=== PATIENT | male | born 1950 | race African-American/Black ===

== ENCOUNTER 2018-01-29 20:55 | Inpatient (IN) | payer OTHER, BC ==
--- OUTSIDE RECORDS SUMMARY | 2018-01-29 20:57 | XMS REPORT | Clinical Summary ---
:1950 Author Organization [facility] Address [address] [place] [address] Care Team Providers Name Role Phone Asked, No Pcp Primary Care Provider Unavailable Allergies No Known Allergies Current Medications Prescription Sig. Disp. Refills Start Date End Date Status cinacalcet Take 60 mg by Active (SENSIPAR) 60 MG mouth every tablet morning. metoprolol Take 50 mg by Active tartrate mouth 2 (two) (LOPRESSOR) 50 mg times a day. tablet sevelamer Take 1,600 mg Active (RENVELA) 800 mg by mouth 3 tablet (three) times a day with meals. isosorbide Take 60 mg by Active mononitrate mouth every (IMDUR) 60 MG 24 morning. hr tablet apixaban (ELIQUIS) Take 1 tablet 60 tablet 0 01/16/2017 02/15/2017 2.5 mg tablet (2.5 mg total) by mouth 2 (two) times a day for 30 days. traMADol (ULTRAM) Take 1 tablet 30 tablet 0 01/16/2017 02/15/2017 50 mg tablet (50 mg total) by mouth every 8 (eight) hours as needed for moderate pain or severe pain for up to 30 days. darbepoetin Inject 0.5 mL 2 mL 0 01/16/2017 01/29/2017 Discontinued ochoa-polysorbate (100 mcg total) (ARANESP) 100 under the skin mcg/0.5 mL once a week at syringeIndications 4pm for 30 days : ESRD on Dialysis Indications: ESRD on Dialysis. HYDROcodone-acetam Take 0.5 01/16/2017 02/15/2017 inophen (NORCO) tablets by 10-325 mg per mouth every 8 tablet (eight) hours as needed for moderate pain or severe pain for up to 30 days. Max Daily Amount: 1.5 tablets atorvastatin Take 1 tablet 30 tablet 0 01/16/2017 02/15/2017 (LIPITOR) 40 MG (40 mg total) tablet by mouth nightly for 30 days. aspirin 81 mg Chew 1 tablet 30 tablet 0 01/17/2017 02/16/2017 chewable tablet (81 mg total) daily for 30 days. epoetin ochoa Inject 10,000 01/31/2017 Discontinued (EPOGEN) 10,000 Units under the unit/mL injection skin 3 (three) times a week. Receives 3 times a week on , , Sat at dialysis colchicine 0.6 mg Take 0.5 30 tablet 5 02/01/2017 03/03/2017 tablet tablets (0.3 mg total) by mouth 2 (two) times a day for 30 days. famotidine Take 1 tablet 30 tablet 1 02/01/2017 03/03/2017 (PEPCID) 40 MG (40 mg total) tablet by mouth daily for 30 days. TAKE WHEN TAKING IBUPROFEN ibuprofen Take 1 tablet 30 tablet 1 02/01/2017 03/03/2017 (ADVIL,MOTRIN) 800 (800 mg total) MG tablet by mouth every 12 (twelve) hours as needed for mild pain or moderate pain for up to 30 days. 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 DVT (deep venous thrombosis) 01/26/2017 ESRD (end stage renal disease) 01/26/2017 Systolic congestive heart failure 01/26/2017 Anasarca 01/26/2017 Supratherapeutic INR 01/10/2017 Encounters Date Type Specialty Care Team Description 01/31/2017 Anesthesia Event Ophthalmology Fanta Vanegas MD 01/31/2017 Procedure Pass Ophthalmology 01/31/2017 Surgery Ophthalmology Luiza Greene MD LEFT UPPER EXTREMITY FISTULOGRAM, CENTRAL VENOGRAM, ANGIOPLASTY 01/30/2017 Procedure Pass Procedural Cardiology 01/29/2017 Procedure Pass Ophthalmology 01/28/2017 Procedure Pass Ophthalmology 01/26/2017 - Hospital Encounter General Internal [facility], ESRD (end stage 02/01/2017 Medicine renal disease) (Primary Dx) after 01/28/2017 Social History Tobacco Use Types Packs/Day Years Used Date Former Smoker Alcohol Use Drinks/Week oz/Week Comments No Sex Assigned at Date Recorded Not on file Last Filed Vital Signs Vital Sign Reading Time Taken Blood Pressure 130/69 02/01/2017 12:15 PM CDT Pulse 73 02/01/2017 12:15 PM CDT Temperature 36.4 C (97.6 F) 02/01/2017 12:15 PM CDT Respiratory Rate 19 02/01/2017 12:15 PM CDT Oxygen Saturation 97% 02/01/2017 12:15 PM CDT Inhaled Oxygen Concentration - - Weight 115 kg (253 lb) 02/01/2017 6:50 AM CDT Height 190.5 cm (6' 3") 01/31/2017 12:29 PM CDT Body Mass Index 31.62 02/01/2017 6:50 AM CDT Plan of Treatment Health Maintenance Due Date Last Done Comments COLON CANCER SCREENING 1998 SHINGRIX VACCINE (#1) 1998 ZOSTER VACCINE 2008 PNEUMOCOCCAL POLYSACCHARIDE VACCINE AGE 65 AND OVER 2013 PNEUMOCOCCAL-13 2013 INFLUENZA VACCINE 03/26/2018 Implants Implanted Type Area Marketing Financial Analyst Device Expiration Model / Identifier Date Serial / Lot Catheter Angio Molder Machine Tender Ii 5fr 65cm Selc Braidd Torque [place] - [id number] Surgical N/A: N/A BSC PERIPHERAL [id number] / Implanted: 01/31/2017 (Quantity not on file) Implants; INTERVENTION / Expanders; VASCULAR REAGAN Extenders; Surgical Wires Abdominal Mesh Procedures Procedure Name Priority Date/Time Associated Diagnosis Comments LEFT UPPER EXTREMITY 01/31/2017 11:30 AM Dialysis complication, FISTULOGRAM, CENTRAL CDT initial encounter VENOGRAM, ANGIOPLASTY Case Notes REQ TO FOLLOW DR SANTOS Special Needs REQ TO FOLLOW DR SANTOS HEMODIALYSIS Routine 01/30/2017 9:22 PM CDT HEMODIALYSIS Routine 01/29/2017 9:43 AM CDT HEMODIALYSIS Routine 01/29/2017 12:05 AM CDT after 01/28/2017 Results XR Chest 2 Vw (01/31/2017 5:56 PM) Specimen [facility] [address] [place] [address] Narrative XR CHEST 2 VW CLINICAL INDICATION:pre op COMPARISON:01/29/2017. IMPRESSION: The heart is enlarged and stable with changes poststernotomy. Pulmonary vascularity is normal. There is no effusion or pneumothorax. Bones appear intact. There is no active disease or interval change. Thank you for allowing us to participate in the care of your patient. [facility]-[id number] Procedure Note Interface, Radiology Results Incoming - 01/31/2017 6:01 PM CDT XR CHEST 2 VW CLINICAL INDICATION: pre op COMPARISON: 01/29/2017. IMPRESSION: The heart is enlarged and stable with changes poststernotomy. Pulmonary vascularity is normal. There is no effusion or pneumothorax. Bones appear intact. There is no active disease or interval change. Thank you for allowing us to participate in the care of your patient. [facility]-[id number] [place] > I Hour (01/31/2017 2:35 PM) Specimen Performing Laboratory [address] [address] Narrative Examination: [place] 1 HOUR Clinical history: Atherosclerosis Comparison: None Impression: Fluoroscopic guidance was provided. A radiologist was not present. Images were not acquired for formal radiologist interpretation. Fluoroscopy time: 98 seconds. 21.5 MG Y. [facility]-[id number] Procedure Note Interface, Radiology Results Incoming - 01/31/2017 5:30 PM CDT Examination: OR [place] 1 HOUR Clinical history: Atherosclerosis Comparison: None Impression: Fluoroscopic guidance was provided. A radiologist was not present. Images were not acquired for formal radiologist interpretation. Fluoroscopy time: 98 seconds. 21.5 MG Y. [facility]-[id number] POC glucose (01/31/2017 12:37 PM)Only the most recent of6 resultswithin the time period is included. Component Value Ref Range POC glucose 94 65 - 99 mg/dL Comment: [facility] Notified RN Meter ID: [id number] Instructor Robotics: Dee Long Specimen Performing Laboratory [facility] DEPARTMENT OF PATHOLOGY AND GENOMIC MEDICINE [address] [place] [phone] Estimated GFR (01/31/2017 11:00 AM)Only the most recent of5 resultswithin the time period is included. Component Value Ref Range GFR Non Af Amer 19 (A) mL/min/1.73 m2 GFR Af Amer 23 (A) mL/min/1.73 m2 Comment: Chronic kidney disease: <60 mL/min/1.73m2 Kidney failure: <15 mL/min/1.73m2 The estimated GFR is calculated from the IDMS-traceable Modification of Diet in Renal Disease Equation. The accuracy of the calculation is poor when the creatinine is normal. Calculated values >90 mL/min/1.73m2 are not reported. This equation has not been validated in children (<18 years), women, the elderly (>70 years), or ethnic groups other than Caucasians and Americans. Specimen Performing Laboratory Plasma specimen [facility] DEPARTMENT OF PATHOLOGY AND GENOMIC MEDICINE [address] [place] [address] Basic metabolic panel (01/31/2017 11:00 AM)Only the most recent of2 resultswithin the time period is included. Component Value Ref Range Sodium 138 135 - 148 mEq/L Potassium 3.3 (L) 3.5 - 5.0 mEq/L Chloride 93 (L) 98 - 112 mEq/L CO2 29 24 - 31 mEq/L Anion gap 16 (H) 7 - 15 mEq/L Comment: Starting from November , anion gap calculation no longer incorporates potassium. Please note the change. BUN 15 8 - 23 mg/dL Creatinine 3.3 (H) 0.7 - 1.2 mg/dL Glucose 94 65 - 99 mg/dL Calcium 8.2 (L) 8.8 - 10.2 mg/dL Specimen Performing Laboratory Plasma specimen [facility] DEPARTMENT OF PATHOLOGY AND GENOMIC MEDICINE [address] [place] [phone] ECG Pre/Post Op (01/31/2017 7:09 AM) Component Value Ref Range Ventricular rate 86 Atrial rate 86 CO interval 164 QRSD interval 110 QT interval 392 QTC interval 469 P axis 1 58 QRS axis 1 17 T wave axis 139 EKG impression Sinus rhythm with frequent premature ventricular complexes- Possible Left atrial enlargement-ST & T wave abnormality, consider anterolateral ischemia-Prolonged QT-Abnormal ECG-In automated comparison with ECG of 29-JAN-2017 05:06,-premature ventricular complexes are now present- Specimen Performing Laboratory [facility] MUSE [address] [place] [address] Manual differential (01/31/2017 6:22 AM)Only the most recent of2 resultswithin the time period is included. Component Value Ref Range Manual differential PERFORMED Neutrophils 75.0 (H) 39.0 - 69.0 % Lymphocytes 19.0 (L) 25.0 - 45.0 % Monocytes 6.0 0.0 - 10.0 % Eosinophils 0.0 0.0 - 5.0 % Basophils 0.0 0.0 - 1.0 % Metamyelocytes 0 % Promyelocytes 0 % Platelet slide review Louie adequate Anisocytosis Moderate Polychromasia Moderate Ovalocytes Moderate Rouleaux Slight Specimen Performing Laboratory [facility] DEPARTMENT OF PATHOLOGY AND GENOMIC MEDICINE [address] [place] [address] Partial thromboplastin time, activated (01/31/2017 6:22 AM)Only the most recent of2 resultswithin the time period is included. Component Value Ref Range PTT 37.0 (H) 23.0 - 36.0 sec Comment: PTT therapeutic range for unfractionated heparin is 61.0-112.0 seconds which corresponds to Anti-Xa 0.3-0.7 U/ml. Specimen Performing Laboratory Blood [facility] DEPARTMENT OF PATHOLOGY AND [facility] MEDICINE [address] [place] [address] Prothrombin time with INR (01/31/2017 6:22 AM)Only the most recent of3 resultswithin the time period is included. Component Value Ref Range Prothrombin time 18.7 (H) 12.0 - 15.0 sec INR 1.6 Comment: The International Normalized Ratio (INR) is a therapeutic monitoring tool for patients who are stable on oral anticoagulant therapy. An INR of 2.0-3.0 is suggested for deep vein thrombosis/pulmonary embolism. Specimen Performing Laboratory Blood [facility] DEPARTMENT OF PATHOLOGY AND [facility] MEDICINE [address] [place] [phone] CBC with platelet and differential (01/31/2017 6:22 AM)Only the most recent of3 resultswithin the time period is included. Component Value Ref Range WBC 9.70 4.50 - 11.00 k/uL RBC 2.58 (L) 4.40 - 6.00 m/uL HGB 7.6 (L) 14.0 - 18.0 g/dL HCT 25.2 (L) 41.0 - 51.0 % MCV 97.7 82.0 - 100.0 fL MCH 29.5 27.0 - 34.0 pg MCHC 30.2 (L) 31.0 - 37.0 g/dL RDW - SD 72.7 (H) 37.0 - 55.0 fL MPV 9.0 8.8 - 13.2 fL Platelet count 182 150 - 400 k/uL Nucleated RBC 0.00 /100 WBC Neutrophils 75.0 (H) 39.0 - 69.0 % Lymphocytes 19.0 (L) 25.0 - 45.0 % Monocytes 6.0 0.0 - 10.0 % Eosinophils 0.0 0.0 - 5.0 % Basophils 0.0 0.0 - 1.0 % Specimen Performing Laboratory Blood [facility] DEPARTMENT OF PATHOLOGY AND GENOMIC MEDICINE [address] [place] [address] Hemoglobin A1c (01/31/2017 6:22 AM) Component Value Ref Range Hemoglobin A1C 5.0 4.0 - 5.6 % Comment: HbA1c cutoffs for diagnosing diabetes: 4.0% - 5.6%=normal 5.7% - 6.4%=increased risk for diabetes (prediabetes) >=6.5%=diabetes Goals for glycemic control (ADA 2016) < 7.0%Target for non adults with diabetes. More or less stringent targets may be appropriate for individual patients. <7.5% Target for Children and adolescents with type 1 diabetes. Specimen Performing Laboratory Blood [facility] OF PATHOLOGY AND [facility] [address] [place] [address] Comprehensive metabolic panel (01/31/2017 6:22 AM)Only the most recent of3 resultswithin the time period is included. Component Value Ref Range Sodium 132 (L) 135 - 148 mEq/L Potassium 4.8 3.5 - 5.0 mEq/L Chloride 90 (L) 98 - 112 mEq/L CO2 24 24 - 31 mEq/L Anion gap 18 (H) 7 - 15 mEq/L Comment: Starting from November , anion gap calculation no longer incorporates potassium. Please note the change. BUN 40 (H) 8 - 23 mg/dL Creatinine 7.7 (H) 0.7 - 1.2 mg/dL Glucose 99 65 - 99 mg/dL Calcium 7.8 (L) 8.8 - 10.2 mg/dL Protein 7.3 6.3 - 8.3 g/dL Comment: [place] 4.6-7.0 g/dL 1 week 4.4-7.6 g/dL 7 months-1year5.1-7.3 g/dL 1-2 years5.6-7.5 g/dL >3 years6.0-8.0 g/dL 18-150 6.3-8.3 g/dL Albumin 1.8 (L) 3.5 - 5.0 g/dL A/G ratio 0.3 (L) 0.7 - 3.8 Alkaline phosphatase 134 (H) 40 - 129 U/L AST 9 (L) 10 - 50 U/L ALT 6 5 - 50 U/L Total bilirubin 0.4 0.0 - 1.2 mg/dL Specimen Performing Laboratory Plasma specimen [facility] DEPARTMENT OF PATHOLOGY AND GENOMIC MEDICINE [address] [place] [address] CBC hemogram (01/30/2017 2:44 AM) Component Value Ref Range WBC 9.75 4.50 - 11.00 k/uL RBC 2.43 (L) 4.40 - 6.00 m/uL HGB 7.3 (L) 14.0 - 18.0 g/dL HCT 23.9 (L) 41.0 - 51.0 % MCV 98.4 82.0 - 100.0 fL MCH 30.0 27.0 - 34.0 pg MCHC 30.5 (L) 31.0 - 37.0 g/dL RDW - SD 75.2 (H) 37.0 - 55.0 fL MPV 9.5 8.8 - 13.2 fL Platelet count 180 150 - 400 k/uL Nucleated RBC 0.00 /100 WBC Specimen Performing Laboratory Blood [facility] DEPARTMENT OF PATHOLOGY AND GENOMIC MEDICINE [address] [place] [phone] XR Chest 1 Vw Portable (01/29/2017 7:07 PM) Specimen Performing Laboratory [facility] [address] [place] [address] Narrative EXAMINATION:XR CHEST 1 VW PORTABLE CLINICAL HISTORY:Pre-Op COMPARISON:January 11, 2017 IMPRESSION: 1.There has been a sternotomy. Heart size is at the upper limits normal. 2.No infiltrates or effusions are seen. [facility]-[id number] Procedure Note Interface, Radiology Results Incoming - 01/29/2017 7:24 PM CDT EXAMINATION: XR CHEST 1 VW PORTABLE CLINICAL HISTORY: Pre-Op COMPARISON: January 11, 2017 IMPRESSION: 1. There has been a sternotomy. Heart size is at the upper limits normal. 2. No infiltrates or effusions are seen. [facility]-[id number] ECG 12 lead (01/29/2017 5:06 AM) Component Value Ref Range Ventricular rate 74 Atrial rate 74 CO interval 162 QRSD interval 114 QT interval 414 QTC interval 459 P axis 1 65 QRS axis 1 2 T wave axis 149 EKG impression Normal sinus rhythm-ST & T wave abnormality, consider anterolateral ischemia-Abnormal ECG-In automated comparison with ECG of 2016 08:38,-premature ventricular complexes are no longer present-premature atrial complexes are no longer present- : 43 PM Specimen Performing Laboratory [facility] [address] [place] [address] Phosphorus level (01/29/2017 3:50 AM)Only the most recent of2 resultswithin the time period is included. Component Value Ref Range Phosphorus 4.7 (H) 2.4 - 4.5 mg/dL Specimen Performing Laboratory Plasma specimen [facility] DEPARTMENT OF PATHOLOGY AND GENOMIC MEDICINE [address] [place] [address]67 Magnesium level (01/29/2017 3:50 AM)Only the most recent of2 resultswithin the time period is included. Component Value Ref Range Magnesium 1.8 1.6 - 2.4 mg/dL Specimen Performing Laboratory Plasma specimen [facility] DEPARTMENT OF PATHOLOGY AND GENOMIC MEDICINE [address] [place] [address] Smear review (01/29/2017 3:15 AM) Component Value Ref Range Platelet slide review Louie adequate Anisocytosis Moderate Polychromasia Moderate Spherocytes Occasional Ovalocytes Moderate Specimen Performing Laboratory [facility] DEPARTMENT OF PATHOLOGY AND GENOMIC MEDICINE [address] [place] [address] after 01/28/2017 Insurance Payer Benefit Plan / Group Subscriber ID Type Phone Address MEDICARE MEDICARE PART A AND B xxxxxxxxxx Medicare [place], [place] BCBS BCBS CHOICE PPO/F[employer]ERAL EMPL PPO xxxxxxxxxxxx PPO Home: [facility] [employer] [facility] [id number] [id number]
[2018-01-29] MEDS ORDERED: MORPHINE 4 MG/ML SYR ONE (22:05)
[2018-01-29] MEDS ORDERED: ONDANSETRON 4 MG/2 ML VIAL ONE (22:06)
[2018-01-29 22:07] LABS: Absolute Lymphocytes (CBC) 0.9 K/uL (0.7-4.9); Absolute Monocytes 0.4 K/uL (0.1-1.3); Absolute Neutrophil 2.2 K/uL (1.8-8.0); Basophils % 0.6 % (0-1.3); Eosinophils % 0.9 % (0-4.4); Hematocrit 25.9 % (39.6-49.0); Lymphocytes % 26.1 % (15.3-44.8); MCH 28.7 pg (27.0-35.0); MCV 89.4 fL (80-100); MPV 7.4 fL (7.6-11.3); Monocytes % 11.6 % (3.3-12.3); RBC Red Blood Cell Count 2.89 M/uL (4.33-5.43)
[2018-01-29] MEDS ORDERED: APIXABAN 2.5 MG TABLET ONE (22:10)
[2018-01-29 22:24] LABS: Albumin 2.9 g/dL (3.2-5.5); Bilirubin Direct 0.1 mg/dL (0-0.2); Bilirubin Total 0.5 mg/dL (0.3-1.2); Magnesium 1.7 mg/dL (1.8-2.5); Protein, Total 9.1 g/dL (6.0-8.3)
[2018-01-29 22:26] LABS: CKMB Creatine Kinase MB 1.6 ng/ml (0.3-4.0)
[2018-01-29 22:39] LABS: Protime INR 1.2
--- NOTE | 2018-01-29 23:47 | EDPHYS ---
Physician Documentation [facility] Name: Nain Cartagena Jr Age: 67 yrs Sex: Male : 1950 Arrival Date: 01/29/2018 Time: 20:56 Bed 8 Private MD: ED Physician Yvan Prescott HPI: 01/29 21:58 This 67 yrs old Black Male presents to ER via EMS with complaints of Chest Pressure, sarika Shortness Of Breath. 21:58 The patient or guardian reports chest pain that is located primarily in the substernal sarika area. Onset: 2 day(s) ago. The pain does not radiate. Associated signs and symptoms: The patient has no apparent associated signs or symptoms. The chest pain is described as a heaviness, causing indigestion. Modifying factors: The symptoms are alleviated by nothing. the symptoms are aggravated by activity. Severity of pain: At its worst the pain was mild in the emergency department the pain has resolved. The patient has experienced similar episodes in the past. Historical: - Allergies: 21:03 No Known Allergies; tl2 - Home Meds: 21:03 acetaminophen-codeine 300-30 mg Oral tab [Active]; Alinia 500 mg Oral tab 1 tab twice a tl2 day [Active]; Allopurinol 50 mg Oral 1 tab once daily [Active]; aspirin 81 mg Oral chew 1 tab once daily [Active]; atorvastatin 40 mg Oral tab 1 tab once daily [Active]; colchicine 0.6 mg Oral cap 1 cap 2 times per day [Active]; Eliquis 2.5 mg Oral tab 1 tab 2 times per day [Active]; hydrocodone-acetaminophen 10-325 mg Oral tab TID [Active]; Klonopin 0.5 mg Oral tab 1 tab 2 times per day [Active]; metoprolol tartrate 25 mg Oral tab 1 tab twice a day [Active]; pantoprazole 40 mg Oral TbEC 1 tab once daily [Active]; Renvela 800 mg Oral tab 1 tab 3 times per day [Active]; sertraline 50 mg Oral tab once daily [Active]; tramadol 50 mg Oral tab 1 tab twice a day for Pain [Active]; - PMHx: 21:03 CHF; DIALYSIS Saturday, and saturdays; ESRD; Hypertension; Diabetes - NIDDM; tl2 - Immunization history:: Adult Immunizations up to date. - Social history:: Smoking status: Patient/guardian denies using tobacco. - Ebola Screening: : No symptoms or risks identified at this time. - Family history:: not pertinent. ROS: 21:58 Constitutional: Negative for fever, chills, and weight loss, Eyes: Negative for injury, sarika pain, redness, and discharge, ENT: Negative for injury, pain, and discharge, Neck: Negative for injury, pain, and swelling, Respiratory: Negative for shortness of breath, cough, wheezing, and pleuritic chest pain, Abdomen/GI: Negative for abdominal pain, nausea, vomiting, diarrhea, and constipation, Back: Negative for injury and pain, : Negative for injury, bleeding, discharge, and swelling, MS/Extremity: Negative for injury and deformity, Skin: Negative for injury, rash, and discoloration, Neuro: Negative for headache, weakness, numbness, tingling, and seizure, Psych: Negative for depression, anxiety, suicide ideation, homicidal ideation, and hallucinations, Allergy/Immunology: Negative for hives, rash, and allergies, Endocrine: Negative for neck swelling, polydipsia, polyuria, polyphagia, and marked weight changes, Hematologic/Lymphatic: Negative for swollen nodes, abnormal bleeding, and unusual bruising. 21:58 Cardiovascular: Positive for chest pain, of the chest. Exam: 21:58 Constitutional: This is a well developed, well nourished patient who is awake, alert, sarika and in no acute distress. Head/Face: Normocephalic, atraumatic. Eyes: Pupils equal round and reactive to light, extra-ocular motions intact. Lids and lashes normal. Conjunctiva and sclera are non-icteric and not injected. Cornea within normal limits. Periorbital areas with no swelling, redness, or edema. ENT: Nares patent. No nasal discharge, no septal abnormalities noted. Tympanic membranes are normal and external auditory canals are clear. Oropharynx with no redness, swelling, or masses, exudates, or evidence of obstruction, uvula midline. Mucous membranes moist. Neck: Trachea midline, no thyromegaly or masses palpated, and no cervical lymphadenopathy. Supple, full range of motion without nuchal rigidity, or vertebral point tenderness. No Meningismus. Chest/axilla: Normal chest wall appearance and motion. Nontender with no deformity. No lesions are appreciated. Cardiovascular: Regular rate and rhythm with a normal S1 and S2. No gallops, murmurs, or rubs. Normal PMI, no JVD. No pulse deficits. Respiratory: Lungs have equal breath sounds bilaterally, clear to auscultation and percussion. No rales, rhonchi or wheezes noted. No increased work of breathing, no retractions or nasal flaring. Abdomen/GI: Soft, non-tender, with normal bowel sounds. No distension or tympany. No guarding or rebound. No evidence of tenderness throughout. Back: No spinal tenderness. No costovertebral tenderness. Full range of motion. Male : Normal genitalia with no discharge or lesions. Skin: Warm, dry with normal turgor. Normal color with no rashes, no lesions, and no evidence of cellulitis. Neuro: Awake and alert, GCS 15, oriented to person, place, time, and situation. Cranial nerves II-XII grossly intact. Motor strength 5/5 in all extremities. Sensory grossly intact. Cerebellar exam normal. Normal gait. Psych: Awake, alert, with orientation to person, place and time. Behavior, mood, and affect are within normal limits. 21:58 Musculoskeletal/extremity: ROM: full active range of motion, full passive range of motion, Circulation is intact in all extremities. Sensation intact. Compartment Syndrome exam of affected extremity: is normal. DVT Exam: no pain, no tenderness, negative Homans' sign noted on exam, no appreciated bluish discoloration, no erythema, no increased warmth, swelling. Vital Signs: 21:03 BP 146 / 77; Pulse 110; Resp 22; Temp 97.9(O); Pulse Ox 100% on R/A; Weight 113.4 kg; tl2 Height 5 ft. 10 in. (177.80 cm); Pain 6/10; 22:32 BP 126 / 78; Pulse 103; Resp 8; Pulse Ox 100% ; rv 23:18 BP 130 / 77; Pulse 102; Resp 17; Pulse Ox 100% on R/A; tl2 23:27 BP 130 / 77; Pulse 101; Resp 8; Pulse Ox 100% on R/A; rv 07 00:35 BP 103 / 56; Pulse 91; Resp 19; Pulse Ox 100% on R/A; tl2 01/29 21:03 Body Mass Index 35.87 (113.40 kg, 177.80 cm) tl2 MDM: 01/29 21:32 Patient medically screened. [facility] 22:01 Data reviewed: vital signs, nurses notes, lab test result(s), EKG, radiologic studies, sarika plain films. 01/29 21:45 Order name: Basic Metabolic Panel; Complete Time: 23:34 tl2 01/29 21:45 Order name: BNP; Complete Time: 23:34 2 01/29 21:45 Order name: CBC with Diff; Complete Time: 23:34 tl2 01/29 21:45 Order name: Ckmb; Complete Time: 23:34 tl2 01/29 21:45 Order name: CPK; Complete Time: 23:34 2 01/29 21:45 Order name: LFT's; Complete Time: 23:34 2 01/29 21:45 Order name: Magnesium; Complete Time: 23:34 2 01/29 21:45 Order name: PT-INR; Complete Time: 23:34 2 01/29 21:45 Order name: Ptt, Activated; Complete Time: 23:34 2 01/29 21:45 Order name: Troponin (emerg Dept Use Only); Complete Time: 23:34 2 01/29 21:45 Order name: XRAY Chest (1 view) [place] 01/29 23:38 Order name: Type And Screen [facility] 01/29 23:53 Order name: Echo with Doppler [facility] 01/30 00:52 Order name: Lipid Profile [facility] 01/29 21:45 Order name: EKG; Complete Time: 21:45 2 01/29 21:45 Order name: Cardiac monitoring; Complete Time: 21:46 2 01/29 21:45 Order name: EKG - Nurse/Tech; Complete Time: 21:46 2 01/29 23:38 Order name: EKG; Complete Time: 23:38 [facility] 01/29 23:53 Order name: CONS Physician Consult [facility] 01/29 23:53 Order name: CONS Physician Consult [facility] 01/29 21:45 Order name: IV Saline Lock; Complete Time: 21:46 2 01/29 21:45 Order name: Labs collected and sent; Complete Time: 21:46 2 01/29 21:45 Order name: O2 Per Protocol; Complete Time: 21:46 2 01/29 21:45 Order name: O2 Sat Monitoring; Complete Time: 21:46 tl2 01/29 23:38 Order name: EKG - Nurse/Tech; Complete Time: 00:33 sarika Administered Medications: 22:20 Not Given (Physician Discretion): Eliquis 2.5 mg PO once rv 22:20 Drug: morphine 2 mg Route: IVP; Site: right antecubital; rv 01/30 00:49 Follow up: Response: No adverse reaction; Pain is decreased rv 01/29 22:20 Drug: Zofran 4 mg Route: IVP; Site: right antecubital; rv 01/30 01:03 Follow up: Response: No adverse reaction tl2 00:04 Drug: Magnesium Sulfate 1 grams Route: IVPB; Infused Over: 1 hrs; Site: right forearm; tl2 01:03 Follow up: IV Status: Infusion continued upon admission tl2 00:05 Drug: Heparin ([place] Drip) 12 units/kg/hr - (HEParin 05966 units, D5W 500 ml) tl2 {Co-Signature: bp (Ken Ewing RN).} Route: IV; Rate: calculated rate; Site: right forearm; 00:48 Follow up: IV Status: Infusion continued upon admission rv 00:05 Drug: Lopressor (metoprolol TARTRATE) 50 mg Route: PO; tl2 00:47 Follow up: Response: No adverse reaction rv 00:05 Drug: Lopressor 2.5 mg Route: IVP; Site: right forearm; tl2 00:46 Follow up: Response: No adverse reaction; heart rate normalized rv 00:07 Drug: Heparin ([place]-Bolus No thrombolytic) - HEParin 60 units/kg {Co-Signature: bp (Ken Ewing RN).} Route: IVP; Site: right forearm; 00:48 Follow up: Response: No adverse reaction rv 00:49 Follow up: Response: No adverse reaction rv 00:15 Drug: ProTONIX 40 mg Route: IVP; Site: right forearm; tl2 00:49 Follow up: Response: No adverse reaction rv Point of Care Testing: Blood Glucose: 01/29 21:03 Blood Glucose: 179 mg/dL; tl2 Ranges: Critical Glucose Levels:Adult <50 mg/dl or >400 mg/dl <40 mg/dl or >180 mg/dl Disposition: 01/29/18 23:46 Hospitalization ordered by Siobhan Martinez for Inpatient Admission. Preliminary diagnosis are Other chest pain, End stage renal disease, Anemia, unspecified, Unspecified combined systolic (congestive) and diastolic (congestive) heart failure, Type 2 diabetes mellitus, Weakness, Hypomagnesemia, Non-ST elevation (NSTEMI) myocardial infarction, Essential (primary) hypertension. - Bed requested for Telemetry/MedSurg (Inpatient). - Status is Inpatient Admission. bp - Condition is Stable. - Problem is new. - Symptoms have improved. UTI on Admission? No Signatures: Dispatcher [employer] EDMS Dayanara Galvan RN RN mw Anderson, Corey, MD MD cha Knox, Taylor, RN RN tl2 Ken Ewing RN RN bp Brien Jean-Baptiste RN RN rv Ken Ewing RN bp Corrections: (The following items were deleted from the chart) 23:47 23:46 Hospitalization Ordered by Siobhan Martinez MD for Inpatient Admission. Preliminary sarika diagnosis is Other chest pain; End stage renal disease; Anemia, unspecified; Unspecified combined systolic (congestive) and diastolic (congestive) heart failure; Type 2 diabetes mellitus; Weakness; Hypomagnesemia. Bed requested for Telemetry/MedSurg (Inpatient). Status is Inpatient Admission. Condition is Stable. Problem is new. Symptoms have improved. UTI on Admission? No. sarika 23:47 23:47 01/29/2018 23:46 Hospitalization Ordered by Siobhan Martinez MD for Inpatient sarika Admission. Preliminary diagnosis is Other chest pain; End stage renal disease; Anemia, unspecified; Unspecified combined systolic (congestive) and diastolic (congestive) heart failure; Type 2 diabetes mellitus; Weakness; Hypomagnesemia; Non-ST elevation (NSTEMI) myocardial infarction. Bed requested for Telemetry/MedSurg (Inpatient). Status is Inpatient Admission. Condition is Stable. Problem is new. Symptoms have improved. UTI on Admission? No. sarika 23:50 23:47 01/29/2018 23:46 Hospitalization Ordered by Siobhan Martinez MD for Inpatient mw Admission. Preliminary diagnosis is Other chest pain; End stage renal disease; Anemia, unspecified; Unspecified combined systolic (congestive) and diastolic (congestive) heart failure; Type 2 diabetes mellitus; Weakness; Hypomagnesemia; Non-ST elevation (NSTEMI) myocardial infarction; Essential (primary) hypertension. Bed requested for Telemetry/MedSurg (Inpatient). Status is Inpatient Admission. Condition is Stable. Problem is new. Symptoms have improved. UTI on Admission? No. sarika 23:58 23:50 01/29/2018 23:46 Hospitalization Ordered by Siobhan Martinez MD for Inpatient mw Admission. Preliminary diagnosis is Other chest pain; End stage renal disease; Anemia, unspecified; Unspecified combined systolic (congestive) and diastolic (congestive) heart failure; Type 2 diabetes mellitus; Weakness; Hypomagnesemia; Non-ST elevation (NSTEMI) myocardial infarction; Essential (primary) hypertension. Bed requested for Telemetry/MedSurg (Inpatient). Status is Inpatient Admission. Condition is Stable. Problem is new. Symptoms have improved. UTI on Admission? No. mw 01/30 01:10 01/29 23:58 01/29/2018 23:46 Hospitalization Ordered by Siobhan Martinez MD for Inpatient bp Admission. Preliminary diagnosis is Other chest pain; End stage renal disease; Anemia, unspecified; Unspecified combined systolic (congestive) and diastolic (congestive) heart failure; Type 2 diabetes mellitus; Weakness; Hypomagnesemia; Non-ST elevation (NSTEMI) myocardial infarction; Essential (primary) hypertension. Bed requested for Telemetry/MedSurg (Inpatient). Status is Inpatient Admission. Condition is Stable. Problem is new. Symptoms have improved. UTI on Admission? No. mw
--- NOTE | 2018-01-29 23:47 | ER ---
Nurse's Notes [facility] Name: Nain Cartagena Jr Age: 67 yrs Sex: Male : 1950 Arrival Date: 01/29/2018 Time: 20:56 Bed 8 Private MD: Diagnosis: Other chest pain;End stage renal disease;Anemia, unspecified;Unspecified combined systolic (congestive) and diastolic (congestive) heart failure;Type 2 diabetes mellitus;Weakness;Hypomagnesemia;Non-ST elevation (NSTEMI) myocardial infarction;Essential (primary) hypertension Presentation: 01/29 20:56 Presenting complaint: EMS states: Pt c/o chest pressure and shortness of breath tl2 suddenly approx 30 mins ago. Pt took 324 aspirin at home. Pt AOx4. Transition of care: patient was not received from another setting of care. Onset of symptoms was January 29, 2018 at 20:20. Risk Assessment: Do you want to hurt yourself or someone else? Patient reports no desire to harm self or others. Initial Sepsis Screen: Does the patient meet any 2 criteria? No. Patient's initial sepsis screen is negative. Does the patient have a suspected source of infection? No. Patient's initial sepsis screen is negative. Care prior to arrival: Medication(s) given: ASA, 81 mg, x 4. 20:56 Method Of Arrival: EMS: [facility] tl2 20:56 Acuity: RADHA 3 tl2 Triage Assessment: 21:03 General: Appears in no apparent distress. uncomfortable, Behavior is calm, cooperative, tl2 appropriate for age. Pain: Complains of pain in chest Pain does not radiate. Quality of pain is described as pressure. Neuro: Level of Consciousness is awake, alert, obeys commands, Oriented to person, place, time, situation. Cardiovascular: Rhythm is sinus tachycardia. Respiratory: Airway is patent Respiratory effort is even, unlabored, Respiratory pattern is regular, symmetrical. Historical: - Allergies: 21:03 No Known Allergies; tl2 - Home Meds: 21:03 acetaminophen-codeine 300-30 mg Oral tab [Active]; Alinia 500 mg Oral tab 1 tab twice a tl2 day [Active]; Allopurinol 50 mg Oral 1 tab once daily [Active]; aspirin 81 mg Oral chew 1 tab once daily [Active]; atorvastatin 40 mg Oral tab 1 tab once daily [Active]; colchicine 0.6 mg Oral cap 1 cap 2 times per day [Active]; Eliquis 2.5 mg Oral tab 1 tab 2 times per day [Active]; hydrocodone-acetaminophen 10-325 mg Oral tab TID [Active]; Klonopin 0.5 mg Oral tab 1 tab 2 times per day [Active]; metoprolol tartrate 25 mg Oral tab 1 tab twice a day [Active]; pantoprazole 40 mg Oral TbEC 1 tab once daily [Active]; Renvela 800 mg Oral tab 1 tab 3 times per day [Active]; sertraline 50 mg Oral tab once daily [Active]; tramadol 50 mg Oral tab 1 tab twice a day for Pain [Active]; - PMHx: 21:03 CHF; DIALYSIS Saturday, and saturdays; ESRD; Hypertension; Diabetes - NIDDM; tl2 - Immunization history:: Adult Immunizations up to date. - Social history:: Smoking status: Patient/guardian denies using tobacco. - Ebola Screening: : No symptoms or risks identified at this time. - Family history:: not pertinent. Screenin:05 Abuse screen: Denies threats or abuse. Nutritional screening: No deficits noted. tl2 Tuberculosis screening: No symptoms or risk factors identified. Fall Risk None identified. Assessment: 22:34 Pain: Pain began 2 hours ago. rv 22:35 Also complains of shortness of breath. General: Appears in no apparent distress. rv comfortable, Behavior is calm, cooperative, appropriate for age. Neuro: Level of Consciousness is awake, alert, obeys commands, Oriented to person, place, time, situation. Cardiovascular: Capillary refill < 3 seconds. Respiratory: Airway is patent. GI: No signs and/or symptoms were reported involving the gastrointestinal system. : No signs and/or symptoms were reported regarding the genitourinary system. EENT: No signs and/or symptoms were reported regarding the EENT system. Derm: Skin is intact. 23:18 Reassessment: Patient appears in no apparent distress at this time. Patient and/or tl2 family updated on plan of care and expected duration. Pain level reassessed. Patient is alert, oriented x 3, equal unlabored respirations, skin warm/dry/pink. 23:27 Reassessment: Chad (son) [phone]------ [place] [phone]. tl2 23:28 Reassessment: Encouraged pt to give urine sample. Pt states that he does not make urine tl2 anymore. 01/30 00:16 Reassessment: patient started on heparin drip. patient is asleep, comfortable and vital tl2 signs are stable. Vital Signs: 01/29 21:03 BP 146 / 77; Pulse 110; Resp 22; Temp 97.9(O); Pulse Ox 100% on R/A; Weight 113.4 kg; tl2 Height 5 ft. 10 in. (177.80 cm); Pain 6/10; 22:32 BP 126 / 78; Pulse 103; Resp 8; Pulse Ox 100% ; rv 23:18 BP 130 / 77; Pulse 102; Resp 17; Pulse Ox 100% on R/A; tl2 23:27 BP 130 / 77; Pulse 101; Resp 8; Pulse Ox 100% on R/A; rv 01/30 00:35 BP 103 / 56; Pulse 91; Resp 19; Pulse Ox 100% on R/A; tl2 01/29 21:03 Body Mass Index 35.87 (113.40 kg, 177.80 cm) tl2 ED Course: 01/29 20:56 Patient arrived in ED. tl2 20:56 Ken Ewing, RN is Primary Nurse. bp 20:58 Triage completed. tl2 21:03 Arm band placed on right wrist. tl2 21:03 Maintain EMS IV. Dressing intact. Good blood return noted. Site clean \T\ dry. Gauge \T\ tl 2 site: 20 g R wrist. Patient maintains SpO2 saturation greater than 95% on room air. 21:31 Yvan Prescott MD is Attending Physician. sarika 21:48 Patient has correct armband on for positive identification. Bed in low position. Call tl2 light in reach. Side rails up X2. pvc monitor on. Pulse ox on. NIBP on. 22:08 X-ray completed. Portable x-ray completed in exam room. Patient tolerated procedure kc2 well. 22:09 XRAY Chest (1 view) In Process Unspecified. EDMS 23:43 Siobhan Martinez MD is Hospitalizing Provider. sarika 01/30 00:44 No provider procedures requiring assistance completed. Patient admitted, IV remains in tl2 place. Administered Medications: 01/29 22:20 Not Given (Physician Discretion): Eliquis 2.5 mg PO once rv 22:20 Drug: morphine 2 mg Route: IVP; Site: right antecubital; rv 01/30 00:49 Follow up: Response: No adverse reaction; Pain is decreased rv 01/29 22:20 Drug: Zofran 4 mg Route: IVP; Site: right antecubital; rv 06 01:03 Follow up: Response: No adverse reaction tl2 00:04 Drug: Magnesium Sulfate 1 grams Route: IVPB; Infused Over: 1 hrs; Site: right forearm; tl2 01:03 Follow up: IV Status: Infusion continued upon admission tl2 00:05 Drug: Heparin ([place] Drip) 12 units/kg/hr - (HEParin 71533 units, D5W 500 ml) tl2 {Co-Signature: bp (Ken Ewing RN).} Route: IV; Rate: calculated rate; Site: right forearm; 00:48 Follow up: IV Status: Infusion continued upon admission rv 00:05 Drug: Lopressor (metoprolol TARTRATE) 50 mg Route: PO; tl2 00:47 Follow up: Response: No adverse reaction rv 00:05 Drug: Lopressor 2.5 mg Route: IVP; Site: right forearm; tl2 00:46 Follow up: Response: No adverse reaction; heart rate normalized rv 00:07 Drug: Heparin ([place]-Bolus No thrombolytic) - HEParin 60 units/kg {Co-Signature: bp (Ken Ewing RN).} Route: IVP; Site: right forearm; 00:48 Follow up: Response: No adverse reaction rv 00:49 Follow up: Response: No adverse reaction rv 00:15 Drug: ProTONIX 40 mg Route: IVP; Site: right forearm; tl2 00:49 Follow up: Response: No adverse reaction rv Point of Care Testing: Blood Glucose: 01/29 21:03 Blood Glucose: 179 mg/dL; tl2 Ranges: Outcome: 23:46 Decision to Hospitalize by Provider. [facility] 01/30 00:45 Admitted to Tele accompanied by tech, via stretcher, room 410, with chart. rv 00:45 Condition: stable rv 00:45 Instructed on the need for admit. 01:10 Patient left the ED. bp Signatures: Dispatcher [employer] Yvan June MD MD cha Carr, Kelsie kc2 Kathy Bang RN RN tl2 Ken Ewing RN RN bp Brien Jean-Baptiste RN RN rv Ken Ewing RN bp
[2018-01-29] MEDS ORDERED: HEPARIN 5000 UNIT/ML 1 ML VIAL ONE (23:51)
[2018-01-29] MEDS ORDERED: MAGNESIUM SULFATE 1 gm IVPB 1 GM/100 ML BAG IV ONE (23:51)
[2018-01-29] MEDS ORDERED: HEPARIN/D5W 25,000 UNIT/500 ML BAG IV ONE (23:51)
[2018-01-29] MEDS ORDERED: METOPROLOL TAR 50 MG TAB ONE (23:51)
[2018-01-29] MEDS ORDERED: METOPROLOL TARTRATE 5 MG/5 ML INJ IV ONE (23:51)
[2018-01-30] MEDS ORDERED: PANTOPRAZOLE 40 MG INJ ONE (00:12)
[2018-01-30] MEDS ORDERED: ACETAMINOPHEN 500 MG TAB PO PRN (00:23)
[2018-01-30] MEDS ORDERED: MORPHINE 4 MG/ML SYR IV PRN (00:23)
[2018-01-30] MEDS ORDERED: ALPRAZOLAM 0.25 MG TABLET PO PRN (00:23)
[2018-01-30] MEDS ORDERED: Morphine 2 MG/2 ML SYR IV PRN (07:25)
--- NOTE | 2018-01-30 08:12 | P.HP ---
Certification for Inpatient Patient admitted to: Inpatient With expected LOS: >2 Midnights Patient will require the following post-hospital care: None Practitioner: I am a practitioner with admitting privileges, knowledge of patient current condition, hospital course, and medical plan of care. Services: Services provided to patient in accordance with Admission requirements found in Title 42 Section 412.3 of the Code of Federal Regulations Patient History Date of Service: 01/30/18 History of Present Illness: Patient is a 67-year-old gentleman came to the hospital with chest discomfort and shortness of breath. Patient states his pain was mainly in the sternal region and it was going on for the last couple days. He was interacting with his nephew or grandson in the room playing around. He stated that he started feeling the chest discomfort. He had also been eating shortly before that and states that it felt somewhat like indigestion. Patient has had a history of coronary artery disease and has had a 2 vessel coronary artery bypass grafting. Patient was brought into the hospital for further evaluation. Patient states he still having some chest pain in the sternal region. It is reproducible. Patient has no epigastric tenderness. Patient will be brought into the hospital for further evaluation. Allergies No Known Allergies Allergy (Verified 01/30/18 01:55) - Past Medical/Surgical History Has patient received pneumonia vaccine in the past: Yes Diabetic: Yes -: ESRD on Saturday, , and Saturday -: Cardiomyopathy -: HTN -: cyst to bilateral arms -: carpal tunnel bilateral hands -: atrial fibrillation and atrial flutter -: Small-bowel obstruction/abdominal surgery -: Pulmonary embolism -: DVT with bilateral upper and lower extremity DVTs -: Myocardial infarction -: coronary disease status post CABG -: dementia -: Dialysis access catheter placement -: carpal tunnel surgery bilat hands -: CABG -: IVC filter - Family History Sister Medical History: Cancer Notes: leukemia Father Medical History: Heart disease Mother Medical History: Other (see notes) Notes: Dementia Brother Medical History: Cancer - Social History Smoking Status: Unknown if ever smoked Alcohol use: No CD- Drugs: No Caffeine use: Yes Place of Residence: Home Review of Systems 10-point ROS is otherwise unremarkable Physical Examination - Vital Signs Temperature: 97 F Blood Pressure: 121/59 Pulse: 84 Respirations: 15 Pulse Ox (%): 97 - Physical Exam General: Alert, In no apparent distress, Oriented x3 HEENT: Atraumatic, PERRLA, Mucous membr. moist/pink, EOMI, Sclerae nonicteric Neck: Supple, 2+ carotid pulse no bruit, No LAD, Without JVD or thyroid abnormality Respiratory: Clear to auscultation bilaterally, Normal air movement Cardiovascular: Regular rate/rhythm, Normal S1 S2, Systolic murmur Gastrointestinal: Normal bowel sounds, Soft and benign, Non-distended, No tenderness Musculoskeletal: No clubbing, No swelling, No tenderness Integumentary: No rashes Neurological: Normal gait, Normal speech, Normal strength at 5/5 x4 extr, Normal tone, Sensation intact, Cranial nerves 3-12 intact, Normal affect Lymphatics: No axilla or inguinal lymphadenopathy - Studies Laboratory Data (last 24 hrs) 01/29/18 21:50: PT 14.2 H, INR 1.20, APTT 33.7 01/29/18 21:50: WBC 3.6 L, Hgb 8.3 L, Hct 25.9 L, Plt Count 145 L 01/29/18 21:50: B-Natriuretic Peptide 1392 H 01/29/18 21:50: Sodium 128 L, Potassium 5.0, BUN 52 H, Creatinine 6.28 H*, Glucose 124 H, Magnesium 1.7 L, Total Bilirubin 0.5, AST 20, ALT 15, Alkaline Phosphatase 158 H Assessment & Plan - Problems (Diagnosis) (1) Non-ST elevation (NSTEMI) myocardial infarction Current Visit: Yes Status: Acute (2) Chest pain, rule out acute myocardial infarction Onset Date: 07/29/17 Current Visit: No Status: Acute (3) Dementia Onset Date: 10/23/17 Current Visit: No Status: Acute Qualifiers: Dementia type: Alzheimer's disease (4) S/P IVC filter Current Visit: No Status: Acute (5) Severe protein-calorie malnutrition Current Visit: No Status: Acute (6) Atrial fibrillation Onset Date: 07/29/17 Current Visit: No Status: Chronic Qualifiers: (7) ESRD on hemodialysis Onset Date: 03/21/17 Current Visit: No Status: Chronic (8) History of DVT of lower extremity Current Visit: No Status: Chronic (9) History of pulmonary embolism Current Visit: No Status: Chronic (10) Hypertension Onset Date: 06/25/17 Current Visit: No Status: Chronic Qualifiers: Hypertension type: essential hypertension (11) Obesity (BMI 30.0-34.9) Onset Date: 10/23/17 Current Visit: No Status: Chronic (12) ESRD (end stage renal disease) Current Visit: Yes Status: Acute - Plan Plan: 1. Serial troponins and EKG 2. Cardiology consultation 3. Echocardiogram and stress test if cardiology is agreeable 4. Anti-platelet therapy, beta-cori, statin, and O2 as needed 5. IV morphine for pain 6. Monitor electrolytes closely 7. Hemodialysis per Nephrology 8. GI and DVT prophylaxis - Advance Directives Does patient have a Living Will: No Does patient have a Durable POA for Healthcare: Yes - Code Status/Comfort Care Code Status Assessed: Yes Code Status: Full Code Critical Care: No Time Spent Managing PTS Care (In Minutes): 50
--- NOTE | 2018-01-30 08:28 | RAD REPORT ---
EXAM DESCRIPTION: RAD - Chest Single View - 01/29/2018 10:15 pm CLINICAL HISTORY: Shortness of breath, chest pain and pressure COMPARISON: October 2017 TECHNIQUE: AP portable chest image was obtained 2213 hours . FINDINGS: No focal mass or consolidation seen. Interstitial markings are prominent and there is some mild patchy alveolar opacification present. Mild cardiomegaly is present. Vasculature is prominent. Sternotomy wires are in place. Trachea remains midline. No pneumothorax or large pleural effusion. No gross bony abnormality seen. No acute aortic findings suspected. IMPRESSION: Mild CHF/volume overload pattern similar to the October study.
[2018-01-30] MEDS: METOPROLOL TAR 50 MG TAB PO SCH ×2 (08:50→20:53)
[2018-01-30 08:59] LABS: Absolute Lymphocytes (CBC) 0.8 K/uL (0.7-4.9); Absolute Monocytes 0.5 K/uL (0.1-1.3); Absolute Neutrophil 2.4 K/uL (1.8-8.0); Basophils % 0.7 % (0-1.3); Eosinophils % 0.3 % (0-4.4); Hematocrit 26.4 % (39.6-49.0); Lymphocytes % 22.4 % (15.3-44.8); MCH 29.1 pg (27.0-35.0); MCV 89.7 fL (80-100); MPV 7.8 fL (7.6-11.3); Monocytes % 12.8 % (3.3-12.3); RBC Red Blood Cell Count 2.94 M/uL (4.33-5.43)
[2018-01-30 09:38] LABS: Urine White Blood Cell Casts OK
[2018-01-30 09:39] LABS: Anisocytosis 1+; Blood Morphology Comment NOTED (NOT SEEN); Platelet Estimate ADEQ; Poikilocytosis 1+
[2018-01-30] MEDS: ASPIRIN EC 81 MG TAB PO SCH (10:23)
[2018-01-30] MEDS: HEPARIN 5000 UNIT/ML 1 ML VIAL SQ SCH ×2 (10:24→20:55)
--- NOTE | 2018-01-30 11:14 | P.DS ---
Admission Date: 01/29/18 Discharge Date: 01/30/18 Disposition: ROUTINE DISCHARGE Discharge Condition: GOOD Brief History of Present Illness: By Dr Martinez Patient is a 67-year-old gentleman came to the hospital with chest discomfort and shortness of breath. Patient states his pain was mainly in the sternal region and it was going on for the last couple days. He was interacting with his nephew or grandson in the room playing around. He stated that he started feeling the chest discomfort. He had also been eating shortly before that and states that it felt somewhat like indigestion. Patient has had a history of coronary artery disease and has had a 2 vessel coronary artery bypass grafting. Patient was brought into the hospital for further evaluation. Patient states he still having some chest pain in the sternal region. It is reproducible. Patient has no epigastric tenderness. Patient will be brought into the hospital for further evaluation. Hospital Course: Mr Cartagena was admitted to the hospital due to chest pain, atypical in nature, trop I were elevated in context of ESRD on HD. EKG shows nonspecific intraventricular block. The patient has resolved his chest pain, and he remained hemodyncamically stable during his stay in the hospital. The case was discussed with Dr Tabares, who feels comfortable discharging the patient home. Mr Mcgregor will be released after complete his HD session today. Will resume his home medication without modification. Vital Signs/Physical Exam: Temp Pulse Resp BP Pulse Ox 97.5 F 65 18 70/40 L 93 01/30/18 10:30 01/30/18 10:30 01/30/18 10:30 01/30/18 10:30 01/30/18 10:30 General: Alert, In no apparent distress HEENT: Atraumatic, PERRLA, EOMI Neck: Supple, JVD not distended Respiratory: Clear to auscultation bilaterally, Normal air movement Cardiovascular: Normal S1 S2, No gallops Gastrointestinal: Normal bowel sounds, No tenderness Musculoskeletal: No tenderness Integumentary: No rashes Neurological: Normal speech, Normal tone, Normal affect Lymphatics: No axilla or inguinal lymphadenopathy Laboratory Data at Discharge: WBC 3.7 K/uL (4.3-10.9) L 01/30/18 08:39 Hgb 8.6 g/dL (13.6-17.9) L 01/30/18 08:39 Hct 26.4 % (39.6-49.0) L 01/30/18 08:39 Plt Count 125 K/uL (152-406) L 01/30/18 08:39 PT 14.2 SECONDS (9.5-12.5) H 01/29/18 21:50 INR 1.20 01/29/18 21:50 APTT 33.7 SECONDS (24.3-36.9) 01/29/18 21:50 Sodium 128 mEq/L (135-145) L 01/29/18 21:50 Potassium 5.0 mEq/L (3.6-5.0) 01/29/18 21:50 BUN 52 mg/dL (6-20) H 01/29/18 21:50 Creatinine 6.28 mg/dL (0.61-1.24) H* 01/29/18 21:50 Glucose 124 mg/dL (65-120) H 01/29/18 21:50 Magnesium 1.7 mg/dL (1.8-2.5) L 01/29/18 21:50 Total Bilirubin 0.5 mg/dL (0.3-1.2) 01/29/18 21:50 AST 20 IU/L (10-42) 01/29/18 21:50 ALT 15 IU/L (10-60) 01/29/18 21:50 Alkaline Phosphatase 158 IU/L (42-121) H 01/29/18 21:50 Troponin I 0.58 ng/mL (<0.03) H* 01/30/18 05:33 B-Natriuretic Peptide 1392 pg/ml (<=100) H 01/29/18 21:50 Triglycerides 43 mg/dL (35-160) 01/30/18 00:23 Cholesterol 60 mg/dL (<200) 01/30/18 00:23 HDL Cholesterol 40 mg/dL (27-67) 01/30/18 00:23 Cholesterol/HDL Ratio 1.50 01/30/18 00:23 Home Medications: Aspirin [Aspirin EC 81 MG] 81 mg PO DAILY 01/30/18 Atorvastatin Calcium [Lipitor] 40 mg PO BEDTIME 01/30/18 Hydrocodone 10/APAP 325 [[place] 10/325*] 1 tab PO Q6H PRN 01/30/18 Metoprolol Tartrate [Lopressor*] 12.5 mg PO DAILY 01/30/18 Pantoprazole [Protonix Tab*] 40 mg PO DAILY 01/30/18 Sertraline [Zoloft*] 50 mg PO DAILY 01/30/18 Tramadol HCl [Ultram] 50 mg PO TID PRN 01/30/18 clonazePAM [Clonazepam] 0.5 mg PO DAILY 01/30/18 Diet: AHA Activity: Ad lola Time spent managing pt's care (in minutes): 40
--- NOTE | 2018-01-30 11:27 | ECHO ---
HEIGHT: 6 ft 3 in WEIGHT: 239 lb 0 oz DATE OF STUDY: 01/30/[address]: Yvan Prescott MD 2-DIMENSIONAL: YES M.MODE: YES DOPPLER: YES COLOR FLOW: YES TDS: PORTABLE: DEFINITY: BUBBLE STUDY: DIAGNOSIS: CHEST PAIN CARDIAC HISTORY: CATHERIZATION: YES SURGERY: YES PROSTHETIC VALVE: NO PACEMAKER: NO MEASUREMENTS (cm) DIASTOLIC (NORMALS) SYSTOLIC (NORMALS) IVSd 1.1 (0.6-1.2) LA Diam 3.6 (1.9-4.0) LVEF 55% LVIDd 5.3 (3.5-5.7) LVIDs 3.8 (2.0-3.5) %FS 28% LVPWd 1.1 (0.6-1.2) Ao Diam 2.9 (2.0-3.7) 2 DIMENSIONAL ASSESSMENT: RIGHT ATRIUM: NORMAL LEFT ATRIUM: NORMAL RIGHT VENTRICLE: NORMAL LEFT VENTRICLE: NORMAL TRICUSPID VALVE: NORMAL MITRAL VALVE: MITRAL ANNULAR CALCIFICATION PULMONIC VALVE: NORMAL AORTIC VALVE: SCLEROSIS PERICARDIAL EFFUSION: NONE AORTIC ROOT: NORMAL LEFT VENTRICULAR WALL MOTION: NORMAL DOPPLER/COLOR FLOW: SEVEN PULMONARY HYPERTENTION. RIGHT VENTRICULAR SYSTOLIC PRESSURE 60 mmHg. COMMENTS: SEVEN PULMONARY HYPERTENTION. RIGHT VENTRICULAR SYSTOLIC PRESSURE 60 mmHg. NORMAL LEFT VENTRICULAR SIZE AND FUNCTION. MITRAL ANNULAR CALCIFICATON. AORTIC SCLEROSIS. TECHNOLOGIST: CORY ELDER
[2018-01-30] MEDS: NA CHLORIDE 0.9% 250 ML IV PRN ×2 (12:19→13:57)
[2018-01-30] MEDS ORDERED: MIDODRINE HCL 5 MG TABLET PO SCH (12:30)
[2018-01-30] MEDS ORDERED: MIDODRINE HCL 5 MG TABLET PO PRN (14:29)
[2018-01-30 20:19] VITALS: O2SAT 98
[2018-01-30] MEDS ORDERED: EPOETIN ALFA 10,000 UNIT/ML SQ SCH (23:45)
[2018-01-31] MEDS ORDERED: EPOETIN ALFA 10,000 UNIT/ML VIAL ONE (00:06)
--- NOTE | 2018-01-31 03:20 | CON ---
Date of Consultation: 01/30/2018 Chief Complaint: End-stage renal disease on dialysis. History Of Present Illness: The patient presented to the hospital because of chest pain, chest pressure, congestion, shortness of breath. He has history of end-stage renal disease, has been dialyzed 3 times per week. The patient was evaluated for acute coronary syndrome and troponin level was slightly elevated. The patient was seen by supportive employment case manager. The patient has significant comorbidities, has history of coronary artery disease, two-vessel coronary artery bypass grafting was done previously. The patient has severe pulmonary hypertension, intradialytic hypotension. Chest x-ray show vascular congestion and interstitial pulmonary edema. Today, patient developed hypotension and systolic blood pressure was in the 80s. The patient was started on midodrine for blood pressure support and to prevent intradialytic hypotension and dialysis was ordered for metabolic clearance and to control volemia. The patient was found to have a borderline hyperkalemia. Potassium level was 5.0 and sodium level was 128. The patient was found to have hypomagnesemia. Magnesium was 1.7. Hyponatremia was due to fluid overload and causing dilutional hyponatremia. There was no significant metabolic acidosis and blood glucose was 124. BNP was elevated up to 1392, which was corresponding to exacerbation of chronic congestive heart failure. Review of Systems: Constitutional: The patient is not a good historian. He denies fever, chills. Eyes: Denies vision changes. Ears, Nose, Mouth, and Throat: Denies sore throat, earache. Respiratory: Has dyspnea with mild activity. The patient is bed bound. Denies hemoptysis. Cardiovascular: Had chest pain on arrival to the hospital and was medicated for chest pain and chest pain resolved. GI: Denies nausea, vomiting. : Denies dysuria, hematuria. Musculoskeletal: Has history of arthritis. Denies muscle aches. Denies skin rashes. All other systems reviewed and all are negative. Past Medical History: Multiple medical problems, end-stage renal disease, on dialysis. Anemia, CKD, history of GI bleeding, renal osteodystrophy, hypertension, history of intradialytic hypotension, coronary artery disease, hyperlipidemia, myocardial infarction, bilateral upper and lower extremity DVT, dementia, inferior vena cava filter, carpal tunnel syndrome and surgery, bilateral hand cyst, bilateral arm cardiomyopathy, end-stage renal disease on dialysis on Saturday, , Saturday. Family History: Sister had leukemia. Father, heart disease. Mother, dementia. Brother, cancer. Social History: Denies tobacco, alcohol use, or drugs. Physical Examination: General: The patient is awake, alert, lethargic. Eyes: Anicteric sclerae. EOMI. Ears, Nose, Mouth, and Throat: Oral mucosal moist. No pallor. Neck: Supple. No JVD. No bruits. Lungs: Few crackles at bases. No wheezing. No rhonchi. Heart: S1, S2. Systolic murmur 2/6 lower. Abdomen: Obese, nontender, no rebound, no guarding. Extremities: No clubbing, no cellulitis. There is some swelling in both ankle. Neurologic: Normal speech. Cranial nerves intact. No tremor. Psychiatric: Lethargic, follows commands. Normal affect. Laboratory Data: WBC 3.6, hemoglobin 9.3, hematocrit 25.9, platelet count 145. BNP 1392. Sodium 128, potassium 5.0, BUN 52, creatinine 6.28, glucose 124, magnesium 1.7, total bilirubin 0.5, AST 20, ALT 15, AP 158. Troponin is 0.58. Impression And Plan: 1. End-stage renal disease. The patient will have urgent dialysis to obtain metabolic clearance to prevent hyperkalemia and to provide management for hyponatremia. The patient has dilutional hyponatremia. Continue p.o. fluid restriction, low-sodium diet. The patient has fluid overload and he will need to continue low-sodium diet. 2. Ultrafiltration will be done and electrolytes with dialysis will be adjusted for correction of hyponatremia and to control potassium level. 3. There is no evidence of significant metabolic acidosis. Monitor electrolytes. 4. Hypotension. The patient was medicated with midodrine to prevent intradialytic hypotension. 5. Chest pain, elevated troponin. The patient has significant comorbidities with coronary artery disease. Cardiology workup is pending. 6. In view of hypotension. Blood culture and urine culture will be obtained to rule out bacteremia and urinary tract infection. 7. Severe pulmonary hypertension per Cardiology and Primary team. 8. Anemia and chronic kidney disease. Continue AZUCENA. 9. Renal osteodystrophy. Continue renal diet and binders. EB/MODL Voice ID: [id number] Report ID: [id number] LUIS
[2018-01-31 06:18] VITALS: BMI 28.8
--- NOTE | 2018-01-31 07:24 | EKG ---
Test Date: 2018-01-29 Test Time: 23:38:51 Edger Machine Operator: MEASUREMENT RESULTS: Intervals: Rate: 101 WA: 178 QRSD: 146 QT: 394 QTc: 510 [place]: P: 80 WA: 178 QRS: 45 T: 90 INTERPRETIVE STATEMENTS: Sinus tachycardia Nonspecific intraventricular block Abnormal ECG Compared to ECG 01/29/2018 21:06:19 Fusion complex(es) no longer present Ventricular premature complex(es) no longer present Myocardial infarct finding no longer present Electronically Signed On 01-31-18 07:20:09 CDT by Roberto Tabares
--- NOTE | 2018-01-31 07:25 | EKG ---
Test Date: 2018-01-29 Test Time: 21:06:19 Cleaning And Maintenance Worker: ISAURA MEASUREMENT RESULTS: Intervals: Rate: 113 MD: 130 QRSD: 144 QT: 362 QTc: 496 Circle: P: 44 MD: 130 QRS: 46 T: 102 INTERPRETIVE STATEMENTS: Sinus tachycardia with premature ventricular complexes or fusion complexes Possible Left atrial enlargement Nonspecific intraventricular block Cannot rule out Anterior infarct, age undetermined Abnormal ECG Compared to ECG 11/19/2017 17:49:54 Fusion complex(es) now present Myocardial infarct finding now present Left bundle-branch block no longer present Electronically Signed On 01-31-18 07:20:16 CDT by Roberto Tabares
[2018-01-31] MEDS: METOPROLOL TAR 50 MG TAB PO SCH (08:46)
[2018-01-31] MEDS: ASPIRIN EC 81 MG TAB PO SCH (08:46)
[2018-01-31] MEDS: HEPARIN 5000 UNIT/ML 1 ML VIAL SQ SCH (08:46)
[2018-01-31 09:39] LABS: Potassium 5.2 mEq/L (3.6-5.0)
[2018-01-31 11:56] VITALS: BP 123/67; TEMP 97.3
[2018-01-31] MEDS ORDERED: NA CHLORIDE 0.9% 1,000 ML ONE (16:20)
--- NOTE | 2018-01-31 16:54 | P.DS ---
Admission Date: 01/29/18 Discharge Date: 01/31/18 Disposition: ROUTINE DISCHARGE Discharge Condition: GOOD - Problems (1) Chest pain Onset Date: 11/20/17 Status: Acute Qualifiers: Chest pain type: precordial pain Qualified Code(s): R07.2 - Precordial pain (2) Chest pain, atypical Onset Date: 01/30/18 Status: Acute (3) S/P IVC filter Status: Acute (4) Atrial fibrillation Onset Date: 07/29/17 Status: Chronic Qualifiers: (5) ESRD on hemodialysis Onset Date: 03/21/17 Status: Chronic Brief History of Present Illness: Patient is a 67-year-old gentleman came to the hospital with chest discomfort and shortness of breath. Patient states his pain was mainly in the sternal region and it was going on for the last couple days. He was interacting with his nephew or grandson in the room playing around. He stated that he started feeling the chest discomfort. He had also been eating shortly before that and states that it felt somewhat like indigestion. Patient has had a history of coronary artery disease and has had a 2 vessel coronary artery bypass grafting. Patient was brought into the hospital for further evaluation. Patient states he still having some chest pain in the sternal region. It is reproducible. Patient has no epigastric tenderness. Patient will be brought into the hospital for further evaluation. Hospital Course: Mr Cartagena was admitted to the hospitalist service due to chest pain, atypical in nature, trop I were elevated in context of ESRD on HD. EKG shows nonspecific intraventricular block. The patient has resolved his chest pain, and he remained hemodyncamically stable during his stay in the hospital. The case was discussed with Dr Tabares, who feels comfortable discharging the patient home. Mr Mcgregor is discharged in stable condition after HD session. Will resume his home medication without modification. Vital Signs/Physical Exam: Temp Pulse Resp BP Pulse Ox 97.3 F 83 18 123/67 98 01/31/18 11:55 01/31/18 11:55 01/31/18 11:55 01/31/18 11:55 01/31/18 11:55 General: Alert, In no apparent distress HEENT: Atraumatic, PERRLA, EOMI Neck: Supple, JVD not distended Respiratory: Clear to auscultation bilaterally, Normal air movement Cardiovascular: Regular rate/rhythm, Normal S1 S2 Gastrointestinal: Normal bowel sounds, No tenderness Musculoskeletal: No tenderness Integumentary: No rashes Neurological: Normal speech, Normal tone, Normal affect Lymphatics: No axilla or inguinal lymphadenopathy Laboratory Data at Discharge: WBC 3.7 K/uL (4.3-10.9) L 01/30/18 08:39 Hgb 8.6 g/dL (13.6-17.9) L 01/30/18 08:39 Hct 26.4 % (39.6-49.0) L 01/30/18 08:39 Plt Count 125 K/uL (152-406) L 01/30/18 08:39 PT 14.2 SECONDS (9.5-12.5) H 01/29/18 21:50 INR 1.20 01/29/18 21:50 APTT 33.7 SECONDS (24.3-36.9) 01/29/18 21:50 Sodium 128 mEq/L (135-145) L 01/31/18 08:44 Potassium 5.2 mEq/L (3.6-5.0) H 01/31/18 08:44 BUN 50 mg/dL (6-20) H 01/31/18 08:44 Creatinine 6.20 mg/dL (0.61-1.24) H* 01/31/18 08:44 Glucose 77 mg/dL (65-120) 01/31/18 08:44 Magnesium 1.7 mg/dL (1.8-2.5) L 01/29/18 21:50 Total Bilirubin 0.5 mg/dL (0.3-1.2) 01/29/18 21:50 AST 20 IU/L (10-42) 01/29/18 21:50 ALT 15 IU/L (10-60) 01/29/18 21:50 Alkaline Phosphatase 158 IU/L (42-121) H 01/29/18 21:50 Troponin I 1.88 ng/mL (<0.03) H* D 01/30/18 10:54 B-Natriuretic Peptide 1392 pg/ml (<=100) H 01/29/18 21:50 Triglycerides 43 mg/dL (35-160) 01/30/18 00:23 Cholesterol 60 mg/dL (<200) 01/30/18 00:23 HDL Cholesterol 40 mg/dL (27-67) 01/30/18 00:23 Cholesterol/HDL Ratio 1.50 01/30/18 00:23 Home Medications: Aspirin [Aspirin EC 81 MG] 81 mg PO DAILY 01/30/18 Atorvastatin Calcium [Lipitor] 40 mg PO BEDTIME 01/30/18 Hydrocodone 10/APAP 325 [[place] 10/325*] 1 tab PO Q6H PRN 01/30/18 Pantoprazole [Protonix Tab*] 40 mg PO DAILY 01/30/18 Sertraline [Zoloft*] 50 mg PO DAILY 01/30/18 Tramadol HCl [Ultram] 50 mg PO TID PRN 01/30/18 clonazePAM [Clonazepam] 0.5 mg PO DAILY 01/30/18 ALPRAZolam [Xanax*] 0.25 mg PO TID PRN tab 01/31/18 Metoprolol Tartrate [Lopressor*] 50 mg PO BID #60 tab 01/31/18 Midodrine HCl [Proamatine*] 5 mg PO EVERY HD #14 tab 01/31/18 New Medications: Metoprolol Tartrate [Lopressor*] 50 mg PO BID #60 tab Midodrine HCl [Proamatine*] 5 mg PO EVERY HD #14 tab Diet: AHA Activity: Ad lola Followup: Quinn Faustin PAC [ALLIED HEALTH PROFESSIONAL] - 1 Week (call the office to make an appointment in 1 week. ) Time spent managing pt's care (in minutes): 15
--- NOTE | 2018-02-01 02:36 | CON ---
Date of Consultation: 01/30/2018 Reason For Consultation: Chest pain. History Of Present Illness: Mr. Cartagena is a 67-year-old male with history of end-stage renal disease , on hemodialysis. He has a history of atrial fibrillation, hypertension, diabetes, dyslipidemia, go ut, gastroesophageal reflux disease, chronic diastolic congestive heart failure, coronary artery dise ase status post CABG. He came in with atypical chest pain and shortness of breath. His chest pain w as mostly in the midepigastric region with some nausea, but no diaphoresis, PND, orthopnea, pedal danny ma, palpitation, or syncope. Allergies: NONE. Review of Systems: Negative. Social History: Negative. Family History: Noncontributory. Medications: Lipitor, Eliquis, metoprolol, Protonix, and allopurinol. Physical Examination: General: He was pain free when I saw him, no acute distress. Vital Signs: Stable. Afebrile. Sinus rhythm with occasional PVCs. HEENT: Negative. Neck: Supple without any bruit, lymphadenopathy, JVD, or thyromegaly. Chest: Clear to auscultation and percussion. Cardiac: Revealed regular rhythm and rate with an S4 gallops but no murmurs or rubs. Abdomen: Benign. Extremities: Reveal no clubbing, cyanosis, or edema. Diagnostic Data: His creatinine was 6.68, hemoglobin 8.3, sodium of 128, troponin 0.58, BNP was 1392 . Impression And Plan: 1.Atypical chest pain, most likely gastroesophageal reflux disease by history. 2.Elevated troponin and BNP are clinically not significant with hemodialysis patient. An echocardio gram is pending to rule out new wall motion abnormalities. We should probably consider an outpatient Lexiscan on the long run, but he is a patient of Dr. Green and I will have him followup with him. 3.End-stage renal disease, on hemodialysis. 4.Hypertension well controlled. 5.Diabetes. 6.Dyslipidemia. 7.Gout. 8.Chronic atrial fibrillation, on Eliquis. 9.Gastroesophageal reflux disease. 10.Chronic diastolic congestive heart failure that is stable. 11.History of coronary artery disease, status post CABG, that is stable. Personally, I would dialyz e him and see what the echo shows, and if that does not show any new wall motion abnormalities, I wou ld feel comfortable with him going home and following him with Dr. Green in the near future. SELVIN/TRIEC Voice ID: [id number] Report ID: [id number]
[2018-02-02 19:53] LABS: HBsAG Nonreactive (Nonreactive)
== END 2018-01-31 14:19 | disposition home or self-care (01) | DRG 313 ==
LOC: ER 20:55 → OBSVTOIN 23:48 → ERHOLD 23:48 → INTOOBSV 23:48 → 4TH 01-30 00:38 → INTOOBSV 01-31 07:56 → OBSVTOIN 01-31 07:56
PROVIDERS: ADMIT Hospitalist; ATTEND Hospitalist
PROC: 5A1D70Z Performance of Urinary Filtration, Intermittent, Less than 6 Hours Per Day (ICD-10-PCS; principal; 2018-01-30)
DX: R07.89 Other chest pain (principal); N18.6 End stage renal disease; I13.2 Hypertensive heart and chronic kidney disease with heart failure and with stage 5 chronic kidney disease, or end stage renal disease; I50.32 Chronic diastolic (congestive) heart failure; I48.2 Chronic atrial fibrillation; I95.9 Hypotension, unspecified; I27.20 Pulmonary hypertension, unspecified; N25.0 Renal osteodystrophy; D63.1 Anemia in chronic kidney disease; I25.10 Atherosclerotic heart disease of native coronary artery without angina pectoris; Z95.1 Presence of aortocoronary bypass graft; Z86.711 Personal history of pulmonary embolism; E66.9 Obesity, unspecified; Z68.28 Body mass index [BMI] 28.0-28.9, adult
CPT/HCPCS: 36415; 71045; 80048; 80061; 80076; 82550; 82553; 82962; 83735; 83880; 84484; 85025; 85610; 85730; 86704; 86706; 86803; 86850; 86900; 86901; 87040; 87340; 93005; 93306; 99285; C9113; G0257; G0378; J0885; J1644; J2405; J3475; J7030; Q4081

== ENCOUNTER 2018-02-07 10:33 | Inpatient (IN) | payer OTHER, BC ==
--- OUTSIDE RECORDS SUMMARY | 2018-02-07 10:35 | XMS REPORT | Clinical Summary ---
:1950 Author Organization [facility] Address [address] [place] [address] Care Team Providers Name Role Phone Asked, No Pcp Primary Care Provider Unavailable Allergies No Known Allergies Current Medications Prescription Sig. Disp. Refills Start Date End Date Status cinacalcet Take 60 mg by Active (SENSIPAR) 60 MG mouth every tablet morning. metoprolol tartrate Take 50 mg by Active (LOPRESSOR) 50 mg mouth 2 (two) tablet times a day. sevelamer (RENVELA) Take 1,600 mg by Active 800 mg tablet mouth 3 (three) times a day with meals. isosorbide Take 60 mg by Active mononitrate (IMDUR) mouth every 60 MG 24 hr tablet morning. apixaban (ELIQUIS) Take 1 tablet 60 tablet 0 01/16/2017 02/15/2017 2.5 mg tablet (2.5 mg total) by mouth 2 (two) times a day for 30 days. traMADol (ULTRAM) 50 Take 1 tablet (50 30 tablet 0 01/16/2017 02/15/2017 mg tablet mg total) by mouth every 8 (eight) hours as needed for moderate pain or severe pain for up to 30 days. HYDROcodone-acetamin Take 0.5 tablets 01/16/2017 02/15/2017 ophen (NORCO) 10-325 by mouth every 8 mg per tablet (eight) hours as needed for moderate pain or severe pain for up to 30 days. Max Daily Amount: 1.5 tablets atorvastatin Take 1 tablet (40 30 tablet 0 01/16/2017 02/15/2017 (LIPITOR) 40 MG mg total) by tablet mouth nightly for 30 days. aspirin 81 mg Chew 1 tablet (81 30 tablet 0 01/17/2017 02/16/2017 chewable tablet mg total) daily for 30 days. colchicine 0.6 mg Take 0.5 tablets 30 tablet 5 02/01/2017 03/03/2017 tablet (0.3 mg total) by mouth 2 (two) times a day for 30 days. famotidine (PEPCID) Take 1 tablet (40 30 tablet 1 02/01/2017 03/03/2017 40 MG tablet mg total) by mouth daily for 30 days. TAKE WHEN TAKING IBUPROFEN ibuprofen Take 1 tablet 30 tablet 1 02/01/2017 03/03/2017 (ADVIL,MOTRIN) 800 (800 mg total) by MG tablet mouth every 12 (twelve) hours as needed for mild pain or moderate pain for up to 30 days. 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 DVT (deep venous thrombosis) 01/26/2017 ESRD (end stage renal disease) 01/26/2017 Systolic congestive heart failure 01/26/2017 Anasarca 01/26/2017 Supratherapeutic INR 01/10/2017 Social History Tobacco Use Types Packs/Day Years Used Date Former Smoker Alcohol Use Drinks/Week oz/Week Comments No Sex Assigned at Date Recorded Not on file Last Filed Vital Signs Not on file Plan of Treatment Health Maintenance Due Date Last Done Comments COLON CANCER SCREENING 1998 SHINGRIX VACCINE (#1) 1998 ZOSTER VACCINE 2008 PNEUMOCOCCAL POLYSACCHARIDE VACCINE AGE 65 AND OVER 2013 PNEUMOCOCCAL-13 2013 INFLUENZA VACCINE 03/26/2018 Implants Implanted Type Area Program Director Air Talent Device Expiration Model / Identifier Date Serial / Lot Catheter Angio Clinical Manager Ii 5fr 65cm Sel Braidd Torque Dumas - [id number] Surgical N/A: N/A BS PERIPHERAL [id number] / Implanted: 01/31/2017 (Quantity not on file) Implants; INTERVENTION / Expanders; VASCULAR REAGAN Extenders; Surgical Wires Abdominal Mesh Results Not on fileafter 02/06/2017 Insurance Payer Benefit Plan / Group Subscriber ID Type Phone Address MEDICARE MEDICARE PART A AND B xxxxxxxxxx Medicare [place], [place] BCBS BCBS CHOICE PPO/FEDERAL EMPL PPO xxxxxxxxxxxx PPO [id number] [id number] [place] [address]
[2018-02-07] MEDS ORDERED: NA CHLORIDE 0.9% 500 ML ONE (10:58)
[2018-02-07] MEDS ORDERED: CEFTRIAXONE/SWI 1gm 1 GM/10 ML SYR ONE (11:00)
--- NOTE | 2018-02-07 11:19 | RAD REPORT ---
EXAM DESCRIPTION: RAD - Chest Single View - 02/07/2018 11:00 am CLINICAL HISTORY: Shortness of breath COMPARISON: 01/29/2018 FINDINGS: Portable technique limits examination quality. The lungs are grossly clear. The heart is moderately enlarged. No displaced fractures.Sternotomy wire s seen. IMPRESSION: No acute intrathoracic process suspected.
--- NOTE | 2018-02-07 11:30 | RAD REPORT ---
EXAM DESCRIPTION: CT - Head Brain Wo Cont - 02/07/2018 11:18 am CLINICAL HISTORY: Altered consciousness. COMPARISON: 10/22/2017, 06/24/2017 TECHNIQUE: All CT scans are performed using dose optimization technique as appropriate and may inclu de automated exposure control or mA/KV adjustment according to patient size. FINDINGS: No intracranial hemorrhage, hydrocephalus or extra-axial fluid collection.Moderate brain a trophy is noted.No areas of brain edema or evidence of midline shift. Left vertebral artery is athero sclerotic. Fluid is present in the right mastoid air cell. The paranasal sinuses and mastoids are otherwise manuel r. The calvarium is intact. IMPRESSION: No acute intracranial abnormality. Right mastoid fluid.
[2018-02-07 11:33] LABS: Protime INR 1.23
[2018-02-07 11:38] LABS: Absolute Lymphocytes (CBC) 0.8 K/uL (0.7-4.9); Absolute Monocytes 0.6 K/uL (0.1-1.3); Absolute Neutrophil 2.1 K/uL (1.8-8.0); Basophils % 0.4 % (0-1.3); Eosinophils % 0.2 % (0-4.4); Hematocrit 21.2 % (39.6-49.0); Lymphocytes % 23.7 % (15.3-44.8); MCH 29.5 pg (27.0-35.0); MCV 88.4 fL (80-100); MPV 8.2 fL (7.6-11.3)
[2018-02-07] MEDS ORDERED: DOPAMINE/D5W 400 MG/250 ML BAG IV ONE (11:52)
--- NOTE | 2018-02-07 12:17 | ER ---
Nurse's Notes [facility] Name: Nain Cartagena Jr Age: 67 yrs Sex: Male : 1950 Arrival Date: 02/07/2018 Time: 10:35 Bed 3 Private MD: Diagnosis: Hypotension, AMS, Anemia Presentation: 02/07 10:31 Presenting complaint: EMS states: HH nurse did a visit and stated pt was altered and sv "coming in and out of consciousness." Spouse said it started last night. EMS arrival BP 90/60 and 70/40 HR 40-80. 86% RA, pt placed on 100% NRB. Pt A\\T\\O x2 per EMS. HD normally T/Th/Sat but pt was to get an extra day today to get fluid removed. Transition of care: patient was not received from another setting of care. Onset of symptoms was February 06, 2018. 10:31 Method Of Arrival: EMS: [facility] sv 10:31 Acuity: RADHA 2 sv 10:32 Risk Assessment: Do you want to hurt yourself or someone else? Patient reports no sv desire to harm self or others. Initial Sepsis Screen: Does the patient meet any 2 criteria? Systolic BP < 90 mmHg. Altered Mental Status. Yes Does the patient have a suspected source of infection? No. Patient's initial sepsis screen is negative. Care prior to arrival: None. Triage Assessment: 10:31 General: Appears in no apparent distress. Behavior is calm, cooperative, appropriate sv for age. Pain: Denies pain. EENT: No signs and/or symptoms were reported regarding the EENT system. Neuro: Level of Consciousness is alert, obeys commands, lethargic, Oriented to person, place, time, situation, Moves all extremities. Full function Speech is normal. Cardiovascular: Heart tones S1 S2 present Patient's skin is warm and dry. Respiratory: Respiratory effort is even, unlabored, Respiratory pattern is regular, symmetrical. Derm: Skin is normal. Musculoskeletal: Range of motion: intact in all extremities, Swelling present in right leg and left leg. 19:39 General: Appears. sg Historical: - Allergies: 10:42 No Known Allergies; sv - Home Meds: 10:54 hydrocodone-acetaminophen 10-325 mg Oral tab TID [Active]; atorvastatin 40 mg Oral tab sv 1 tab once daily [Active]; sertraline 50 mg Oral tab once daily [Active]; metoprolol tartrate 12.5 mg Oral tab 1 tab 2 times per day [Active]; colchicine 0.6 mg Oral cap 1 cap 2 times per day [Active]; Allopurinol 50 mg Oral 1 tab once daily [Active]; Miralax 17 gram Oral pwpk 1 packet once daily [Active]; pantoprazole 40 mg Oral TbEC 1 tab once daily [Active]; tramadol 50 mg Oral tab 1 tab twice a day for Pain [Active]; clonazepam 0.5 mg Oral tab 1 tab 2 times per day [Active]; 11:05 aspirin 81 mg Oral chew 1 tab once daily [Active]; Alinia 500 mg Oral tab 1 tab twice a sv day [Active]; - PMHx: 10:42 CHF; Diabetes - NIDDM; DIALYSIS Saturday, and saturdays; ESRD; Hypertension; sv DVT; GERD; Gout; Polymyalgia rheumatica; Ganglion, shoulder; Edema Lower leg; Atrial Fib; - Immunization history:: Adult Immunizations up to date. - Social history:: Smoking status: Patient/guardian denies using tobacco. - Ebola Screening: : No symptoms or risks identified at this time. Screenin:05 Abuse screen: Denies threats or abuse. Denies injuries from another. Nutritional sv screening: No deficits noted. Tuberculosis screening: No symptoms or risk factors identified. Fall Risk Fall in past 12 months (25 points). No secondary diagnosis (0 pts). IV access (20 points). Ambulatory Aid- None/Bed Rest/Nurse Assist (0 pts). Gait- Normal/Bed Rest/Wheelchair (0 pts) Mental Status- Oriented to own ability (0 pts). Total [place] Fall Scale indicates High Risk Score (45 or more points). Fall prevention measures have been instituted. Side Rails Up X 2 Placed Close to Nursing Station Frequent Obs/Assessments Occuring Family Present and informed to notify staff if the need to leave the bedside As available patient and family educated on Fall Prevention Program and Strategies. Assessment: 10:45 Reassessment: See triage assessment. Spouse stated at home pt was not answering sv questions appropriately and saying things out of character. 12:00 Reassessment: Patient appears in no apparent distress at this time. No changes from sv previously documented assessment. Patient and/or family updated on plan of care and expected duration. Pain level reassessed. Patient is alert, oriented x 3, equal unlabored respirations, skin warm/dry/pink. 13:03 Reassessment: Patient appears in no apparent distress at this time. No changes from sv previously documented assessment. Patient and/or family updated on plan of care and expected duration. Pain level reassessed. Patient is alert, oriented x 3, equal unlabored respirations, skin warm/dry/pink. 14:00 Reassessment: Patient appears in no apparent distress at this time. No changes from sv previously documented assessment. Patient and/or family updated on plan of care and expected duration. Pain level reassessed. Patient is alert, oriented x 3, equal unlabored respirations, skin warm/dry/pink. Vital Signs: 10:31 BP 86 / 54; Pulse 80; Resp 16; Temp 97.0; Pulse Ox 100% on Non-rebreather mask; sv 11:00 BP 88 / 40; Pulse 70; Resp 16; Pulse Ox 100% on 2 lpm NC; sv 11:30 BP 82 / 52; Pulse 69; Resp 15; Pulse Ox 97% on 2 lpm NC; sv 12:00 BP 75 / 38; Pulse 66; Resp 18; Pulse Ox 100% on 2 lpm NC; sv 12:52 BP 122 / 56; Pulse 76; Resp 18; Pulse Ox 100% on 2 lpm NC; sv 13:30 BP 109 / 59; Pulse 75; Resp 13; Pulse Ox 100% on 2 lpm NC; sv 14:00 BP 98 / 52; Pulse 74; Resp 18; Pulse Ox 100% on 2 lpm NC; sv 14:30 BP 99 / 56; Pulse 74; Resp 17; Pulse Ox 100% on 2 lpm NC; sv 15:00 BP 92 / 56; Pulse 75; Resp 18 S; Temp 97.0; Pulse Ox 100% on 2 lpm NC; Pain 0/10; sg ED Course: 10:35 Patient arrived in ED. sv 10:35 Ann Wong RN is Primary Nurse. sv 10:39 Triage completed. sv 10:40 Marquise Clement MD is Attending Physician. kdr 10:43 Arm band placed on right wrist. sv 10:45 monitoring manager on. Pulse ox on. NIBP on. Door closed. Warm blanket given. Head of bed sv elevated. 10:45 Initial lab(s) drawn, by me, sent to lab. Inserted saline lock: 18 gauge in right sg wrist, using aseptic technique. Blood collected. 10:48 ED physician to see patient. sv 10:58 X-ray completed. Portable x-ray completed in exam room. Patient tolerated procedure ml well. 11:00 XRAY Chest (1 view) In Process Unspecified. EDMS 11:[address] jj2 11:01 EKG done, by front end technician. reviewed by Marquise Clement MD. at1 11:[address] via stretcher. sv 11:06 Patient has correct armband on for positive identification. Placed in gown. Bed in low sv position. Call light in reach. Side rails up X2. Adult w/ patient. 11:[address] via stretcher. sw 11:17 CT completed. Patient tolerated procedure well. Patient moved back from CT. sw 11:18 CT Head Brain wo Cont In Process Unspecified. EDMS 12:15 Samantha Moyer MD is Hospitalizing Provider. kdr 13:03 Assisted provider with central line placement. Set up central line tray. Triple lumen sv line placed in right femoral. Line placed by Rian FAJARDO Placement verified by blood return, Dressed with Tegaderm, Blood was collected. Patient tolerated well. Before procedure, did Practitioner(s) obtain informed consent? No. Patient \\T\\ family education about procedure, CLABSI prevention and S/S of infection? Yes. Time-out/Briefing performed prior to start of procedure? Yes. Was handwashing/sanitizing done immediately prior to procedure? Yes. Was patient positioned to in a way to prevent air embolism? Yes. Was procedure site sterilized? Yes, with chlorhexidine. Was the site allowed to dry? Yes. Was local anesthetic and/or sedation utilized? Yes. During the procedure, did the Practitioner(s) maintain a sterile field? Yes. Were unused ports clamped during insertion? Yes. Was a 2nd qualified MD obtained after 3 unsuccessful insertion attempts? Yes. Was blood aspirated from each lumen? Yes. After the procedure, did the Practitioner(s) clean the site and apply a sterile dressing? Yes. 13:04 One-on-one care X 45 minutes. sv 15:08 Patient admitted, IV remains in place. intact, No redness/swelling at site. sg Administered Medications: 11:00 Drug: NS 0.9% 500 ml Route: IV; Rate: bolus; Site: right forearm; sv 11:30 Follow up: Response: No adverse reaction; IV Status: Completed infusion; IV Intake: sv 500ml 11:00 Drug: Rocephin 1 grams Route: IV; Rate: calculated rate; Site: right forearm; sv 11:05 Follow up: Response: No adverse reaction; IV Status: Completed infusion; IV Intake: 10mlsv 11:09 CANCELLED (Duplicate Order): Rocephin - (cefTRIAXone) 1 grams IVPB once over 30 mins; sv (mix in 50 mL NS) Intake: 11:05 IV: 10ml; Total: 10ml. sv 11:30 IV: 500ml; Total: 510ml. sv Outcome: 12:16 Decision to Hospitalize by Provider. kdr 15:08 Admitted to Tele accompanied by tech, family with patient, via stretcher, room 401, sg with chart, Report called to BREANNE Poon 15:08 Condition: stable 15:08 Instructed on the need for admit, medication usage, safety practices, Demonstrated understanding of instructions, follow-up care. 15:29 Patient left the ED. sg Signatures: Dispatcher [employer] Ann Narvaez RN RN sv Gay, Steven, RN RN sg Rittger, Kevin, MD MD kdr Jaramillo, Kathi Neville Amanda, engine room operator EKG Tat1 Antonia Triana Corrections: (The following items were deleted from the chart) 10:51 10:45 Inserted saline lock: 18 gauge in right antecubital area, using aseptic sg technique. Blood collected. 13:05 13:04 One-on-one care X 30 minutes sv sv
--- NOTE | 2018-02-07 12:17 | EDPHYS ---
Physician Documentation [facility] Name: Nain Cartagena Jr Age: 67 yrs Sex: Male : 1950 Arrival Date: 02/07/2018 Time: 10:35 Bed 3 Private MD: ED Physician Marquise Clement HPI: 02/07 11:00 This 67 yrs old Black Male presents to ER via EMS with complaints of Altered Mental kdr Status. 11:00 The patient presents with agitation, confusion. Onset: The symptoms/episode kdr began/occurred this morning. Possible causes: unknown. Associated signs and symptoms: The patient has no apparent associated signs or symptoms. Current symptoms: In the emergency department the patient's symptoms are unchanged from the initial presentation. Patient's baseline: Neuro: alert and fully oriented, Motor: Ambulation: walks with assist only, Speech: slow. It is unknown whether or not the patient has had similar symptoms in the past. The patient has not recently seen a physician. Historical: - Allergies: 10:42 No Known Allergies; sv - Home Meds: 10:54 hydrocodone-acetaminophen 10-325 mg Oral tab TID [Active]; atorvastatin 40 mg Oral tab sv 1 tab once daily [Active]; sertraline 50 mg Oral tab once daily [Active]; metoprolol tartrate 12.5 mg Oral tab 1 tab 2 times per day [Active]; colchicine 0.6 mg Oral cap 1 cap 2 times per day [Active]; Allopurinol 50 mg Oral 1 tab once daily [Active]; Miralax 17 gram Oral pwpk 1 packet once daily [Active]; pantoprazole 40 mg Oral TbEC 1 tab once daily [Active]; tramadol 50 mg Oral tab 1 tab twice a day for Pain [Active]; clonazepam 0.5 mg Oral tab 1 tab 2 times per day [Active]; 11:05 aspirin 81 mg Oral chew 1 tab once daily [Active]; Alinia 500 mg Oral tab 1 tab twice a sv day [Active]; - PMHx: 10:42 CHF; Diabetes - NIDDM; DIALYSIS Saturday, and saturdays; ESRD; Hypertension; sv DVT; GERD; Gout; Polymyalgia rheumatica; Ganglion, shoulder; Edema Lower leg; Atrial Fib; - Immunization history:: Adult Immunizations up to date. - Social history:: Smoking status: Patient/guardian denies using tobacco. - Ebola Screening: : No symptoms or risks identified at this time. ROS: 11:00 Eyes: Negative for injury, pain, redness, and discharge, Neck: Negative for injury, kdr pain, and swelling, Cardiovascular: Negative for chest pain, palpitations, and edema, Respiratory: Negative for shortness of breath, cough, wheezing, and pleuritic chest pain, Abdomen/GI: Negative for abdominal pain, nausea, vomiting, diarrhea, and constipation, Back: Negative for injury and pain, : Negative for injury, bleeding, discharge, and swelling, MS/Extremity: Negative for injury and deformity, Skin: Negative for injury, rash, and discoloration, Psych: Negative for depression, anxiety, suicide ideation, homicidal ideation, and hallucinations, Allergy/Immunology: Negative for hives, rash, and allergies, Endocrine: Negative for neck swelling, polydipsia, polyuria, polyphagia, and marked weight changes, Hematologic/Lymphatic: Negative for swollen nodes, abnormal bleeding, and unusual bruising. 11:00 Neuro: Positive for altered mental status, speech changes, weakness. Exam: 11:00 Constitutional: This is a well developed, well nourished patient who is awake, alert, kdr and in no acute distress. Head/Face: Normocephalic, atraumatic. Eyes: Pupils equal round and reactive to light, extra-ocular motions intact. Lids and lashes normal. Conjunctiva and sclera are non-icteric and not injected. Cornea within normal limits. Periorbital areas with no swelling, redness, or edema. Neck: Trachea midline, no thyromegaly or masses palpated, and no cervical lymphadenopathy. Supple, full range of motion without nuchal rigidity, or vertebral point tenderness. No Meningismus. Chest/axilla: Normal chest wall appearance and motion. Nontender with no deformity. No lesions are appreciated. Cardiovascular: Regular rate and rhythm with a normal S1 and S2. No gallops, murmurs, or rubs. Normal PMI, no JVD. No pulse deficits. Respiratory: Lungs have equal breath sounds bilaterally, clear to auscultation and percussion. No rales, rhonchi or wheezes noted. No increased work of breathing, no retractions or nasal flaring. Abdomen/GI: Soft, non-tender, with normal bowel sounds. No distension or tympany. No guarding or rebound. No evidence of tenderness throughout. Back: No spinal tenderness. No costovertebral tenderness. Full range of motion. Skin: Warm, dry with normal turgor. Normal color with no rashes, no lesions, and no evidence of cellulitis. MS/ Extremity: Pulses equal, no cyanosis. Neurovascular intact. Full, normal range of motion. Psych: Awake, alert, with orientation to person, place and time. Behavior, mood, and affect are within normal limits. 11:00 Neuro: Orientation: to person, place, Mentation: lucid, able to follow commands, slow to respond, confused, Cerebellar function: Motor: moves all fours, Sensation: is normal, no obvious gross deficits, Gait: not tested. Vital Signs: 10:31 BP 86 / 54; Pulse 80; Resp 16; Temp 97.0; Pulse Ox 100% on Non-rebreather mask; sv 11:00 BP 88 / 40; Pulse 70; Resp 16; Pulse Ox 100% on 2 lpm NC; sv 11:30 BP 82 / 52; Pulse 69; Resp 15; Pulse Ox 97% on 2 lpm NC; sv 12:00 BP 75 / 38; Pulse 66; Resp 18; Pulse Ox 100% on 2 lpm NC; sv 12:52 BP 122 / 56; Pulse 76; Resp 18; Pulse Ox 100% on 2 lpm NC; sv 13:30 BP 109 / 59; Pulse 75; Resp 13; Pulse Ox 100% on 2 lpm NC; sv 14:00 BP 98 / 52; Pulse 74; Resp 18; Pulse Ox 100% on 2 lpm NC; sv 14:30 BP 99 / 56; Pulse 74; Resp 17; Pulse Ox 100% on 2 lpm NC; sv 15:00 BP 92 / 56; Pulse 75; Resp 18 S; Temp 97.0; Pulse Ox 100% on 2 lpm NC; Pain 0/10; sg Procedures: 13:00 Central Line: the site was prepped with Betadine, in sterile fashion, a triple lumen m catheter was inserted, in the right femoral vein, in 2 attempts. placement was verified, by blood return, the site was dressed with Tegaderm, the patient tolerated the procedure, well. MDM: 12:16 Patient medically screened. kdr 12:28 Data reviewed: vital signs, nurses notes, lab test result(s), radiologic studies. kdr Counseling: I had a detailed discussion with the patient and/or guardian regarding: the historical points, exam findings, and any diagnostic results supporting the discharge/admit diagnosis, lab results, radiology results, the need for further work-up and treatment in the hospital. 02/07 10:42 Order name: Basic Metabolic Panel kdr 02/07 10:42 Order name: BNP; Complete Time: 12:13 kdr 02/07 10:42 Order name: CBC with Diff kdr 02/07 10:42 Order name: LFT's kdr 02/07 10:42 Order name: Magnesium kdr 02/07 10:42 Order name: PT-INR; Complete Time: 12:13 kdr 02/07 10:42 Order name: Ptt, Activated; Complete Time: 12:13 kdr 02/07 10:42 Order name: Troponin (emerg Dept Use Only) kdr 02/07 10:42 Order name: XRAY Chest (1 view); Complete Time: 12:13 kdr 02/07 10:54 Order name: Procalcitonin kdr 02/07 10:54 Order name: Lactate; Complete Time: 12:13 kdr 02/07 10:56 Order name: Blood Culture Adult (2) kdr 02/07 10:56 Order name: Urine Culture kdr 02/07 11:54 Order name: CBC Smear Scan EDCT 02/07 10:42 Order name: EKG; Complete Time: 10:42 kdr 02/07 10:42 Order name: Cardiac monitoring; Complete Time: 10:50 kdr 02/07 10:42 Order name: EKG - Nurse/Tech; Complete Time: 10:55 kdr 02/07 10:42 Order name: IV Saline Lock; Complete Time: 10:50 kdr 02/07 10:42 Order name: Labs collected and sent; Complete Time: 10:50 kdr 02/07 10:42 Order name: O2 Per Protocol; Complete Time: 10:50 kdr 02/07 10:42 Order name: O2 Sat Monitoring; Complete Time: 10:50 kdr 02/07 10:55 Order name: CT Head Brain wo Cont; Complete Time: 12:13 kdr 02/07 11:34 Order name: Labs - recollect needed bd 02/07 12:01 Order name: Labs - recollect needed; Complete Time: 15:06 bd Administered Medications: 11:00 Drug: NS 0.9% 500 ml Route: IV; Rate: bolus; Site: right forearm; sv 11:30 Follow up: Response: No adverse reaction; IV Status: Completed infusion; IV Intake: sv 500ml 11:00 Drug: Rocephin 1 grams Route: IV; Rate: calculated rate; Site: right forearm; sv 11:05 Follow up: Response: No adverse reaction; IV Status: Completed infusion; IV Intake: 10mlsv 11:09 CANCELLED (Duplicate Order): Rocephin - (cefTRIAXone) 1 grams IVPB once over 30 mins; sv (mix in 50 mL NS) Disposition: 12:28 Critical Care:. kdr Disposition: 02/07/18 12:16 Hospitalization ordered by Samantha Moyer for Inpatient Admission. Preliminary diagnosis is Hypotension, AMS, Anemia. - Bed requested for Telemetry/MedSurg (Inpatient). - Status is Inpatient Admission. sg - Condition is Serious. - Problem is new. - Symptoms are unchanged. UTI on Admission? No Critical care time excluding procedures: 12:28 Critical care time: Bedside Care: 20 minutes, Consultation: 10 minutes, Family kdr Intervention: 10 minutes. Total time: 40 minutes Addendum: 02/15/2018 07:32 Co-signature as Attending Physician, Marquise Clement MD I agree with the assessment and k dr plan of care. Signatures: Dispatcher [employer] EDMS Sunitha Pacheco Stephanie, RN RN sv Gay, Steven, RN RN sg Rittger, Kevin, MD MD [facility] Rian Calderon PA PA [facility] Corrections: (The following items were deleted from the chart) 02/07 11:09 10:55 Rocephin - (cefTRIAXone) 1 grams IVPB once over 30 mins; (mix in 50 mL NS) sv ordered. kdr 14:47 12:16 Hospitalization Ordered by Samantha Moyer MD for Inpatient Admission. Preliminary bd diagnosis is Hypotension, AMS, Anemia. Bed requested for Intensive Care Unit. Status is Inpatient Admission. Condition is Serious. Problem is new. Symptoms are unchanged. UTI on Admission? No. kdr 15:29 14:47 02/07/2018 12:16 Hospitalization Ordered by Samantha Moyer MD for Inpatient sg Admission. Preliminary diagnosis is Hypotension, AMS, Anemia. Bed requested for Telemetry/MedSurg (Inpatient). Status is Inpatient Admission. Condition is Serious. Problem is new. Symptoms are unchanged. UTI on Admission? No. bd
[2018-02-07 13:27] LABS: Anisocytosis 1+; Blood Morphology Comment NOTED (NOT SEEN); Platelet Estimate ADEQ; Urine White Blood Cell Casts OK
[2018-02-07 13:28] LABS: Rouleau NOTED
[2018-02-07 13:29] LABS: Potassium 4.3 mEq/L (3.6-5.0)
[2018-02-07 13:35] LABS: Albumin 2.7 g/dL (3.2-5.5); Bilirubin Direct 0.1 mg/dL (0-0.2); Bilirubin Total 0.3 mg/dL (0.3-1.2); Magnesium 1.9 mg/dL (1.8-2.5); Protein, Total 8.7 g/dL (6.0-8.3)
[2018-02-07] MEDS: MIDODRINE HCL 5 MG TABLET PO SCH ×2 (14:00→21:09)
--- NOTE | 2018-02-07 14:06 | EKG ---
Test Date: 2018-02-07 Test Time: 10:55:29 Financial Planning Assistant: WAYNE MEASUREMENT RESULTS: Intervals: Rate: 72 WV: 176 QRSD: 132 QT: 466 QTc: 510 Carman: P: 62 WV: 176 QRS: -23 T: 141 INTERPRETIVE STATEMENTS: Sinus rhythm with frequent premature ventricular complexes Nonspecific intraventricular block T wave abnormality, consider lateral ischemia Abnormal ECG Compared to ECG 01/29/2018 23:38:51 Ventricular premature complex(es) now present T-wave abnormality now present Possible ischemia now present Sinus tachycardia no longer present Electronically Signed On 02-07-18 14:05:54 CDT by Isai Martinez
[2018-02-07 15:32] VITALS: O2SAT 100
[2018-02-07 16:17] VITALS: BMI 28.7
[2018-02-07] MEDS ORDERED: ONDANSETRON 4 MG/2 ML VIAL IV PRN (16:18)
[2018-02-07] MEDS ORDERED: ACETAMINOPHEN 500 MG TAB PO PRN (16:18)
[2018-02-07] MEDS ORDERED: HYDROCODONE/APAP 10/325 TAB PO PRN (16:33)
--- NOTE | 2018-02-07 17:51 | P.HP ---
Certification for Inpatient Patient admitted to: Inpatient With expected LOS: >2 Midnights Patient will require the following post-hospital care: None Practitioner: I am a practitioner with admitting privileges, knowledge of patient current condition, hospital course, and medical plan of care. Services: Services provided to patient in accordance with Admission requirements found in Title 42 Section 412.3 of the Code of Federal Regulations Patient History Date of Service: 02/07/18 Reason for admission: AMS History of Present Illness: 67-year-old male with significant past medical history of end stage renal disease, hypertension, history of DVTs and PEs, dementia, who presented to the ED via ambulance for altered mental status. Most of the history was collected by the ED physician and the family member at bedside as patient at baseline is demented and was experiencing acute worsening of his symptoms. Patient family stated the patient had acute worsening of his mentation and thus they decided to bring him to the ER. Patient was recently seen by a door core assembler at the hemodialysis center yesterday and was told that he needs to get an extra session for dialysis today at for 4PM due to shortness of breath that he was experiencing. Patient was just seen recently here in the hospital for dyspnea and shortness of breath and was at that time found to also have hypotension along with anemia. Patient at that time was started on midodrine for hypotension and was going to be seen by nephrology for her anemia and chronic kidney disease. Patient currently does complain of having some dyspnea however no other complaints to offer. When I saw the patient and the ER patient was back to the baseline and the acute worsening of the altered mental status had resolved. Allergies No Known Allergies Allergy (Verified 01/30/18 01:55) Home Medications: Atorvastatin Calcium [Lipitor] 40 mg PO BEDTIME 01/30/18 Hydrocodone 10/APAP 325 [[place] 10/325*] 1 tab PO TID PRN 01/30/18 Pantoprazole [Protonix Tab*] 40 mg PO DAILY 01/30/18 Sertraline [Zoloft*] 50 mg PO DAILY 01/30/18 clonazePAM [Clonazepam] 1 mg PO BID 01/30/18 Midodrine HCl [Proamatine*] 5 mg PO EVERY HD #14 tab 01/31/18 Aspirin [Adult Aspirin] 81 mg PO DAILY 02/07/18 Diclofenac Sodium [Voltaren] 100 gm TP BID 02/07/18 Metoprolol Tartrate [Lopressor] 12.5 mg PO DAILY 02/07/18 - Past Medical/Surgical History Has patient received pneumonia vaccine in the past: Yes Diabetic: Yes -: ESRD on Saturday, , and Saturday -: Cardiomyopathy -: HTN -: cyst to bilateral arms -: carpal tunnel bilateral hands -: atrial fibrillation and atrial flutter -: Small-bowel obstruction/abdominal surgery -: Pulmonary embolism -: DVT with bilateral upper and lower extremity DVTs -: Myocardial infarction -: coronary disease status post CABG -: dementia -: Dialysis access catheter placement -: carpal tunnel surgery bilat hands -: CABG -: IVC filter - Family History Sister -: Cancer Notes: leukemia Father -: Heart disease Mother -: Other (see notes) Notes: Dementia Brother -: Cancer - Social History Smoking Status: Former smoker Alcohol use: No CD- Drugs: No Caffeine use: No Place of Residence: Home Review of Systems General: As per HPI Physical Examination - Vital Signs Temperature: 96.8 F Blood Pressure: 116/55 Pulse: 68 Respirations: 14 Pulse Ox (%): 100 - Physical Exam General: Alert, In no apparent distress, Oriented x2 HEENT: Atraumatic Neck: Supple Respiratory: Normal air movement, Crackles/rales, Rhonchi/gurgles Cardiovascular: Regular rate/rhythm, Normal S1 S2 Gastrointestinal: Normal bowel sounds, No tenderness Musculoskeletal: No tenderness Integumentary: No rashes Neurological: Normal strength at 5/5 x4 extr, Normal tone Lymphatics: No axilla or inguinal lymphadenopathy - Studies Laboratory Data (last 24 hrs) 02/07/18 10:50: PT 14.5 H, INR 1.23, APTT 23.4 L 02/07/18 10:50: WBC 3.6 L, Hgb 7.1 L*, Hct 21.2 L D, Plt Count 152 D 02/07/18 10:50: B-Natriuretic Peptide 2066 H Assessment and Plan - Problems (Diagnosis) (1) Altered mental status Current Visit: Yes Status: Acute Plan: AMS with underlying Dementia. Acute worsening due to anemia vs Dyspnea due to Volume overload. -Now At baseline. -Continue to observe Qualifiers: Altered mental status type: unspecified Qualified Code(s): R41.82 - Altered mental status, unspecified (2) Anemia Onset Date: 03/21/17 Current Visit: No Status: Acute Plan: Chronic anemia with acute worsening. -hgb 7.1. Will Repeat in AM -If < 7 tranfuse with Dialysis Qualifiers: Anemia type: due to chronic kidney disease Chronic kidney disease stage: on chronic dialysis Qualified Code(s): N18.6 - End stage renal disease; D63.1 - Anemia in chronic kidney disease; Z99.2 - Dependence on renal dialysis (3) ESRD (end stage renal disease) Onset Date: 01/30/18 Current Visit: No Status: Chronic Plan: ESRD with hypotension and Volume overload -BNP elevated -On HD. Pt to get extra HD today -Nephrology consulted. (4) Dementia Onset Date: 10/23/17 Current Visit: No Status: Chronic Qualifiers: Dementia type: unspecified type Dementia behavioral disturbance: without behavioral disturbance Qualified Code(s): F03.90 - Unspecified dementia without behavioral disturbance (5) S/P IVC filter Current Visit: No Status: Chronic Plan: On Chronic anticoagulation. -Will Hold in lieu of anemia (6) Atrial fibrillation Onset Date: 07/29/17 Current Visit: No Status: Chronic Plan: On metoprolol. Will restart. Hold Anticoagulation due to Anemia Qualifiers: Atrial fibrillation type: chronic Qualified Code(s): I48.2 - Chronic atrial fibrillation (7) Congestive heart failure Current Visit: No Status: Chronic Plan: Restart Home medication and HD Qualifiers: Heart failure type: combined systolic and diastolic Heart failure chronicity: chronic Qualified Code(s): I50.42 - Chronic combined systolic ( congestive) and diastolic (congestive) heart failure (8) History of DVT of lower extremity Current Visit: No Status: Chronic Plan: On Chronic anticoagulation. -Will Hold in Lieu of anemia (9) History of pulmonary embolism Current Visit: No Status: Chronic Plan: On Chronic anticoagulation. -Will Hold in Lieu to Anemia (10) Hypertension Onset Date: 06/25/17 Current Visit: No Status: Chronic Plan: Will restart home medication Qualifiers: Hypertension type: essential hypertension Qualified Code(s): I10 - Essential (primary) hypertension - Advance Directives Does patient have a Living Will: Yes Does patient have a Durable POA for Healthcare: Yes
[2018-02-07] MEDS ORDERED: ATORVASTATIN 40 MG TAB PO SCH (21:00)
[2018-02-08 06:26] LABS: Absolute Lymphocytes (CBC) 0.8 K/uL (0.7-4.9); Absolute Monocytes 0.4 K/uL (0.1-1.3); Absolute Neutrophil 1.7 K/uL (1.8-8.0); Basophils % 0.4 % (0-1.3); Eosinophils % 0.5 % (0-4.4); Hematocrit 22.2 % (39.6-49.0); Lymphocytes % 27.3 % (15.3-44.8); MCH 29.6 pg (27.0-35.0); MCV 88.7 fL (80-100); MPV 7.8 fL (7.6-11.3); Monocytes % 13.8 % (3.3-12.3)
[2018-02-08 07:13] LABS: Albumin 2.4 g/dL (3.2-5.5); Bilirubin Total 0.5 mg/dL (0.3-1.2); Potassium 4.7 mEq/L (3.6-5.0)
[2018-02-08] MEDS ORDERED: PANTOPRAZOLE 40MG TABLET PO SCH (07:30)
[2018-02-08] MEDS: MIDODRINE HCL 5 MG TABLET PO SCH ×2 (08:16→14:50)
[2018-02-08] MEDS ORDERED: METOPROLOL TAR 25 MG TAB PO SCH (09:00)
[2018-02-08] MEDS ORDERED: ASPIRIN EC 81 MG TAB PO SCH (09:00)
[2018-02-08] MEDS ORDERED: SERTRALINE HCL 50 MG TAB PO SCH (09:00)
[2018-02-08] MEDS ORDERED: EPOETIN ALFA 10,000 UNIT/ML VIAL SQ SCH (09:30)
--- NOTE | 2018-02-08 13:33 | P.SSS ---
Patient History Date of Service: 02/08/18 Reason for admission: AMS History of Present Illness: 67-year-old male with significant past medical history of end stage renal disease, hypertension, history of DVTs and PEs, dementia, who presented to the ED via ambulance for altered mental status. Most of the history was collected by the ED physician and the family member at bedside as patient at baseline is demented and was experiencing acute worsening of his symptoms. Patient family stated the patient had acute worsening of his mentation and thus they decided to bring him to the ER. Patient was recently seen by a airplane inspector at the hemodialysis center yesterday and was told that he needs to get an extra session for dialysis today at for 4PM due to shortness of breath that he was experiencing. Patient was just seen recently here in the hospital for dyspnea and shortness of breath and was at that time found to also have hypotension along with anemia. Patient at that time was started on midodrine for hypotension and was going to be seen by nephrology for her anemia and chronic kidney disease. Patient currently does complain of having some dyspnea however no other complaints to offer. When I saw the patient and the ER patient was back to the baseline and the acute worsening of the altered mental status had resolved. Allergies No Known Allergies Allergy (Verified 01/30/18 01:55) Home Medications: Atorvastatin Calcium [Lipitor] 40 mg PO BEDTIME 01/30/18 Hydrocodone 10/APAP 325 [[place] 10/325*] 1 tab PO TID PRN 01/30/18 Pantoprazole [Protonix Tab*] 40 mg PO DAILY 01/30/18 Sertraline [Zoloft*] 50 mg PO DAILY 01/30/18 clonazePAM [Clonazepam] 1 mg PO BID 01/30/18 Aspirin [Adult Aspirin] 81 mg PO DAILY 02/07/18 Diclofenac Sodium [Voltaren] 100 gm TP BID 02/07/18 Metoprolol Tartrate [Lopressor*] 12.5 mg PO DAILY 02/07/18 Midodrine HCl [Proamatine*] 5 mg PO TID #90 tab 02/08/18 - Past Medical/Surgical History Has patient received pneumonia vaccine in the past: Yes Diabetic: Yes -: ESRD on Saturday, , and Saturday -: Cardiomyopathy -: HTN -: cyst to bilateral arms -: carpal tunnel bilateral hands -: atrial fibrillation and atrial flutter -: Small-bowel obstruction/abdominal surgery -: Pulmonary embolism -: DVT with bilateral upper and lower extremity DVTs -: Myocardial infarction -: coronary disease status post CABG -: dementia -: Dialysis access catheter placement -: carpal tunnel surgery bilat hands -: CABG -: IVC filter - Family History Sister -: Cancer Notes: leukemia Father -: Heart disease Mother -: Other (see notes) Notes: Dementia Brother -: Cancer - Social History Smoking Status: Former smoker Alcohol use: No CD- Drugs: No Caffeine use: No Place of Residence: Home Review of Systems General: As per HPI Physical Examination - Vital Signs Temperature: 97.5 F Blood Pressure: 85/51 Pulse: 67 Respirations: 16 Pulse Ox (%): 96 - Physical Exam General: Alert, In no apparent distress HEENT: Atraumatic, PERRLA, Mucous membr. moist/pink, EOMI, Sclerae nonicteric Neck: Supple, 2+ carotid pulse no bruit, No LAD, Without JVD or thyroid abnormality Respiratory: Clear to auscultation bilaterally, Normal air movement Cardiovascular: Regular rate/rhythm, Normal S1 S2 Gastrointestinal: Normal bowel sounds, No tenderness Musculoskeletal: No tenderness Integumentary: No rashes Neurological: Normal gait, Normal speech, Normal strength at 5/5 x4 extr, Normal tone, Normal affect Lymphatics: No axilla or inguinal lymphadenopathy - Diagnosis (Problem(s)) (1) Altered mental status Current Visit: Yes Status: Acute Plan: AMS with underlying Dementia. Acute worsening due to anemia vs Dyspnea due to Volume overload. -Now At baseline. -DC home today after Dialysis Qualifiers: Altered mental status type: unspecified Qualified Code(s): R41.82 - Altered mental status, unspecified (2) Anemia Onset Date: 03/21/17 Current Visit: No Status: Acute Plan: Chronic anemia from KD. -hgb 7.4. No Need for transfusion -Restart Anticoagulation as well Qualifiers: Anemia type: due to chronic kidney disease Chronic kidney disease stage: on chronic dialysis Qualified Code(s): N18.6 - End stage renal disease; D63.1 - Anemia in chronic kidney disease; Z99.2 - Dependence on renal dialysis (3) ESRD (end stage renal disease) Onset Date: 01/30/18 Current Visit: No Status: Chronic Plan: ESRD with hypotension and Volume overload -Nephrology consulted. reccs apprecaited -HD today -Midodrine 5mg TID -DC home after dialysis (4) Dementia Onset Date: 10/23/17 Current Visit: No Status: Chronic Qualifiers: Dementia type: unspecified type Dementia behavioral disturbance: without behavioral disturbance Qualified Code(s): F03.90 - Unspecified dementia without behavioral disturbance (5) S/P IVC filter Current Visit: No Status: Chronic (6) Atrial fibrillation Onset Date: 07/29/17 Current Visit: No Status: Chronic Qualifiers: Atrial fibrillation type: chronic Qualified Code(s): I48.2 - Chronic atrial fibrillation (7) Congestive heart failure Current Visit: No Status: Chronic Qualifiers: Heart failure type: combined systolic and diastolic Heart failure chronicity: chronic Qualified Code(s): I50.42 - Chronic combined systolic ( congestive) and diastolic (congestive) heart failure (8) History of DVT of lower extremity Current Visit: No Status: Chronic (9) History of pulmonary embolism Current Visit: No Status: Chronic (10) Hypertension Onset Date: 06/25/17 Current Visit: No Status: Chronic Plan: Hypotensive during Hospitalization. Started on Midodrin 5mg TID now Qualifiers: Hypertension type: essential hypertension Qualified Code(s): I10 - Essential (primary) hypertension - Disposition Disposition: ROUTINE DISCHARGE Condition: GOOD Patient Discharge Instructions: Please f/u with nephrology in 1 to 2 week post discharge. New medication. midodrine 5mg TID for BP Diet: Regular Activity: Ad lola
[2018-02-08 16:15] VITALS: BP 106/61; TEMP 98
--- NOTE | 2018-02-08 23:22 | CON ---
Date of Consultation: 02/08/2018 Chief Complaint: End-stage renal disease, on dialysis. History Of Present Illness: The patient is undergoing treatment with dialysis 3 times per week. The patient has multiple medical problems including history of intradialytic hypotension, anemia in CKD, history of DVT, pulmonary hypertension, history of PE, and dementia. The patient was brought to emergency room by ambulance for altered mental status. He was found to have borderline hypotension and midodrine was resumed 3 times per day. Review of Systems: Constitutional: The patient cannot provide review of systems, although he denies fever or chills. Eyes: Denies vision changes. Ears, Nose, Mouth, and Throat: Denies sore throat or earaches. Respiratory: Denies PND or orthopnea. He is mostly bed-bound. GI: Denies nausea or vomiting. : Denies dysuria or hematuria. Musculoskeletal: Denies muscle aches or joint swelling. All other systems reviewed and all are negative Past Medical History: Obesity, pulmonary hypertension, dementia, DVT, PE, hypertension, intradialytic hypotension, anemia in CKD, renal osteodystrophy, coronary artery disease, cardiomyopathy, carpal tunnel syndrome, CABG, inferior vena cava filter. Social History: Denies tobacco, alcohol, or illicit drugs. Family History: Sister has leukemia. Father with heart disease. Mother with dementia, bladder cancer. Physical Examination: General: Not in acute distress. Eyes: Anicteric sclerae. EOMI. EARS, Nose, Mouth and Throat: Oral mucosa moist. No pallor. Neck: Supple. No JVD. No bruits. Lungs: Few crackles at bases. Heart: S1, S2. No pericardial friction rub. Abdomen: Soft, obese, nontender. No rebound. No guarding. No flank tenderness. Extremities: Some edema present in both legs. Neurological: Moving extremities. Cranial nerves intact. Psychiatric: Alert and oriented x3. Normal affect. Vital Signs: Blood pressure 116/56, heart rate 68, temperature 96.8, respiratory rate 14, SpO2 100%. Laboratory Data: Blood work; WBC is 3.6, hemoglobin 7.1, hematocrit 21.2, platelet count 152,000. BNP 2067. PT 14.5, INR 1.23, PTT 23.4. Impression And Plan: 1. End-stage renal disease, on dialysis. Dialysis is scheduled today with ultrafiltration. Continue current dialysis treatment with ultrafiltration. Monitor blood pressure closely to prevent intradialytic hypotension. Continue midodrine for blood pressure support. 2. Anemia, chronic. Continue AZUCENA. The patient does not have any evidence of bleeding. 3. Hypotension, improved with midodrine. The patient has multiple medical problems including cardiomyopathy. Cardiac workup was ordered by primary team to rule out acute coronary syndrome. 4. Syncope, etiology likely due to hypotension. Midodrine was started. Monitor for any evidence of infection. NATHAN/TRICE Voice ID: [id number] Report ID: [id number] MTDD
[2018-02-11 19:57] LABS: HBsAG Nonreactive (Nonreactive)
== END 2018-02-08 14:59 | disposition home or self-care (01) | DRG 314 ==
LOC: ER 10:33 → ERHOLD 12:18 → 4TH 15:17
PROVIDERS: ADMIT Family Medicine; ATTEND Family Medicine
PROC: 06HM33Z Insertion of Infusion Device into Right Femoral Vein, Percutaneous Approach (ICD-10-PCS; 2018-02-07)
PROC: 5A1D70Z Performance of Urinary Filtration, Intermittent, Less than 6 Hours Per Day (ICD-10-PCS; principal; 2018-02-08)
DX: I95.9 Hypotension, unspecified (principal); N18.6 End stage renal disease; I13.2 Hypertensive heart and chronic kidney disease with heart failure and with stage 5 chronic kidney disease, or end stage renal disease; I50.42 Chronic combined systolic (congestive) and diastolic (congestive) heart failure; D63.1 Anemia in chronic kidney disease; I27.20 Pulmonary hypertension, unspecified; F03.90 Unspecified dementia, unspecified severity, without behavioral disturbance, psychotic disturbance, mood disturbance, and anxiety; N25.0 Renal osteodystrophy; I25.10 Atherosclerotic heart disease of native coronary artery without angina pectoris; E66.9 Obesity, unspecified; R41.82 Altered mental status, unspecified; I48.2 Chronic atrial fibrillation; Z86.718 Personal history of other venous thrombosis and embolism; Z86.711 Personal history of pulmonary embolism; Z95.1 Presence of aortocoronary bypass graft; Z99.2 Dependence on renal dialysis; Z79.82 Long term (current) use of aspirin; Z87.891 Personal history of nicotine dependence; Z95.828 Presence of other vascular implants and grafts
CPT/HCPCS: 36415; 70450; 71045; 80048; 80053; 80076; 82962; 83605; 83735; 83880; 84145; 84484; 85025; 85610; 85730; 86704; 86706; 86803; 87040; 87340; 90935; 93005; 96374; 99285; J0696; J1265; Q4081

== ENCOUNTER 2018-02-22 15:25 | Observation (INO) | payer OTHER, BC ==
--- OUTSIDE RECORDS SUMMARY | 2018-02-22 15:27 | XMS REPORT | Clinical Summary ---
:1950 Author Organization [facility] Address [address] [place] [address] Care Team Providers Name Role Phone Asked, [...] every 60 MG 24 hr tablet morning. colchicine 0.6 mg Take 0.5 tablets 30 [...] INFLUENZA VACCINE 03/26/2018 Implants Implanted Type Area Customs Manager Device Expiration Model / Identifier Date Serial / Lot Catheter Angio Personal Loan Specialist Ii 5fr 65cm Selc Braidd Torque Norris - [id number] Surgical N/A: N/A BSC PERIPHERAL [id number] / Implanted: 01/31/2017 (Quantity not on file) Implants; INTERVENTION / Expanders; VASCULAR REAGAN Extenders; Surgical Wires Abdominal Mesh Results Not on fileafter 02/21/2017 Insurance Payer Benefit Plan / Group Subscriber ID Type Phone Address MEDICARE MEDICARE PART A AND B xxxxxxxxxx Medicare [place], [place] BCBS BCBS CHOICE PPO/FEDERAL EMPL PPO xxxxxxxxxxxx PPO [phone] [place] [id number]
[2018-02-22 16:15] LABS: Absolute Monocytes 0.5 K/uL (0.1-1.3); Absolute Neutrophil 2.7 K/uL (1.8-8.0); Basophils % 0.4 % (0-1.3); Eosinophils % 0.6 % (0-4.4); Hematocrit 26.8 % (39.6-49.0); Lymphocytes % 22.9 % (15.3-44.8); MCH 28.2 pg (27.0-35.0); MCV 91.1 fL (80-100); MPV 7.9 fL (7.6-11.3); Monocytes % 12.2 % (3.3-12.3); RBC Red Blood Cell Count 2.95 M/uL (4.33-5.43)
[2018-02-22 16:23] LABS: Albumin 2.5 g/dL (3.4-5.0); Bilirubin Direct 0.2 mg/dL (0-0.2); Bilirubin Total 0.5 mg/dL (0.2-1.0); Potassium 3.3 mmol/L (3.5-5.1); Protein, Total 9.6 g/dL (6.4-8.2)
--- NOTE | 2018-02-22 16:32 | RAD REPORT ---
EXAM DESCRIPTION: CT - Head Brain Wo Cont - 02/22/2018 3:58 pm CLINICAL HISTORY: Weakness, dizziness, altered mental status, dialysis patient COMPARISON: CT head February 07 and October 22 TECHNIQUE: Axial 5 mm thick images of the head were obtained without IV contrast. All CT scans are performed using dose optimization technique as appropriate and may include automated exposure control or mA/KV adjustment according to patient size. FINDINGS: No intracranial hemorrhage, mass, edema or shift of mid-line structures. No acute cortical based infarction. No cortical edema or sulcal effacement. Small old infarction at the left frontal p arietal junction. Patient has underlying atrophy and chronic ischemic change. Arterial and physiologi c calcifications are present. There are numerous calcifications in the scalp soft tissues. No abnorma l extra-axial fluid collections. Ventricles are in proportion to volume loss. No globe or orbital con tent abnormality. Partially imaged paranasal sinuses and the left side mastoid air cells are clear. Chronic opacification of the right mastoid air cells noted. There is also partial opacification of th e middle here and generalized thinning of the bone around the temporomandibular joint and external au ditory canal. No acute bony findings. IMPRESSION: Atrophy, chronic ischemic change and old infarction changes as detailed. Findings are st able from short interval February 07 study. No acute intracranial finding. Chronic mastoid and middle ear changes on the right dating to at least September 2017.
--- NOTE | 2018-02-22 16:37 | RAD REPORT ---
EXAM DESCRIPTION: RAD - Chest Single View - 02/22/2018 4:04 pm CLINICAL HISTORY: Dialysis patient, weakness, shortness of breath COMPARISON: February 07 TECHNIQUE: AP portable chest image was obtained 1553 hours . FINDINGS: No focal consolidation. Interstitial markings are mildly prominent, similar to prior imagi ng. Cardiomegaly is present but improved. Vascular engorgement is similar to prior imaging. No measur able pleural effusion and no pneumothorax. No gross bony abnormality seen. No acute aortic findings s uspected. IMPRESSION: Heart, vasculature and lung markings are all prominent but not substantially different f rom prior imaging. Patient's baseline pattern can mask early stages of interstitial edema or infiltrate.
[2018-02-22 16:49] LABS: Anisocytosis 2+; Blood Morphology Comment NOTED (NOT SEEN); Platelet Estimate ADEQ; Rouleau SLIGHT; Urine White Blood Cell Casts OK
--- NOTE | 2018-02-22 16:53 | ER ---
Nurse's Notes [facility] Name: Nain Cartagena Jr Age: 67 yrs Sex: Male : 1950 Arrival Date: 02/22/2018 Time: 15:27 Bed 8 Private MD: Diagnosis: Altered mental status, unspecified;Weakness;End stage renal disease Presentation: 02/22 15:25 Presenting complaint: EMS states: generalized weakness after dialysis today. Pt sv completed dialysis today and had 1.446 liters today. Transition of care: Dialysis center. Onset of symptoms was February 22, 2018. Risk Assessment: Do you want to hurt yourself or someone else? Patient reports no desire to harm self or others. Note Spouse states that she's noticed that pt has been altered the past couple of days, weaker than normal. Care prior to arrival: None. 15:25 Method Of Arrival: EMS: [facility] sv 15:25 Acuity: RADHA 3 sv 18:24 Initial Sepsis Screen: Does the patient meet any 2 criteria? No. Patient's initial sv sepsis screen is negative. Does the patient have a suspected source of infection? No. Patient's initial sepsis screen is negative. Triage Assessment: 15:30 General: Appears in no apparent distress. uncomfortable, Behavior is calm, cooperative, sv appropriate for age. Pain: Denies pain. EENT: No signs and/or symptoms were reported regarding the EENT system. Neuro: Level of Consciousness is awake, alert, obeys commands, Oriented to person, place, time, situation, Speech is normal. Cardiovascular: Patient's skin is warm and dry. Pulses are palpable in right radial artery and left radial artery Rhythm is sinus rhythm with unifocal PVCs. Cardiovascular: Dialysis shunt: in the left arm, with palpable thrill, with auscultated bruit, with no erythema. Respiratory: Respiratory effort is even, unlabored, Respiratory pattern is regular, symmetrical. Derm: Skin is normal. Musculoskeletal: Range of motion: intact in all extremities. Historical: - Allergies: 15:44 No Known Allergies; sv - Home Meds: 15:44 acetaminophen-codeine 300-30 mg Oral tab [Active]; Alinia 500 mg Oral tab 1 tab twice a sv day [Active]; Allopurinol 50 mg Oral 1 tab once daily [Active]; aspirin 81 mg Oral chew 1 tab once daily [Active]; atorvastatin 40 mg Oral tab 1 tab once daily [Active]; clonazepam 0.5 mg Oral tab 1 tab 2 times per day [Active]; colchicine 0.6 mg Oral cap 1 cap 2 times per day [Active]; hydrocodone-acetaminophen 10-325 mg Oral tab TID [Active]; Klonopin 0.5 mg Oral tab 1 tab 2 times per day [Active]; metoprolol tartrate 12.5 mg Oral tab 1 tab 2 times per day [Active]; Miralax 17 gram Oral pwpk 1 packet once daily [Active]; pantoprazole 40 mg Oral TbEC 1 tab once daily [Active]; Renvela 800 mg Oral tab 1 tab 3 times per day [Active]; sertraline 50 mg Oral tab once daily [Active]; tramadol 50 mg Oral tab 1 tab twice a day for Pain [Active]; - PMHx: 15:44 Atrial Fib; CHF; Diabetes - NIDDM; DIALYSIS Saturday, and saturdays; DVT; Edema sv Lower leg; ESRD; Ganglion, shoulder; GERD; Gout; Hypertension; polymyalgia rheumatica; - Immunization history:: Adult Immunizations up to date. - Social history:: Smoking status: Patient/guardian denies using tobacco. - Family history:: not pertinent. - Ebola Screening: : No symptoms or risks identified at this time. - Hospitalizations: : No recent hospitalization is reported. Screenin:45 Abuse screen: Denies threats or abuse. Denies injuries from another. Nutritional sv screening: No deficits noted. Tuberculosis screening: No symptoms or risk factors identified. Fall Risk None identified. Assessment: 16:20 Reassessment: Patient appears in no apparent distress at this time. No changes from sv previously documented assessment. Patient and/or family updated on plan of care and expected duration. Pain level reassessed. Patient is alert, oriented x 3, equal unlabored respirations, skin warm/dry/pink. 18:23 Reassessment: Patient appears in no apparent distress at this time. No changes from sv previously documented assessment. Patient and/or family updated on plan of care and expected duration. Pain level reassessed. Patient is alert, oriented x 3, equal unlabored respirations, skin warm/dry/pink. 19:21 General: Appears in no apparent distress. Behavior is calm, cooperative. Pain: Denies lp1 pain. Neuro: Level of Consciousness is awake, alert, obeys commands, Oriented to person, place. Cardiovascular: Patient's skin is warm and dry. Respiratory: Respiratory effort is even, unlabored. GI: No signs and/or symptoms were reported involving the gastrointestinal system. : No signs and/or symptoms were reported regarding the genitourinary system. EENT: No signs and/or symptoms were reported regarding the EENT system. Derm: Skin is intact, Skin is dry, Skin is normal, Skin temperature is warm. Musculoskeletal: Circulation, motion, and sensation intact. 20:30 Reassessment: Patient appears in no apparent distress at this time. Patient and/or lp1 family updated on plan of care and expected duration. Pain level reassessed. Patient resting, eyes closed, respirations unlabored;. Vital Signs: 15:30 BP 112 / 83; Pulse 93; Resp 13; Temp 98.6; Pulse Ox 100% ; Pain 0/10; sv 16:30 BP 113 / 55; Pulse 89; Resp 21; Pulse Ox 100% on R/A; dh3 17:02 BP 107 / 38; Pulse 84; Resp 12; Pulse Ox 99% ; sv 18:02 BP 107 / 94; Pulse 87; Resp 16; Pulse Ox 100% on R/A; dh3 18:39 BP 96 / 48; Pulse 84; Resp 15; Pulse Ox 96% ; sv 19:22 BP 96 / 56; Pulse 83; Resp 17; Temp 98.5(O); Pulse Ox 100% on R/A; lp1 19:54 BP 108 / 66; Pulse 87; Resp 18; Pulse Ox 98% on R/A; lp1 20:50 BP 91 / 55; Pulse 83; Resp 15; Pulse Ox 97% on R/A; lp1 ED Course: 15:27 Patient arrived in ED. ss 15:29 Yasir Moran MD is Attending Physician. rn 15:36 Ann Wong RN is Primary Nurse. sv 15:40 Triage completed. sv 15:41 Arm band placed on right wrist. sv 15:45 Patient has correct armband on for positive identification. Placed in gown. Bed in low sv position. Call light in reach. Side rails up X2. Adult w/ patient. monitor worker on. Pulse ox on. NIBP on. Door closed. Warm blanket given. Head of bed elevated. 15:53 Initial lab(s) drawn, by me, sent to lab. Inserted saline lock: 20 gauge in right dh3 forearm, using aseptic technique. Blood collected. 15:53 First set of blood cultures drawn by me. 3 15:57 CT completed. Patient moved to CT via stretcher. Patient moved to radiology. cw1 15:58 XRAY Chest (1 view) In Process Unspecified. EDMS 15:59 CT Head Brain wo Cont In Process Unspecified. EDMS 16:28 Second set of blood cultures drawn by me, by venipuncture 23G to right hand. dh3 16:52 Mike Castellanos DO is Hospitalizing Provider. rn 19:18 Report given to Fernanda RAYMUNDO. 19:20 Primary Nurse role handed off by Ann Wong RN 19:21 No provider procedures requiring assistance completed. Patient admitted, IV remains in lp1 place. 19:52 Fernanda Graham RN is Primary Nurse. lp1 19:54 Notified the admitting physician of a critical lab result(s), trop 3.34. fc Administered Medications: No medications were administered Point of Care Testing: Blood Glucose: 21:15 Blood Glucose: 113 mg/dL; lp1 Ranges: Outcome: 16:52 Decision to Hospitalize by Provider. rn 19:21 Condition: stable lp1 19:21 Instructed on the need for admit. 20:58 Admitted to Med/surg via stretcher, room 214, with chart, Report called to BREANNE Win lp1 21:18 Patient left the ED. lp1 Signatures: Dispatcher [employer] [facility] Ann Wong RN RN sv Chretien, Felicia, RN RN Yasir Moran MD MD rn Smirch, Shelby, RN RN ss Woodley, Crystal [facility] Fernanda Graham RN RN [facility] Linnea Chinchilla [facility] Corrections: (The following items were deleted from the chart) 18:25 18:24 Initial Sepsis Screen: Does the patient meet any 2 criteria? RR > 20 per min. Yes sv Does the patient have a suspected source of infection? No. Patient's initial sepsis screen is negative. sv
--- NOTE | 2018-02-22 16:53 | EDPHYS ---
Physician Documentation [facility] Name: Nain Cartagena Jr Age: 67 yrs Sex: Male : 1950 Arrival Date: 02/22/2018 Time: 15:27 Bed 8 Private MD: ED Physician Yasir Moran HPI: 02/22 16:18 This 67 yrs old Black Male presents to ER via EMS with complaints of General Weakness, rn Altered Mental Status. 16:18 The patient presents with confusion, decreased responsiveness, disorientation. Onset: rn The symptoms/episode began/occurred yesterday. Possible causes: unknown. Associated signs and symptoms: Pertinent positives: confusion, lightheadedness, weakness. Current symptoms: In the emergency department the patient's symptoms have improved. The patient has experienced similar episodes in the past. Family member reports generalized weakness, confusion, and not acting right since yesterday, no fever, had dialysis today, sent here from dialysis for weakness. No head trauma. . Historical: - Allergies: 15:44 No Known Allergies; sv - Home Meds: 15:44 acetaminophen-codeine 300-30 mg Oral tab [Active]; Alinia 500 mg Oral tab 1 tab twice a sv day [Active]; Allopurinol 50 mg Oral 1 tab once daily [Active]; aspirin 81 mg Oral chew 1 tab once daily [Active]; atorvastatin 40 mg Oral tab 1 tab once daily [Active]; clonazepam 0.5 mg Oral tab 1 tab 2 times per day [Active]; colchicine 0.6 mg Oral cap 1 cap 2 times per day [Active]; hydrocodone-acetaminophen 10-325 mg Oral tab TID [Active]; Klonopin 0.5 mg Oral tab 1 tab 2 times per day [Active]; metoprolol tartrate 12.5 mg Oral tab 1 tab 2 times per day [Active]; Miralax 17 gram Oral pwpk 1 packet once daily [Active]; pantoprazole 40 mg Oral TbEC 1 tab once daily [Active]; Renvela 800 mg Oral tab 1 tab 3 times per day [Active]; sertraline 50 mg Oral tab once daily [Active]; tramadol 50 mg Oral tab 1 tab twice a day for Pain [Active]; - PMHx: 15:44 Atrial Fib; CHF; Diabetes - NIDDM; DIALYSIS Saturday, and saturdays; DVT; Edema sv Lower leg; ESRD; Ganglion, shoulder; GERD; Gout; Hypertension; polymyalgia rheumatica; - Immunization history:: Adult Immunizations up to date. - Social history:: Smoking status: Patient/guardian denies using tobacco. - Family history:: not pertinent. - Ebola Screening: : No symptoms or risks identified at this time. - Hospitalizations: : No recent hospitalization is reported. ROS: 16:18 Constitutional: Negative for fever, chills, and weight loss, Eyes: Negative for injury, rn pain, redness, and discharge, Neck: Negative for injury, pain, and swelling, Cardiovascular: Negative for chest pain, palpitations, and edema, Respiratory: Negative for shortness of breath, cough, wheezing, and pleuritic chest pain, Abdomen/GI: Negative for abdominal pain, nausea, vomiting, diarrhea, and constipation, Back: Negative for injury and pain, MS/Extremity: Negative for injury and deformity, Skin: Negative for injury, rash, and discoloration, Neuro: Negative for headache, numbness, tingling, and seizure. Exam: 16:18 Constitutional: This is a well developed, well nourished patient who is awake, alert, rn and in no acute distress. Head/Face: Normocephalic, atraumatic. Eyes: Pupils equal round and reactive to light, extra-ocular motions intact. Lids and lashes normal. Conjunctiva and sclera are non-icteric and not injected. Cornea within normal limits. Periorbital areas with no swelling, redness, or edema. Neck: Trachea midline, no thyromegaly or masses palpated, and no cervical lymphadenopathy. Supple, full range of motion without nuchal rigidity, or vertebral point tenderness. No Meningismus. Cardiovascular: Regular rate and rhythm with a normal S1 and S2. No gallops, murmurs, or rubs. Normal PMI, no JVD. No pulse deficits. Respiratory: Lungs have equal breath sounds bilaterally, clear to auscultation and percussion. No rales, rhonchi or wheezes noted. No increased work of breathing, no retractions or nasal flaring. Abdomen/GI: Soft, non-tender, with normal bowel sounds. No distension or tympany. No guarding or rebound. No evidence of tenderness throughout. MS/ Extremity: Pulses equal, no cyanosis. Neurovascular intact. Full, normal range of motion. Equal circumference. Neuro: Awake and alert, GCS 15, oriented to person, place, time, and situation. Cranial nerves II-XII grossly intact. Motor strength 4/5 in all extremities. Sensory grossly intact. Cerebellar exam normal Vital Signs: 15:30 BP 112 / 83; Pulse 93; Resp 13; Temp 98.6; Pulse Ox 100% ; Pain 0/10; sv 16:30 BP 113 / 55; Pulse 89; Resp 21; Pulse Ox 100% on R/A; dh3 17:02 BP 107 / 38; Pulse 84; Resp 12; Pulse Ox 99% ; sv 18:02 BP 107 / 94; Pulse 87; Resp 16; Pulse Ox 100% on R/A; dh3 18:39 BP 96 / 48; Pulse 84; Resp 15; Pulse Ox 96% ; sv 19:22 BP 96 / 56; Pulse 83; Resp 17; Temp 98.5(O); Pulse Ox 100% on R/A; lp1 19:54 BP 108 / 66; Pulse 87; Resp 18; Pulse Ox 98% on R/A; lp1 20:50 BP 91 / 55; Pulse 83; Resp 15; Pulse Ox 97% on R/A; lp1 MDM: 15:29 Patient medically screened. rn 16:50 Differential Diagnosis: electrolyte abnormality, hypoglycemia, intracranial bleed, rn pneumonia, sepsis, volume depletion. Differential Diagnosis: CVA. Data reviewed: vital signs, nurses notes. Data reviewed: lab test result(s), EKG, radiologic studies, CT scan, plain films. Counseling: I had a detailed discussion with the patient and/or guardian regarding: the historical points, exam findings, and any diagnostic results supporting the discharge/admit diagnosis, lab results, radiology results, the need for further work-up and treatment in the hospital. Response to treatment: the patient's symptoms have mildly improved after treatment, and as a result, I will admit patient. Admission orders: after a detailed discussion of the patient's condition and case, the admit orders are written by me. 02/22 15:43 Order name: CBC with Diff; Complete Time: 16:55 rn 02/22 15:43 Order name: Basic Metabolic Panel; Complete Time: 16:42 rn 02/22 15:43 Order name: Procalcitonin; Complete Time: 16:42 rn 02/22 15:43 Order name: Blood Culture Adult (2) rn 02/22 15:43 Order name: Hepatic Function; Complete Time: 16:42 rn 02/22 15:43 Order name: Lipase; Complete Time: 16:42 rn 02/22 15:43 Order name: IV Start; Complete Time: 16:01 rn 02/22 15:43 Order name: XRAY Chest (1 view); Complete Time: 16:42 rn 02/22 15:43 Order name: CT Head Brain wo Cont; Complete Time: 16:42 rn 02/22 16:49 Order name: CBC Smear Scan; Complete Time: 16:55 EDMS 02/22 19:36 Order name: Creatine Phosphokinase EDNC 02/22 19:36 Order name: CKMB Creatine Kinase MB EDNC 02/22 19:52 Order name: Troponin I EDNC 02/22 20:11 Order name: EKG; Complete Time: 20:11 lp1 02/22 15:43 Order name: Labs collected and sent; Complete Time: 16:01 rn 02/22 20:11 Order name: EKG - Nurse/Tech; Complete Time: 20:11 lp1 Administered Medications: No medications were administered Point of Care Testing: Blood Glucose: 21:15 Blood Glucose: 113 mg/dL; lp1 Ranges: Critical Glucose Levels:Adult <50 mg/dl or >400 mg/dl <40 mg/dl or >180 mg/dl Disposition: 02/22/18 16:52 Hospitalization ordered by Mike Castellanos for Observation. Preliminary diagnosis are Altered mental status, unspecified, Weakness, End stage renal disease. - Bed requested for Telemetry/MedSurg (observation). - Status is Observation. lp1 - Condition is Stable. - Problem is new. - Symptoms have improved. UTI on Admission? No Signatures: Dispatcher [employer] [facility] Ann Wong RN RN Yasir Moran MD MD rn Pena, Laura, RN RN lp1 Norma Browne RN RN df Corrections: (The following items were deleted from the chart) 18:34 16:52 Hospitalization Ordered by Mike Castellanos DO for Observation. Preliminary df diagnosis is Altered mental status, unspecified; Weakness; End stage renal disease. Bed requested for Telemetry/MedSurg (observation). Status is Observation. Condition is Stable. Problem is new. Symptoms have improved. UTI on Admission? No. rn 21:18 18:34 02/22/2018 16:52 Hospitalization Ordered by Mike Castellanos DO for Observation. lp1 Preliminary diagnosis is Altered mental status, unspecified; Weakness; End stage renal disease. Bed requested for Telemetry/MedSurg (observation). Status is Observation. Condition is Stable. Problem is new. Symptoms have improved. UTI on Admission? No. df
[2018-02-22] MEDS ORDERED: HYDROCODONE/APAP 5/325 MG TAB PO PRN (17:19)
[2018-02-22] MEDS ORDERED: ACETAMINOPHEN 500 MG TAB PO PRN (17:19)
[2018-02-22] MEDS ORDERED: clonazePAM 0.5 MG TAB PO PRN (17:19)
[2018-02-22] MEDS ORDERED: ONDANSETRON 4 MG/2 ML VIAL IV PRN (17:19)
--- NOTE | 2018-02-22 17:37 | P.HP ---
Certification for Inpatient Patient admitted to: Observation With expected LOS: <2 Midnights Patient will require the following post-hospital care: None Practitioner: I am a practitioner with admitting privileges, knowledge of patient current condition, hospital course, and medical plan of care. Services: Services provided to patient in accordance with Admission requirements found in Title 42 Section 412.3 of the Code of Federal Regulations Patient History Date of Service: 02/22/18 Primary Care Provider: Dr. Donald; Nephrology-Dr. Joseph; Cardiology-Dr. Green Reason for admission: AMS History of Present Illness: 67 yo AAM presented to the ER after he was sent to ER from dialysis after he has some confusion. reports that the last 2 days he has noted some confusion. This morning prior going to dialysis reported that he was having some confusion. He was also fatigued. Home health has reported that his BP is fluctuation and is low at times. Over the last couple of weeks, Midodrine was added. Cardiology did finish a Holter monitor on Saturday. He is to go back on Saturday to review the Holter monitor results. No fever, chills, nausea or vomiting. His was sick with cough. He does not urinate. In the ER he was stable. BP would fluctuate in the ER. Lab showed a normal [facility]. Procalcitonin was 1.18. On 02/07 his Procalcitonin was 1.57. He was recently discharged for similar issues. That is when he was started on Midodrine. CT head shows no acute CVA. Previous CVA noted. CXR showed pneumonia. In the ER, he had no problems. He was back to his normal baseline. No complaints was noted. Allergies No Known Allergies Allergy (Verified 01/30/18 01:55) Home medications list reviewed: Yes Home Medications: Atorvastatin Calcium [Lipitor] 40 mg PO BEDTIME 01/30/18 Hydrocodone 10/APAP 325 [Tracy 10/325*] 1 tab PO TID PRN 01/30/18 Pantoprazole [Protonix Tab*] 40 mg PO DAILY 01/30/18 Sertraline [Zoloft*] 50 mg PO DAILY 01/30/18 clonazePAM [Clonazepam] 1 mg PO BID 01/30/18 Aspirin [Adult Aspirin] 81 mg PO DAILY 02/07/18 Diclofenac Sodium [Voltaren] 100 gm TP BID 02/07/18 Metoprolol Tartrate [Lopressor*] 12.5 mg PO DAILY 02/07/18 Midodrine HCl [Proamatine*] 5 mg PO TID #90 tab 02/08/18 - Past Medical/Surgical History Diabetic: Yes -: ESRD on Saturday, , and Saturday -: Cardiomyopathy -: HTN -: Cyst to bilateral arms -: Carpal Tunnel -: Atrial fibrillation/atrial flutter/No anticoagulation due to GI bleed risk -: Small-bowel obstruction/abdominal surgery -: Hx Pulmonary embolism, now with IVC filter -: DVT with bilateral upper and lower extremity DVTs -: CAD, CABG -: Dementia with previous CVA -: Hypotension on Midodrine. -: Dialysis access catheter placement -: carpal tunnel surgery bilat hands -: CABG -: IVC filter Psychosocial/ Personal History: He is . - Family History Sister -: Cancer Notes: leukemia Father -: Heart disease Mother -: Other (see notes) Notes: Dementia Brother -: Cancer - Social History Smoking Status: Never smoker Alcohol use: No CD- Drugs: No Caffeine use: No Place of Residence: Home Review of Systems General: Weakness, Malaise, As per HPI Eyes: Unremarkable ENT: Unremarkable Respiratory: Unremarkable Cardiovascular: Light Headedness, As per HPI Gastrointestinal: Unremarkable Genitourinary: Unremarkable Musculoskeletal: Unremarkable Neurological: Weakness, As per HPI Lymphatics: Unremarkable Physical Examination - Physical Exam General: Alert, In no apparent distress, Cooperative, Demented HEENT: Atraumatic, Mucous membr. moist/pink Neck: Supple, No Thyromegaly Respiratory: Clear to auscultation bilaterally, Normal air movement Cardiovascular: Irregular heart rate/rhythm (atrial fib) Gastrointestinal: Normal bowel sounds, Soft and benign, Non-distended, No tenderness, No masses, No rebound, No guarding Musculoskeletal: No erythema, No tenderness, No warmth Integumentary: No erythema, No warmth, No cyanosis, Tenderness/swelling (non pitting edema to the lower ext) Neurological: Normal speech, Normal strength at 5/5 x4 extr, Normal tone, Normal affect, Dementia - Studies Laboratory Data (last 24 hrs) 02/22/18 15:53: Sodium 134 L, Potassium 3.3 L, BUN 21 H, Creatinine 2.80 H, Glucose 101, Total Bilirubin 0.5, AST 25, ALT 18, Alkaline Phosphatase 167 H, Lipase 47 L 02/22/18 15:53: WBC 4.2 L, Hgb 8.3 L, Hct 26.8 L, Plt Count 166 Assessment and Plan - Problems (Diagnosis) (1) Hypotension Current Visit: Yes Status: Acute Plan: Will continue with Midodrine. Not sure if his fluctuating BP is causing some AMS. He has Dementia with history of CVA. Will have Nephrology and Cardiology evaluate. Patient had recent Holter monitor last week with his Hosting Engineer. He is to follow up with Cardiology on Saturday. Will assess for infectious process. Qualifiers: Hypotension type: unspecified hypotension type Qualified Code(s): I95.9 - Hypotension, unspecified (2) Depression Current Visit: Yes Status: Chronic Plan: Continue with medication Qualifiers: Depression Type: unspecified Qualified Code(s): F32.9 - Major depressive disorder, single episode, unspecified (3) Altered mental status Current Visit: No Status: Acute Plan: Etiology unknown. Likely from fluctuating BP. Currently on Metoprolol 12.5 daily for rate control for A. Fib but also on Midodrine due to Hypotension. Will discuss with Nephrology and Cardiology. Doubt infectious cause. Better Procalcitonin from recent visit. WBC is normal. Will check Blood culture. Will also get Influenza and Strept. Patient had recent Holter monitor. To see Cardiology as outpatient on Saturday. Qualifiers: Altered mental status type: unspecified Qualified Code(s): R41.82 - Altered mental status, unspecified (4) Anemia Onset Date: 03/21/17 Current Visit: No Status: Chronic Plan: Will monitor. Qualifiers: Anemia type: due to chronic kidney disease Chronic kidney disease stage: on chronic dialysis Qualified Code(s): N18.6 - End stage renal disease; D63.1 - Anemia in chronic kidney disease; Z99.2 - Dependence on renal dialysis (5) Atrial fibrillation Onset Date: 07/29/17 Current Visit: No Status: Chronic Plan: On Metoprolol for rate control. Not on chronic anticoagulation due to risk of bleeding. IVC filter in place. Qualifiers: Atrial fibrillation type: chronic Qualified Code(s): I48.2 - Chronic atrial fibrillation (6) Congestive heart failure Current Visit: No Status: Chronic Plan: Stable. CXR stable. Qualifiers: Heart failure type: combined systolic and diastolic Heart failure chronicity: chronic Qualified Code(s): I50.42 - Chronic combined systolic ( congestive) and diastolic (congestive) heart failure (7) Dementia Onset Date: 10/23/17 Current Visit: No Status: Chronic Plan: With history of CVA. Stable. Qualifiers: Dementia type: unspecified type Dementia behavioral disturbance: without behavioral disturbance Qualified Code(s): F03.90 - Unspecified dementia without behavioral disturbance (8) ESRD (end stage renal disease) Onset Date: 01/30/18 Current Visit: No Status: Chronic Plan: Continue with dialysis. Got dialysis today. Nephrology consulted. (9) History of DVT of lower extremity Current Visit: No Status: Chronic Plan: Has IVF filter in place (10) History of pulmonary embolism Current Visit: No Status: Chronic Plan: Has IVC filter in place (11) Hypertension Onset Date: 06/25/17 Current Visit: No Status: Chronic Plan: On Metoprolol. Will need to monitor closely. Also take Midodrine for Hypotension. Qualifiers: Hypertension type: essential hypertension Qualified Code(s): I10 - Essential (primary) hypertension (12) Hyperlipidemia Current Visit: Yes Status: Chronic Plan: Continue with medication Qualifiers: Hyperlipidemia type: unspecified Qualified Code(s): E78.5 - Hyperlipidemia , unspecified (13) History of CVA (cerebrovascular accident) Current Visit: Yes Status: Chronic Plan: CT shows no acute stroke. Chronic ischemic changes with old CVA findings noted and unchanged from prior CT head. Discharge Plan: Home Plan to discharge in: 48 Hours - Advance Directives Does patient have a Living Will: Yes Does patient have a Durable POA for Healthcare: Yes - Code Status/Comfort Care Code Status Assessed: Yes (Full code) Time Spent Managing Pts Care (In Minutes): 55
[2018-02-22] MEDS: MIDODRINE HCL 5 MG TABLET PO SCH (21:00)
[2018-02-22] MEDS: ATORVASTATIN 40 MG TAB PO SCH (22:23)
[2018-02-22] MEDS ORDERED: POTASSIUM 25 MEQ EFFERV TAB PO ONE (23:30)
[2018-02-22] MEDS ORDERED: POTASSIUM 25 MEQ EFFERV TAB PO SCH (23:30)
[2018-02-23 02:21] LABS: CKMB Creatine Kinase MB < 1.0 ng/mL (0.3-3.6); Creatine Phosphokinase 126 U/L (39-308)
[2018-02-23 05:34] LABS: Absolute Lymphocytes (CBC) 0.8 K/uL (0.7-4.9); Absolute Monocytes 0.6 K/uL (0.1-1.3); Absolute Neutrophil 2.6 K/uL (1.8-8.0); Basophils % 0.5 % (0-1.3); Eosinophils % 0.6 % (0-4.4); Hematocrit 22.7 % (39.6-49.0); Lymphocytes % 20.7 % (15.3-44.8); MCH 28.8 pg (27.0-35.0); MCV 91.1 fL (80-100); MPV 7.9 fL (7.6-11.3); Monocytes % 14.2 % (3.3-12.3)
[2018-02-23 05:58] LABS: Magnesium 2.1 mg/dL (1.8-2.4); Potassium 3.5 mmol/L (3.5-5.1); Thyroid Stimulating Hormone 1.53 uIU/mL (0.36-3.74)
--- NOTE | 2018-02-23 06:21 | EKG ---
Test Date: 2018-02-22 Test Time: 20:05:23 [employer] Driver: CRISELDA MEASUREMENT RESULTS: Intervals: Rate: 81 NE: 182 QRSD: 142 QT: 444 QTc: 515 [place]: P: 65 NE: 182 QRS: -35 T: 138 INTERPRETIVE STATEMENTS: Sinus rhythm with frequent premature ventricular complexes Possible Left atrial enlargement Left axis deviation Intraventricular conduction delay Non specific ST and T abnormality Abnormal ECG Compared to ECG 02/07/2018 10:55:29 no significant change from previous ECG Electronically Signed On 02-23-18 06:20:38 CDT by Isai Martinez
[2018-02-23] MEDS: METOPROLOL TAR 25 MG TAB PO SCH (06:26)
[2018-02-23] MEDS ORDERED: PANTOPRAZOLE 40MG TABLET PO SCH (06:30)
[2018-02-23 07:00] LABS: CKMB Creatine Kinase MB 1.1 ng/mL (0.3-3.6)
[2018-02-23 08:30] LABS: Hematocrit 22.7 % (39.6-49.0)
[2018-02-23] MEDS: MIDODRINE HCL 5 MG TABLET PO SCH ×3 (08:59→20:49)
[2018-02-23] MEDS: SERTRALINE HCL 50 MG TAB PO SCH (09:00)
[2018-02-23] MEDS ORDERED: PNEUMOCOCCAL VACCINE 0.5 ML IMVAC ONE (09:00)
[2018-02-23] MEDS: ENOXAPARIN 30 MG/0.3 ML SQ SCH (09:00)
[2018-02-23] MEDS: ASPIRIN EC 81 MG TAB PO SCH (09:00)
--- NOTE | 2018-02-23 12:01 | RAD REPORT ---
EXAM DESCRIPTION: RAD - Chest Pa And Lat (2 Views) - 02/23/2018 7:44 am CLINICAL HISTORY: Follow up SOB, CHF Chest pain. COMPARISON: Chest Single View dated 02/22/2018; Chest Single View dated 02/07/2018; Chest Single View dated 01/29/2018; Chest Single View dated 11/19/2017 FINDINGS: The lungs are clear. The heart is upper limit normal in size with sternotomy wires present . No displaced fractures. IMPRESSION: Stable chest since comparative imaging.
[2018-02-23] MEDS ORDERED: SODIUM CHLORIDE 0.9% 10ML INJ IV PRN (12:08)
--- NOTE | 2018-02-23 12:13 | P.PN ---
Subjective Date of Service: 02/23/18 Primary Care Provider: Dr. Donald; Nephrology-Dr. Joseph; Cardiology-Dr. Green Chief Complaint: AMS Subjective: Doing well (Patient reports doing well. No complaints noted. Patient with dementia. Patient appears to be at his baseline level.) Physical Examination - Vital Signs Temperature: 97.6 F Blood Pressure: 82/46 Pulse: 68 Respirations: 18 Pulse Ox (%): 98 - Physical Exam General: Alert, In no apparent distress, Cooperative, Demented HEENT: Atraumatic Neck: Supple Respiratory: Clear to auscultation bilaterally, Normal air movement Cardiovascular: Irregular heart rate/rhythm Gastrointestinal: Normal bowel sounds, Soft and benign, Non-distended, No tenderness, No masses, No rebound, No guarding Musculoskeletal: No erythema, No tenderness, No warmth Integumentary: No tenderness/swelling, No erythema, No warmth, No cyanosis Neurological: Normal speech, Normal strength at 5/5 x4 extr, Normal tone, Dementia - Studies Laboratory Data (last 24 hrs) 02/22/18 15:53: Sodium 134 L, Potassium 3.3 L, BUN 21 H, Creatinine 2.80 H, Glucose 101, Total Bilirubin 0.5, AST 25, ALT 18, Alkaline Phosphatase 167 H, Lipase 47 L 02/22/18 15:53: WBC 4.2 L, Hgb 8.3 L, Hct 26.8 L, Plt Count 166 Microbiology Data (last 24 hrs): 02/22/18 16:28 Blood - Blood Anaerobic Blood Culture - Final Medications List Reviewed: Yes Assessment & Plan - Problems (Diagnosis) (1) Hypotension Current Visit: Yes Status: Acute Plan: Will continue with Midodrine. Blood pressure is still fluctuating. Altered mental status has resolved. Patient at baseline. Patient with history of dementia, history CVA, CAD, end-stage renal disease. Spoke with Cardiology. No cardiac intervention needed at this time. Patient anemic. Patient will likely need transfusion. Will discuss with nephrology. Patient is had workup in the past for a GI. Will need to monitor hemoglobin. I will turn the service over to Dr. Moyer tomorrow. I will go over the plan of care with her. Qualifiers: Hypotension type: unspecified hypotension type Qualified Code(s): I95.9 - Hypotension, unspecified (2) Depression Current Visit: Yes Status: Chronic Plan: Continue with medication Qualifiers: Depression Type: unspecified Qualified Code(s): F32.9 - Major depressive disorder, single episode, unspecified (3) Altered mental status Current Visit: No Status: Acute Plan: Etiology unknown. Likely from fluctuating BP and anemia. Will continue with metoprolol for rate control and midodrine for hypotension. Patient will need transfusion. Will discuss with nephrology. Patient is had workup in the past for GI. Cardiology recommends no intervention at this time. Qualifiers: Altered mental status type: unspecified Qualified Code(s): R41.82 - Altered mental status, unspecified (4) Anemia Onset Date: 03/21/17 Current Visit: No Status: Chronic Plan: Anemia noted. Patient will need transfusion. Will discuss with nephrology to see if this can be done with dialysis. Will continue with Protonix. Qualifiers: Anemia type: due to chronic kidney disease Chronic kidney disease stage: on chronic dialysis Qualified Code(s): N18.6 - End stage renal disease; D63.1 - Anemia in chronic kidney disease; Z99.2 - Dependence on renal dialysis (5) Atrial fibrillation Onset Date: 07/29/17 Current Visit: No Status: Chronic Plan: On Metoprolol for rate control. Not on chronic anticoagulation due to risk of bleeding. IVC filter in place. Qualifiers: Atrial fibrillation type: chronic Qualified Code(s): I48.2 - Chronic atrial fibrillation (6) Congestive heart failure Current Visit: No Status: Chronic Plan: Stable. CXR stable. Qualifiers: Heart failure type: combined systolic and diastolic Heart failure chronicity: chronic Qualified Code(s): I50.42 - Chronic combined systolic ( congestive) and diastolic (congestive) heart failure (7) Dementia Onset Date: 10/23/17 Current Visit: No Status: Chronic Plan: With history of CVA. Stable. Qualifiers: Dementia type: unspecified type Dementia behavioral disturbance: without behavioral disturbance Qualified Code(s): F03.90 - Unspecified dementia without behavioral disturbance (8) ESRD (end stage renal disease) Onset Date: 01/30/18 Current Visit: No Status: Chronic Plan: Continue with dialysis. Patient received dialysis yesterday. Will discuss with nephrology. (9) History of DVT of lower extremity Current Visit: No Status: Chronic Plan: Has IVF filter in place (10) History of pulmonary embolism Current Visit: No Status: Chronic Plan: Has IVC filter in place (11) Hypertension Onset Date: 06/25/17 Current Visit: No Status: Chronic Plan: On Metoprolol. Will need to monitor closely. Continue as above. Qualifiers: Hypertension type: essential hypertension Qualified Code(s): I10 - Essential (primary) hypertension (12) Hyperlipidemia Current Visit: Yes Status: Chronic Plan: Continue with medication Qualifiers: Hyperlipidemia type: unspecified Qualified Code(s): E78.5 - Hyperlipidemia , unspecified (13) History of CVA (cerebrovascular accident) Current Visit: Yes Status: Chronic Plan: CT shows no acute stroke. Chronic ischemic changes with old CVA findings noted and unchanged from prior CT head. Discharge Plan: Home Plan to discharge in: 48 Hours - Code Status/Comfort Care Code Status Assessed: Yes (Patient full code.) Time Spent Managing Pts Care (In Minutes): 55
--- NOTE | 2018-02-23 14:56 | CON ---
A 67-year-old man. Chief Complaint: Altered mental status. History Of Present Illness: Apparently, the patient lives in a group home, dialysis patient, lot o f chronic severe debilities. Mr. Cartagena was able to give a very limited history. He tended to be so mnolent. When he awoke, he was alert enough to say he knew he was in the hospital. He did not seem to know exactly where he was or the date. He was sent to the hospital by group home staff because of a change. We do not really have much in discussion of what he is like. Apparently, he had dialys is on the day of his transfer to the emergency room. He was transferred right from the Dialysis Clin ic. He appeared to be weaker and more lethargic, more confused. The patient has longstanding end-st age renal disease, gout, hypertension, dyslipidemia. He has profound anemia and his blood count is g oing lower. He takes acetaminophen with codeine, Alinia, allopurinol, aspirin, Lipitor, clonazepam, colchicine, Klonopin, metoprolol, MiraLAX, Protonix, Renvela, sertraline, tramadol. He has a history of atrial fibrillation, but he appears to be in sinus rhythm all along. I see that he is not on an anticoagulant, no doubt it is from his bleeding. He has had a lot of procedures trying to treat GI b leeding and his hemoglobin is just in the low 7s this hospital admission. Impression: Mr. Cartagena seems to be quite ill. I am not sure if there is any cardiac issue here sangita g on. His troponins are up but they are increased exactly the same over a 24 hour period. There is not a rise and fall. He had an echocardiogram about 25 days ago. We will repeat an echocardiogram t omorrow. I do not see if there is any different. He has severe pulmonary hypertension, which can de finitely result in elevated troponins. Mr. Cartagena is definitely not a candidate for having a cardiac cath or stent. He would be completely unable to tolerate the blood thinners to invo lve his coronary intervention. ROSAMARIA/MODL Voice ID: [id number] Report ID: [id number]
[2018-02-23] MEDS: PANTOPRAZOLE 40 MG INJ IVP SCH (15:34)
[2018-02-23] MEDS ORDERED: NA CHLORIDE 0.9% 50 ML ONE (16:59)
[2018-02-23] MEDS: FUROSEMIDE 20 MG/ 2ML VIAL IV PRN (20:49)
[2018-02-23] MEDS: ATORVASTATIN 40 MG TAB PO SCH (20:49)
[2018-02-23] MEDS ORDERED: NA CHLORIDE 0.9% 250 ML ONE (22:55)
--- NOTE | 2018-02-23 23:25 | CON ---
Date of Consultation: 02/23/2018 Chief Complaint: End-stage renal disease, on dialysis. History Of Present Illness: The patient has multiple medical problems including history of chronic hypotension, severe pulmonary hypertension, coronary artery disease. The patient was brought to the hospital after dialysis because of severe weakness, fatigue and lethargy. Blood pressure systolic remained in 80s and dialysis was finished with minimal ultrafiltration , and the patient was brought to the hospital for evaluation of severe hypotension and fatigue. The patient was found to have anemia, hemoglobin level was 8.3. Today, hemoglobin level dropped to 7.2. The patient is to have 2 units of packed red blood cells transfusion. White count remains within normal ranges and was 4200. The patient remains very lethargic. He answered questions and followed some commands, but he is bed bound and he is very weak. Denies nausea or vomiting. The patient has chronic severe debility. The patient was previously evaluated by roughener. He previously followed with his roughener in [place], Dr. Green. The patient was found to have elevated troponin and cardiac workup is pending. Review of Systems: Constitutional: Denies fever, chills. Eyes: Denies vision changes. Ears, Nose, Mouth, and Throat: Denies sore throat, earache. Respiratory: Denies PND or orthopnea. Cardiovascular: Has severe weakness. Denies palpitation, syncope. GI: Denies nausea or vomiting. : Denies dysuria or hematuria. Musculoskeletal: Is complaining of generalized weakness and denies bleeding or oozing. All other systems reviewed and all are negative. Past Medical History: Hypercholesterolemia, anemia and CKD, osteoarthritis, cardiomyopathy, hypertensive heart disease and kidney disease, chronic hypotension, intradialytic hypotension, cyst to bilateral arms, carpal tunnel syndrome, atrial fibrillation and flutter, small bowel obstruction, history of pulmonary emboli, coronary artery disease, CABG, dementia, hypotension on midodrine and IVC filter. Family History: Sister has leukemia. Father had hypertensive heart disease and hypertension. Mother, dementia. Brother, cancer. Physical Examination: General: The patient is not in acute distress Eyes: Anicteric sclerae. EOMI. Ears, Nose, Mouth and Throat: Oral mucosa moist. No pallor. Neck: Supple. No JVD. No bruits. Lungs: Few crackles at bases. No wheezing Heart: Irregularly irregular. No pericardial friction rub. Abdomen: Obese, soft, nontender. No rebound. No guarding. Extremities: Slight edema present. No clubbing. No cyanosis. Neurological: Moving extremities. Cranial nerves intact. Psychiatric: The patient is lethargic. Follows commands. Oriented x2. Laboratory Data: Sodium 154, potassium 3.3, BUN 21, creatinine 2.8, glucose 101 , total bilirubin 0.5. AP 167, lipase 47, AST 25, ALT 18. WBC 4.2, hemoglobin 8.3, hematocrit 26.8, platelet count is 166,000. Impression And Plan: 1. Hypotension, moderately severe. Continue midodrine. The patient has intradialytic hypotension. Plan is to assess for evidence of bacteremia and the patient is undergoing workup for elevated troponin, likely he has acute myocardial infarction. The patient has pulmonary hypertension and the chronic leg edema. Continue low-sodium diet and p.o. fluid restriction. 2. Altered mental status, metabolic toxic encephalopathy. The patient received dialysis yesterday. Recommend to check thyroid status and cortisol level to rule out adrenal insufficiency and hypothyroidism. 3. Anemia, acute on chronic. The patient will receive blood transfusion. Workup is pending to rule out GI bleeding. Continue AZUCENA for anemia due to chronic kidney disease. Atrial fibrillation, on metoprolol, rate control. 4. Congestive heart failure, systolic, diastolic dysfunction. Continue low- sodium diet. At this point, the patient will continue beta-cori, but if systolic blood pressure is below 100, the patient cannot take beta-cori due to hypotension. 5. End-stage renal disease. The patient is hesitant to have any dialysis done today. Plan is to provide packed red blood cells transfusion for severe anemia and the patient may require dialysis tomorrow for volume control. Monitor daily weight and make further recommendation according to renal panel. NATHAN/MODL Voice ID: [id number] Report ID: [id number] LUIS
[2018-02-24 00:51] VITALS: BMI 28.5
[2018-02-24] MEDS: FUROSEMIDE 20 MG/ 2ML VIAL IV PRN (02:17)
[2018-02-24 03:40] LABS: Absolute Monocytes 0.5 K/uL (0.1-1.3); Absolute Neutrophil 2.6 K/uL (1.8-8.0); Basophils % 0.8 % (0-1.3); Eosinophils % 0.5 % (0-4.4); Hematocrit 27.3 % (39.6-49.0); Lymphocytes % 23.2 % (15.3-44.8); MCV 89.8 fL (80-100); MPV 7.9 fL (7.6-11.3); Monocytes % 11.6 % (3.3-12.3); RBC Red Blood Cell Count 3.04 M/uL (4.33-5.43)
[2018-02-24 04:38] LABS: Magnesium 1.9 mg/dL (1.8-2.4); Potassium 3.9 mmol/L (3.5-5.1)
[2018-02-24] MEDS: METOPROLOL TAR 25 MG TAB PO SCH (05:24)
[2018-02-24] MEDS: ENOXAPARIN 30 MG/0.3 ML SQ SCH (10:30)
[2018-02-24] MEDS: PANTOPRAZOLE 40 MG INJ IVP SCH (10:30)
[2018-02-24] MEDS: ASPIRIN EC 81 MG TAB PO SCH (10:30)
[2018-02-24] MEDS: MIDODRINE HCL 5 MG TABLET PO SCH ×3 (10:30→21:33)
[2018-02-24] MEDS: SERTRALINE HCL 50 MG TAB PO SCH (10:30)
--- NOTE | 2018-02-24 11:41 | ECHO ---
HEIGHT: 6 ft 3 in WEIGHT: 228 lb 5 oz DATE OF STUDY: 02/24/[address]: Isai Martinez MD 2-DIMENSIONAL: YES M.MODE: YES DOPPLER: YES COLOR FLOW: YES TDS: PORTABLE: DEFINITY: BUBBLE STUDY: DIAGNOSIS: ABNORMAL TROPONIN CARDIAC HISTORY: CATHERIZATION: YES SURGERY: YES PROSTHETIC VALVE: NO PACEMAKER: NO MEASUREMENTS (cm) DIASTOLIC (NORMALS) SYSTOLIC (NORMALS) IVSd 1.2 (0.6-1.2) LA Diam 4.6 (1.9-4.0) LVEF 71% LVIDd 5.2 (3.5-5.7) LVIDs 3.1 (2.0-3.5) %FS 41% LVPWd 1.2 (0.6-1.2) Ao Diam 2.9 (2.0-3.7) 2 DIMENSIONAL ASSESSMENT: RIGHT ATRIUM: NORMAL LEFT ATRIUM: DILATED RIGHT VENTRICLE: NORMAL LEFT VENTRICLE: LEFT VENTRICULAR HYPERTROPHY TRICUSPID VALVE: NORMAL MITRAL VALVE: MITRAL ANNULAR CALCIFICATION PULMONIC VALVE: NORMAL AORTIC VALVE: MILD SCLEROSIS PERICARDIAL EFFUSION: VERY SMALL POSTERIOR EFFUSION AORTIC ROOT: NORMAL LEFT VENTRICULAR WALL MOTION: NORMAL DOPPLER/COLOR FLOW: MILD TRICUSPID REGURGITATION. MODERATE PULMONARY HYPERTENSION. ESTIMATED RIGHT VENTRICULAR SYSTOLIC PRESSURE 50 mmHg. COMMENTS: NORMAL LEFT VENTRICULAR EJECTION FRACTION. DILATED LEFT AND RIGHT ATRIUM. LEFT VENTRICULAR HYPERTROPHY. MITRAL ANNULAR CALCFICATION. MILD AORTIC SCLEROSIS WITH NO AORTIC STENOSIS OR AORTIC REGURGITATION. MILD TRICUSPID REGURGITATION. MODERATE PULMONARY HYPERTENSION. TECHNOLOGIST: CORY ELDER
[2018-02-24] MEDS ORDERED: MIDODRINE HCL 5 MG TABLET PO ONE (13:00)
--- NOTE | 2018-02-24 16:52 | P.SSS ---
Patient History Date of Service: 02/24/18 Primary Care Provider: Dr. Donald; Nephrology-Dr. Joseph; Cardiology-Dr. Green Reason for admission: AMS History of Present Illness: 67 yo AAM presented to the ER after he was sent to ER from dialysis after he has some confusion. reports that the last 2 days he has noted some confusion. This morning prior going to dialysis reported that he was having some confusion. He was also fatigued. Home health has reported that his BP is fluctuation and is low at times. Over the last couple of weeks, Midodrine was added. Cardiology did finish a Holter monitor on Saturday. He is to go back on Saturday to review the Holter monitor results. No fever, chills, nausea or vomiting. His was sick with cough. He does not urinate. In the ER he was stable. BP would fluctuate in the ER. Lab showed a normal [facility]. Procalcitonin was 1.18. On 02/07 his Procalcitonin was 1.57. He was recently discharged for similar issues. That is when he was started on Midodrine. CT head shows no acute CVA. Previous CVA noted. CXR showed pneumonia. In the ER, he had no problems. He was back to his normal baseline. No complaints was noted. Allergies No Known Allergies Allergy (Verified 01/30/18 01:55) Home Medications: RX: Atorvastatin Calcium [Lipitor] 40 mg PO BEDTIME 01/30/18 RX: Hydrocodone 10/APAP 325 [Datil 10/325*] 1 tab PO TID PRN 01/30/18 RX: Pantoprazole [Protonix Tab*] 40 mg PO DAILY 01/30/18 RX: Sertraline [Zoloft*] 50 mg PO DAILY 01/30/18 RX: clonazePAM [Clonazepam] 1 mg PO BID 01/30/18 RX: Aspirin [Adult Aspirin] 81 mg PO DAILY 02/07/18 RX: Metoprolol Tartrate [Lopressor*] 12.5 mg PO DAILY 02/07/18 RX: Midodrine HCl [Proamatine*] 5 mg PO TID #90 tab 02/08/18 RX: Polyethylene Glycol 3350 [Miralax] 17 gm PO DAILY PRN 02/23/18 RX: Tramadol HCl [Ultram] 50 mg PO TID PRN 02/23/18 - Past Medical/Surgical History Has patient received pneumonia vaccine in the past: No Diabetic: No -: ESRD on Saturday, , and Saturday -: Cardiomyopathy -: HTN -: Cyst to bilateral arms -: Carpal Tunnel -: Atrial fibrillation/atrial flutter/No anticoagulation due to GI bleed risk -: Small-bowel obstruction/abdominal surgery -: Hx Pulmonary embolism, now with IVC filter -: DVT with bilateral upper and lower extremity DVTs -: CAD, CABG, Heart attack x2 -: Dementia -: Hypotension on Midodrine. -: Dialysis access catheter placement -: carpal tunnel surgery bilat hands -: CABG -: IVC filter Psychosocial/ Personal History: He is . - Family History Sister -: Cancer Notes: leukemia Father -: Heart disease Mother -: Other (see notes) Notes: Dementia Brother -: Cancer - Social History Smoking Status: Former smoker Alcohol use: No CD- Drugs: No Caffeine use: Yes Place of Residence: Home Review of Systems General: As per HPI Physical Examination - Vital Signs Temperature: 96.3 F Blood Pressure: 108/59 Pulse: 44 Respirations: 12 Pulse Ox (%): 100 - Physical Exam General: Alert, In no apparent distress, Oriented x2 HEENT: Atraumatic, PERRLA, Mucous membr. moist/pink, EOMI, Sclerae nonicteric Neck: Supple, 2+ carotid pulse no bruit, No LAD, Without JVD or thyroid abnormality Respiratory: Clear to auscultation bilaterally, Normal air movement Cardiovascular: Regular rate/rhythm, Normal S1 S2 Gastrointestinal: Normal bowel sounds, No tenderness Musculoskeletal: No tenderness Integumentary: No rashes Neurological: Normal gait, Normal speech, Normal strength at 5/5 x4 extr, Normal tone, Normal affect Lymphatics: No axilla or inguinal lymphadenopathy - Studies Microbiology Data (last 24 hrs): 02/22/18 16:28 Blood - Blood Anaerobic Blood Culture - Final - Diagnosis (Problem(s)) (1) Hypotension Current Visit: Yes Status: Acute Qualifiers: Hypotension type: unspecified hypotension type Qualified Code(s): I95.9 - Hypotension, unspecified (2) Dementia Onset Date: 10/23/17 Current Visit: No Status: Chronic Qualifiers: Dementia type: unspecified type Dementia behavioral disturbance: without behavioral disturbance Qualified Code(s): F03.90 - Unspecified dementia without behavioral disturbance (3) Depression Current Visit: Yes Status: Chronic Qualifiers: Depression Type: unspecified Qualified Code(s): F32.9 - Major depressive disorder, single episode, unspecified (4) History of CVA (cerebrovascular accident) Current Visit: Yes Status: Chronic (5) Hyperlipidemia Current Visit: Yes Status: Chronic Qualifiers: Hyperlipidemia type: unspecified Qualified Code(s): E78.5 - Hyperlipidemia , unspecified (6) Atrial fibrillation Onset Date: 07/29/17 Current Visit: No Status: Chronic Qualifiers: Atrial fibrillation type: chronic Qualified Code(s): I48.2 - Chronic atrial fibrillation (7) Congestive heart failure Current Visit: No Status: Chronic Qualifiers: Heart failure type: combined systolic and diastolic Heart failure chronicity: chronic Qualified Code(s): I50.42 - Chronic combined systolic ( congestive) and diastolic (congestive) heart failure (8) ESRD on hemodialysis Onset Date: 03/21/17 Current Visit: No Status: Chronic Treatment Summary: During the hospital stay patient remained stable Patient was admitted to the hospital initially for hypotension and altered mental status. Patient's altered mental status and hypotension resolved after patient was seen here in the ER. Patient does have a history of chronic dementia however during dialysis patient does become a little bit altered and had hypotension. Cardiology and nephrology were consulted here in the hospital with Edwigeorin t.i.d. during dialysis. Patient had extensive workup done here for altered mental status and was all negative for any acute abnormality. Patient probably has hypotension due to dialysis chronically and there is no further interventions that are needed at this time. Patient also had an echocardiogram done here in the hospital which was within normal limits. Patient was then discharged home after getting dialysis here in the hospital. Patient was asked to follow up with cardiology and nephrology. Patient dialysis settings will be adjusted by Nephrology when patient is discharged here from hospital. - Disposition Disposition: ROUTINE DISCHARGE Condition: GOOD Patient Discharge Instructions: Please f.u with PCP in 1 to 2 weeks post discharge. Please f.u with Nephrology in 1 to 2 days post discharge. You are to continue taking all medicaiton as prescribed. You were admitted to the hospital for AMS and Hypotension. AMS is chronic with Dementia and Hypotension is secondary to Chronic Kidney disease and thus will continue on taking Midodrine and have your dialysis adjusted by the nephrology. Diet: Regular Activity: Ad lola
[2018-02-24] MEDS: ATORVASTATIN 40 MG TAB PO SCH (21:33)
[2018-02-24 23:18] VITALS: BP 124/63; TEMP 97.7
[2018-02-24 23:47] VITALS: O2SAT 96
--- NOTE | 2018-02-25 02:28 | PN ---
Date of Progress Note: 02/24/2018 Chief Complaint: End-stage renal disease, on dialysis. History Of Present Illness: The patient presented to the hospital because of severe weakness, hypotension. The patient was found to have severe anemia and received 2 units of packed red blood cells transfusion. Dialysis today was done to obtain metabolic clearance and provide ultrafiltration. The patient received midodrine for blood pressure support. The patient is more alert today. Review of Systems: Denies complaints. Denies PND, orthopnea. Physical Examination: LUNGS: Few crackles at bases. HEART: S1, S2. ABDOMEN: Soft, benign. EXTREMITIES: Edema present in both ankles. Laboratory Data: Hemoglobin 8.8, WBC 4.1, platelet count is 158,000. Chemistries showed sodium 132, potassium 3.9, chloride 94, CO2 26, BUN 47, creatinine 5.60, calcium 9.8, troponin is 2.96. Impression And Plan: 1. End-stage renal disease. The patient received dialysis today with ultrafiltration. Hyponatremia secondary to volume overload causing dilutional hyponatremia. Continue p.o. fluid restriction and low-sodium diet. 2. Elevated troponin. The patient has multiple medical problems including history of pulmonary hypertension and cardiomyopathy, coronary artery disease. The patient will have cardiac workup. Cardiology recommendation appreciated. 3. Intradialytic hypotension. Continue midodrine for blood pressure support. Advance ultrafiltration with dialysis to treat fluid overload. 4. Anemia, acute on chronic. The patient received blood transfusion. Continue AZUCENA for anemia due to chronic kidney disease. I spent total 36 min including 26 min to coordinate care plan. NATHAN/TRICE Voice ID: [id number] Report ID: [id number] LUIS
[2018-02-25] MEDS ORDERED: PANTOPRAZOLE 40MG TABLET PO SCH (09:00)
[2018-02-27 21:14] LABS: HBsAG Nonreactive (Nonreactive)
[2018-02-28 18:40] LABS: Hepatitis C Virus RNA (PCR)log 3.96 log IU/mL
== END 2018-02-24 22:18 | disposition home or self-care (01) ==
LOC: ER 15:25 → ERHOLD 16:53 → 2ND 19:42
PROVIDERS: ADMIT Family Medicine; ATTEND Family Medicine
PROC: 30233N1 Transfusion of Nonautologous Red Blood Cells into Peripheral Vein, Percutaneous Approach (ICD-10-PCS; principal; 2018-02-23)
PROC: 5A1D70Z Performance of Urinary Filtration, Intermittent, Less than 6 Hours Per Day (ICD-10-PCS; 2018-02-24)
DX: I95.9 Hypotension, unspecified (principal); I13.2 Hypertensive heart and chronic kidney disease with heart failure and with stage 5 chronic kidney disease, or end stage renal disease; N18.6 End stage renal disease; I50.42 Chronic combined systolic (congestive) and diastolic (congestive) heart failure; I48.2 Chronic atrial fibrillation; F03.90 Unspecified dementia, unspecified severity, without behavioral disturbance, psychotic disturbance, mood disturbance, and anxiety; Z86.73 Personal history of transient ischemic attack (TIA), and cerebral infarction without residual deficits; Z86.718 Personal history of other venous thrombosis and embolism; Z86.711 Personal history of pulmonary embolism; E78.5 Hyperlipidemia, unspecified; I25.10 Atherosclerotic heart disease of native coronary artery without angina pectoris; Z95.1 Presence of aortocoronary bypass graft; F32.9 Major depressive disorder, single episode, unspecified; D63.1 Anemia in chronic kidney disease; E87.1 Hypo-osmolality and hyponatremia
CPT/HCPCS: 36415 ×2; 36430; 70450; 71045; 71046; 80048 ×3; 80076; 82550 ×3; 82553 ×3; 82962; 83690; 83735 ×2; 84145; 84439; 84443; 84484 ×3; 85014; 85018; 85025 ×3; 86704; 86706; 86803; 86850; 86900; 86901; 87040 ×2; 87070; 87081; 87340; 87522; 87804 ×2; 90935; 93005; 93306; 99285; C9113 ×2; J1650 ×2; J1940 ×2; P9016 ×2

== ENCOUNTER 2018-04-14 14:42 | Emergency (ER) | payer OTHER, BC ==
--- OUTSIDE RECORDS SUMMARY | 2018-04-14 14:44 | XMS REPORT | Clinical Summary ---
:1950 Author Organization [facility] Address [address] [place] [address] Care Team Providers Name Role Phone Asked, No Pcp Primary Care Provider Unavailable Allergies No Known Allergies Current Medications Prescription Sig. Disp. Refills Start Date End Date Status cinacalcet (SENSIPAR) 60 Take 60 mg by Active MG tablet mouth every morning. metoprolol tartrate Take 50 mg by Active (LOPRESSOR) 50 mg tablet mouth 2 (two) times a day. sevelamer (RENVELA) 800 mg Take 1,600 mg by Active tablet mouth 3 (three) times a day with meals. isosorbide mononitrate Take 60 mg by Active (IMDUR) 60 MG 24 hr tablet mouth every morning. Active Problems Problem Noted Date Right axillary [...] INFLUENZA VACCINE 03/26/2018 Implants Implanted Type Area Mixing Pan Tender Device Expiration Model / Identifier Date Serial / Lot Catheter Angio Clinical Laboratory Technician Ii 5fr 65cm Selc Braidd Torque Say - [id number] Surgical N/A: N/A BSC PERIPHERAL [id number] / Implanted: 01/31/2017 (Quantity not on file) Implants; INTERVENTION / Expanders; VASCULAR REAGAN Extenders; Surgical Wires Abdominal Mesh Results Not on fileafter 04/13/2017 Insurance Payer Benefit Plan / Group Subscriber ID Type Phone Address MEDICARE MEDICARE PART A AND B xxxxxxxxxx Medicare [place], [place] BCBS BCBS CHOICE PPO/FEDERAL EMPL PPO xxxxxxxxxxxx PPO [phone] [place] [phone]
--- OUTSIDE RECORDS SUMMARY | 2018-04-14 14:45 | XMS REPORT | Continuity of Care Document ---
:1950 Author Organization Interface Problems Problem Status Onset Classification Date Comments Source Date Reported GI BLEED, ANEMIA, Active 04/22/20 END STAGE RENAL 17 [facility] [place] DIALYSIS Active 04/22/20 [facility] 17 [facility] [place] Stented coronary Resolved 03/26/20 Problem 04/27/2017 artery 17 [facility] [place] Afib Resolved Problem 04/27/2017 [facility] [place] Anemia Resolved Problem 04/27/2017 [facility] [place] CHF (<span Resolved Problem 04/27/2017 ID="[id number]">C [facility] onfirmed</span>) [place] ESRD on Active Problem 04/27/2017 hemodialysis [facility] [place] DM (<span Resolved Problem 04/27/2017 ID="[id number]">C [facility] onfirmed</span>) [place] Diverticulosis Resolved Problem 04/27/2017 [facility] [place] Hyperlipidemia Active Problem 04/27/2017 [facility] [place] High blood pressure Active Problem 04/27/2017 [facility] [place] GASTROINTESTINAL Active MH HEMORRHAGE, [facility] UNSPECIFIED [place] ANEMIA, UNSPECIFIED Active [facility] [place] END STAGE RENAL Active [facility] DISEASE [facility] [place] Medications Medication Details Route Status Patient Ordering Order Source Instructions Provider Date pantoprazole 40 mg, 1 tab, No Longer MH Route: PO, Active 017 [facility] Drug form: [place] ECTAB, Daily, Dosing Weight 118.182, kg, Start date: 04/26/17 9:00:00 CDT, Duration: 30 day, Stop date: 05/25/17 9:00:00 CDTNotes: Tablet should not be chewed or crushed. (Same as: Protonix) Sertraline 50 mg, 1 tab, No Longer MH Route: PO, Active 017 [facility]: [place] TAB, Daily, Dosing Weight 118.182, kg, Start date: 04/25/17 9:00:00 CDT, Duration: 30 day, Stop date: 05/24/17 9:00:00 CDTNotes: (Same as: Zoloft) Aspirin 81 mg, 1 tab, No Longer Route: PO, Active 017 [facility] form: [place] ECTAB, Daily, Dosing Weight 118.182, kg, Start date: 04/25/17 9:00:00 CDT, Duration: 30 day, Stop date: 05/24/17 9:00:00 CDTNotes: Do not crush or chew. (Same As: Ecotrin) atorvastatin 40 mg, 1 tab, Inactive Route: PO, 017 [facility] form: [place] TAB, Bedtime, Dosing Weight 118.182, kg, Start date: 04/24/17 21:00:00 CDT, Duration: 30 day, Stop date: 05/23/17 21:00:00 CDTNotes: (Same as: Lipitor) Eliquis 2.5 mg, 1 tab, Inactive MH Route: PO, 017 [facility] Drug form: [place] TAB, BID, Dosing Weight 118.182, kg, Start date: 04/24/17 17:00:00 CDT, Duration: 30 day, Stop date: 05/24/17 9:00:00 CDTNotes: Same as: Eliquis Renvela 1,600 mg, 2 Inactive MH tab, Route: 017 [facility] PO, Drug form: [place] TAB, TID-Meals, Dosing Weight 118.182, kg, Start date: 04/24/17 12:00:00 CDT, Duration: 30 day, Stop date: 05/24/17 8:00:00 CDTNotes: Same as: Renvela Tramadol 50 mg, 1 tab, Inactive Route: PO, 017 [facility] Drug form: [place] TAB, Q12H, Dosing Weight 118.182, kg, PRN Pain Score 6-10, Start date: 04/24/17 9:27:00 CDT, Duration: 30 day, Stop date: 05/24/17 9:26:00 CDTNotes: Not to exceed 400mg/day. (Same As: Ultram) Protonix 40 mg, 1 tab, Inactive MH Route: PO, 017 [facility] Drug form: [place] ECTAB, Before Dinner, Dosing Weight 118.182, kg, Start date: 04/23/17 16:30:00 CDT, Duration: 30 day, Stop date: 05/22/17 16:30:00 CDTNotes: Tablet should not be chewed or crushed. (Same as: Protonix) Lovenox 30 mg, Route: Inactive SUB-Q, Drug 017 [facility] form: INJ, [place] [id number], Dosing Weight 118.182, kg, Start date: 04/23/17 10:00:00 CDT, Duration: 30 day, Stop date: 05/22/17 10:00:00 CDT albumin human 12.5 gm, 50 No Longer MH 25% intravenous mL, Route: Active 017 [facility] solution IVPB, Drug [place] form: INJ, PRN, Dosing Weight 118.182, kg, PRN Dialysis, Start date: 04/23/17 9:56:00 CDT, Duration: 30 day, Stop date: 05/23/17 9:55:00 CDT, (Give up to two doses prn each dialysis)Notes : LOT#: Mfg: WASTE: F/P - Red; E -Red (Same as: Albuminar) "blood product derivative" Sodium Chloride 500 mL, 500 No Longer 0.9% (Bolus) IV ml/hr, Infuse Active 017 [facility] Over: 1 hr, [place] Route: IV, 500, Drug form: INJ, PRN, Dosing Weight 118.182 kg, Start date: 04/23/17 9:56:00 CDT, Duration: 1 doses or times, Stop date: 04/25/17 0:00:00 CDT, PRN Dialysis sodium chloride 2,000 mL, 500 No Longer MH 0.9% (Priming ml/hr, Infuse Active 017 [facility] and Over: 4 hr, [place] Maintenance) Route: IV, 2,000, Drug form: INJ, PRN, Dosing Weight 118.182 kg, Start date: 04/23/17 9:56:00 CDT, Duration: 24 hr, Stop date: 04/24/17 9:55:00 CDT, For Use by Dialysis nurse ONLY, PRN Dialysis Acetaminophen 1 tab, PO, No Longer MH 325 MG / TID, PRN Pain Active 017 [facility] Hydrocodone Score 4-6, [address] [facility] Bitartrate 10 Refill(s) MG Oral Tablet metoprolol 25 mg, PO, Active tartrate BID, 0 017 [facility] Refill(s) [place] Sertraline 50 mg, PO, No Longer Daily, 0 Active 017 [facility] Refill(s) [facility] atorvastatin 40 40 mg=1 tab, Active mg oral tablet PO, Bedtime, # 017 [facility] 30 tab, [address] [facility] Refill(s) Tramadol 50 mg, PO, Active TID, PRN Pain, 017 [facility] # 20 tab, [address] [facility] Refill(s) pantoprazole 40 40 mg=1 tab, Active mg oral enteric PO, Daily, 30 017 [facility] coated tablet minutes before [facility] breakfast, # 30 tab, 0 Refill(s) sevelamer 1,600 mg=2 Active carbonate 800 tab, PO, 017 [facility] MG Oral Tablet TID-Meals, # [place] [Renvela] 180 tab, 0 Refill(s) Colchicine 0.6 0.3 mg=0.5 Active MG Oral Tablet tab, PO, BID, 017 [facility] [Colcrys] 0 Refill(s) [facility] Aspirin 81 mg, PO, Active Daily, 0 017 [facility] Refill(s) [facility] Aspirin 325 MG 1 tab, PO, No Longer / Codeine Q4H, PRN for Active 017 [facility] Phosphate 60 MG pain, [address] [facility] Oral Tablet Refill(s) Clonazepam 0.5 mg, PO, No Longer BID, PRN Active 017 [facility] Anxiety, [address] [facility] Refill(s) apixaban 2.5 MG 2.5 mg=1 tab, Active Oral Tablet PO, BID, 0 017 [facility] [Eliquis] Refill(s) [facility] Docusate 100 mg, 1 cap, No Longer Route: PO, Active 017 [facility] Drug form: [facility] CAP, BID, Dosing Weight 118.182, kg, PRN Constipation, Start date: 04/23/17 9:24:00 CDT, Duration: 30 day, Stop date: 05/23/17 9:23:00 CDTNotes: (Same as: Colace) (Do Not Crush) Morphine 2 mg, 1 mL, No Longer Route: IVP, Active 017 [facility] form: [place] INJ, Q4H, Dosing Weight 118.182, kg, PRN Pain Score 7-10, Start date: 04/23/17 9:24:00 CDT, Duration: 30 day, Stop date: 05/23/17 9:23:00 CDTNotes: (Same as:MORPhine Sulfate) Ondansetron 4 mg, 2 mL, No Longer Route: IVP, Active 017 [facility] form: [place] INJ, Q6H, Dosing Weight 118.182, kg, PRN Nausea & Vomiting, Start date: 04/23/17 9:24:00 CDT, Duration: 30 day, Stop date: 05/23/17 9:23:00 CDTNotes: (Same as: Magaly) MEDICATION WASTE Product Size: 4 mg Product Wasted: ___ mg Acetaminophen 2 tab, Route: No Longer 325 MG / PO, Drug Form: Active 017 [facility] Hydrocodone TAB, Dosing [place] Bitartrate 5 MG Weight Oral Tablet 118.182, kg, Q4H, PRN Pain Score 7-10, Start date: 04/23/17 9:24:00 CDT, Duration: 30 day, Stop date: 05/23/17 9:23:00 CDTNotes: (Same as: [place] 325/5) Do not exceed 4gm/day of acetaminophen. Acetaminophen 650 mg, 2 tab, No Longer Route: PO, Active 017 [facility] form: [place] TAB, Q4H, Dosing Weight 118.182, kg, PRN Pain 1-3/Temp > 100.4 F, Start date: 04/23/17 9:24:00 CDT, Duration: 30 day, Stop date: 05/23/17 9:23:00 CDTNotes: Do not exceed 4 gm/day. (Same as: Tylenol) Docusate 100 mg, 1 cap, No Longer Route: PO, Active 017 [facility] Drug form: [place] CAP, BID, Dosing Weight 118.182, kg, Start date: 04/23/17 9:00:00 CDT, Duration: 30 day, Stop date: 05/22/17 17:00:00 CDTNotes: (Same as: Colace) (Do Not Crush) Ondansetron 4 mg, 2 mL, Inactive Route: IVP, 017 [facility] Drug form: [place] INJ, Q6H, Dosing Weight 118.182, kg, PRN Nausea & Vomiting, Start date: 04/23/17 6:05:00 CDT, Duration: 30 day, Stop date: 05/23/17 6:04:00 CDTNotes: (Same as: Zofran) MEDICATION WASTE Product Size: 4 mg Product Wasted: ___ mg Morphine 2 mg, 1 mL, Inactive Route: IVP, 017 [facility] Drug form: [place] INJ, ONCE, Dosing Weight 118.182, kg, Priority: STAT, Start date: 04/23/17 4:41:00 CDT, Stop date: 04/23/17 4:41:00 CDTNotes: (Same as:MORPhine Sulfate) Protonix 80 mg, Route: Inactive IVP, Drug 017 [facility] form: INJ, [place] ONCE, Dosing Weight 118.182, kg, Priority: STAT, Start date: 04/23/17 4:39:00 CDT, Stop date: 04/23/17 4:39:00 CDTNotes: For IV push reconstitute with 10 ml 0.9% sodium chloride and push over 2 minutes. (Same as: Protonix) pantoprazole 80 100 mL, Rate: No Longer mg + sodium 10 ml/hr, Active 017 [facility] chloride 0.9% Infuse over: [place] 100 mL INJ (for 10 hr, Route: IV set) 100 mL IVPB, Dosing Weight 118.182 kg, Total Volume: 100, Infuse at 8 mg / hr for 72 hours for GI bleeding, Start date: 04/23/17 4:38:00 CDT, Duration: 72 hr, Stop date: 04/26/17 4:37:00 CDTNotes: do not load in pyxis Allergies, Adverse Reactions, Alerts Substance Category Reaction Severity Reaction Status Date Comments Source type Reported NKDA Assertion Drug Active allergy [facility] Immunizations Immunization Date Given Site Status Last Updated Comments Source Results Order Name Results Value Reference Date Interpretation Comments Source Range CHEM PANEL Magnesium 2.4 mg/dL 1.8 - 2.4 04/24 [facility] CHEM PANEL eGFR 7 04/24 Result Comment: The eGFR is calculated using the CKD-EPI formula. In most young, healthy individuals the eGFR will be >90 mL/ min/1.73m2. The eGFR declines with age. An eGFR of 60-89 may be normal in MH mL/min/1.73 /2016 some populations, particularly the elderly, for whom the CKD-EPI formula has not been extensively validated. Use of the eGFR is not recommended in the following populations: Greater [address] Individuals with unstable creatinine concentrations, including patients and those with serious co-morbid conditions. Patients with extremes in muscle mass or diet. The data above are obtained from the National Kidney Disease Education Program (NKDEP) which additionally recommends that when the eGFR is used in patients with extremes of body mass index for purposes of drug dosing, the eGFR should be multiplied by the estimated BMI. CHEM PANEL Calcium Lvl 9.4 mg/dL 8.5 - 10.5 04/24 [facility] CHEM PANEL CO2 25 meq/L 24 - 32 04/24 [facility] CHEM PANEL Chloride Lvl 98 meq/L 95 - 109 04/24 [facility] CHEM PANEL BUN 34 mg/dL 7 - 22 04/24 [facility] CHEM PANEL Glucose Lvl 98 mg/dL 70 - 99 04/24 [facility] CHEM PANEL Potassium 4.2 meq/L 3.5 - 5.1 04/24 [facility] CHEM PANEL Sodium Lvl 136 meq/L 135 - 145 04/24 [facility] CHEM PANEL Creatinine 7.60 mg/dL 0.50 - 04/24 MH Lvl 1.40 [facility] CHEM PANEL AGAP 17.2 meq/L 10.0 - 04/24 MH 20.0 [facility] HEMATOLOGY Monocytes 12.3 % 2.0 - 12.0 04/24 [facility] HEMATOLOGY Eosinophils 1.1 % 0.0 - 4.0 04/24 [facility] HEMATOLOGY Eosinophils 0.1 K/CMM 0.0 - 0.5 04/24 MH # /2016 [facility] HEMATOLOGY Lymphocytes 1.2 K/CMM 1.0 - 5.5 04/24 MH # /2016 [facility] HEMATOLOGY Monocytes # 0.6 K/CMM 0.0 - 0.8 04/24 /2016 [facility] HEMATOLOGY Segs-Bands # 3.2 K/CMM 1.5 - 8.1 04/24 /2016 [facility] HEMATOLOGY Segs 62.5 % 45.0 - 04/24 MH 75.0 /2016 [facility] HEMATOLOGY Lymphocytes 23.3 % 20.0 - 04/24 MH 40.0 /2016 [facility] HEMATOLOGY Basophils 0.8 % 0.0 - 1.0 04/24 /2016 [facility] HEMATOLOGY MPV 8.1 fL 7.4 - 10.4 04/24 [facility] HEMATOLOGY Platelet 229 K/CMM 133 - 450 04/24 /2016 [facility] HEMATOLOGY Hct 22.7 % 42.0 - 04/24 54.0 /2016 [facility] HEMATOLOGY Hgb 7.6 g/dL 14.0 - 04/24 18.0 /2016 [facility] HEMATOLOGY MCHC 33.3 g/dL 32.0 - 04/24 36.0 /2016 [facility] HEMATOLOGY RDW 19.4 % 11.5 - 04/24 14.5 /2016 [facility] HEMATOLOGY MCH 30.8 pg 27.0 - 04/24 31.0 /2016 [facility] HEMATOLOGY MCV 92.4 fL 80.0 - 04/24 94.0 /2016 [facility] HEMATOLOGY WBC 5.1 K/CMM 3.7 - 10.4 04/24 /2016 [facility] HEMATOLOGY RBC 2.45 M/CMM 4.70 - 04/24 6.10 /2016 [facility] IMMUNOLOGY Hep Bs Ag Negative Negative 04/24 [facility] *NA* [facility] (04/23/17 7:30 PM) IMMUNOLOGY Hep Bs Ag Negative Negative 04/24 [facility] *NA* [facility] (04/23/17 7:30 PM) BLOOD BANK RBC product Product available 2 04/23 Result Comment: 2016 12:24 [id number] RESULTS /2017 Notified [facility] @ 1224 [facility] (04/23/17 12:07 PM) [facility] BLOOD BANK Antibody Negative 1 04/23 Result Comment: 04/23/2017 06:59 [id number] RESULTS Scrn /2016 "Significant Findings of Pos Antibody Screen__ called to Davy Bustos RN__ at _04/23/2017 06:58_ by _GG_. Read Back OK" Asked for collection of 2 [place] and 2 Red top tubes for Antibody workup. [facility] (04/23/17 5:57 AM) [facility] BLOOD BANK ABO/Rh A POS 04/23 RESULTS /2016 [facility] HEMATOLOGY PTT 58.7 s 22.9 - 04/23 MH 35.8 /2016 [facility] HEMATOLOGY INR 1.64 0.85 - 04/23 MH 1.17 /2016 [facility] HEMATOLOGY PT 19.7 s 12.0 - 04/23 MH 14.7 /2016 [facility] CARDIAC CK MB 1.7 ng/mL 0.5 - 3.6 04/23 ENZYMES /2016 [facility] CARDIAC Troponin-I 0.20 ng/mL 0.00 - 04/23 ENZYMES 0.40 /2016 [facility] CARDIAC Total CK 108 unit/L 12 - 191 04/23 ENZYMES [facility] CARDIAC CK MB Index 1.6 0.0 - 2.5 04/23 ENZYMES /2016 [facility] CHEM PANEL Alk Phos 120 unit/L 39 - 136 04/23 [facility] CHEM PANEL Bili Total 0.3 mg/dL 0.2 - 1.3 04/23 [facility] CHEM PANEL A/G Ratio 0.3 0.7 - 1.6 04/23 [facility] CHEM PANEL AST 19 unit/L 0 - 37 04/23 [facility] CHEM PANEL Globulin 7.4 g/dL 2.7 - 4.2 04/23 [facility] CHEM PANEL ALT 6 unit/L 0 - 65 04/23 [facility] CHEM PANEL eGFR 5 04/23 Result Comment: The eGFR is calculated using the CKD-EPI formula. In most young, healthy individuals the eGFR will be >90 mL/ min/1.73m2. The eGFR declines with age. An eGFR of 60-89 may be normal in mL/min/1.73 /2016 some populations, particularly the elderly, for whom the CKD-EPI formula has not been extensively validated. Use of the eGFR is not recommended in the following populations: Greater [address] Individuals with unstable creatinine concentrations, including patients and those with serious co-morbid conditions. Patients with extremes in muscle mass or diet. The data above are obtained from the National Kidney Disease Education Program (NKDEP) which additionally recommends that when the eGFR is used in patients with extremes of body mass index for purposes of drug dosing, the eGFR should be multiplied by the estimated BMI. CHEM PANEL Creatinine 8.97 mg/dL 0.50 - 04/23 Lvl 1.40 /2016 [facility] CHEM PANEL Potassium 5.1 meq/L 3.5 - 5.1 04/23 Lvl /2016 [facility] CHEM PANEL CO2 25 meq/L 24 - 32 04/23 [facility] CHEM PANEL Sodium Lvl 132 meq/L 135 - 145 04/23 [facility] CHEM PANEL Chloride Lvl 97 meq/L 95 - 109 04/23 [facility] CHEM PANEL Glucose Lvl 102 mg/dL 70 - 99 04/23 [facility] CHEM PANEL BUN 41 mg/dL 7 - 22 04/23 [facility] CHEM PANEL Calcium Lvl 10.1 mg/dL 8.5 - 10.5 04/23 [facility] CHEM PANEL Albumin Lvl 1.9 g/dL 3.5 - 5.0 04/23 [facility] CHEM PANEL Total 9.3 g/dL 6.4 - 8.4 04/23 [facility] CHEM PANEL AGAP 15.1 meq/L 10.0 - 04/23 20.0 [facility] CHEM PANEL B/C Ratio 5 6 - 25 04/23 [facility] HEMATOLOGY Platelet 275 K/CMM 133 - 450 04/23 [facility] HEMATOLOGY MPV 7.6 fL 7.4 - 10.4 04/23 [facility] HEMATOLOGY Hgb 7.1 g/dL 14.0 - 04/23 18.0 [facility] HEMATOLOGY Hct 21.3 % 42.0 - 04/23 54.0 /2016 [facility] HEMATOLOGY MCHC 32.9 g/dL 32.0 - 04/23 36.0 [facility] HEMATOLOGY RBC 2.24 M/CMM 4.70 - 04/23 MH 6.10 [facility] HEMATOLOGY MCH 31.2 pg 27.0 - 04/23 MH 31.0 /2016 [facility] HEMATOLOGY MCV 95.1 fL 80.0 - 04/23 94.0 /2016 [facility] HEMATOLOGY RDW 20.4 % 11.5 - 04/23 MH 14.5 /[address] [facility] HEMATOLOGY WBC 5.5 K/CMM 3.7 - 10.4 04/23 /[address] [facility] HEMATOLOGY Segs 64.0 % 45.0 - 04/23 MH 75.0 /[address] [facility] HEMATOLOGY Lymphocytes 24.1 % 20.0 - 04/23 MH 40.0 /2016 [facility] HEMATOLOGY Monocytes 10.3 % 2.0 - 12.0 04/23 [facility] HEMATOLOGY Eosinophils 1.0 % 0.0 - 4.0 04/23 [facility] HEMATOLOGY Segs-Bands # 3.5 K/CMM 1.5 - 8.1 04/23 [facility] HEMATOLOGY Basophils 0.6 % 0.0 - 1.0 04/23 [facility] HEMATOLOGY Monocytes # 0.6 K/CMM 0.0 - 0.8 04/23 [facility] HEMATOLOGY Lymphocytes 1.3 K/CMM 1.0 - 5.5 04/23 MH # /2016 [facility] HEMATOLOGY Eosinophils 0.1 K/CMM 0.0 - 0.5 04/23 MH # /2016 [facility] Chest 1view Chest 1view Chest, single view dated 04/23/2017. 04/23 - DX DX - [facility] HISTORY: Chest pain. Read by: Chapin Luna MD Dictated Date/time: 04/23/17 06:02 Electronically Signed by: Chapin Luna MD 04/23/17 06:04 FINAL REPORT No prior studies are available comparison. The patient is status post median sternotomy. The heart is enlarged. Atherosclerotic calcification is identified in the aorta. Atelectasis is suspected in the retrocardiac left lung base. The lungs othe rwise appear clear. No acute pleural space abnormalities are detected. IMPRESSION: 1. Cardiomegaly without radiographic evidence of acute congestive heart failure. SL: 131 Vital Signs Vital Sign Value Date Comments Source Systolic (mm Hg) 109 04/24/2017 [facility] Diastolic (mm Hg) 58 04/24/2017 [facility] Temperature Oral (F) 98.2 F 04/24/2017 [facility] Respitory Rate 20 04/24/2017 [facility] Heart Rate 87 04/24/2017 [facility] Systolic (mm Hg) 91 04/24/2017 [facility] [place] Diastolic (mm Hg) 56 04/24/2017 [facility] [place] Respitory Rate 18 04/24/2017 [facility] [place] Heart Rate 87 04/24/2017 [facility] [place] Temperature Oral (F) 98.2 F 04/24/2017 [facility] [place] Systolic (mm Hg) 109 04/24/2017 [facility] [place] Diastolic (mm Hg) 55 04/24/2017 [facility] [place] Respitory Rate 20 04/24/2017 [facility] [place] Heart Rate 84 04/24/2017 [facility] [place] Temperature Oral (F) 98.3 F 04/24/2017 [facility] [place] Weight 118.182 04/23/2017 [facility] [place] Height 190.5 cm 04/23/2017 [facility] [place] Weight 118.182 04/23/[address] [facility] BMI Calculated 32.57 04/23/[address] [facility] Encounters Location Location Encounter Encounter Reason Attending ADM DC Status Source Details Type Number For Provider Date Date Visit [facility] [id number] Cherise 04/23 04/24 Sánchez Amato [facility] [place] [facility] Procedures Procedure Code Date Perfomer Comments Source Stent placement [id number] 03/26/[address] [facility] Abdomen endoscopy [id number] [facility] AV - Creation of [id number] [facility] arteriovenous fistula [place] CABG x 4 - Coronary [id number] [facility] artery bypass grafts [place] x 4 Catheterization of [id number] [facility] inferior vena cava [place] Colonoscopy [id number] [facility]
[2018-04-14] MEDS ORDERED: HYDROCODONE/APAP 10/325 TAB ONE (15:30)
--- NOTE | 2018-04-14 15:49 | RAD REPORT ---
EXAM DESCRIPTION: RAD - Ankle Right 3 View - 04/14/2018 3:42 pm CLINICAL HISTORY: PAIN COMPARISON: No comparisons FINDINGS: Heavy vascular calcifications seen. Bony remodeling involving the ankle joint is probably related to previous trauma. Mild tibiotalar atherosclerosis is seen. Large plantar calcaneal spurs pr esent. Mild soft tissue swelling is seen about the ankle.
--- NOTE | 2018-04-14 15:56 | RAD REPORT ---
EXAM DESCRIPTION: VAS - Extremity Venous Uni Ltd - 04/14/2018 3:50 pm CLINICAL HISTORY: PAIN Leg swelling and edema. COMPARISON: Extrem Venous W Compress Nba dated 03/22/2017Extrem Venous W Compress Nba dated 03/22/2017 FINDINGS: Right lower extremity venous system was interrogated with Doppler technique. Normal flow, compressibility and augmentation was noted. There is no DVT present. IMPRESSION: No evidence of right lower extremity deep venous thrombosis.
--- NOTE | 2018-04-14 16:01 | EDPHYS ---
Physician Documentation [facility] Name: Nain Cartagena Jr Age: 67 yrs Sex: Male : 1950 Arrival Date: 04/14/2018 Time: 14:51 Bed 14 Private MD: ED Physician Yvan Prescott HPI: 04/14 15:19 This 67 yrs old Black Male presents to ER via EMS with complaints of Right Ankle Pain. pm1 15:19 The patient presents with pain. The complaints affect the right ankle. Context: The pm1 problem was sustained at home, resulted from an unknown cause, the patient is able to ambulate, Problem is a result from a previous injury: Yes. Broken ankle many years ago with college football. Onset: The symptoms/episode began/occurred today. Modifying factors: The symptoms are alleviated by rest. the symptoms are aggravated by movement, weight bearing. Associated signs and symptoms: Pertinent positives: swelling, Pertinent negatives calf tenderness, fever, numbness, tingling. Treatment prior to arrival includes: prescription medications, hydrocodone. Severity of symptoms: in the emergency department the symptoms have improved. The patient has not experienced similar symptoms in the past. The patient has been recently seen by a physician: [employer] Carey Snowden earlier today, with different complaint(s), the patient was seen for first visit and evaluation for anemia related to ERSD, lab tests were performed. Patient was walking to his house after evaluation by hematology this AM and started experiencing right ankle pain. Patient does not recall any recent trauma. Patient with right ankle fracture playing football in college. Patient with history of DVT and would like it ruled out. No chest pain or shortness of breath present. Historical: - Allergies: 14:59 No Known Allergies; cc3 - Home Meds: 15:30 atorvastatin 40 mg oral tab 1 tab once daily [Active]; hydrocodone-acetaminophen 10-325 cc3 mg Oral tab 1 tab prn [Active]; tramadol 50 mg Oral tab 1 tab twice a day for Pain, as needed [Active]; clonazepam 1 mg Oral tab 1 tab once a day [Active]; amiodarone 200 mg Oral tab 1 tab once daily [Active]; pantoprazole 40 mg oral TbEC 1 tab once daily [Active]; metoprolol tartrate 12.5 mg Oral tab 1 tab 2 times per day [Active]; sertraline 50 mg Oral tab once daily [Active]; midodrine 5 mg oral tab 1 tabs 3 times per day [Active]; Santyl 250 unit/gram Topical oint once daily [Active]; Esteban Aspirin oral 81 mg tab oral once daily [Active]; lactulose 10 gram/15 mL (15 mL) Oral soln 15 mL 2 times per day [Active]; Melatonin 12 mg Oral at bedtime [Active]; Benadryl 25 mg oral cap as needed [Active]; - PMHx: 14:59 Atrial Fib; CHF; Diabetes - NIDDM; DIALYSIS Saturday, and saturdays; DVT; Edema cc3 Lower leg; ESRD; Ganglion, shoulder; GERD; Gout; Hypertension; polymyalgia rheumatica; - Immunization history:: Adult Immunizations up to date as per the patient's . - Social history:: Smoking status: Patient/guardian denies using tobacco, the patient reports quitting approximately 20 years ago. - Ebola Screening: : Patient denies travel to an Ebola-affected area in the 21 days before illness onset No symptoms or risks identified at this time. ROS: 15:19 Constitutional: Negative for fever, chills, and weight loss, Eyes: Negative for injury, pm1 pain, redness, and discharge, ENT: Negative for injury, pain, and discharge, Neck: Negative for injury, pain, and swelling, Cardiovascular: Negative for chest pain, palpitations, and edema, Respiratory: Negative for shortness of breath, cough, wheezing, and pleuritic chest pain, Abdomen/GI: Negative for abdominal pain, nausea, vomiting, diarrhea, and constipation, Back: Negative for injury and pain, : Negative for injury, bleeding, discharge, and swelling. 15:19 Skin: Negative for injury, rash, and discoloration, Neuro: Negative for headache, weakness, numbness, tingling, and seizure. 15:19 MS/extremity: Positive for pain, of the right ankle. Exam: 15:19 Constitutional: This is a well developed, well nourished patient who is awake, alert, pm1 and in no acute distress. Head/Face: Normocephalic, atraumatic. Neck: Trachea midline, no thyromegaly or masses palpated, and no cervical lymphadenopathy. Supple, full range of motion without nuchal rigidity, or vertebral point tenderness. No Meningismus. Chest/axilla: Normal chest wall appearance and motion. Nontender with no deformity. No lesions are appreciated. Cardiovascular: Regular rate and rhythm with a normal S1 and S2. No gallops, murmurs, or rubs. Normal PMI, no JVD. No pulse deficits. Respiratory: Lungs have equal breath sounds bilaterally, clear to auscultation and percussion. No rales, rhonchi or wheezes noted. No increased work of breathing, no retractions or nasal flaring. Abdomen/GI: Soft, non-tender, with normal bowel sounds. No distension or tympany. No guarding or rebound. No evidence of tenderness throughout. Back: No spinal tenderness. No costovertebral tenderness. Full range of motion. Skin: Warm, dry with normal turgor. Normal color with no rashes, no lesions, and no evidence of cellulitis. 15:19 Musculoskeletal/extremity: Extremities: grossly normal except: noted in the right ankle: swelling, tenderness, There is no evidence of decreased ROM, deformity, Circulation is intact in all extremities. Sensation intact. 15:19 Neuro: Orientation: is normal, Motor: moves all fours. Vital Signs: 14:59 BP 124 / 65; Pulse 101; Resp 17; Temp 97.8(O); Pulse Ox 100% on R/A; Pain 8/10; cc3 16:00 BP 135 / 67; Pulse 66; Resp 15; Pulse Ox 100% on R/A; hb MDM: 15:06 Patient medically screened. pm1 16:00 Data reviewed: vital signs. Data interpreted: Pulse oximetry: on room air is 100 %. pm1 Interpretation: normal. Counseling: I had a detailed discussion with the patient and/or guardian regarding: the historical points, exam findings, and any diagnostic results supporting the discharge/admit diagnosis, radiology results, the need for outpatient follow up, to return to the emergency department if symptoms worsen or persist or if there are any questions or concerns that arise at home. 04/14 15:19 Order name: Ankle Right 3 View XRAY; Complete Time: 15:51 pm1 04/14 15:19 Order name: Extremity Venous Uni Ltd US; Complete Time: 15:58 pm1 04/14 16:11 Order name: Sacha wrap-joint; Complete Time: 16:45 pm1 Administered Medications: 15:29 Drug: [place] 10 mg-325 mg 1 tabs Route: PO; cc3 16:00 Follow up: Response: No adverse reaction; Pain is decreased cc3 Disposition: 04/15 06:28 Co-signature as Attending Physician, Yvan Prescott MD I agree with the assessment and [facility] plan of care. Disposition: 04/14/18 16:00 Discharged to Home. Impression: Pain in right ankle and joints of right foot. - Condition is Stable. - Discharge Instructions: Ankle Pain. - Medication Reconciliation Form, Thank You Letter, Prescription Opioid Use form. - Follow up: Emergency Department; When: As needed; Reason: Worsening of condition. Follow up: Private Physician; When: 2 - 3 days; Reason: Recheck today's complaints, Continuance of care, Re-evaluation by your physician. - Problem is new. - Symptoms have improved. Signatures: Dispatcher [employer] EDOH Yvan Prescott MD MD cha Marinas, Patrick, REAL ESTATE SALES ASSOCIATE REAL ESTATE SALES ASSOCIATE pm1 Estee Bullock, RN RN Caren Israel cc3 Corrections: (The following items were deleted from the chart) 04/14 15:32 14:59 Social history: Smoking status: Patient/guardian denies using tobacco, cc3 cc3 16:29 16:00 04/14/2018 16:00 Discharged to Home. Impression: Pain in right ankle and joints hb of right foot. Condition is Stable. Forms are Medication Reconciliation Form, Thank You Letter, Antibiotic Education, Prescription Opioid Use. Follow up: Emergency Department; When: As needed; Reason: Worsening of condition. Follow up: Private Physician; When: 2 - 3 days; Reason: Recheck today's complaints, Continuance of care, Re-evaluation by your physician. Problem is new. Symptoms have improved. pm1
--- NOTE | 2018-04-14 16:01 | ER ---
Nurse's Notes [facility] Name: Nain Cartagena Jr Age: 67 yrs Sex: Male : 1950 Arrival Date: 04/14/2018 Time: 14:51 Bed 14 Private MD: Diagnosis: Pain in right ankle and joints of right foot Presentation: 04/14 14:52 Presenting complaint: EMS states: right lower leg pain. Transition of care: patient was cc3 not received from another setting of care. Onset of symptoms was April 14, 2018. Risk Assessment: Do you want to hurt yourself or someone else? Patient reports no desire to harm self or others. Initial Sepsis Screen: Does the patient meet any 2 criteria? HR > 90 bpm. No. Patient's initial sepsis screen is negative. Does the patient have a suspected source of infection? No. Patient's initial sepsis screen is negative. Care prior to arrival: None. 14:52 Method Of Arrival: EMS: [facility] cc3 14:52 Acuity: RADHA 3 cc3 Triage Assessment: 14:59 General: Appears uncomfortable, Behavior is calm, cooperative. Pain: Complains of pain cc3 in right lower leg Pain currently is 8 out of 10 on a pain scale. Quality of pain is described as aching. EENT: No signs and/or symptoms were reported regarding the EENT system. Neuro: Level of Consciousness is awake, alert, obeys commands, Oriented to person, place, time, situation, Appropriate for age. Cardiovascular: Denies chest pain, Capillary refill < 3 seconds Patient's skin is warm and dry. Respiratory: Airway is patent Respiratory effort is even, unlabored, Respiratory pattern is regular, symmetrical. GI: Abdomen is flat, round. : Parent/caregiver report the patient having not passing urine since 6 months as patient is known ESRD on hemodialysis with left arm access. Derm: old wound on the anterior left lower leg. Musculoskeletal: Reports pain in right lower leg. Historical: - Allergies: 14:59 No Known Allergies; cc3 - Home Meds: 15:30 atorvastatin 40 mg oral tab 1 tab once daily [Active]; hydrocodone-acetaminophen 10-325 cc3 mg Oral tab 1 tab prn [Active]; tramadol 50 mg Oral tab 1 tab twice a day for Pain, as needed [Active]; clonazepam 1 mg Oral tab 1 tab once a day [Active]; amiodarone 200 mg Oral tab 1 tab once daily [Active]; pantoprazole 40 mg oral TbEC 1 tab once daily [Active]; metoprolol tartrate 12.5 mg Oral tab 1 tab 2 times per day [Active]; sertraline 50 mg Oral tab once daily [Active]; midodrine 5 mg oral tab 1 tabs 3 times per day [Active]; Santyl 250 unit/gram Topical oint once daily [Active]; Esteban Aspirin oral 81 mg tab oral once daily [Active]; lactulose 10 gram/15 mL (15 mL) Oral soln 15 mL 2 times per day [Active]; Melatonin 12 mg Oral at bedtime [Active]; Benadryl 25 mg oral cap as needed [Active]; - PMHx: 14:59 Atrial Fib; CHF; Diabetes - NIDDM; DIALYSIS Saturday, and saturdays; DVT; Edema cc3 Lower leg; ESRD; Ganglion, shoulder; GERD; Gout; Hypertension; polymyalgia rheumatica; - Immunization history:: Adult Immunizations up to date as per the patient's . - Social history:: Smoking status: Patient/guardian denies using tobacco, the patient reports quitting approximately 20 years ago. - Ebola Screening: : Patient denies travel to an Ebola-affected area in the 21 days before illness onset No symptoms or risks identified at this time. Screenin:33 Abuse screen: Denies threats or abuse. Denies injuries from another. Nutritional cc3 screening: No deficits noted. Tuberculosis screening: No symptoms or risk factors identified. Fall Risk Ambulatory Aid- Crutches/Cane/Walker (15 pts). Mental Status- Oriented to own ability (0 pts). Total [place] Fall Scale indicates No Risk (0-24 pts). Assessment: 15:10 General: Appears uncomfortable, Behavior is calm, cooperative, appropriate for age. cc3 Pain: Complains of pain in right lower leg Pain currently is 8 out of 10 on a pain scale. Neuro: Level of Consciousness is awake, alert, obeys commands, Oriented to person, place, time, situation, Appropriate for age. Cardiovascular: Denies chest pain. Respiratory: Airway is patent Respiratory effort is even, unlabored, Respiratory pattern is regular, symmetrical. GI: Abdomen is flat, round. : No signs and/or symptoms were reported regarding the genitourinary system. EENT: No signs and/or symptoms were reported regarding the EENT system. Derm: No signs and/or symptoms reported regarding the dermatologic system. Musculoskeletal: Reports pain in right lower leg. 16:00 Reassessment: Patient appears in no apparent distress at this time. Patient and/or hb family updated on plan of care and expected duration. Pain level reassessed. Patient is alert, oriented x 3, equal unlabored respirations, skin warm/dry/pink. Vital Signs: 14:59 BP 124 / 65; Pulse 101; Resp 17; Temp 97.8(O); Pulse Ox 100% on R/A; Pain 8/10; cc3 16:00 BP 135 / 67; Pulse 66; Resp 15; Pulse Ox 100% on R/A; hb ED Course: 14:51 Patient arrived in ED. sg 14:55 Triage completed. cc3 14:59 Arm band placed on left wrist. cc3 14:59 Placed in gown. Bed in low position. Call light in reach. Side rails up X2. Adult w/ cc3 patient. 15:05 Marquis Oneil NP is PHCP. pm1 15:05 Yvan Prescott MD is Attending Physician. pm1 15:28 Extremity Venous Uni Ltd US In Process Unspecified. EDMS 15:42 X-ray completed. Portable x-ray completed in exam room. Patient tolerated procedure ml well. 15:43 Ankle Right 3 View XRAY In Process Unspecified. EDMS 15:46 Estee Bullock RN is Primary Nurse. hb 16:28 No provider procedures requiring assistance completed. Patient did not have IV access hb during this emergency room visit. Administered Medications: 15:29 Drug: [place] 10 mg-325 mg 1 tabs Route: PO; cc3 16:00 Follow up: Response: No adverse reaction; Pain is decreased cc3 Outcome: 16:00 Discharge ordered by . pm1 16:28 Discharged to home via wheelchair, with family. hb 16:28 Condition: stable 16:28 Discharge instructions given to patient, Instructed on discharge instructions, follow up and referral plans. Demonstrated understanding of instructions, follow-up care. 16:29 Patient left the ED. hb Signatures: Dispatcher [employer] EDMS Alexis Francois RN RN sg Lopez, Melissa ml Marinas, Patrick, NP SURVEYOR HELPER pm1 Estee Bullock, RN RN Caren Israel cc3 Corrections: (The following items were deleted from the chart) 15:32 14:59 Social history: Smoking status: Patient/guardian denies using tobacco, cc3 cc3 16:11 14:59 : No signs and/or symptoms were reported regarding the genitourinary system. cc3cc3 16:11 14:59 Derm: No signs and/or symptoms reported regarding the dermatologic system. cc3 cc3
[2018-04-14 16:33] VITALS: TEMP 97.8; O2SAT 100
[2018-04-14 16:34] VITALS: BP 135/67
== END 2018-04-14 16:29 | disposition home or self-care (01) ==
LOC: ER 14:42
DX: M25.571 Pain in right ankle and joints of right foot (principal); E11.22 Type 2 diabetes mellitus with diabetic chronic kidney disease; I12.0 Hypertensive chronic kidney disease with stage 5 chronic kidney disease or end stage renal disease; N18.6 End stage renal disease; I48.91 Unspecified atrial fibrillation; I50.9 Heart failure, unspecified; Z99.2 Dependence on renal dialysis; Z86.718 Personal history of other venous thrombosis and embolism
CPT/HCPCS: 80053; 82248; 82607; 82668; 82728; 82746; 82784; 83010; 83540; 83615; 84165; 84466; 85044; 86334; 86704; 86706; 86803; 86880; 87340; 87389; 93971; 99283

== ENCOUNTER 2018-04-19 10:13 | Inpatient (IN) | payer OTHER, BC ==
--- OUTSIDE RECORDS SUMMARY | 2018-04-19 10:14 | XMS REPORT | Clinical Summary ---
:1950 Author Organization [facility] Address [address] [place] [address] Care Team Providers Name Role Phone Asked, [...] INFLUENZA VACCINE 03/26/2018 Implants Implanted Type Area Longitudinal Float Operator Device Expiration Model / Identifier Date Serial / Lot Catheter Angio Bituminous Distributor Operator Ii 5fr 65cm Selc Braidd Torque Say - [id number] Surgical N/A: N/A BSC PERIPHERAL [id number] / Implanted: 01/31/2017 (Quantity not on file) Implants; INTERVENTION / Expanders; VASCULAR REAGAN Extenders; Surgical Wires Abdominal Mesh Results Not on fileafter 04/18/2017 Insurance Payer Benefit Plan / Group Subscriber ID Type Phone Address MEDICARE MEDICARE PART A AND B xxxxxxxxxx Medicare [place], [place] BCBS BCBS CHOICE PPO/FEDERAL EMPL PPO xxxxxxxxxxxx PPO [phone] [place] [id number]
--- OUTSIDE RECORDS SUMMARY | 2018-04-19 10:15 | XMS REPORT | Continuity of Care Document ---
[...] [facility] [place] CHF (<span Resolved Problem 04/27/2017 ID="[id number]">C Greater onfirmed</span>) [place] ESRD on Active Problem 04/27/2017 hemodialysis [facility] [place] DM (<span Resolved Problem 04/27/2017 ID="[id number]">C Greater onfirmed</span>) [place] Diverticulosis Resolved Problem 04/27/2017 [...] SUB-Q, Drug 017 [facility] form: INJ, [place] [id number], Dosing Weight 118.182, kg, Start date: 04/23/17 [...] Active 017 [facility] Hydrocodone Score 4-6, 0 [facility] Bitartrate 10 Refill(s) MG Oral Tablet metoprolol 25 mg, PO, Active tartrate BID, 0 017 [facility] Refill(s) [place] Sertraline 50 mg, PO, No Longer Daily, 0 Active 017 [facility] Refill(s) [facility] atorvastatin 40 40 mg=1 tab, Active mg oral tablet PO, Bedtime, # 017 [facility] 30 tab, 0 [facility] Refill(s) Tramadol 50 mg, PO, Active TID, PRN Pain, 017 [facility] # 20 tab, 0 [facility] Refill(s) pantoprazole 40 40 mg=1 tab, Active mg oral enteric PO, Daily, 30 017 [facility] coated tablet minutes before [facility] breakfast, # 30 tab, 0 Refill(s) sevelamer 1,600 mg=2 Active carbonate 800 tab, PO, 017 [facility] MG Oral Tablet TID-Meals, # [place] [Renvela] 180 tab, 0 Refill(s) Colchicine 0.6 0.3 mg=0.5 Active MG Oral Tablet tab, PO, BID, 017 [facility] [Colcrys] 0 Refill(s) [facility] Aspirin 81 mg, PO, Active Daily, 0 017 [facility] Refill(s) [facility] Aspirin 325 MG 1 tab, PO, No Longer / Codeine Q4H, PRN for Active 017 [facility] Phosphate 60 MG pain, 0 [facility] Oral Tablet Refill(s) Clonazepam 0.5 mg, PO, No Longer BID, PRN Active 017 [facility] Anxiety, 0 [facility] Refill(s) apixaban 2.5 MG 2.5 mg=1 tab, Active Oral Tablet PO, BID, 0 017 [facility] [Eliquis] Refill(s) [facility] Docusate 100 mg, 1 cap, No Longer Route: PO, Active 017 [facility] Drug form: [facility] CAP, BID, Dosing Weight 118.182, kg, PRN [...] Stop date: 05/23/17 9:23:00 CDTNotes: (Same as: English 325/5) Do not exceed 4gm/day of acetaminophen. [...] type Reported NKDA Assertion Drug Active allergy [facility] Immunizations Immunization Date Given Site Status Last Updated Comments Source Results Order Name Results Value Reference Date Interpretation Comments Source Range CHEM PANEL Magnesium 2.4 mg/dL 1.8 - 2.4 04/24 [facility] CHEM PANEL eGFR 7 04/24 Result Comment: [...] not recommended in the following populations: [facility] [address] Individuals with unstable creatinine concentrations, including [...] Lvl 9.4 mg/dL 8.5 - 10.5 04/24 [facility] CHEM PANEL CO2 25 meq/L 24 - 32 04/24 [facility] CHEM PANEL Chloride Lvl 98 meq/L 95 - 109 04/24 [facility] CHEM PANEL BUN 34 mg/dL 7 - 22 04/24 [facility] CHEM PANEL Glucose Lvl 98 mg/dL 70 - 99 04/24 [facility] CHEM PANEL Potassium 4.2 meq/L 3.5 - 5.1 04/24 [facility] CHEM PANEL Sodium Lvl 136 meq/L 135 - 145 04/24 [facility] CHEM PANEL Creatinine 7.60 mg/dL 0.50 - 04/24 MH Lvl 1.40 [facility] CHEM PANEL AGAP 17.2 meq/L 10.0 - 04/24 MH 20.0 [facility] HEMATOLOGY Monocytes 12.3 % 2.0 - 12.0 04/24 [facility] HEMATOLOGY Eosinophils 1.1 % 0.0 - 4.0 04/24 [facility] HEMATOLOGY Eosinophils 0.1 K/CMM 0.0 - 0.5 04/24 MH # /2016 [facility] HEMATOLOGY Lymphocytes 1.2 K/CMM 1.0 - 5.5 04/24 MH # /2016 [facility] HEMATOLOGY Monocytes # 0.6 K/CMM 0.0 - 0.8 04/24 /2016 [facility] HEMATOLOGY Segs-Bands # 3.2 K/CMM 1.5 - 8.1 04/24 /2016 [facility] HEMATOLOGY Segs 62.5 % 45.0 - 04/24 MH 75.0 /2016 [facility] HEMATOLOGY Lymphocytes 23.3 % 20.0 - 04/24 MH 40.0 /2016 [facility] HEMATOLOGY Basophils 0.8 % 0.0 - 1.0 04/24 /2016 [facility] HEMATOLOGY MPV 8.1 fL 7.4 - 10.4 04/24 [facility] HEMATOLOGY Platelet 229 K/CMM 133 - 450 04/24 /2016 [facility] HEMATOLOGY Hct 22.7 % 42.0 - 04/24 54.0 /2016 [facility] HEMATOLOGY Hgb 7.6 g/dL 14.0 - 04/24 18.0 /2016 [facility] HEMATOLOGY MCHC 33.3 g/dL 32.0 - 04/24 36.0 /2016 [facility] HEMATOLOGY RDW 19.4 % 11.5 - 04/24 14.5 /2016 [facility] HEMATOLOGY MCH 30.8 pg 27.0 - 04/24 31.0 /2016 [facility] HEMATOLOGY MCV 92.4 fL 80.0 - 04/24 94.0 /2016 [facility] HEMATOLOGY WBC 5.1 K/CMM 3.7 - 10.4 04/24 /2016 [facility] HEMATOLOGY RBC 2.45 M/CMM 4.70 - 04/24 6.10 /2016 [facility] IMMUNOLOGY Hep Bs Ag Negative Negative 04/24 [facility] *NA* [facility] (04/23/17 7:30 PM) IMMUNOLOGY Hep Bs Ag Negative Negative 04/24 [facility] *NA* [facility] (04/23/17 7:30 PM) BLOOD BANK RBC product Product available 2 04/23 Result Comment: 2016 12:24 [id number] RESULTS /2017 Notified [employer] @ 1224 [facility] (04/23/17 12:07 PM) [facility] BLOOD BANK Antibody Negative 1 04/23 Result Comment: 04/23/2017 06:59 [id number] RESULTS Scrn /2016 "Significant Findings of Pos Antibody Screen__ called to Davy Bustos RN__ at _04/23/2017 06:58_ by _GG_. Read Back OK" Asked for collection of 2 [place] and 2 Red top tubes for Antibody workup. [facility] (04/23/17 5:57 AM) [facility] BLOOD BANK ABO/Rh A POS 04/23 RESULTS /2016 [facility] HEMATOLOGY PTT 58.7 s 22.9 - 04/23 MH 35.8 /2016 [facility] HEMATOLOGY INR 1.64 0.85 - 04/23 MH 1.17 /2016 [facility] HEMATOLOGY PT 19.7 s 12.0 - 04/23 MH 14.7 /2016 [facility] CARDIAC CK MB 1.7 ng/mL 0.5 - 3.6 04/23 ENZYMES /2016 [facility] CARDIAC Troponin-I 0.20 ng/mL 0.00 - 04/23 ENZYMES 0.40 /2016 [facility] CARDIAC Total CK 108 unit/L 12 - 191 04/23 ENZYMES [facility] CARDIAC CK MB Index 1.6 0.0 - 2.5 04/23 ENZYMES /2016 [facility] CHEM PANEL Alk Phos 120 unit/L 39 - 136 04/23 [facility] CHEM PANEL Bili Total 0.3 mg/dL 0.2 - 1.3 04/23 [facility] CHEM PANEL A/G Ratio 0.3 0.7 - 1.6 04/23 [facility] CHEM PANEL AST 19 unit/L 0 - 37 04/23 [facility] CHEM PANEL Globulin 7.4 g/dL 2.7 - 4.2 04/23 [facility] CHEM PANEL ALT 6 unit/L 0 - 65 04/23 [facility] CHEM PANEL eGFR 5 04/23 Result Comment: [...] not recommended in the following populations: [facility] [address] Individuals with unstable creatinine concentrations, including [...] mg/dL 0.50 - 04/23 Lvl 1.40 /2016 [facility] CHEM PANEL Potassium 5.1 meq/L 3.5 - 5.1 04/23 Lvl /2016 [facility] CHEM PANEL CO2 25 meq/L 24 - 32 04/23 [facility] CHEM PANEL Sodium Lvl 132 meq/L 135 - 145 04/23 [facility] CHEM PANEL Chloride Lvl 97 meq/L 95 - 109 04/23 [facility] CHEM PANEL Glucose Lvl 102 mg/dL 70 - 99 04/23 [facility] CHEM PANEL BUN 41 mg/dL 7 - 22 04/23 [facility] CHEM PANEL Calcium Lvl 10.1 mg/dL 8.5 - 10.5 04/23 [facility] CHEM PANEL Albumin Lvl 1.9 g/dL 3.5 - 5.0 04/23 [facility] CHEM PANEL Total 9.3 g/dL 6.4 - 8.4 04/23 [facility] CHEM PANEL AGAP 15.1 meq/L 10.0 - 04/23 20.0 [facility] CHEM PANEL B/C Ratio 5 6 - 25 04/23 [facility] HEMATOLOGY Platelet 275 K/CMM 133 - 450 04/23 [facility] HEMATOLOGY MPV 7.6 fL 7.4 - 10.4 04/23 [facility] HEMATOLOGY Hgb 7.1 g/dL 14.0 - 04/23 18.0 [facility] HEMATOLOGY Hct 21.3 % 42.0 - 04/23 54.0 /2016 [facility] HEMATOLOGY MCHC 32.9 g/dL 32.0 - 04/23 36.0 [facility] HEMATOLOGY RBC 2.24 M/CMM 4.70 - 04/23 MH 6.10 [facility] HEMATOLOGY MCH 31.2 pg 27.0 - 04/23 MH 31.0 /2016 [facility] HEMATOLOGY MCV 95.1 fL 80.0 - 04/23 94.0 /2016 [facility] HEMATOLOGY RDW 20.4 % 11.5 - 04/23 MH 14.5 /2017 [facility] HEMATOLOGY WBC 5.5 K/CMM 3.7 - 10.4 04/23 /2016 [facility] HEMATOLOGY Segs 64.0 % 45.0 - 04/23 MH 75.0 /2016 [facility] HEMATOLOGY Lymphocytes 24.1 % 20.0 - 04/23 MH 40.0 /2016 [facility] HEMATOLOGY Monocytes 10.3 % 2.0 - 12.0 04/23 [facility] HEMATOLOGY Eosinophils 1.0 % 0.0 - 4.0 04/23 [facility] HEMATOLOGY Segs-Bands # 3.5 K/CMM 1.5 - 8.1 04/23 [facility] HEMATOLOGY Basophils 0.6 % 0.0 - 1.0 04/23 [facility] HEMATOLOGY Monocytes # 0.6 K/CMM 0.0 - 0.8 04/23 [facility] HEMATOLOGY Lymphocytes 1.3 K/CMM 1.0 - 5.5 04/23 MH # /2016 [facility] HEMATOLOGY Eosinophils 0.1 K/CMM 0.0 - 0.5 04/23 MH # /2016 [facility] Chest 1view Chest 1view Chest, single view dated 04/23/2017. 04/23 - DX DX - [facility] HISTORY: Chest pain. Read by: Chapin Luna [...] Comments Source Systolic (mm Hg) 109 04/24/2017 [facility] Diastolic (mm Hg) 58 04/24/2017 [facility] Temperature Oral (F) 98.2 F 04/24/2017 [facility] Respitory Rate 20 04/24/2017 [facility] Heart Rate 87 04/24/2017 [facility] Systolic (mm Hg) 91 04/24/2017 [facility] [...] 04/23/2017 [facility] [place] Weight 118.182 04/23/2017 [facility] BMI Calculated 32.57 04/23/2017 [facility] Encounters Location Location Encounter Encounter Reason Attending ADM DC Status Source Details Type Number For Provider Date Date Visit [facility] [id number] Cherise 04/23 04/24 S[facility] [facility] [place] [facility] Procedures Procedure Code Date Perfomer Comments Source Stent placement [id number] 03/26/2017 [facility] Abdomen endoscopy [id number] [facility] AV - Creation of [id number] [place] arteriovenous fistula [place] CABG x 4 - Coronary [id number] [facility] artery bypass grafts [place] x 4 Catheterization of [id number] [facility] inferior vena cava [place] Colonoscopy [id number] [facility]
[2018-04-19 10:54] LABS: Absolute Lymphocytes (CBC) 0.9 K/uL (0.7-4.9); Absolute Monocytes 0.5 K/uL (0.1-1.3); Absolute Neutrophil 4.7 K/uL (1.8-8.0); Basophils % 0.4 % (0-1.3); Eosinophils % 0.2 % (0-4.4); Hematocrit 21.1 % (39.6-49.0); Lymphocytes % 14.3 % (15.3-44.8); MCH 30.1 pg (27.0-35.0); MCV 89.5 fL (80-100); MPV 7.6 fL (7.6-11.3); Monocytes % 7.8 % (3.3-12.3); RBC Red Blood Cell Count 2.36 M/uL (4.33-5.43)
[2018-04-19 11:00] LABS: Protime INR 1.28
--- NOTE | 2018-04-19 11:25 | RAD REPORT ---
EXAM DESCRIPTION: USEPARAMJIT VENOUS UNI LTD04/19/2018 11:03 am CLINICAL HISTORY: Right leg pain and swelling. COMPARISON: April 14, 2018 FINDINGS: Right common femoral, superficial femoral,and right posterior tibial veins are compressibl e and demonstrate augmentation. Doppler demonstrates good flow. Echogenic material has developed within the right popliteal vein. The vein is partially compressible IMPRESSION: Acute thrombus within the right popliteal vein The exam was discussed with Marquis in the Emergency Room at 11:18 a.m. April 19, 2018
[2018-04-19 11:37] LABS: Albumin 2.2 g/dL (3.4-5.0); Bilirubin Direct 0.5 mg/dL (0-0.2); Bilirubin Total 0.7 mg/dL (0.2-1.0); Protein, Total 9.7 g/dL (6.4-8.2)
[2018-04-19 11:41] LABS: Potassium 5.6 mmol/L (3.5-5.1)
[2018-04-19 11:43] LABS: Anisocytosis 3+; Blood Morphology Comment NOTED (NOT SEEN); Platelet Estimate ADEQ; Urine White Blood Cell Casts OK
--- NOTE | 2018-04-19 11:48 | RAD REPORT ---
EXAM DESCRIPTION: Ayla Single View04/19/2018 11:06 am CLINICAL HISTORY: Chest pain COMPARISON: February 2018 FINDINGS: The lungs appear clear of acute infiltrate. The heart is moderately enlarged. Postsurgical changes involve the chest. IMPRESSION: No acute abnormalities displayed
--- NOTE | 2018-04-19 11:52 | RAD REPORT ---
EXAM DESCRIPTION: CT - Head Brain Wo Cont - 04/19/2018 11:13 am CLINICAL HISTORY: Alteration of awareness/confusion COMPARISON: January 2018 TECHNIQUE: Computed axial tomography of the head was obtained. IV contrast was not requested. All CT scans are performed using dose optimization technique as appropriate and may include automated exposure control or mA/KV adjustment according to patient size. FINDINGS: An intracranial bleed is not seen . The ventricles are normal in caliber. No extra-axial fluid collection is noted. Low-density area measuring several centimeters within the l eft cerebral hemisphere is unchanged compatible with an old infarct. It contains small amount of dyst rophic calcification. Chronic opacification of the right mastoid is seen IMPRESSION: No acute intracranial abnormality is seen. If patient's symptoms persist MRI of the bra in would be recommended.
--- NOTE | 2018-04-19 13:41 | RAD REPORT ---
EXAM DESCRIPTION: US - Hemodialysis Graft - 04/19/2018 1:25 pm CLINICAL HISTORY: Left arm swelling COMPARISON: None FINDINGS: The AV graft within the left arm appears patent. Cephalic vein and brachial artery appear patent. A high-grade stenosis is not visualized. Near the midportion of the graft is a 1.5 centimeter isoechoic structure which does not contain blood flow. It may represent a pseudoaneurysm. 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
[2018-04-19] MEDS ORDERED: VANCOMYCIN/NS 1 gm 1 GM/250 ML BAG IVPB ONE (13:45)
--- NOTE | 2018-04-19 13:48 | ER ---
Nurse's Notes [facility] Name: Nain Cartagena Jr Age: 67 yrs Sex: Male : 1950 Arrival Date: 04/19/2018 Time: 10:14 Bed 4 Private MD: Diagnosis: Hypo-osmolality and hyponatremia;Anemia, unspecified;End stage renal disease;Acute embolism and thrombosis of unspecified deep veins of right lower extremity Presentation: 04/19 10:14 Presenting complaint: Patient states: generalized weakness, lethargy and increased R ss leg swelling x 1 week. Pt last had dialysis Saturday, and missed 's session as well as today. PT was also seen last week in ER to r/o DVT to R leg, and was sent home. EMS reports leg is more swollen and painful today. Onset of symptoms is unknown. Risk Assessment: Do you want to hurt yourself or someone else? Patient reports no desire to harm self or others. Initial Sepsis Screen:. Care prior to arrival: IV initiated. 20 GA, in the right wrist, Glucose check: 140. 10:14 Method Of Arrival: EMS: [facility] ss 10:14 Acuity: RADHA 3 ss 10:18 Transition of care: patient was not received from another setting of care. Initial ph Sepsis Screen: Does the patient meet any 2 criteria? No. Patient's initial sepsis screen is negative. Does the patient have a suspected source of infection? No. Patient's initial sepsis screen is negative. 11:30 Acuity: RADHA 2 ph Triage Assessment: 10:24 General: Appears in no apparent distress. uncomfortable, well groomed, Behavior is ph cooperative, drowsy, quiet. Pain: Complains of pain in right leg. Neuro: Level of Consciousness is awake, obeys commands, confused, Oriented to person. Cardiovascular: Denies chest pain, Capillary refill < 3 seconds in bilateral fingers Patient's skin is warm and dry. Edema is 2+ to right midcalf, right ankle and right foot Dialysis shunt: in the left bicep, with palpable thrill, with auscultated bruit. Respiratory: Airway is patent Respiratory effort is even, unlabored, Respiratory pattern is regular, symmetrical. GI: Abdomen is round non-distended, Bowel sounds present X 4 quads. Patient currently denies abdominal pain, nausea. Derm: Skin is healthy with good turgor, Skin is pink, warm \\T\\ dry. Musculoskeletal: Circulation, motion, and sensation intact. Historical: - Allergies: 10:23 No Known Allergies; ph - Home Meds: 10:23 acetaminophen-codeine 300-30 mg Oral tab [Active]; Alinia 500 mg Oral tab 1 tab twice a ph day [Active]; Allopurinol 50 mg Oral 1 tab once daily [Active]; amiodarone 200 mg Oral tab 1 tab once daily [Active]; aspirin 81 mg Oral chew 1 tab once daily [Active]; atorvastatin 40 mg Oral tab 1 tab once daily [Active]; Esteban Aspirin 81 mg tab Oral once daily [Active]; Benadryl 25 mg Oral cap as needed [Active]; clonazepam 0.5 mg Oral tab 1 tab 2 times per day [Active]; clonazepam 1 mg Oral tab 1 tab once a day [Active]; colchicine 0.6 mg Oral cap 1 cap 2 times per day [Active]; Eliquis 2.5 mg Oral tab 1 tab 2 times per day [Active]; hydrocodone-acetaminophen 10-325 mg Oral tab 1 tab PRN [Active]; Klonopin 0.5 mg Oral tab 1 tab 2 times per day [Active]; lactulose 10 gram/15 mL (15 mL) Oral soln 15 mL 2 times per day [Active]; Melatonin 12 mg Oral at bedtime [Active]; metoprolol tartrate 12.5 mg Oral tab 1 tab 2 times per day [Active]; midodrine 5 mg Oral tab 1 tabs 3 times per day [Active]; Miralax 17 gram Oral pwpk 1 packet once daily [Active]; pantoprazole 40 mg Oral TbEC 1 tab once daily [Active]; pantoprazole 40 mg Oral TbEC 1 tab once daily [Active]; Renvela 800 mg Oral tab 1 tab 3 times per day [Active]; Santyl 250 unit/gram Topical oint once daily [Active]; sertraline 50 mg Oral tab once daily [Active]; tramadol 50 mg Oral tab 1 tab twice a day for Pain, as needed [Active]; - PMHx: 10:23 Atrial Fib; CHF; Diabetes - NIDDM; DIALYSIS Saturday, and saturdays; DVT; Edema ph Lower leg; ESRD; Ganglion, shoulder; GERD; Hypertension; polymyalgia rheumatica; Gout; - Social history:: Smoking status: Patient/guardian denies using tobacco. - Ebola Screening: : No symptoms or risks identified at this time. Screenin:18 Abuse screen: Denies threats or abuse. Denies injuries from another. Nutritional ph screening: No deficits noted. Tuberculosis screening: No symptoms or risk factors identified. Fall Risk No fall in past 12 months (0 pts). Secondary diagnosis (15 points) dementia, IV access (20 points). Ambulatory Aid- None/Bed Rest/Nurse Assist (0 pts). Gait- Weak (10 pts.). Mental Status- Overestimates/Forgets Limitations (15 pts.). Total [place] Fall Scale indicates High Risk Score (45 or more points). Fall prevention measures have been instituted. Side Rails Up X 2 Placed Close to Nursing Station Frequent Obs/Assessments Occuring As available patient and family educated on Fall Prevention Program and Strategies. Assessment: 10:27 General: SEE TRIAGE ASSESSMENT. ph 11:21 Reassessment: critical trop 6.74, Dr. Koenig, TANA Cho, and LYDIA RN notified. hb 11:27 Reassessment: Patient appears in no apparent distress at this time. Patient and/or ph family updated on plan of care and expected duration. Pain level reassessed. Pt awake but remains drowsy, oriented to person only at this time, respirations even and unlabored, awaiting lab and radiology results. 11:42 Reassessment: Critical Creatinine 11.1, CPK 1294, K 5.6. QUETA Cho and LYDIA RN notified. hb 12:30 Reassessment: Patient appears in no apparent distress at this time. No changes from previously documented assessment. Patient and/or family updated on plan of care and expected duration. Pain level reassessed. Pt awake but drowsy, Dr Castellanos at bedside to speak w/ and pt. 13:48 Reassessment: Patient appears in no apparent distress at this time. Patient and/or ph family updated on plan of care and expected duration. Pain level reassessed. Unable to obtain straight cath urine, states, " He doesn't make much urine, he only goes every couple of days. 16:00 Reassessment: Patient appears in no apparent distress at this time. Patient and/or ph family updated on plan of care and expected duration. Pain level reassessed. Report called to BREANNE Ramos in ICU, preparing pt to move to ICU. Vital Signs: 10:17 BP 99 / 48; Pulse 60; Resp 14; Temp 97.4(TE); Pulse Ox 97% on R/A; Weight 106.59 kg; ph 10:50 BP 94 / 45; Pulse 57; Resp 16; Pulse Ox 98% on R/A; ph 11:28 BP 100 / 49; Pulse 59; Resp 14; Pulse Ox 100% on R/A; ph 12:31 BP 97 / 52; Pulse 61; Resp 18; Pulse Ox 97% on R/A; ph 13:49 BP 96 / 45; Pulse 65; Resp 18; Pulse Ox 98% on R/A; ph 14:45 BP 97 / 40; Pulse 62; Resp 18; Pulse Ox 97% on R/A; ph 15:45 BP 97 / 42; Pulse 63; Resp 16; Temp 97.2; Pulse Ox 97% on R/A; ph ED Course: 10:14 Patient arrived in ED. ss 10:14 Arm band placed on right wrist. ss 10:16 Triage completed. ss 10:16 Zaina Wilson, BREANNE is Primary Nurse. ph 10:17 Marquis Oneil, ELECTROENCEPHALOGRAPH TECHNICIAN is PHCP. pm1 10:17 Darren Adan MD is Attending Physician. pm1 10:19 Patient has correct armband on for positive identification. Bed in low position. Call ph light in reach. Side rails up X2. media monitor on. Pulse ox on. NIBP on. Warm blanket given. 10:45 Patient taken to ultrasound. via stretcher. aa4 10:48 Maintain EMS IV. Dressing intact. Good blood return noted. Site clean \\T\\ dry. Gauge \\T\\ ph site: 20 R wrist. 11:02 Ultrasound completed. Patient tolerated well. Patient moved to radiology via stretcher. aa4 11:03 Extremity Venous Uni Ltd US In Process Unspecified. EDMS 11:04 Chest Single View XRAY In Process Unspecified. EDMS 11:12 CT completed. Patient tolerated procedure well. Patient moved back from CT. bq 11:13 CT Head Brain wo Cont In Process Unspecified. EDMS 13:22 Ultrasound completed. Patient tolerated well. aa4 13:23 Hemodialysis Graft In Process Unspecified. EDMS 13:46 Mike Castellanos DO is Hospitalizing Provider. pm1 15:25 Accessed peripheral vein via ultrasound, utilizing dynamic ultrasound technique using la1 18G Sureflo IV catheter per hospital protocol. Clean \\T\\ dry. Good blood return. Flushes easily. RAC. 16:27 No provider procedures requiring assistance completed. Patient admitted, IV remains in ph place. Administered Medications: 14:15 Drug: vancoMYCIN 1 grams Route: IVPB; Infused Over: 2 hrs; Site: right wrist; ph 16:29 Follow up: Response: No adverse reaction; IV Status: Infusion continued upon admission ph Outcome: 13:48 Decision to Hospitalize by Provider. pm1 16:28 Admitted to ICU accompanied by nurse, accompanied by tech, via stretcher, room 6, on ph monitor, with chart, Report called to BREANNE Ramos 16:28 Condition: stable 16:28 Instructed on the need for admit. 16:31 Patient left the ED. ph Signatures: Dispatcher [employer] EDMS Fatmata Escamilla Amanda aa4 Parul Lion RN RN Tino Howard RN RN la1 Zaina Wilson RN RN Marquis Oneil, QUETA ELECTROENCEPHALOGRAPH TECHNICIAN pm1 Estee Bullock, BREANNE RN Corrections: (The following items were deleted from the chart) 14:34 13:46 vancoMYCIN 1 grams IVPB in right wrist over 2 hrs ph ph
--- NOTE | 2018-04-19 13:48 | EDPHYS ---
Physician Documentation [facility] Name: Nain Cartagena Jr Age: 67 yrs Sex: Male : 1950 Arrival Date: 04/19/2018 Time: 10:14 Bed 4 Private MD: ED Physician Darren Adan HPI: 04/19 11:30 This 67 yrs old Black Male presents to ER via EMS with complaints of Right Leg Swelling.pm1 11:30 The patient presents with pain, swelling, tenderness. The complaints affect the right pm1 lower leg and right foot. Context: The problem was sustained at home, resulted from an unknown cause, the patient is not able to bear weight, Problem is a result from a previous injury: Yes. 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 Onset: The symptoms/episode began/occurred 5 day(s) ago. Modifying factors: The symptoms are alleviated by nothing. the symptoms are aggravated by nothing. Associated signs and symptoms: Pertinent positives: calf tenderness, Pertinent negatives numbness, vomiting. Treatment prior to arrival includes: petra wrap. Severity of symptoms: in the emergency department the symptoms are actually worse. The patient has experienced similar episodes in the past, history of DVT to each extremity in the past. The patient has not recently seen a physician, the patient's primary care provider is Dr. Donald. Patient with decreased mental status and complaints of generalized weakness. Patient missed dialysis no and today. Patient history mostly obtained from EMS. Historical: - Allergies: 10:23 No Known Allergies; ph - Home Meds: 10:23 acetaminophen-codeine 300-30 mg Oral tab [Active]; Alinia 500 mg Oral tab 1 tab twice a ph day [Active]; Allopurinol 50 mg Oral 1 tab once daily [Active]; amiodarone 200 mg Oral tab 1 tab once daily [Active]; aspirin 81 mg Oral chew 1 tab once daily [Active]; atorvastatin 40 mg Oral tab 1 tab once daily [Active]; Esteban Aspirin 81 mg tab Oral once daily [Active]; Benadryl 25 mg Oral cap as needed [Active]; clonazepam 0.5 mg Oral tab 1 tab 2 times per day [Active]; clonazepam 1 mg Oral tab 1 tab once a day [Active]; colchicine 0.6 mg Oral cap 1 cap 2 times per day [Active]; Eliquis 2.5 mg Oral tab 1 tab 2 times per day [Active]; hydrocodone-acetaminophen 10-325 mg Oral tab 1 tab PRN [Active]; Klonopin 0.5 mg Oral tab 1 tab 2 times per day [Active]; lactulose 10 gram/15 mL (15 mL) Oral soln 15 mL 2 times per day [Active]; Melatonin 12 mg Oral at bedtime [Active]; metoprolol tartrate 12.5 mg Oral tab 1 tab 2 times per day [Active]; midodrine 5 mg Oral tab 1 tabs 3 times per day [Active]; Miralax 17 gram Oral pwpk 1 packet once daily [Active]; pantoprazole 40 mg Oral TbEC 1 tab once daily [Active]; pantoprazole 40 mg Oral TbEC 1 tab once daily [Active]; Renvela 800 mg Oral tab 1 tab 3 times per day [Active]; Santyl 250 unit/gram Topical oint once daily [Active]; sertraline 50 mg Oral tab once daily [Active]; tramadol 50 mg Oral tab 1 tab twice a day for Pain, as needed [Active]; - PMHx: 10:23 Atrial Fib; CHF; Diabetes - NIDDM; DIALYSIS Saturday, and saturdays; DVT; Edema ph Lower leg; ESRD; Ganglion, shoulder; GERD; Hypertension; polymyalgia rheumatica; Gout; - Social history:: Smoking status: Patient/guardian denies using tobacco. - Ebola Screening: : No symptoms or risks identified at this time. ROS: 11:30 Constitutional: Negative for fever, chills, and weight loss, Eyes: Negative for injury, pm1 pain, redness, and discharge, ENT: Negative for injury, pain, and discharge, Neck: Negative for injury, pain, and swelling, Cardiovascular: Negative for chest pain, palpitations, and edema, Respiratory: Negative for shortness of breath, cough, wheezing, and pleuritic chest pain, Abdomen/GI: Negative for abdominal pain, nausea, vomiting, diarrhea, and constipation, Back: Negative for injury and pain. 11:30 Skin: Negative for injury, rash, and discoloration. 11:30 MS/extremity: Positive for pain, swelling, tenderness, of the right foot, right lower leg. 11:30 Neuro: Positive for Generalized weakness, Negative for dizziness, headache, numbness, syncope, tingling. Exam: 11:30 Constitutional: This is a well developed, well nourished patient who is awake, alert, pm1 and in no acute distress. Head/Face: Normocephalic, atraumatic. Eyes: Pupils equal round and reactive to light, extra-ocular motions intact. Lids and lashes normal. Conjunctiva and sclera are non-icteric and not injected. Cornea within normal limits. Periorbital areas with no swelling, redness, or edema. ENT: Nares patent. No nasal discharge, no septal abnormalities noted. Tympanic membranes are normal and external auditory canals are clear. Oropharynx with no redness, swelling, or masses, exudates, or evidence of obstruction, uvula midline. Mucous membranes moist. Neck: Trachea midline, no thyromegaly or masses palpated, and no cervical lymphadenopathy. Supple, full range of motion without nuchal rigidity, or vertebral point tenderness. No Meningismus. Chest/axilla: Normal chest wall appearance and motion. Nontender with no deformity. No lesions are appreciated. Cardiovascular: Regular rate and rhythm with a normal S1 and S2. No gallops, murmurs, or rubs. No pulse deficits. Respiratory: Lungs have equal breath sounds bilaterally, clear to auscultation and percussion. No rales, rhonchi or wheezes noted. No increased work of breathing, no retractions or nasal flaring. Abdomen/GI: Soft, non-tender, with normal bowel sounds. No distension or tympany. No guarding or rebound. No evidence of tenderness throughout. Back: No spinal tenderness. No costovertebral tenderness. Full range of motion. 11:30 Musculoskeletal/extremity: DVT Exam: pain, of the right leg, tenderness, of the right leg, of the right calf, erythema, that is mild, of the right leg, increased warmth. 11:30 Skin: Appearance: normal except for affected area, swelling, noted on the right lower leg and dorsum of right foot. 11:30 Neuro: Orientation: to person, place, situation, Mentation: responsive to voice Slow to response, Motor: moves all fours, Sensation: is normal, no obvious gross deficits. Vital Signs: 10:17 BP 99 / 48; Pulse 60; Resp 14; Temp 97.4(TE); Pulse Ox 97% on R/A; Weight 106.59 kg; ph 10:50 BP 94 / 45; Pulse 57; Resp 16; Pulse Ox 98% on R/A; ph 11:28 BP 100 / 49; Pulse 59; Resp 14; Pulse Ox 100% on R/A; ph 12:31 BP 97 / 52; Pulse 61; Resp 18; Pulse Ox 97% on R/A; ph 13:49 BP 96 / 45; Pulse 65; Resp 18; Pulse Ox 98% on R/A; ph 14:45 BP 97 / 40; Pulse 62; Resp 18; Pulse Ox 97% on R/A; ph 15:45 BP 97 / 42; Pulse 63; Resp 16; Temp 97.2; Pulse Ox 97% on R/A; ph MDM: 10:18 Patient medically screened. pm1 11:22 Physician consultation: Sky Yono MD was contacted at 11:22, regarding US result. pm1 Patient with negative U/S 5 days ago. Initial impression by U/S tech was chronic thrombus in the right popliteal, however it was not present 5 days ago and appearance is indeterminate. since not present previously will call it positive for acute DVT. 12:00 Counseling: I had a detailed discussion with the patient and/or guardian regarding: the pm1 historical points, exam findings, and any diagnostic results supporting the discharge/admit diagnosis, lab results, radiology results, the need for further work-up and treatment in the hospital. 13:45 Data reviewed: vital signs. Data interpreted: Pulse oximetry: on room air is 97 %. pm1 Interpretation: normal. 04/19 10:30 Order name: Amylase, Serum; Complete Time: 11:46 pm04/19 10:30 Order name: Basic Metabolic Panel; Complete Time: 11:46 pm04/19 10:30 Order name: Blood Culture Adult (2) pm1 04/19 10:30 Order name: C-Reactive Protein; Complete Time: 11:46 pm04/19 10:30 Order name: CBC with Diff; Complete Time: 12:02 pm04/19 10:30 Order name: Ckmb; Complete Time: 11:46 pm04/19 10:30 Order name: CPK; Complete Time: 11:46 pm04/19 10:30 Order name: Lactate; Complete Time: 11:38 pm04/19 10:30 Order name: LFT's; Complete Time: 11:46 pm04/19 10:30 Order name: Lipase; Complete Time: 11:46 pm04/19 10:30 Order name: Procalcitonin; Complete Time: 11:38 pm04/19 10:30 Order name: Protime (+inr); Complete Time: 11:38 pm04/19 10:30 Order name: Ptt, Activated; Complete Time: 11:38 pm04/19 10:30 Order name: Sed Rate; Complete Time: 12:02 pm04/19 10:30 Order name: Troponin (emerg Dept Use Only); Complete Time: 11:38 pm04/19 10:30 Order name: Chest Single View XRAY; Complete Time: 11:51 pm04/19 10:30 Order name: Accucheck; Complete Time: 11:27 pm04/19 10:30 Order name: Cardiac monitoring; Complete Time: 10:47 pm04/19 10:30 Order name: EKG - Nurse/Tech; Complete Time: 11:27 pm04/19 10:30 Order name: IV Saline Lock - Large Bore; Complete Time: 10:47 pm04/19 10:30 Order name: CT Head Brain wo Cont; Complete Time: 12:02 pm04/19 10:30 Order name: Urine Microscopic Only 04/19 10:30 Order name: Extremity Venous Uni Ltd US; Complete Time: 11:38 pm04/19 10:30 Order name: Urine Culture 04/19 11:11 Order name: CBC Smear Scan; Complete Time: 12:02 EDDE 04/19 12:33 Order name: Hemodialysis Graft; Complete Time: 13:42 EDDE 04/19 10:30 Order name: Labs collected and sent; Complete Time: 10:47 pm04/19 10:30 Order name: O2 Per Protocol; Complete Time: 10:47 pm04/19 10:30 Order name: O2 Sat Monitoring; Complete Time: 10:47 pm1 Administered Medications: 14:15 Drug: vancoMYCIN 1 grams Route: IVPB; Infused Over: 2 hrs; Site: right wrist; ph 16:29 Follow up: Response: No adverse reaction; IV Status: Infusion continued upon admission ph Disposition: 04/19/18 13:48 Hospitalization ordered by Mike Castellanos for Inpatient Admission. Preliminary diagnosis are Acute embolism and thrombosis of unspecified deep veins of right lower extremity, Hypo-osmolality and hyponatremia, Anemia, unspecified, End stage renal disease. - Bed requested for Intensive Care Unit. - Status is Inpatient Admission. ph - Condition is Stable. - Problem is new. - Symptoms have improved. UTI on Admission? No Addendum: 04/21/2018 11:17 Co-signature as Attending Physician, Darren Adan MD I agree with the assessment and w a plan of care. Signatures: Dispatcher [employer] EDDE Parul Lion RN RN Zaina Wilson RN RN ph Marquis Oneil, GROUP ROOMS COORDINATOR GROUP ROOMS COORDINATOR pm1 Darren Adan MD MD wa Botello, Elizabeth eb Corrections: (The following items were deleted from the chart) 04/19 11:04 10:31 Tib Fib Right+RAD.RAD.BRZ ordered. [facility] EDDE 11:04 10:31 Foot Right 3 View+RAD.RAD.BRZ ordered. [facility] EDDE 11:39 11:22 Physician consultation: Sky Yoon MD was contacted at 11:22, regarding US pm1 result. Patient with negative U/S 5 days ago. Initial impression by U/S tech was chronic thrombus in the left popliteal, however it was not present 5 days ago and appearance is indeterminate. since not present previously will call it positive for acute DVT, pm1 12:33 12:25 Extrmty Nonvasular Limited+US.RAD.BRZ ordered. [facility] EDDE 14:46 13:48 Hospitalization Ordered by Mike Castellanos DO for Inpatient Admission. Preliminary eb diagnosis is Acute embolism and thrombosis of unspecified deep veins of right lower extremityHypo-osmolality and hyponatremia; Anemia, unspecified; End stage renal disease. Bed requested for Telemetry/MedSurg (Inpatient). Status is Inpatient Admission. Condition is Stable. Problem is new. Symptoms have improved. UTI on Admission? No. pm1 16:31 14:46 04/19/2018 13:48 Hospitalization Ordered by Mike Castellanos DO for Inpatient ph Admission. Preliminary diagnosis is Acute embolism and thrombosis of unspecified deep veins of right lower extremityHypo-osmolality and hyponatremia; Anemia, unspecified; End stage renal disease. Bed requested for Intensive Care Unit. Status is Inpatient Admission. Condition is Stable. Problem is new. Symptoms have improved. UTI on Admission? No. eb
[2018-04-19] MEDS ORDERED: ACETAMINOPHEN 500 MG TAB PO PRN (13:56)
[2018-04-19] MEDS ORDERED: SODIUM CHLORIDE 0.9% 10ML INJ IV PRN (13:56)
[2018-04-19] MEDS ORDERED: ONDANSETRON 4 MG/2 ML VIAL IV PRN (13:56)
--- NOTE | 2018-04-19 14:16 | P.HP ---
Certification for Inpatient Patient admitted to: Inpatient With expected LOS: >2 Midnights Patient will require the following post-hospital care: Other Practitioner: I am a practitioner with admitting privileges, knowledge of patient current condition, hospital course, and medical plan of care. Services: Services provided to patient in accordance with Admission requirements found in Title 42 Section 412.3 of the Code of Federal Regulations Patient History Date of Service: 04/19/18 Primary Care Provider: Dr. Donald; Nephrology-Dr. Joseph; Cardiology-Dr. Green; [facility]-Dr. Nava Reason for admission: Altered mental status, right lower extremity pain History of Present Illness: 67-year-old male presented to the ER with multiple complaints including altered mental status and right lower extremity pain. Most of the information came from the who is present at bedside. The reports that earlier this week the patient had been seen in the emergency room for right lower extremity pain. Venous Doppler at that time showed no DVT. The patient was sent home. The patient had gone to dialysis on . 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 The patient was sent tube vascular on Saturday in [place] to repair. Today he had increasing pain to the right lower extremity. Erythema and warmth was noted. Patient was also confused. He was not at his baseline level. Patient denied any significant shortness of breath, chest pain. He did report some fatigue. brought him to the emergency room for evaluation. Patient has complicated history of end-stage renal disease on dialysis, atrial fibrillation, GERD, hypertension, orthostatics hypotension, anxiety, chronic pain, previous history of GI bleed, history of pulmonary embolism previously on anti coagulation therapy but stop due to high risk for bleeding, and IVC filter in place. The also further reports that the patient had been seen in the past by Hematology. His last colonoscopy was about 6 months ago. She does not recall anything else. No melena or rectal bleeding noted at this time. In the ER patient found to have a hemoglobin 7.1, white count 6.0. Sodium 123, potassium 5.6, BUN of 110, creatinine of 11 with a GFR 6. Glucose 93. Pro calcitonin elevated at 21. Lactic acid elevated as well. CRP elevated. Troponin 6.7. CPK 1294. Chest x-ray unremarkable. Venous Doppler of the lower extremity showed a right popliteal vein thrombus. This appeared acute. CT head unremarkable. Evaluation of AV graft shows no high-grade stenosis. The patient was admitted for multiple issues. Patient to be admitted to the ICU. When I saw the patient ER, he appeared stable. at bedside. He did not appear in any respiratory distress. Patient slightly confused. Allergies No Known Allergies Allergy (Verified 01/30/18 01:55) Home medications list reviewed: Yes Home Medications: Atorvastatin Calcium [Lipitor] 40 mg PO BEDTIME 01/30/18 Hydrocodone 10/APAP 325 [Winifred 10/325*] 1 tab PO TID PRN 01/30/18 Pantoprazole [Protonix Tab*] 40 mg PO DAILY 01/30/18 Sertraline [Zoloft*] 50 mg PO DAILY 01/30/18 clonazePAM [Clonazepam] 1 mg PO BID 01/30/18 Aspirin [Adult Aspirin] 81 mg PO DAILY 02/07/18 Metoprolol Tartrate [Lopressor*] 12.5 mg PO DAILY 02/07/18 Midodrine HCl [Proamatine*] 5 mg PO TID #90 tab 02/08/18 Polyethylene Glycol 3350 [Miralax] 17 gm PO DAILY PRN 02/23/18 Tramadol HCl [Ultram] 50 mg PO TID PRN 02/23/18 - Past Medical/Surgical History Diabetic: No -: ESRD on Saturday, , and Saturday -: Cardiomyopathy -: HTN -: Cyst to bilateral arms -: Carpal Tunnel -: Atrial fibrillation/atrial flutter/No anticoagulation due to GI bleed risk -: Small-bowel obstruction/abdominal surgery -: Hx Pulmonary embolism, now with IVC filter -: DVT with bilateral upper and lower extremity DVTs -: CAD, CABG, Heart attack x2 -: Dementia -: Hypotension on Midodrine. -: Dialysis access catheter placement -: carpal tunnel surgery bilat hands -: CABG -: IVC filter Psychosocial/ Personal History: He is . - Family History Sister -: Cancer Notes: leukemia Father -: Heart disease Mother -: Other (see notes) Notes: Dementia Brother -: Cancer - Social History Smoking Status: Unknown if ever smoked Alcohol use: No CD- Drugs: No Caffeine use: Yes Place of Residence: Home Review of Systems General: Chills, Weakness, As per HPI Eyes: Unremarkable ENT: Unremarkable Respiratory: Unremarkable Cardiovascular: Unremarkable Gastrointestinal: Unremarkable Genitourinary: Unremarkable Musculoskeletal: Leg Pain, Pedal edema, As per HPI Integumentary: As per HPI Neurological: Weakness, Confusion, As per HPI Lymphatics: Unremarkable Physical Examination - Physical Exam General: Oriented x2, Cooperative, Confused, Other (Patient slightly confused. Patient able to follow commands.) HEENT: Atraumatic, Normocephalic, Mucous membr. moist/pink, Other (Small bruise to the left frontal area.) Neck: Supple Respiratory: Clear to auscultation bilaterally, Normal air movement Cardiovascular: Normal pulses, Regular rate/rhythm Gastrointestinal: Normal bowel sounds, Soft and benign, Non-distended, No tenderness, No masses, No rebound, No guarding Musculoskeletal: Other (Warmth, erythema to the right lower extremity. Pain with palpation to the right lower extremity. Ulcer to the left lower extremity. Av graft appears appropriate to the left upper arm.) Integumentary: Other (As above) Neurological: Normal speech, Normal strength at 5/5 x4 extr, Normal tone, Other (Slight confusion noted.) - Studies Laboratory Data (last 24 hrs) 04/19/18 10:30: PT 15.1 H, INR 1.28, APTT 34.9 04/19/18 10:30: WBC 6.0, Hgb 7.1 L*, Hct 21.1 L, Plt Count 135 L 04/19/18 10:30: Sodium 123 L, Potassium 5.6 H*, BUN 110 H D, Creatinine 11.10 H * D, Glucose 93, Total Bilirubin 0.7, AST 34, ALT 14, Alkaline Phosphatase 184 H , Amylase 78, Lipase 119 Assessment and Plan - Problems (Diagnosis) (1) DVT (deep venous thrombosis) Current Visit: Yes Status: Acute Plan: Patient with right lower extremity popliteal DVT. Patient with history of PE, pulmonary embolism in the past with prior IVC filter in place. Patient had been on anti coagulation in the past but this was stopped due to GI bleed and risk for bleeding. Spoke with nephrology. Patient will require blood transfusion due to hemoglobin. Will need to start heparin drip. Will consult cardiology, GI to further assess. Patient with complicating history including AFib, hypotension on midodrine, GERD, dementia. Advanced directives address in detail with the . Patient is DNR but desires care for treatment of DVT and multiple issues. She understands multiple complicating factors. Qualifiers: DVT location: lower extremity Affected thrombotic vein of extremity: popliteal Chronicity: acute Laterality: right Qualified Code(s): I82.431 - Acute embolism and thrombosis of right popliteal vein (2) Presence of IVC filter Current Visit: Yes Status: Chronic Plan: Patient with history of IVC filter in place. Continue as above. Patient will need to start heparin. Patient will need to get transfusion and dialysis. (3) History of GI bleed Current Visit: Yes Status: Chronic Plan: Will need to monitor for GI bleed since the patient now has DVT in will start heparin. GI consulted in preparation for this as the patient has a hemoglobin of 7. Patient will get transfused during dialysis. (4) Encephalopathy Current Visit: Yes Status: Acute Plan: Likely from multiple factors including cellulitis with possible sepsis, DVT, hyponatremia. Continue with current plan of care. Nephrology, cardiology and GI consulted. (5) Cellulitis Current Visit: Yes Status: Acute Plan: Patient appears to have some cellulitis to the right lower extremity. Sepsis likely. Will start vancomycin and Zosyn. Blood cultures obtained. Pharmacy to monitor and adjust medication. Qualifiers: Site of cellulitis: extremity Site of cellulitis of extremity: lower extremity Laterality: right Qualified Code(s): L03.115 - Cellulitis of right lower limb (6) Hyponatremia Current Visit: Yes Status: Acute Plan: Patient will get dialysis. (7) Sepsis Onset Date: 06/25/17 Current Visit: No Status: Suspected Plan: Will start IV antibiotic therapy. Obtain blood cultures. Qualifiers: Sepsis type: sepsis due to unspecified organism Qualified Code(s): A41.9 - Sepsis, unspecified organism (8) Anemia Onset Date: 03/21/17 Current Visit: No Status: Acute Plan: Patient with anemia with complicated history of previous DVT/PE with prior IVC filter in place. Patient also with history of GI bleed. Patient with history of atrial fibrillation as well. Patient had been on chronic anti coagulation therapy but this was stop due to high risk of bleeding. Patient had seen GI and Hematology as an outpatient. Patient will need transfusion during dialysis. Will need to monitor for bleeding as the patient will start heparin for DVT. GI consulted. Will need to consider Hematology consultation. Qualifiers: Anemia type: due to chronic kidney disease Chronic kidney disease stage: on chronic dialysis Qualified Code(s): N18.6 - End stage renal disease; D63.1 - Anemia in chronic kidney disease; Z99.2 - Dependence on renal dialysis (9) Atrial fibrillation Onset Date: 07/29/17 Current Visit: No Status: Chronic Plan: Will continue with amiodarone. Patient will start anti coagulation therapy for DVT. Consultation with cardiology to further assess anti coagulation recommendation. Qualifiers: Atrial fibrillation type: chronic Qualified Code(s): I48.2 - Chronic atrial fibrillation (10) Congestive heart failure Onset Date: 02/24/18 Current Visit: No Status: Chronic Plan: Patient with history of combined CHF. Currently stable this time. Will need to monitor for overload as the patient will require transfusion. Patient will also get dialysis. Will check echocardiogram. Qualifiers: Heart failure type: combined systolic and diastolic Heart failure chronicity: chronic Qualified Code(s): I50.42 - Chronic combined systolic ( congestive) and diastolic (congestive) heart failure (11) Dementia Onset Date: 10/23/17 Current Visit: No Status: Chronic Plan: Will monitor closely. Qualifiers: Dementia type: unspecified type Dementia behavioral disturbance: without behavioral disturbance Qualified Code(s): F03.90 - Unspecified dementia without behavioral disturbance (12) Depression Onset Date: 02/24/18 Current Visit: No Status: Chronic Plan: Continue with home medication Qualifiers: Depression Type: unspecified Qualified Code(s): F32.9 - Major depressive disorder, single episode, unspecified (13) ESRD (end stage renal disease) Onset Date: 01/30/18 Current Visit: No Status: Chronic Plan: Patient will need dialysis. Please note patient had high-grade stenosis of AV graft but this was repaired on Saturday. Ultrasound shows no high grade stenosis (14) History of CVA (cerebrovascular accident) Current Visit: No Status: Chronic Plan: CT scan negative (15) History of DVT of lower extremity Current Visit: No Status: Chronic Plan: Now with right lower extremity VT. Continue as above. (16) History of pulmonary embolism Current Visit: No Status: Chronic Plan: as above (17) Hyperlipidemia Onset Date: 02/24/18 Current Visit: No Status: Chronic Plan: Will monitor Qualifiers: Hyperlipidemia type: unspecified Qualified Code(s): E78.5 - Hyperlipidemia , unspecified (18) Hypertension Onset Date: 06/25/17 Current Visit: No Status: Chronic Plan: Will monitor. Qualifiers: Hypertension type: essential hypertension Qualified Code(s): I10 - Essential (primary) hypertension (19) Obesity (BMI 30.0-34.9) Onset Date: 10/23/17 Current Visit: No Status: Chronic Plan: Will monitor Discharge Plan: Home Plan to discharge in: Greater than 2 days - Advance Directives Does patient have a Living Will: Yes Does patient have a Durable POA for Healthcare: Yes - Code Status/Comfort Care Code Status Assessed: Yes (Addressed with . He is DNR) Time Spent Managing Pts Care (In Minutes): 55
[2018-04-19] MEDS ORDERED: SOD POLYSTYREN SUL 15 GM/60 ML UCUP PO ONE ×2 (15:30→22:14)
[2018-04-19] MEDS: SODIUM BICARB 325 MG TAB PO SCH ×2 (17:00→21:07)
[2018-04-19] MEDS: PIPER/TAZO/NS 3.375gm 3.375 GM/100 ML BAG IVPB SCH (17:53)
[2018-04-19] MEDS: SEVELAMER CARBONATE 800 MG TABLET PO SCH (17:54)
[2018-04-19] MEDS: SODIUM CHLORIDE 1 GM TAB PO SCH ×2 (18:00→21:07)
[2018-04-19 18:17] LABS: CKMB Creatine Kinase MB 3.8 ng/mL (0.3-3.6); Potassium 5.5 mmol/L (3.5-5.1); Thyroid Stimulating Hormone 1.62 uIU/mL (0.36-3.74)
[2018-04-19 20:15] LABS: Potassium 5.2 mmol/L (3.5-5.1)
[2018-04-19] MEDS: HEPARIN/D5W 25,000 UNIT/500 ML BAG IV SCH (20:48)
[2018-04-19] MEDS: PANTOPRAZOLE 40 MG INJ IVP SCH (21:07)
[2018-04-19] MEDS ORDERED: NA CHLORIDE 0.9% 100 ML ONE (21:08)
[2018-04-19] MEDS: HYDROCODONE/APAP 7.5/325 MG TAB PO PRN (22:48)
--- NOTE | 2018-04-20 02:32 | CON ---
Date of Consultation: 04/19/2018 Chief Complaint: End-stage renal disease on, dialysis History Of Present Illness: The patient presented to the hospital today because of generalized weakness and legs pain. The patient has multiple medical problems including history of end-stage renal disease. He did not show up for dialysis on because apparently he had malfunctioning of the AV access and was referred to [facility]. Subsequently, he did not come to dialysis yesterday. He has some history of noncompliance with dialysis duration and frequency. The patient was evaluated in the emergency room and was found to have severe hyponatremia and hyperkalemia. The patient was treated for hyperkalemia, received Kayexalate and IV sodium bicarbonate. He was started on p.o. fluid restriction to control hyponatremia and sodium chloride tablets were started as well. Sodium level was 123, potassium 5.6. He was found to have elevated azotemia, BUN of 110, creatinine 11, glucose was 93. The patient is evaluated for acute coronary syndrome. Troponin level is elevate and cardiology consultation is obtained. CRP is elevated, and the patient is started on broad-spectrum antibiotics for possible sepsis. He has borderline hypotension, was found to have severe anemia, and is to have blood transfusion. The patient remains confused. He has history of dementia, congestive heart failure, diastolic dysfunction, atrial fibrillation, chronic pain, history of GI bleeding, chronic anemia. Recently, he was seen by Hematology for evaluation of persistent anemia resistant to AZUCENA. During this admission the patient was started on antibiotics. Procalcitonin level is elevated up to 21. Lactic acid remains elevated. Chest x-ray is unremarkable. There is no evidence of pneumonia or decompensated congestive heart failure. AV graft Doppler showed no high-grade stenosis. The patient is admitted to ICU. Review of Systems: The patient is confused, although he denies pain. Denies headache, vision changes. Review of system is unobtainable. The patient remains somewhat lethargic and does not answer all of the questions. Past Medical History: End-stage renal disease, on dialysis Saturday, , Saturday; cardiomyopathy; hypertension; carpal tunnel syndrome; atrial fibrillation, not on anticoagulation due to GI bleeding risk; small bowel obstruction; abdominal surgery; pulmonary emboli; previous history of IVC filter ; DVT bilateral upper and lower extremities; coronary artery disease; CABG; myocardial infarction x2; dementia; hypotension, on midodrine, chronic hypotension and intradialytic hypotension. Past Surgical History: Dialysis access placement, CABG, IVC filter. Social History: Denies tobacco, alcohol or illicit drugs. Family History: Sister, cancer, she had leukemia. Father had heart diease. Mother, dementia. Brother, cancers. Physical Examination: General: The patient is awake, alert, oriented to himself and place. Eyes: Anicteric sclerae. EOMI. Ears, Nose, Mouth and Throat: Oral mucosa moist. No pallor. Neck: Supple. No JVD. No bruits. Lungs: Clear to auscultation bilaterally. Heart: S1, S2. No pericardial friction rub. Abdomen: Soft, benign, nontender. Extremities: No edema. No clubbing. No cyanosis. Neurological: Moving extremities. Cranial nerves intact. Psychiatric: The patient is alert, follows some commands. Remains confused at baseline mental status. Laboratory Data: INR 1.28, PTT 34.9, PT 15.1. WBC 6.0, hemoglobin 7.1, hematocrit 21.1, platelets 145. Sodium 123, potassium 5.6, BUN 110, creatinine 11, glucose 93, bilirubin 0.7, ALT 14, amylase 78, lipase 119. Impression And Plan: 1. End-stage renal disease, severe azotemia. The patient will have dialysis and dialysis will be scheduled when sodium level is stabilized. The patient is treated with sodium bicarbonate infusion for hyperkalemia. The patient also received Kayexalate to control hyperkalemia. The patient will remain on p.o. fluid restriction to prevent worsening of hyponatremia secondary to volume overload. The patient does not have an evidence of acute decompensated congestive heart failure. Plan is to schedule dialysis as soon as possible and obtain ultrafiltration as needed. 2. Anemia due to chronic kidney disease. The patient will receive packed red blood cells transfusion. Continue AZUCENA with dialysis. 3. Renal osteodystrophy. Continue to monitor phosphorus level. Adjust binders as needed. 4. Possible sepsis. Broad-spectrum antibiotics started. Monitor vancomycin toxicity panel and adjust treatment accordingly. EB/MODL Voice ID: [id number] Report ID: [id number] MTDD
[2018-04-20] MEDS: PIPER/TAZO/NS 3.375gm 3.375 GM/100 ML BAG IVPB SCH ×2 (04:48→18:36)
[2018-04-20 05:42] LABS: Absolute Lymphocytes (CBC) 0.7 K/uL (0.7-4.9); Absolute Monocytes 0.4 K/uL (0.1-1.3); Absolute Neutrophil 3.9 K/uL (1.8-8.0); Basophils % 0.5 % (0-1.3); Eosinophils % 0.2 % (0-4.4); Lymphocytes % 14.4 % (15.3-44.8); MCH 30.2 pg (27.0-35.0); MCV 87.8 fL (80-100); MPV 7.7 fL (7.6-11.3); Monocytes % 8.6 % (3.3-12.3); RBC Red Blood Cell Count 2.26 M/uL (4.33-5.43)
[2018-04-20 05:50] LABS: Hematocrit 19.9 % (39.6-49.0)
[2018-04-20] MEDS: METOPROLOL TAR 25 MG TAB PO SCH (06:00)
[2018-04-20 06:22] LABS: Bilirubin Total 0.8 mg/dL (0.2-1.0); Magnesium 2.1 mg/dL (1.8-2.4); Phosphorus 7.7 mg/dL (2.5-4.9); Potassium 4.7 mmol/L (3.5-5.1); Protein, Total 9.1 g/dL (6.4-8.2)
--- NOTE | 2018-04-20 07:37 | P.PN ---
Subjective Date of Service: 04/20/18 Primary Care Provider: Dr. Donald; Nephrology-Dr. Joseph; Cardiology-Dr. Green; Ramses-Dr. Nava Chief Complaint: Altered mental status, right lower extremity pain Subjective: Other (Patient feeling better. He is wondering when he is going to go home.) Physical Examination - Vital Signs Temperature: 97 F Blood Pressure: 112/45 Pulse: 76 Respirations: 12 Pulse Ox (%): 100 - Physical Exam General: Alert, In no apparent distress, Oriented x3, Cooperative HEENT: Atraumatic Neck: Supple Respiratory: Clear to auscultation bilaterally, Normal air movement Cardiovascular: Normal pulses, Regular rate/rhythm Gastrointestinal: Normal bowel sounds, Soft and benign, Non-distended, No rebound, No guarding Musculoskeletal: No erythema, No tenderness, No warmth Integumentary: Other (Erythema to the right lower extremity resolved. Pain improved to the right lower extremity. Swelling also improved.) Neurological: Normal speech, Normal strength at 5/5 x4 extr, Normal tone, Normal affect - Studies Laboratory Data (last 24 hrs) 04/19/18 10:30: PT 15.1 H, INR 1.28, APTT 34.9 04/19/18 10:30: WBC 6.0, Hgb 7.1 L*, Hct 21.1 L, Plt Count 135 L 04/19/18 10:30: Sodium 123 L, Potassium 5.6 H*, BUN 110 H D, Creatinine 11.10 H * D, Glucose 93, Total Bilirubin 0.7, AST 34, ALT 14, Alkaline Phosphatase 184 H , Amylase 78, Lipase 119 Medications List Reviewed: Yes Assessment & Plan - Problems (Diagnosis) (1) DVT (deep venous thrombosis) Current Visit: Yes Status: Acute Plan: Will continue with heparin. If no signs of GI blood loss then will transition likely to Eliquis. Patient has been on Eliquis in the past. Will discuss this further with GI, nephrology and cardiology. Patient with right lower extremity popliteal DVT. Patient with history of PE, pulmonary embolism in the past with prior IVC filter in place. Patient had been on anti coagulation in the past but this was stopped due to GI bleed and risk for bleeding. Patient expected to get blood transfusion today with dialysis. Qualifiers: DVT location: lower extremity Affected thrombotic vein of extremity: popliteal Chronicity: acute Laterality: right Qualified Code(s): I82.431 - Acute embolism and thrombosis of right popliteal vein (2) Presence of IVC filter Current Visit: Yes Status: Chronic Plan: Patient with history of IVC filter in place. Continue as above. Will continue with heparin. If no blood loss then will transition to oral medication likely Eliquis. He has been on this medication in the past. (3) History of GI bleed Current Visit: Yes Status: Chronic Plan: No rectal bleeding noted at this time. Continue as above. GI consulted. Patient will get blood transfusion with dialysis today. (4) Encephalopathy Current Visit: Yes Status: Acute Plan: Patient appears to be at his baseline level. Likely from multiple factors including cellulitis with possible sepsis, DVT, hyponatremia. (5) Cellulitis Current Visit: Yes Status: Acute Plan: Erythema and swelling to the right lower extremity improved. Patient on IV antibiotic therapy. Blood cultures obtained. Will continue to monitor closely. Qualifiers: Site of cellulitis: extremity Site of cellulitis of extremity: lower extremity Laterality: right Qualified Code(s): L03.115 - Cellulitis of right lower limb (6) Hyponatremia Current Visit: Yes Status: Acute Plan: Patient expected to get dialysis today. Patient was placed on a fluid restriction yesterday. No dialysis yesterday. (7) Sepsis Onset Date: 06/25/17 Current Visit: No Status: Suspected Plan: Sepsis was suspected. Blood cultures obtained. Patient with cellulitis to the right lower extremity much improved. Once blood cultures are negative then will transition to oral medication Qualifiers: Sepsis type: sepsis due to unspecified organism Qualified Code(s): A41.9 - Sepsis, unspecified organism (8) Anemia Onset Date: 03/21/17 Current Visit: No Status: Acute Plan: Patient will get blood transfusion today with dialysis. Patient with anemia with complicated history of previous DVT/PE with prior IVC filter in place. Patient also with history of GI bleed and atrial fibrillation. Patient had been on chronic anti coagulation therapy in the past but this was stopped. If no GI blood loss is noted then will transition from heparin drip to Eliquis. Qualifiers: Anemia type: due to chronic kidney disease Chronic kidney disease stage: on chronic dialysis Qualified Code(s): N18.6 - End stage renal disease; D63.1 - Anemia in chronic kidney disease; Z99.2 - Dependence on renal dialysis (9) Atrial fibrillation Onset Date: 07/29/17 Current Visit: No Status: Chronic Plan: Will continue with amiodarone. Patient on heparin drip. If no GI blood loss is noted then will transition to Eliquis. Will discuss with cardiology to see if this is okay. Patient to get transfusion today with dialysis. Qualifiers: Atrial fibrillation type: chronic Qualified Code(s): I48.2 - Chronic atrial fibrillation (10) Congestive heart failure Onset Date: 02/24/18 Current Visit: No Status: Chronic Plan: Patient with history of combined CHF. Currently stable this time. Will obtain echocardiogram. Patient will get dialysis today. Qualifiers: Heart failure type: combined systolic and diastolic Heart failure chronicity: chronic Qualified Code(s): I50.42 - Chronic combined systolic ( congestive) and diastolic (congestive) heart failure (11) Dementia Onset Date: 10/23/17 Current Visit: No Status: Chronic Plan: Will monitor closely. Qualifiers: Dementia type: unspecified type Dementia behavioral disturbance: without behavioral disturbance Qualified Code(s): F03.90 - Unspecified dementia without behavioral disturbance (12) Depression Onset Date: 02/24/18 Current Visit: No Status: Chronic Plan: Continue with home medication Qualifiers: Depression Type: unspecified Qualified Code(s): F32.9 - Major depressive disorder, single episode, unspecified (13) ESRD (end stage renal disease) Onset Date: 01/30/18 Current Visit: No Status: Chronic Plan: Patient expected to get dialysis today. AV graft working properly. (14) History of CVA (cerebrovascular accident) Current Visit: No Status: Chronic Plan: CT scan negative (15) History of DVT of lower extremity Current Visit: No Status: Chronic Plan: Now with right lower extremity DVT. Patient on heparin drip. If no GI blood loss is noted then will transition to oral medication. Patient with history of PE/DVT in the past with IVC filter in place. (16) History of pulmonary embolism Current Visit: No Status: Chronic Plan: as above (17) Hyperlipidemia Onset Date: 02/24/18 Current Visit: No Status: Chronic Plan: Will monitor Qualifiers: Hyperlipidemia type: unspecified Qualified Code(s): E78.5 - Hyperlipidemia , unspecified (18) Hypertension Onset Date: 06/25/17 Current Visit: No Status: Chronic Plan: Will monitor. Continue with home medication Qualifiers: Hypertension type: essential hypertension Qualified Code(s): I10 - Essential (primary) hypertension (19) Obesity (BMI 30.0-34.9) Onset Date: 10/23/17 Current Visit: No Status: Chronic Plan: Will monitor (20) Hyperkalemia Current Visit: Yes Status: Acute Plan: Patient given Kayexalate yesterday. Patient will get dialysis today. Potassium now within normal range. Discharge Plan: Home Plan to discharge in: Greater than 2 days Time Spent Managing Pts Care (In Minutes): 55
[2018-04-20] MEDS: PANTOPRAZOLE 40 MG INJ IVP SCH ×2 (08:22→20:07)
[2018-04-20] MEDS: AMIODARONE HCL 200 MG TAB PO SCH (08:23)
[2018-04-20] MEDS: SODIUM BICARB 325 MG TAB PO SCH ×4 (08:23→20:08)
[2018-04-20] MEDS: SEVELAMER CARBONATE 800 MG TABLET PO SCH ×3 (08:23→16:30)
[2018-04-20] MEDS: SERTRALINE HCL 50 MG TAB PO SCH (08:26)
[2018-04-20] MEDS: SODIUM CHLORIDE 1 GM TAB PO SCH ×4 (08:26→20:08)
[2018-04-20] MEDS ORDERED: VANCOMYCIN 1 GM in NA CHLORIDE 0.9% 500 ML IVPB SCH (09:00)
--- NOTE | 2018-04-20 10:10 | P.PN ---
Subjective Date of Service: 04/20/18 Primary Care Provider: Dr. Donald; Nephrology-Dr. Joseph; Cardiology-Dr. Green; Ramses-Dr. Nava Chief Complaint: Altered mental status, right lower extremity pain Subjective: Improving (States his abdominal pain has largely resolved. He has not had a stool since admission. He and RNs have not seen any blood. Hgb 6.8 from 7 after 1 unit PRBCs. HD planned for today with more PRBCs to be given.) Review of Systems 10-point ROS is otherwise unremarkable Respiratory: Shortness of Breath Physical Examination - Vital Signs Temperature: 97 F Blood Pressure: 112/45 Pulse: 76 Respirations: 12 Pulse Ox (%): 100 - Physical Exam General: Alert, In no apparent distress, Oriented x3, Cooperative HEENT: Atraumatic, Normocephalic, PERRLA, EOMI Neck: Supple Respiratory: Normal air movement Cardiovascular: Normal pulses Gastrointestinal: Soft and benign, No tenderness, No rebound, No guarding Neurological: Normal speech - Studies Laboratory Data (last 24 hrs) 04/19/18 10:30: PT 15.1 H, INR 1.28, APTT 34.9 04/19/18 10:30: WBC 6.0, Hgb 7.1 L*, Hct 21.1 L, Plt Count 135 L 04/19/18 10:30: Sodium 123 L, Potassium 5.6 H*, BUN 110 H D, Creatinine 11.10 H * D, Glucose 93, Total Bilirubin 0.7, AST 34, ALT 14, Alkaline Phosphatase 184 H , Amylase 78, Lipase 119 Medications List Reviewed: Yes Assessment And Plan - Current Problems (Diagnosis) (1) Cellulitis Current Visit: Yes Status: Acute Qualifiers: Site of cellulitis: extremity Site of cellulitis of extremity: lower extremity Laterality: right Qualified Code(s): L03.115 - Cellulitis of right lower limb (2) DVT (deep venous thrombosis) Current Visit: Yes Status: Acute Qualifiers: DVT location: lower extremity Affected thrombotic vein of extremity: popliteal Chronicity: acute Laterality: right Qualified Code(s): I82.431 - Acute embolism and thrombosis of right popliteal vein (3) Encephalopathy Current Visit: Yes Status: Acute (4) History of GI bleed Current Visit: Yes Status: Chronic (5) Presence of IVC filter Current Visit: Yes Status: Chronic (6) Anemia Onset Date: 03/21/17 Current Visit: No Status: Acute Qualifiers: Anemia type: due to chronic kidney disease Chronic kidney disease stage: on chronic dialysis Qualified Code(s): N18.6 - End stage renal disease; D63.1 - Anemia in chronic kidney disease; Z99.2 - Dependence on renal dialysis (7) Congestive heart failure Onset Date: 02/24/18 Current Visit: No Status: Chronic Qualifiers: Heart failure type: combined systolic and diastolic Heart failure chronicity: chronic Qualified Code(s): I50.42 - Chronic combined systolic ( congestive) and diastolic (congestive) heart failure (8) Dementia Onset Date: 10/23/17 Current Visit: No Status: Chronic Qualifiers: Dementia type: unspecified type Dementia behavioral disturbance: without behavioral disturbance Qualified Code(s): F03.90 - Unspecified dementia without behavioral disturbance (9) Depression Onset Date: 02/24/18 Current Visit: No Status: Chronic Qualifiers: Depression Type: unspecified Qualified Code(s): F32.9 - Major depressive disorder, single episode, unspecified (10) ESRD on hemodialysis Onset Date: 03/21/17 Current Visit: No Status: Chronic (11) History of CVA (cerebrovascular accident) Current Visit: No Status: Chronic (12) History of DVT of lower extremity Current Visit: No Status: Chronic (13) History of pulmonary embolism Current Visit: No Status: Chronic (14) Obesity (BMI 30.0-34.9) Onset Date: 10/23/17 Current Visit: No Status: Chronic (15) Sepsis Onset Date: 06/25/17 Current Visit: No Status: Suspected Qualifiers: Sepsis type: sepsis due to unspecified organism Qualified Code(s): A41.9 - Sepsis, unspecified organism - Plan REC: 1) Guaiac stools X3 2) agree with PRBCs transfusion 3) continue checking H&Hs serially 4) continue PPI therapy 5) consider EGD / colonoscopy once stable and out of ICU (no blood seen with ESRD on HD and sepsis now).
[2018-04-20 10:21] LABS: Potassium 4.3 mmol/L (3.5-5.1)
[2018-04-20] MEDS: HEPARIN/D5W 25,000 UNIT/500 ML BAG IV SCH (10:44)
[2018-04-20] MEDS ORDERED: SODIUM CHLORIDE 1 GM TAB PO ONE (12:00)
[2018-04-20 13:02] LABS: Hematocrit 20.8 % (39.6-49.0)
[2018-04-20] MEDS ORDERED: NA CHLORIDE 0.9% 1,000 ML IV PRN (16:12)
--- NOTE | 2018-04-20 16:19 | EKG ---
Test Date: 2018-04-19 Test Time: 11:23:18 Estate Administrator: HB MEASUREMENT RESULTS: Intervals: Rate: 59 IA: 212 QRSD: 152 QT: 482 QTc: 477 [place]: P: 59 IA: 212 QRS: -41 T: 137 INTERPRETIVE STATEMENTS: Sinus bradycardia with 1st degree AV block Left axis deviation Nonspecific intraventricular block Abnormal ECG Compared to ECG 02/22/2018 20:05:23 First degree AV block now present Sinus rhythm no longer present Ventricular premature complex(es) no longer present Intraventricular conduction delay no longer present T-wave abnormality no longer present Electronically Signed On 04-20-18 16:18:58 CDT by Isai Martinez
--- NOTE | 2018-04-20 16:22 | CON ---
Chief Complaint: Swelling in the right leg. History Of Present Illness: Mr. Cartagena is a gentleman, who is somewhat confused. He is a chronic hemodialysis patient and a former coronary bypass patient. He has very elevated troponins. They are all around 6.7, 6.06, 6.62. He has missed at least 1 dialysis because of poor access. Mr. Cartagena has been made do not resuscitate that is a situation that he and the family have come to be comfortable with, and he is in chronic atrial fibrillation as well. I think perhaps the reason for the consult was to address anticoagulation. Mr. Cartagena has severe problem with bleeding, loses blood all the time. He has a history of DVT, history of pulmonary embolus, but he cannot take a blood thinner without bleeding to , although it might sound unfavorable. The only reasonable thing to do is avoid blood thinners on Mr. Cartagena. He denies having chest pain or shortness of breath. His only complaint is that his leg hurts. Physical Examination: Vital Signs: Height 6 feet 3, 246 pounds. Lungs: Reveal decreased breath sounds in the base. Laboratory Data: His hemoglobin is 6.8 this morning. The sedimentation rate is over 140. His creatinine is 11.9, and troponin 6.06. Plan: Mr. Cartagena is not able to tolerate blood thinners. He would not be able to tolerate any kind of coronary artery procedures. I would not be able to put a stent in him or do a heart catheterization, so those things are out of the question. We will simply give him medicines to control his heart rate if we need to. His heart rate is fine right now, and we do not need to do any planning for coronary intervention. ELVIA Voice ID: [id number] Report ID: [id number] LUIS
[2018-04-20 16:26] LABS: Potassium 4.1 mmol/L (3.5-5.1)
[2018-04-20] MEDS ORDERED: ALBUMIN HUMAN 25% 50 ML IV SCH (17:00)
[2018-04-20] MEDS: EPOETIN ALFA 10,000 UNIT/ML VIAL IV SCH (17:22)
[2018-04-20] MEDS: VANCOMYCIN/NS 1 gm 1 GM/250 ML BAG IV SCH (18:44)
[2018-04-20] MEDS: HYDROCODONE/APAP 7.5/325 MG TAB PO PRN (20:07)
[2018-04-20] MEDS: NEPRO SHAKE 237 ML CAN PO SCH (20:09)
[2018-04-20 20:48] LABS: Hematocrit 24.3 % (39.6-49.0)
[2018-04-21] MEDS: HEPARIN/D5W 25,000 UNIT/500 ML BAG IV SCH ×2 (00:04→17:58)
[2018-04-21] MEDS: HYDROCODONE/APAP 7.5/325 MG TAB PO PRN ×3 (01:55→14:35)
--- NOTE | 2018-04-21 04:08 | PN ---
Date of Progress Note: 04/20/2018 Chief Complaint: End-stage renal disease on dialysis, fluid overload, dilutional hyponatremia, the patient is on fluid restriction. He received treatment for hyperkalemia, potassium level has improved in response to Kayexalate. The patient presented to the hospital because of legs pain. He was found to have DVT. He was started on heparin drip and he is receiving blood transfusion for severe anemia. He has history of anemia due to chronic kidney disease, as well as history of persistent anemia despite AZUCENA treatment. The patient was seen by business intelligence architect outpatient and workup was done in outpatient setting. Review of Systems: The patient denies is fever, chills. He is feeling better today is somewhat improving over the last 24 hours. The patient presented to the hospital and he and was complaining of severe weakness and he was lethargic, somewhat confused. Denies chest pain, palpitation. Denies nausea, vomiting. Physical Examination: Lungs: Clear to auscultation bilaterally. Heart: S1, S2. Abdomen: Soft, benign. Extremities: Edema present in the lower extremity. Laboratory Data: Sodium 125, potassium 4.3, CO2 20, chloride 82, BUN 113, creatinine 11.2, glucose 288. CK level 1060. Troponin 6.06. Albumin 2.0. Impression And Plan: 1. End-stage renal disease. 2. Hyponatremia, dilutional. The patient is started on sodium chloride tablets and p.o. fluid restriction. The patient is treated with IV sodium bicarbonate for severe hyperkalemia. The patient is to have dialysis when sodium level stabilizes. Dialysis parameter will be adjusted for gradual correction of hyponatremia. 3. Fluid overload. Continue p.o. fluid restriction and to arrange ultrafiltration with dialysis. 4. Anemia, severe. Blood transfusion arranged with dialysis. Continue current treatment, and continue AZUCENA. I spent total 37 min including 26 min to coordinate care plan. NATHAN/TRICE Voice ID: [id number] Report ID: [id number] MTDD
[2018-04-21] MEDS: PIPER/TAZO/NS 3.375gm 3.375 GM/100 ML BAG IVPB SCH ×2 (04:45→17:56)
[2018-04-21 05:07] LABS: Absolute Lymphocytes (CBC) 0.7 K/uL (0.7-4.9); Absolute Monocytes 0.4 K/uL (0.1-1.3); Absolute Neutrophil 3.5 K/uL (1.8-8.0); Basophils % 0.3 % (0-1.3); Eosinophils % 0.1 % (0-4.4); Hematocrit 23.4 % (39.6-49.0); Lymphocytes % 14.8 % (15.3-44.8); MCH 29.9 pg (27.0-35.0); MCV 86.9 fL (80-100); MPV 7.1 fL (7.6-11.3); Monocytes % 8.9 % (3.3-12.3); RBC Red Blood Cell Count 2.69 M/uL (4.33-5.43)
[2018-04-21 05:40] LABS: Albumin 1.8 g/dL (3.4-5.0); Bilirubin Total 1.1 mg/dL (0.2-1.0); Phosphorus 7.5 mg/dL (2.5-4.9); Potassium 3.6 mmol/L (3.5-5.1)
[2018-04-21] MEDS: METOPROLOL TAR 25 MG TAB PO SCH (06:00)
[2018-04-21 06:09] LABS: Protime INR 1.4
[2018-04-21] MEDS: SERTRALINE HCL 50 MG TAB PO SCH (08:47)
[2018-04-21] MEDS: PANTOPRAZOLE 40 MG INJ IVP SCH ×2 (08:47→20:28)
[2018-04-21] MEDS: AMIODARONE HCL 200 MG TAB PO SCH (08:47)
[2018-04-21] MEDS: SEVELAMER CARBONATE 800 MG TABLET PO SCH ×3 (08:47→17:56)
[2018-04-21] MEDS: NEPRO SHAKE 237 ML CAN PO SCH ×2 (08:48→20:27)
--- NOTE | 2018-04-21 09:41 | CON ---
Date of Consultation: 04/19/2018 Reason For Consultation: Anemia. Hemoglobin down to approximately 7.1. History Of Present Illness: The patient is a 67-year-old male with history of end-s tage renal disease, on hemodialysis. The patient presented to the hospital due to altered mental sta tus and right lower extremity pain. The patient was found to have a DVT in the right lower extremity at the femoral vein, extending to the popliteal vein. The patient denies any melena, hematochezia, hematemesis, coffee-grounds emesis, hemoptysis, or hematuria. The patient states he has seen no bloo d. No reports of any blood in the emergency room. Past Medical History: Significant for end-stage renal disease, on hemodialysis Saturday, , ; cardiomyopathy; hypertension; cyst in bilateral arms; carpal tunnel syndrome; atrial fibrilla tion and flutter, on no anticoagulation due to GI bleed risk ; small bowel obstruction; abd ominal surgery; history of pulmonary embolism, now with IVC filter; bilateral upper and lower extremi ty DVTs; coronary artery disease, status post CABG ; dementia; hypotension, on Midodrine; _ ; IVC filter. Medications: Home medicines include Lipitor, [place], Protonix, Zoloft, clonazepam, aspirin, Lopressor , protamine, MiraLax, Ultram. Allergies: NKDA. Social History: He is . No alcohol or caffeine. No tobacco currently. Family History: Sister with leukemia. Father with heart disease. Mother with dementia. Brother wi th cancer. Review of Systems: The patient has right lower extremity pain, altered mental status. Denies any melena, hematochezia, hematemesis, coffee-grounds emesis, hematuria, dysuria, polydipsia, hemoptysis, muscle aches, joint a ches backaches. No depression or anxiety. No chest pain, shortness of breath, seizures, or syncope. Physical Examination: Vital signs: Afebrile. Stable. Just came into the ICU. General: An elderly male, lying in bed, in no acute distress. HEENT: Normocephalic, atraumatic. Anicteric. Pupils are equal, round, and reactive to light. Extr aocular movements are intact. Oropharynx is clear. Neck: Supple. No masses. Respirations: . Abdomen: Positive bowel sounds. Soft. Nondistended. Some mild tenderness no peritoneal or De León sign. No rebound. Neuro: answer questions appropriately and moves extremities. Laboratory Data: White count is 6.0, hemoglobin is 7.1, hematocrit 21.1, MCV of , platelet count 135, polys of 77%, lymphocytes 14%, monos 8%. PT 15.1, INR of 1.3, PTT of 35.9. Yesterday, t he patient had a sodium of 123, potassium 5.6, chloride 86, , creatinine of 11.1, glucose 9 3, lactate of 1.1, calcium 9.0, total bilirubin , AST 34, ALT of . CK of 1294; C K-MB of 4.0, high. Troponin I of 6.74, elevated. C-reactive protein elevated at 174. Total protein is 9.7, albumin 2.2, amylase , lipase 119. Extremity venous Doppler study revealed DVT of the femoral vein extending to the popliteal vein, and chest x-ray revealed no acute abnormality. Impression: 1.Anemia, hemoglobin of 7.1, probably multifactorial with renal disease, on hemodialysis Saturday, , Saturday. No melena, hematochezia, hematemesis, coffee-grounds emesis, hemoptysis seen. No blood seen by the patient or staff. The patient monitor and transfuse and keep on PPI the rapy now until deep venous thrombosis issue resolves, however, the patient does have IVC filter in [facility], therefore protect him against pulmonary embolism at this time with history of recurrent deep adi ous thromboses in the past. 2.Deep venous thrombosis, right femoral vein, extending to popliteal veins; on the blood thinners. Recommendations: 1.Agree with packed RBCs and hemodialysis. 2.Monitor H and H serially and transfuse p.r.n. 3.PPI therapy. 4.Guaiac stools x3. 5.We will stabilize the patient . Consider EGD, colonoscopy. To try to get other reports of any prior EGD and colonoscopy the patient has had in the past. He has probably had some in the n ear past since he has IVC filter and history of recurrent DVTs and history of anemia. We will try to get that information and will follow along. KALANI/TRICE Voice ID: [id number] Report ID: [id number]
--- NOTE | 2018-04-21 13:24 | ECHO ---
HEIGHT: 6 ft 3 in WEIGHT: 247 lb 9 oz DATE OF STUDY: 04/21/[address]: Mike Castellanos DO 2-DIMENSIONAL: YES M.MODE: YES DOPPLER: YES COLOR FLOW: YES TDS: NO PORTABLE: YES DEFINITY: NO BUBBLE STUDY: NO DIAGNOSIS: ATRIAL FIBRILLATION/ DEEP VEIN THROMBOSIS CARDIAC HISTORY: CATHERIZATION: YES SURGERY: YES PROSTHETIC VALVE: NO PACEMAKER: NO MEASUREMENTS (cm) DIASTOLIC (NORMALS) SYSTOLIC (NORMALS) IVSd 1.0 (0.6-1.2) LA Diam 4.3 (1.9-4.0) LVEF 66% LVIDd 5.0 (3.5-5.7) LVIDs 3.2 (2.0-3.5) %FS 37% LVPWd 1.1 (0.6-1.2) Ao Diam 2.8 (2.0-3.7) 2 DIMENSIONAL ASSESSMENT: RIGHT ATRIUM: DILATED LEFT ATRIUM: DILATED RIGHT VENTRICLE: NORMAL LEFT VENTRICLE: NORMAL TRICUSPID VALVE: NORMAL MITRAL VALVE: MITRAL ANNULAR CALCIFICATION PULMONIC VALVE: NORMAL AORTIC VALVE: MILD SCLEROSIS PERICARDIAL EFFUSION: NONE AORTIC ROOT: NORMAL LEFT VENTRICULAR WALL MOTION: PARADOXICAL SEPTAL MOTION. DOPPLER/COLOR FLOW: MODERATE TRICUSPID REGURGITATION. SEVERE PULMONARY HYPERTENSION. ESTIMATED RIGHT VENTRICULAR SYSTOLIC PRESSURE 65mmHg. NO AORTIC STENOSIS OR AORTIC REGURGITATION. COMMENTS: NORMAL LEFT VENTRICULAR EJECTION FRACTION WITH PARADOXICAL SEPTAL MOTION. DILATED RIGHT ATRIUM AND VENTRICLE. MITRAL ANNULAR CALCIFICATION. MODERATE TRICUSPID REGURGITATION. SEVERE PULMONARY HYPERTENSION. TECHNOLOGIST: CORY THOMAS
--- NOTE | 2018-04-21 14:42 | P.PN ---
Subjective Date of Service: 04/21/18 Primary Care Provider: Dr. Donald; Nephrology-Dr. Joseph; Cardiology-Dr. Green; Ramses-Dr. Nava Chief Complaint: Altered mental status, right lower extremity pain Subjective: Doing well Physical Examination - Vital Signs Temperature: 97 F Blood Pressure: 96/37 Pulse: 68 Respirations: 12 Pulse Ox (%): 99 - Physical Exam General: Alert, In no apparent distress, Oriented x3, Cooperative HEENT: Atraumatic Neck: Supple Respiratory: Clear to auscultation bilaterally, Normal air movement Cardiovascular: Normal pulses, Regular rate/rhythm, Systolic murmur Gastrointestinal: Normal bowel sounds, Soft and benign, Non-distended, No tenderness, No masses, No rebound, No guarding Musculoskeletal: No erythema, No warmth, Tenderness (Less tenderness to the right lower extremity) Integumentary: No warmth, No cyanosis Neurological: Normal speech, Normal strength at 5/5 x4 extr, Normal tone, Normal affect - Studies Medications List Reviewed: Yes Assessment & Plan - Problems (Diagnosis) (1) DVT (deep venous thrombosis) Onset Date: 04/21/18 Current Visit: Yes Status: Acute Plan: Will continue with heparin drip. Will continue monitor hemoglobin closely. Patient has received 3 units of packed red blood cells. Will monitor for rectal bleeding. If no signs of GI blood loss then will likely transition to Eliquis. Patient has been on Eliquis in the past but held due to GI bleeding. Patient at high risk for GI bleed. GI plans for possible EGD colonoscopy once clinically stable. Patient with history of PE with IVC filter in place. Will continue to monitor patient closely. I will turn the service over to Dr. Rodriguez tomorrow. I will go over the plan of care with him. Qualifiers: DVT location: lower extremity Affected thrombotic vein of extremity: popliteal Chronicity: acute Laterality: right Qualified Code(s): I82.431 - Acute embolism and thrombosis of right popliteal vein (2) Presence of IVC filter Onset Date: 04/21/18 Current Visit: Yes Status: Chronic Plan: Patient with history of IVC filter in place. Continue as above. (3) History of GI bleed Onset Date: 04/21/18 Current Visit: Yes Status: Chronic Plan: No rectal bleeding noted at this time. Continue as above. GI plans for EGD/ colonoscopy once clinically stable and if no signs of continued bleeding. (4) Encephalopathy Onset Date: 04/21/18 Current Visit: Yes Status: Acute Plan: Patient appears to be at his baseline level. Likely from multiple factors including cellulitis with possible sepsis, DVT, hyponatremia. (5) Cellulitis Onset Date: 04/21/18 Current Visit: Yes Status: Acute Plan: Erythema and swelling to the right lower extremity improved. Patient on IV antibiotic therapy. Blood cultures obtained. Will continue to monitor closely. Qualifiers: Site of cellulitis: extremity Site of cellulitis of extremity: lower extremity Laterality: right Qualified Code(s): L03.115 - Cellulitis of right lower limb (6) Hyponatremia Onset Date: 04/21/18 Current Visit: Yes Status: Acute Plan: Patient to continue with dialysis. (7) Sepsis Onset Date: 06/25/17 Current Visit: No Status: Suspected Plan: Sepsis was suspected. Blood cultures obtained. Patient with cellulitis to the right lower extremity much improved. Patient on IV antibiotic therapy. Await blood culture results. Qualifiers: Sepsis type: sepsis due to unspecified organism Qualified Code(s): A41.9 - Sepsis, unspecified organism (8) Anemia Onset Date: 03/21/17 Current Visit: No Status: Acute Plan: Patient has received 3 units of packed red blood cells. Will continue to monitor hemoglobin closely. GI will consider colonoscopy/EGD once clinically stable. Will monitor for rectal bleeding. Continue with heparin drip for DVT. Patient with history of PE and IVC filter. Patient with history of GI bleeds in the past. Will monitor closely. Qualifiers: Anemia type: due to chronic kidney disease Chronic kidney disease stage: on chronic dialysis Qualified Code(s): N18.6 - End stage renal disease; D63.1 - Anemia in chronic kidney disease; Z99.2 - Dependence on renal dialysis (9) Atrial fibrillation Onset Date: 07/29/17 Current Visit: No Status: Chronic Plan: Will continue with amiodarone. Patient on heparin drip. If no GI blood loss is noted then will transition to Eliquis. Case discussed with cardiology. Qualifiers: Atrial fibrillation type: chronic Qualified Code(s): I48.2 - Chronic atrial fibrillation (10) Congestive heart failure Onset Date: 02/24/18 Current Visit: No Status: Chronic Plan: Patient with history of combined CHF. Currently stable this time. Patient with severe pulmonary hypertension. Continue with dialysis. Qualifiers: Heart failure type: combined systolic and diastolic Heart failure chronicity: chronic Qualified Code(s): I50.42 - Chronic combined systolic ( congestive) and diastolic (congestive) heart failure (11) Dementia Onset Date: 10/23/17 Current Visit: No Status: Chronic Plan: Will monitor closely. Qualifiers: Dementia type: unspecified type Dementia behavioral disturbance: without behavioral disturbance Qualified Code(s): F03.90 - Unspecified dementia without behavioral disturbance (12) Depression Onset Date: 02/24/18 Current Visit: No Status: Chronic Plan: Continue with home medication Qualifiers: Depression Type: unspecified Qualified Code(s): F32.9 - Major depressive disorder, single episode, unspecified (13) ESRD (end stage renal disease) Onset Date: 01/30/18 Current Visit: No Status: Chronic Plan: Continue with dialysis. (14) History of CVA (cerebrovascular accident) Current Visit: No Status: Chronic Plan: CT scan negative (15) History of DVT of lower extremity Current Visit: No Status: Chronic Plan: Now with right lower extremity DVT. Continue as above. Patient on heparin drip. (16) History of pulmonary embolism Current Visit: No Status: Chronic Plan: as above (17) Hyperlipidemia Onset Date: 02/24/18 Current Visit: No Status: Chronic Plan: Will monitor Qualifiers: Hyperlipidemia type: unspecified Qualified Code(s): E78.5 - Hyperlipidemia , unspecified (18) Hypertension Onset Date: 06/25/17 Current Visit: No Status: Chronic Plan: Will monitor. Continue with home medication Qualifiers: Hypertension type: essential hypertension Qualified Code(s): I10 - Essential (primary) hypertension (19) Obesity (BMI 30.0-34.9) Onset Date: 10/23/17 Current Visit: No Status: Chronic Plan: Will monitor (20) Hyperkalemia Onset Date: 04/21/18 Current Visit: Yes Status: Acute Plan: Patient given Kayexalate yesterday. Patient will get dialysis today. Potassium now within normal range. Discharge Plan: Home Plan to discharge in: Greater than 2 days Time Spent Managing Pts Care (In Minutes): 55
[2018-04-21 15:36] LABS: Hematocrit 24.5 % (39.6-49.0)
[2018-04-22] MEDS: HYDROCODONE/APAP 7.5/325 MG TAB PO PRN ×4 (00:28→20:57)
--- NOTE | 2018-04-22 03:06 | PN ---
Date of Progress Note: 04/21/2018 Chief Complaint: End-stage renal disease, fluid overload, hyponatremia, hyperkalemia. The patient presented to the hospital because of leg pain and he was found to have DVT. Blood work revealed multiple electrolyte abnormalities. Sodium was 123, potassium was elevated. The patient was treated with Kayexalate, received sodium bicarbonate for treatment of hyperkalemia. The patient was found to have severe anemia and received blood transfusion with dialysis. He was started on a heparin drip for DVT. The patient remains very lethargic, encephalopathic. Today, he is more alert. Review of Systems: Denies fever or chills. Denies PND, orthopnea. The patient is refusing dialysis to be done today. He wants to schedule dialysis tomorrow. Physical Examination: Lungs: Diminished breath sounds at bases. Heart: S1, S2. Abdomen: Obese, soft, nontender. No rebound. No guarding. Extremities: Edema 1+ in both ankles. Laboratory Data: Hemoglobin 8.1, WBC 4.6, platelet count 139,000. Today, blood work showed sodium 129, potassium 3.6, chloride 88, CO2 26, BUN 79, creatinine 9.2, calcium 8.9, phosphorus 7.5, albumin 1.8. Impression And Plan: 1. Malnutrition, failure to thrive. The patient has a history of multiple medical problems including chronic anemia due to chronic kidney disease. The patient has chronic anemia. Previously was consulted by specimen collector for severe anemia to evaluate for possible bone marrow biopsy . The patient has a history of deep venous thrombosis. Recently, he was diagnosed with active deep venous thrombosis and is to have heparin drip. 2. Hyponatremia, dilutional secondary to fluid overload. Continue p.o. fluid restriction. The patient received sodium chloride tablets to stabilize sodium level and dialysis was ordered with sodium 130. Plan is to resume dialysis tomorrow to obtain ultrafiltration and to provide metabolic clearance. The patient is refusing dialysis today. EB/MODL Voice ID: [id number] Report ID: [id number] LUIS
[2018-04-22] MEDS: PIPER/TAZO/NS 3.375gm 3.375 GM/100 ML BAG IVPB SCH (05:46)
[2018-04-22] MEDS: METOPROLOL TAR 25 MG TAB PO SCH (05:46)
[2018-04-22 06:06] LABS: Absolute Lymphocytes (CBC) 0.9 K/uL (0.7-4.9); Absolute Monocytes 0.4 K/uL (0.1-1.3); Absolute Neutrophil 3.6 K/uL (1.8-8.0); Basophils % 0.5 % (0-1.3); Eosinophils % 0.3 % (0-4.4); Hematocrit 23.2 % (39.6-49.0); Lymphocytes % 18.5 % (15.3-44.8); MCV 87.3 fL (80-100); MPV 7.5 fL (7.6-11.3); Monocytes % 7.3 % (3.3-12.3); RBC Red Blood Cell Count 2.66 M/uL (4.33-5.43)
[2018-04-22 06:39] LABS: Albumin 1.7 g/dL (3.4-5.0); Bilirubin Total 0.7 mg/dL (0.2-1.0); Phosphorus 8.7 mg/dL (2.5-4.9); Potassium 3.7 mmol/L (3.5-5.1); Protein, Total 8.9 g/dL (6.4-8.2)
[2018-04-22] MEDS: AMIODARONE HCL 200 MG TAB PO SCH (07:49)
[2018-04-22] MEDS: SERTRALINE HCL 50 MG TAB PO SCH (07:49)
[2018-04-22] MEDS: SEVELAMER CARBONATE 800 MG TABLET PO SCH ×3 (07:50→16:44)
[2018-04-22] MEDS: NEPRO SHAKE 237 ML CAN PO SCH ×2 (07:51→20:17)
[2018-04-22] MEDS: PANTOPRAZOLE 40 MG INJ IVP SCH ×2 (07:51→20:17)
[2018-04-22] MEDS: MEDIHONEY 44 ML TOPICAL TUBE TOP SCH (07:52)
--- NOTE | 2018-04-22 10:29 | P.PN ---
Subjective Date of Service: 04/22/18 Primary Care Provider: Dr. Donald; Nephrology-Dr. Joseph; Cardiology-Dr. Green; Ramses-Dr. Nava Chief Complaint: Altered mental status, right lower extremity pain The patient is afebrile, pain is well controlled, however, right leg looks more swollen than yesterday. Physical Examination - Vital Signs Temperature: 97.7 F Blood Pressure: 111/47 Pulse: 76 Respirations: 12 Pulse Ox (%): 100 - Physical Exam General: Alert, In no apparent distress Respiratory: Clear to auscultation bilaterally, Normal air movement Cardiovascular: Regular rate/rhythm, Normal S1 S2 Gastrointestinal: Normal bowel sounds, No tenderness Musculoskeletal: Swelling (right leg), Erythema (right leg) Integumentary: No rashes Neurological: Normal speech, Normal tone, Normal affect Lymphatics: No axilla or inguinal lymphadenopathy - Studies Medications List Reviewed: Yes Assessment And Plan - Current Problems (Diagnosis) (1) Cellulitis Onset Date: 04/21/18 Current Visit: Yes Status: Acute Qualifiers: Site of cellulitis: extremity Site of cellulitis of extremity: lower extremity Laterality: right Qualified Code(s): L03.115 - Cellulitis of right lower limb (2) DVT (deep venous thrombosis) Onset Date: 04/21/18 Current Visit: Yes Status: Acute Qualifiers: DVT location: lower extremity Affected thrombotic vein of extremity: popliteal Chronicity: acute Laterality: right Qualified Code(s): I82.431 - Acute embolism and thrombosis of right popliteal vein (3) Encephalopathy Onset Date: 04/21/18 Current Visit: Yes Status: Acute (4) History of GI bleed Onset Date: 04/21/18 Current Visit: Yes Status: Chronic (5) Bacteremia Current Visit: No Status: Acute (6) ESRD on hemodialysis Onset Date: 03/21/17 Current Visit: No Status: Chronic - Plan 1) right LE DVT: the patient is currently on Heparin drip. F/U by GI due to history of GIB with previous treatment with Eliquis. Guaiac was positive but currently there are no signs of active bleeding. Once more stable from his other problems and may be transfer to the floor, should try Eliquis again for oral treatment. 2) right lower extremity cellulits: Blood culture report MRSA 4/4 bottles. His leg looks more edematous today. Will order MRI to R/O osteomyelitis. Continue Vancomycin during HD, D/C Zosyn. 3) ESRD: continue with HD, F/U neprology team. - Code Status/Comfort Care Code Status: Do Not Resuscitate
[2018-04-22 12:53] LABS: Potassium 3.2 mmol/L (3.5-5.1)
[2018-04-22] MEDS: HEPARIN/D5W 25,000 UNIT/500 ML BAG IV SCH (13:38)
[2018-04-22] MEDS: EPOETIN ALFA 10,000 UNIT/ML VIAL IV SCH (13:46)
[2018-04-22] MEDS: TRAMADOL HCL 50 MG TAB PO PRN (16:43)
[2018-04-22] MEDS: clonazePAM 0.5 MG TAB PO PRN (23:02)
--- NOTE | 2018-04-23 01:56 | PN ---
Date of Progress Note: 04/22/2018 Subjective: The patient was admitted with sepsis with septic shock. The patient started on antibiot ic, has possible abscess on the leg. Physical Examination: Vital Signs: When I saw the patient, blood pressure of 114/37, pulse of 77. Patient undergoing dial ysis, goaling for 2500. Chest: Faint crackles bilateral base. Heart: S1, S2. Systolic murmur. Abdomen: Soft, nontender. Extremities: Plus edema, swelling on the right leg, more with redness and erythema. Laboratory Data: WBC 4.9, H and H 8/23.2, platelets 150. Sodium 129, potassium 3.2, bicarb 25, BUN 88, creatinine 9.8, calcium of 9.1, phosphorus 8.7, magnesium of 2. Albumin 1.7. Current Medications: The patient on include; 1.Vancomycin 1 g. 2.Midodrine. 3.Albumin. 4.Epogen. 5.Amiodarone. 6.Metoprolol 12.5 b.i.d. 7.Clonazepam. 8.Sertraline. 9.Nepro. 10.Pantoprazole. 11.Tramadol. Assessment And Plan: 1.End-stage renal disease, looked to me slightly on the wet side. We will challenge the patient on dialysis today. 2.Hypertension, currently hypotensive secondary to septic shock. Continue midodrine. 3.Cellulitis/leg abscess. Continue current antibiotic. We will follow up culture. 4.Right lower leg deep venous thrombosis with gastrointestinal bleed. We will follow up with GI. 5.Bacteremia Methicillin-resistant Staphylococcus aureus. Continue vancomycin. We will follow up f inal sensitivity. 6.Gastrointestinal bleed, as above. Continue p.r.n. transfusion. Continue Epogen. I am going to g o ahead and send for iron study to see if the patient need IV iron. 7.Secondary hyperparathyroidism. I am going to start the patient on Renvela powder and will follow up. LEANN/TRICE Voice ID: [id number] Report ID: [id number]
[2018-04-23 03:35] LABS: HBsAG Nonreactive (Nonreactive)
[2018-04-23] MEDS: TRAMADOL HCL 50 MG TAB PO PRN (04:52)
--- NOTE | 2018-04-23 05:58 | PN ---
Date of Progress Note: 04/22/2018 History Of Present Illness: Mr. Cartagena is 67, has a DNR, has a history of end-stage renal disease an d CABG. Came in with PE, DVT, and atrial fibrillation. He is not a candidate for anticoagulation be cause of bleeding issue. Echocardiogram that was done revealed severe pulmonary hypertension, right atrial enlargement, right ventricular enlargement, and normal ejection fraction. He is very much sug gestive of the pulmonary embolus. We will continue Lovenox for now. Had received 2 units of packed red blood cells already. Continue present management. SELVIN/TRICE Voice ID: [id number] Report ID: [id number]
[2018-04-23] MEDS: METOPROLOL TAR 25 MG TAB PO SCH (06:00)
[2018-04-23 06:22] LABS: Absolute Lymphocytes (CBC) 0.8 K/uL (0.7-4.9); Absolute Monocytes 0.4 K/uL (0.1-1.3); Absolute Neutrophil 4.2 K/uL (1.8-8.0); Albumin 1.7 g/dL (3.4-5.0); Basophils % 0.4 % (0-1.3); Bilirubin Total 0.6 mg/dL (0.2-1.0); Eosinophils % 0.3 % (0-4.4); Ferritin 459.9 ng/mL (26-388); Folic Acid, (Folate) 4.6 ng/mL (3.1-17.5); Hematocrit 24.8 % (39.6-49.0); Lymphocytes % 13.9 % (15.3-44.8); MCH 29.4 pg (27.0-35.0); MCV 87.3 fL (80-100); MPV 7.6 fL (7.6-11.3); Magnesium 1.7 mg/dL (1.8-2.4); Monocytes % 7.7 % (3.3-12.3); Potassium 3.5 mmol/L (3.5-5.1); Protein, Total 8.9 g/dL (6.4-8.2); RBC Red Blood Cell Count 2.84 M/uL (4.33-5.43)
[2018-04-23 07:38] LABS: Urine White Blood Cell Casts OK
[2018-04-23 07:39] LABS: Anisocytosis 1+; Blood Morphology Comment NOTED (NOT SEEN); Platelet Estimate ADEQ; Polychromasia SLIGHT
[2018-04-23 07:40] LABS: Ovalocytes SLIGHT; Target Cells FEW
[2018-04-23] MEDS: HEPARIN/D5W 25,000 UNIT/500 ML BAG IV SCH (08:22)
[2018-04-23] MEDS: MEDIHONEY 44 ML TOPICAL TUBE TOP SCH (08:43)
[2018-04-23] MEDS: SEVELAMER CARBONATE 800 MG TABLET PO SCH ×3 (08:43→17:31)
[2018-04-23] MEDS: AMIODARONE HCL 200 MG TAB PO SCH (08:43)
[2018-04-23] MEDS: SERTRALINE HCL 50 MG TAB PO SCH (08:43)
[2018-04-23] MEDS: PANTOPRAZOLE 40 MG INJ IVP SCH ×2 (08:44→21:12)
[2018-04-23] MEDS: NEPRO SHAKE 237 ML CAN PO SCH ×2 (08:44→21:12)
--- NOTE | 2018-04-23 09:34 | RAD REPORT ---
EXAM DESCRIPTION: MRI - Tib Fib Right Wo Cont - 04/22/2018 10:30 pm CLINICAL HISTORY: Right leg pain and swelling. COMPARISON: None. TECHNIQUE: Axial, sagittal coronal magnetic resonance imaging of the right lower leg was performed. FINDINGS: Right tibia and fibula demonstrate normal signal. A soft tissue abscess is not noted. Diffuse edema is present within the subcutaneous tissues. Increased signal is present within the lateral gastrocnemius muscle. IMPRESSION: 1. No evidence of osteomyelitis. 2. Diffuse edema within the subcutaneous tissues may indicate a cellulitis or be secondary to venous stasis. 3. Increased signal within the lateral gastrocnemius may indicate myositis.
--- NOTE | 2018-04-23 09:36 | RAD REPORT ---
EXAM DESCRIPTION: MRI - Foot Right Wo Cont - 04/22/2018 10:44 pm CLINICAL HISTORY: Right foot pain and swelling. COMPARISON: None. TECHNIQUE: Axial, sagittal and coronal magnetic resonance imaging of the right foot was obtained. FINDINGS: No significant abnormal signal within the bones is noted. A soft tissue abscess is not seen. Diffuse edema is present within the dorsal subcutaneous tissues. IMPRESSION: 1. No evidence of osteomyelitis 2. Diffuse edema within the dorsal subcutaneous tissues may indicate a cellulitis or be related to ve nous stasis.
[2018-04-23] MEDS: MIDODRINE HCL 5 MG TABLET PO SCH (11:08)
[2018-04-23] MEDS: HYDROCODONE/APAP 7.5/325 MG TAB PO PRN (13:49)
--- NOTE | 2018-04-23 17:57 | P.PN ---
Subjective Date of Service: 04/23/18 Primary Care Provider: Dr. Donald; Nephrology-Dr. Joseph; Cardiology-Dr. Green; Ramses-Dr. Nava Chief Complaint: Altered mental status, right lower extremity pain Patient seen and examined at bedside with RN. Chart reviewed. Currently patient has no complaints to offer overnight. As noted while over. Currently awaiting physical therapy recommendations. Patient is safe to be transferred to the floor today. Review of Systems 10-point ROS is otherwise unremarkable Physical Examination - Vital Signs Temperature: 96.6 F Blood Pressure: 150/96 Pulse: 90 Respirations: 16 Pulse Ox (%): 99 - Physical Exam General: Alert, In no apparent distress HEENT: Atraumatic, PERRLA, EOMI Neck: Supple, JVD not distended Respiratory: Clear to auscultation bilaterally, Normal air movement Cardiovascular: Regular rate/rhythm, Normal S1 S2 Gastrointestinal: Normal bowel sounds, No tenderness Musculoskeletal: No tenderness Integumentary: No rashes Neurological: Normal speech, Normal tone, Normal affect Lymphatics: No axilla or inguinal lymphadenopathy - Studies Microbiology Data (last 24 hrs): 04/19/18 10:30 Blood - Blood Aerobic Blood Culture - Final Meth Resistant Staph Aureus 04/19/18 10:30 Blood - Blood Gram Stain - Final 04/19/18 10:30 Blood - Blood Anaerobic Blood Culture - Final Meth Resistant Staph Aureus 04/19/18 10:30 Blood - Blood Gram Stain - Final 04/19/18 10:45 Blood - Blood Aerobic Blood Culture - Final Meth Resistant Staph Aureus 04/19/18 10:45 Blood - Blood Gram Stain - Final 04/19/18 10:45 Blood - Blood Anaerobic Blood Culture - Final Meth Resistant Staph Aureus 04/19/18 10:45 Blood - Blood Gram Stain - Final Medications List Reviewed: Yes Assessment And Plan - Current Problems (Diagnosis) (1) Cellulitis Onset Date: 04/21/18 Current Visit: Yes Status: Acute Plan: Cellulitis of the right lower extremity. -bone culture positive for MRSA. Currently patient is on IV antibiotics will continue at this time. -the marked improvement in light of lower extremity cellulitis. Will continue to monitor it closely. Qualifiers: Site of cellulitis: extremity Site of cellulitis of extremity: lower extremity Laterality: right Qualified Code(s): L03.115 - Cellulitis of right lower limb (2) Bacteremia Current Visit: No Status: Acute Plan: Blood culture positive for MRSA. Currently on IV antibiotics. Will continue at this time. (3) DVT (deep venous thrombosis) Onset Date: 04/21/18 Current Visit: Yes Status: Acute Plan: Patient with history and currently on right lower extremity DVT. Status post IVC filter placement in the past. Currently patient is on heparin. Patient would need to be on anticoagulation due to history of DVT and PE in the past however patient is also high risk for GI bleeding. Currently will await recommendations from GI for possible procedure and resume anti coagulation at that time. Patient might need to be just on aspirin versus anti thrombin inhibitors Qualifiers: DVT location: lower extremity Affected thrombotic vein of extremity: popliteal Chronicity: acute Laterality: right Qualified Code(s): I82.431 - Acute embolism and thrombosis of right popliteal vein (4) History of GI bleed Onset Date: 04/21/18 Current Visit: Yes Status: Chronic Plan: Stool occult x1 positive here in the hospital. Hemoglobin has been stable here in the hospital. GI has been consulted appreciated recommendations at this time. Patient is now stable with stable hemoglobin and hemodynamics for a possible procedure. Will re-consult GI. Currently patient is on IV Protonix. Will call x1 is positive. Before resuming any anti coagulation patient will need a procedure done here in the hospital. (5) Presence of IVC filter Onset Date: 04/21/18 Current Visit: Yes Status: Chronic (6) Atrial fibrillation Onset Date: 07/29/17 Current Visit: No Status: Chronic Qualifiers: Atrial fibrillation type: chronic Qualified Code(s): I48.2 - Chronic atrial fibrillation (7) Congestive heart failure Onset Date: 02/24/18 Current Visit: No Status: Chronic Qualifiers: Heart failure type: combined systolic and diastolic Heart failure chronicity: chronic Qualified Code(s): I50.42 - Chronic combined systolic ( congestive) and diastolic (congestive) heart failure (8) Dementia Onset Date: 10/23/17 Current Visit: No Status: Chronic Qualifiers: Dementia type: unspecified type Dementia behavioral disturbance: without behavioral disturbance Qualified Code(s): F03.90 - Unspecified dementia without behavioral disturbance (9) Depression Onset Date: 02/24/18 Current Visit: No Status: Chronic Qualifiers: Depression Type: unspecified Qualified Code(s): F32.9 - Major depressive disorder, single episode, unspecified (10) ESRD (end stage renal disease) Onset Date: 01/30/18 Current Visit: No Status: Chronic (11) History of CVA (cerebrovascular accident) Current Visit: No Status: Chronic (12) History of pulmonary embolism Current Visit: No Status: Chronic (13) Hyperlipidemia Onset Date: 02/24/18 Current Visit: No Status: Chronic Qualifiers: Hyperlipidemia type: unspecified Qualified Code(s): E78.5 - Hyperlipidemia , unspecified (14) Hypertension Onset Date: 06/25/17 Current Visit: No Status: Chronic Qualifiers: Hypertension type: essential hypertension Qualified Code(s): I10 - Essential (primary) hypertension - Plan Currently awaiting clinical improvement for Dc home. MRI of the foot is negative for any osteomyelitis. Ultrasound of the extremities pending at this time. Patient however does have known right lower extremity DVT. At this time. 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 Per cardiology patient is at high risk for anti coagulation will await GI recommendations at this time for a possible procedure versus recommendations and anti coagulation for DVT. Discharge Plan: Home Plan to discharge in: 72 Hours - Code Status/Comfort Care Code Status Assessed: Yes Critical Care: No
[2018-04-24] MEDS: HEPARIN/D5W 25,000 UNIT/500 ML BAG IV SCH (00:59)
--- NOTE | 2018-04-24 01:56 | PN ---
Date of Progress Note: 04/23/2018 Subjective: The patient was admitted with septic shock, status post dialysis yesterday, managed to r emove 1400. The patient doing well. Blood pressure has been stable. No nausea, no vomiting. More awake. Blood culture growing strep. Physical Examination: Vital Signs: Blood pressure 98/77, pulse of 80. Chest: Decreased air entry bilateral base. Crackles more prominent on the left. Heart: S1, S2. Systolic murmur. Abdomen: Soft, nontender. Extremities: +1 edema more prominent on the right, erythema on the right. Laboratory Data: WBC 5.4, H and H 8.4/24.8, platelet of 165. Sodium 128, potassium 3.5, bicarb 26, BUN 56, creatinine 7.2, TSAT of 46. Medications: Current medications the patient on its include: 1.Vancomycin. 2.Midodrine. 3.Epogen. 4.Amiodarone. 5.Metoprolol 12.5 b.i.d. 6.Clonazepam. 7.Sertraline. 8.Zofran. 9.Pantoprazole. Assessment And Plan: 1.End-stage renal disease, slightly on the wet side. Still marginal blood pressure. We will arrang e for dialysis tomorrow. I am going to go ahead and dialyze the patient with sodium module and we wi ll monitor. 2.Hyponatremia. We will dialyze the patient on a high sodium bath and we will monitor. 3.Hypertension, currently hypotension. Continue midodrine. 4.Septic shock secondary to cellulitis with bacteremia. I going to continue current antibiotic. In fective endocarditis has been ruled out. We will follow up. 5.Deconditioning. Continue PT/OT. LEANN/MODL Voice ID: [id number] Report ID: [id number]
[2018-04-24 04:36] LABS: Absolute Monocytes 0.4 K/uL (0.1-1.3); Basophils % 0.4 % (0-1.3); Eosinophils % 0.2 % (0-4.4); Hematocrit 21.6 % (39.6-49.0); Lymphocytes % 15.8 % (15.3-44.8); MCH 30.2 pg (27.0-35.0); Monocytes % 6.8 % (3.3-12.3); RBC Red Blood Cell Count 2.45 M/uL (4.33-5.43)
[2018-04-24 05:45] LABS: Albumin 1.7 g/dL (3.4-5.0); Bilirubin Total 0.5 mg/dL (0.2-1.0); Magnesium 1.9 mg/dL (1.8-2.4); Phosphorus 8.3 mg/dL (2.5-4.9); Potassium 4.2 mmol/L (3.5-5.1); Protein, Total 8.9 g/dL (6.4-8.2)
[2018-04-24] MEDS: METOPROLOL TAR 25 MG TAB PO SCH (06:33)
[2018-04-24] MEDS: AMIODARONE HCL 200 MG TAB PO SCH (09:08)
[2018-04-24] MEDS: SEVELAMER CARBONATE 800 MG TABLET PO SCH ×3 (09:08→17:46)
[2018-04-24] MEDS: SODIUM CHLORIDE 1 GM TAB PO SCH ×2 (09:08→17:46)
[2018-04-24] MEDS: MIDODRINE HCL 5 MG TABLET PO SCH ×4 (09:08→21:41)
[2018-04-24] MEDS: SERTRALINE HCL 50 MG TAB PO SCH (09:08)
[2018-04-24] MEDS: PANTOPRAZOLE 40 MG INJ IVP SCH ×2 (09:09→21:41)
[2018-04-24] MEDS: MEDIHONEY 44 ML TOPICAL TUBE TOP SCH (09:09)
[2018-04-24] MEDS: NEPRO SHAKE 237 ML CAN PO SCH ×2 (09:10→21:40)
[2018-04-24] MEDS: HYDROCODONE/APAP 7.5/325 MG TAB PO PRN (09:42)
[2018-04-24] MEDS: TRAMADOL HCL 50 MG TAB PO PRN ×2 (12:24→21:41)
[2018-04-24] MEDS ORDERED: NA CHLORIDE 0.9% 250 ML ONE (13:45)
--- NOTE | 2018-04-24 14:16 | P.PN ---
Subjective Date of Service: 04/24/18 Primary Care Provider: Dr. Donald; Nephrology-Dr. Joseph; Cardiology-Dr. Green; Ramses-Dr. Nava Chief Complaint: Altered mental status, right lower extremity pain Patient seen and examined at bedside with RN. Chart reviewed. -Currently patient has no complaints to offer overnight. -Doing well this AM. Hgb is 7.4 -No active bleeding noted. Review of Systems 10-point ROS is otherwise unremarkable General: As per HPI Physical Examination - Vital Signs Temperature: 98.1 F Blood Pressure: 96/55 Pulse: 73 Respirations: 16 Pulse Ox (%): 99 - Physical Exam General: Alert, In no apparent distress HEENT: Atraumatic, PERRLA, EOMI Neck: Supple, JVD not distended Respiratory: Clear to auscultation bilaterally, Normal air movement Cardiovascular: Regular rate/rhythm, Normal S1 S2 Gastrointestinal: Normal bowel sounds, No tenderness Musculoskeletal: Swelling, Erythema, Tenderness Integumentary: No rashes Neurological: Normal speech, Normal tone, Normal affect Lymphatics: No axilla or inguinal lymphadenopathy - Studies Microbiology Data (last 24 hrs): 04/19/18 10:30 Blood - Blood Aerobic Blood Culture - Final Meth Resistant Staph Aureus 04/19/18 10:30 Blood - Blood Gram Stain - Final 04/19/18 10:30 Blood - Blood Anaerobic Blood Culture - Final Meth Resistant Staph Aureus 04/19/18 10:30 Blood - Blood Gram Stain - Final 04/19/18 10:45 Blood - Blood Aerobic Blood Culture - Final Meth Resistant Staph Aureus 04/19/18 10:45 Blood - Blood Gram Stain - Final 04/19/18 10:45 Blood - Blood Anaerobic Blood Culture - Final Meth Resistant Staph Aureus 04/19/18 10:45 Blood - Blood Gram Stain - Final Medications List Reviewed: Yes Assessment And Plan - Current Problems (Diagnosis) (1) History of GI bleed Onset Date: 04/21/18 Current Visit: Yes Status: Chronic Plan: Stool occult x1 positive here in the hospital. Hemoglobin low today -GI has been consulted. appreciated recommendations at this time. -Patient is now stable hemodynamics for a possible procedure dequan. -Currently patient is on IV Protonix. -No anticoagulation fo rnow (2) Cellulitis Onset Date: 04/21/18 Current Visit: Yes Status: Acute Plan: Cellulitis of the right lower extremity. -blood culture positive for MRSA. Currently patient is on IV antibiotics will continue at this time. -F/U with improvement on the cellulitis Qualifiers: Site of cellulitis: extremity Site of cellulitis of extremity: lower extremity Laterality: right Qualified Code(s): L03.115 - Cellulitis of right lower limb (3) Bacteremia Current Visit: No Status: Acute Plan: Blood culture positive for MRSA. Currently on IV antibiotics. Will continue at this time. (4) DVT (deep venous thrombosis) Onset Date: 04/21/18 Current Visit: Yes Status: Acute Plan: Patient with history and currently on right lower extremity DVT. Status post IVC filter placement in the past. -High Risk for GI bleed -Hgb low today -Hold heparin at this time as risk outweight benefits at this time Qualifiers: DVT location: lower extremity Affected thrombotic vein of extremity: popliteal Chronicity: acute Laterality: right Qualified Code(s): I82.431 - Acute embolism and thrombosis of right popliteal vein (5) Presence of IVC filter Onset Date: 04/21/18 Current Visit: Yes Status: Chronic (6) Atrial fibrillation Onset Date: 07/29/17 Current Visit: No Status: Chronic Qualifiers: Atrial fibrillation type: chronic Qualified Code(s): I48.2 - Chronic atrial fibrillation (7) Congestive heart failure Onset Date: 02/24/18 Current Visit: No Status: Chronic Qualifiers: Heart failure type: combined systolic and diastolic Heart failure chronicity: chronic Qualified Code(s): I50.42 - Chronic combined systolic ( congestive) and diastolic (congestive) heart failure (8) Dementia Onset Date: 10/23/17 Current Visit: No Status: Chronic Qualifiers: Dementia type: unspecified type Dementia behavioral disturbance: without behavioral disturbance Qualified Code(s): F03.90 - Unspecified dementia without behavioral disturbance (9) Depression Onset Date: 02/24/18 Current Visit: No Status: Chronic Qualifiers: Depression Type: unspecified Qualified Code(s): F32.9 - Major depressive disorder, single episode, unspecified (10) ESRD (end stage renal disease) Onset Date: 01/30/18 Current Visit: No Status: Chronic (11) History of CVA (cerebrovascular accident) Current Visit: No Status: Chronic (12) History of pulmonary embolism Current Visit: No Status: Chronic (13) Hyperlipidemia Onset Date: 02/24/18 Current Visit: No Status: Chronic Qualifiers: Hyperlipidemia type: unspecified Qualified Code(s): E78.5 - Hyperlipidemia , unspecified (14) Hypertension Onset Date: 06/25/17 Current Visit: No Status: Chronic Qualifiers: Hypertension type: essential hypertension Qualified Code(s): I10 - Essential (primary) hypertension - Plan Currently awaiting clinical improvement. Pt to have EGD dequan with GI. Hgb low. will hold heparin and transfuse in necessary. Continue all other medical mgmt. F.u with cards regarding anticoagulation. Discharge Plan: Home Plan to discharge in: 48 Hours - Code Status/Comfort Care Code Status Assessed: Yes Critical Care: No
[2018-04-24] MEDS: VANCOMYCIN/NS 1 gm 1 GM/250 ML BAG IV SCH (17:46)
--- NOTE | 2018-04-25 02:50 | PN ---
Date of Progress Note: 04/24/2018 Chief Complaint: End-stage renal disease, on dialysis, septic shock. History Of Present Illness: The patient is scheduled to have dialysis today for metabolic clearance. The patient was found to have hyponatremia. He developed dilutional hyponatremia secondary to fluid overload. Sodium level has declined to 126. The patient is on p.o. fluid restriction. He was started on sodium chloride tablets to control hyponatremia and dialysis parameters were adjusted for gradual correction of hyponatremia. The patient was found to have bacteremia and cellulitis has been treated with antibiotics. Review of Systems: Denies fever, chills. Physical Examination: Lungs: Clear to auscultation bilaterally. Heart: S1, S2. No pericardial friction rub. Abdomen: Soft, benign, nontender. Extremities: 1+ edema in both legs. Laboratory Data: Hemoglobin 8.6, WBC 6.6. Sodium 126, potassium 4.2, chloride 84, CO2 26, BUN 64, creatinine 8.4, magnesium 1.9, calcium 8.3. Impression And Plan: 1. End-stage renal disease. Continue dialysis, to obtain negative fluid balance, and to provide clearance. 2. Electrolytes abnormalities, hyponatremia secondary to dilutional effect of fluid overload. Continue p.o. fluid restriction. The patient will remain on sodium chloride tablets 1 g twice a day. Monitor electrolytes closely. 3. Sepsis, bacteremia. Continue treatment with antibiotics. Cellulitis will be treated with antibiotics accordingly. 4. Deep venous thrombosis. The patient is on heparin. 5. Anemia. Recommend blood transfusion accordingly. Continue AZUCENA. I spent total 36 min including 26 min to coordinate care plan. JOHNY Voice ID: [id number] Report ID: [id number] LUIS
[2018-04-25] MEDS: METOPROLOL TAR 25 MG TAB PO SCH (05:59)
[2018-04-25 06:44] LABS: Albumin 1.7 g/dL (3.4-5.0); Phosphorus 5.7 mg/dL (2.5-4.9); Potassium 3.8 mmol/L (3.5-5.1)
[2018-04-25] MEDS: SODIUM CHLORIDE 1 GM TAB PO SCH ×2 (08:00→18:11)
[2018-04-25] MEDS: SEVELAMER CARBONATE 800 MG TABLET PO SCH ×3 (08:00→18:12)
[2018-04-25] MEDS: NEPRO SHAKE 237 ML CAN PO SCH ×2 (09:00→20:19)
[2018-04-25] MEDS: SERTRALINE HCL 50 MG TAB PO SCH (09:00)
[2018-04-25] MEDS: PANTOPRAZOLE 40 MG INJ IVP SCH ×2 (09:00→20:19)
[2018-04-25] MEDS: AMIODARONE HCL 200 MG TAB PO SCH (12:23)
[2018-04-25] MEDS: DOCUSATE NA 100 MG CAP PO PRN (12:25)
[2018-04-25] MEDS: TRAMADOL HCL 50 MG TAB PO PRN ×2 (12:27→20:19)
[2018-04-25] MEDS ORDERED: Ringers Lactate 0 ML IV ONE (15:44)
[2018-04-25] MEDS ORDERED: NA CHLORIDE 0.9% 500 ML ONE (15:46)
--- NOTE | 2018-04-25 15:46 | P.PN ---
Subjective Date of Service: 04/25/18 Primary Care Provider: Dr. Donald; Nephrology-Dr. Joseph; Cardiology-Dr. Green; Ramses-Dr. Nava Chief Complaint: Altered mental status, right lower extremity pain Patient seen and examined at bedside with RN. Chart reviewed. -Currently patient has no complaints to offer overnight. -Doing well this AM. Hgb is 8.3 -No active bleeding noted. -Scheduled for EGD today Review of Systems 10-point ROS is otherwise unremarkable General: As per HPI Physical Examination - Vital Signs Temperature: 97.2 F Blood Pressure: 117/52 Pulse: 77 Respirations: 18 Pulse Ox (%): 97 - Physical Exam General: Alert, In no apparent distress, Oriented x3 HEENT: Atraumatic, PERRLA, EOMI Neck: Supple, JVD not distended Respiratory: Clear to auscultation bilaterally, Normal air movement Cardiovascular: Regular rate/rhythm, Normal S1 S2 Gastrointestinal: Normal bowel sounds, No tenderness Musculoskeletal: No tenderness Integumentary: No rashes Neurological: Normal speech, Normal tone, Normal affect Lymphatics: No axilla or inguinal lymphadenopathy - Studies Medications List Reviewed: Yes Assessment And Plan - Current Problems (Diagnosis) (1) History of GI bleed Onset Date: 04/21/18 Current Visit: Yes Status: Chronic Plan: Stool occult x1 positive here in the hospital. Hemoglobin low today -GI has been consulted. appreciated recommendations at this time. -EGD scheduled for today -Currently patient is on IV Protonix. (2) Cellulitis Onset Date: 04/21/18 Current Visit: Yes Status: Acute Plan: Cellulitis of the right lower extremity. -blood culture positive for MRSA. Currently patient is on IV antibiotics will continue at this time. -F/U with improvement on the cellulitis Qualifiers: Site of cellulitis: extremity Site of cellulitis of extremity: lower extremity Laterality: right Qualified Code(s): L03.115 - Cellulitis of right lower limb (3) Bacteremia Current Visit: No Status: Acute Plan: Blood culture positive for MRSA. Currently on IV antibiotics. Will continue at this time. (4) DVT (deep venous thrombosis) Onset Date: 04/21/18 Current Visit: Yes Status: Acute Plan: Patient with history and currently on right lower extremity DVT. Status post IVC filter placement in the past. -High Risk for GI bleed -Hgb upto 8 today -DC heparin now Qualifiers: DVT location: lower extremity Affected thrombotic vein of extremity: popliteal Chronicity: acute Laterality: right Qualified Code(s): I82.431 - Acute embolism and thrombosis of right popliteal vein (5) Presence of IVC filter Onset Date: 04/21/18 Current Visit: Yes Status: Chronic (6) Atrial fibrillation Onset Date: 07/29/17 Current Visit: No Status: Chronic Qualifiers: Atrial fibrillation type: chronic Qualified Code(s): I48.2 - Chronic atrial fibrillation (7) Congestive heart failure Onset Date: 02/24/18 Current Visit: No Status: Chronic Qualifiers: Heart failure type: combined systolic and diastolic Heart failure chronicity: chronic Qualified Code(s): I50.42 - Chronic combined systolic ( congestive) and diastolic (congestive) heart failure (8) Dementia Onset Date: 10/23/17 Current Visit: No Status: Chronic Qualifiers: Dementia type: unspecified type Dementia behavioral disturbance: without behavioral disturbance Qualified Code(s): F03.90 - Unspecified dementia without behavioral disturbance (9) Depression Onset Date: 02/24/18 Current Visit: No Status: Chronic Qualifiers: Depression Type: unspecified Qualified Code(s): F32.9 - Major depressive disorder, single episode, unspecified (10) ESRD (end stage renal disease) Onset Date: 01/30/18 Current Visit: No Status: Chronic (11) History of CVA (cerebrovascular accident) Current Visit: No Status: Chronic (12) History of pulmonary embolism Current Visit: No Status: Chronic (13) Hyperlipidemia Onset Date: 02/24/18 Current Visit: No Status: Chronic Qualifiers: Hyperlipidemia type: unspecified Qualified Code(s): E78.5 - Hyperlipidemia , unspecified (14) Hypertension Onset Date: 06/25/17 Current Visit: No Status: Chronic Qualifiers: Hypertension type: essential hypertension Qualified Code(s): I10 - Essential (primary) hypertension - Plan Currently awaiting clinical improvement. Pt to have EGD today with GI. Continue all other medical mgmt. No anticoagulation recc for this patient due to high risk for GI bleeding. Discharge Plan: Home Plan to discharge in: 48 Hours - Code Status/Comfort Care Code Status Assessed: Yes Critical Care: No
[2018-04-25] MEDS ORDERED: PROPOFOL 200 MG/20 ML VIAL IV ONE (15:59)
[2018-04-25] MEDS ORDERED: LIDOCAINE 1% MPF 2 ML AMPULE ONE (15:59)
[2018-04-25] MEDS ORDERED: Phenylephrine HCl 10 MG/ML 1 ML VIAL ONE (16:05)
--- NOTE | 2018-04-25 16:15 | ENDO RPT ---
[address], [address] EGD PROCEDURE REPORT EXAM DATE: 04/25/2018 PATIENT NAME: Nain Cartagena MR#: [id number] BIRTHDATE: 1950 ATTENDING: Darren Lambert Dr STATUS: inpatient - [facility] MEDICAL CODING AUDITOR: Moriah Wild RN and Kathy Murrieta RN INDICATIONS: The patient is a 67 yr old Male here for an EGD due to anemia PROCEDURE PERFORMED: EGD with biopsy MEDICATIONS: Per Anesthesia. TOPICAL ANESTHETIC: none CONSENT: The patient understands the risks and benefits of the procedure and understands that these risks include, but are not limited to: sedation, allergic reaction, infection, perforation and/or bleeding. Alternative means of evaluation and treatment include, among others: physical exam, x-rays, and/or surgical intervention. The patient elects to proceed with this endoscopic procedure. DESCRIPTION OF PROCEDURE: During intra-op preparation period all mechanical medical equipment was checked for proper function. Hand hygiene and appropriate measures for infection prevention was taken. Procedure, possible complications, and alternatives including but not limited to the possibility of bleeding, perforation, tear, infection, sepsis, need for surgery, need for blood transfusion, and anesthesia related complications were explained to the patient. After the risks, benefits and alternatives of the procedure were thoroughly explained, Informed consent was verified, confirmed and timeout was successfully executed by the treatment team. The patient was placed in the left lateral position. The patient was anesthetized with topical anesthesia. Through the anesthetized oropharyngeal area, the scope was passed without any difficulty. The Pentax EG-[id number] ([id number]) endoscope was introduced through the mouth and advanced to the third portion of the duodenum. Retroflexed views revealed a small hiatal hernia. The gastroscope was then slowly withdrawn and removed. A small hiatal hernia was found Severe Atrophic gastritis was found in the total stomach. Multiple biopsies were obtained and sent to pathology. Small bowel biopsies obtained with history of unexplained anemia. ADVERSE EVENTS: There were no complications. IMPRESSIONS: 1. A small hiatal hernia 2. Severe atrophic gastritis in the total stomach, s/p biopsies 3. Small bowel biopsies obtained with history of unexplained anemia RECOMMENDATIONS: 1. await biopsy results 2. acid suppression therapy REPEAT EXAM: Darren Lambert Dr eSigned: Darren Lambert Dr 04/25/2018 4:14 PM cc: Mike Castellanos CPT CODES: ICD9 CODES: PATIENT NAME: Nain Cartagena MR#: [id number]
[2018-04-25] MEDS: MEDIHONEY 44 ML TOPICAL TUBE TOP SCH (18:12)
--- NOTE | 2018-04-26 05:05 | PN ---
Date of Progress Note: 04/25/2018 Subjective: The patient is doing better. The patient is status post EGD today. The patient was adm itted with GI bleed, symptomatic anemia, DVT with hypovolemic shock. Physical Examination: Vital Signs: When I saw the patient today, blood pressure of 101/47, pulse of 80, afebrile. Chest: Clear to auscultation. Heart: S1, S2. Systolic murmur. Abdomen: Soft, nontender. Extremities: +1 edema. Laboratory Data: H and H 8.6/25. Sodium 136, potassium 3.9, bicarb 30, BUN 47, creatinine 3.6, calc ium 9.2. Current Medications: The patient on include: 1.Vancomycin. 2.Midodrine. 3.Epogen. 4.Metoprolol 12.5. 5.Amiodarone. 6.Renvela. Assessment And Plan: 1.End-stage renal disease. We will continue the patient on dialysis. The patient is scheduled for dialysis tomorrow. 2.Anemia secondary to chronic kidney disease and gastrointestinal loss. Continue p.r.n. transfusion . Continue Epogen. Follow up with GI for the endoscopy today. 3.Deep venous thrombosis, not a candidate for anticoagulation. LEANN/TRICE Voice ID: [id number] Report ID: [id number]
[2018-04-26] MEDS: METOPROLOL TAR 25 MG TAB PO SCH (06:00)
[2018-04-26 07:08] LABS: Albumin 1.7 g/dL (3.4-5.0); Potassium 4.1 mmol/L (3.5-5.1)
[2018-04-26 08:21] LABS: Absolute Lymphocytes (CBC) 1.1 K/uL (0.7-4.9); Absolute Monocytes 0.5 K/uL (0.1-1.3); Basophils % 0.2 % (0-1.3); Eosinophils % 0.1 % (0-4.4); Lymphocytes % 12.9 % (15.3-44.8); MCH 30.2 pg (27.0-35.0); MCV 88.6 fL (80-100); MPV 7.4 fL (7.6-11.3); RBC Red Blood Cell Count 2.37 M/uL (4.33-5.43)
[2018-04-26] MEDS: AMIODARONE HCL 200 MG TAB PO SCH (09:00)
[2018-04-26] MEDS: PANTOPRAZOLE 40 MG INJ IVP SCH (09:00)
[2018-04-26] MEDS: MEDIHONEY 44 ML TOPICAL TUBE TOP SCH (09:00)
[2018-04-26] MEDS: SERTRALINE HCL 50 MG TAB PO SCH (09:25)
[2018-04-26] MEDS: SEVELAMER CARBONATE 800 MG TABLET PO SCH ×3 (09:25→17:07)
[2018-04-26] MEDS: DOCUSATE NA 100 MG CAP PO PRN (09:25)
[2018-04-26] MEDS: MIDODRINE HCL 5 MG TABLET PO SCH ×3 (09:25→18:00)
[2018-04-26] MEDS: SODIUM CHLORIDE 1 GM TAB PO SCH ×2 (09:25→17:07)
--- NOTE | 2018-04-26 11:50 | P.PN ---
Subjective Date of Service: 04/26/18 Primary Care Provider: Dr. Donald; Nephrology-Dr. Joseph; Cardiology-Dr. Green; Ramses-Dr. Nava Chief Complaint: Altered mental status, right lower extremity pain Patient seen and examined at bedside with RN. Chart reviewed. -Currently patient has no complaints to offer overnight. -Doing well this AM. Hgb is 7.2 -No active bleeding noted. -S.P EGD Review of Systems 10-point ROS is otherwise unremarkable General: As per HPI Physical Examination - Vital Signs Temperature: 97.0 F Blood Pressure: 117/61 Pulse: 69 Respirations: 17 Pulse Ox (%): 100 - Physical Exam General: Alert, In no apparent distress HEENT: Atraumatic, PERRLA, EOMI Neck: Supple, JVD not distended Respiratory: Clear to auscultation bilaterally, Normal air movement Cardiovascular: Regular rate/rhythm, Normal S1 S2 Gastrointestinal: Normal bowel sounds, No tenderness Musculoskeletal: No tenderness Integumentary: No rashes Neurological: Normal speech, Normal tone, Normal affect Lymphatics: No axilla or inguinal lymphadenopathy - Studies Medications List Reviewed: Yes Assessment And Plan - Current Problems (Diagnosis) (1) History of GI bleed Onset Date: 04/21/18 Current Visit: Yes Status: Chronic Plan: Stool occult x1 positive here in the hospital. Hemoglobin low today -GI has been consulted. appreciated recommendations at this time. -S/P EGD - Hiatal Hernia, Atrophic gastritis -Continue IV protonix and Transfuse 1 units (2) Cellulitis Onset Date: 04/21/18 Current Visit: Yes Status: Acute Plan: Cellulitis of the right lower extremity. -blood culture positive for MRSA. Currently patient is on IV antibiotics vanc 7 /14. will continue at this time. -F/U with improvement on the cellulitis Qualifiers: Site of cellulitis: extremity Site of cellulitis of extremity: lower extremity Laterality: right Qualified Code(s): L03.115 - Cellulitis of right lower limb (3) Bacteremia Current Visit: No Status: Acute Plan: Blood culture positive for MRSA. Currently on IV antibiotics Vanc 7/14. Will continue at this time. (4) DVT (deep venous thrombosis) Onset Date: 04/21/18 Current Visit: Yes Status: Acute Plan: Patient with history and currently on right lower extremity DVT. Status post IVC filter placement in the past. -High Risk for GI bleed -Hgb 7.4 -DC heparin now Qualifiers: DVT location: lower extremity Affected thrombotic vein of extremity: popliteal Chronicity: acute Laterality: right Qualified Code(s): I82.431 - Acute embolism and thrombosis of right popliteal vein (5) Presence of IVC filter Onset Date: 04/21/18 Current Visit: Yes Status: Chronic (6) Atrial fibrillation Onset Date: 07/29/17 Current Visit: No Status: Chronic Qualifiers: Atrial fibrillation type: chronic Qualified Code(s): I48.2 - Chronic atrial fibrillation (7) Congestive heart failure Onset Date: 02/24/18 Current Visit: No Status: Chronic Qualifiers: Heart failure type: combined systolic and diastolic Heart failure chronicity: chronic Qualified Code(s): I50.42 - Chronic combined systolic ( congestive) and diastolic (congestive) heart failure (8) Dementia Onset Date: 10/23/17 Current Visit: No Status: Chronic Qualifiers: Dementia type: unspecified type Dementia behavioral disturbance: without behavioral disturbance Qualified Code(s): F03.90 - Unspecified dementia without behavioral disturbance (9) Depression Onset Date: 02/24/18 Current Visit: No Status: Chronic Qualifiers: Depression Type: unspecified Qualified Code(s): F32.9 - Major depressive disorder, single episode, unspecified (10) ESRD (end stage renal disease) Onset Date: 01/30/18 Current Visit: No Status: Chronic (11) History of CVA (cerebrovascular accident) Current Visit: No Status: Chronic (12) History of pulmonary embolism Current Visit: No Status: Chronic (13) Hyperlipidemia Onset Date: 02/24/18 Current Visit: No Status: Chronic Qualifiers: Hyperlipidemia type: unspecified Qualified Code(s): E78.5 - Hyperlipidemia , unspecified (14) Hypertension Onset Date: 06/25/17 Current Visit: No Status: Chronic Qualifiers: Hypertension type: essential hypertension Qualified Code(s): I10 - Essential (primary) hypertension - Plan Currently awaiting clinical improvement. HD today and transfusion today Discharge Plan: Home Plan to discharge in: 24 Hours - Code Status/Comfort Care Code Status Assessed: Yes Critical Care: No
[2018-04-26] MEDS ORDERED: DESMOPRESSIN 4 MCG/ML AMP IV ONE (12:07)
[2018-04-26] MEDS: NEPRO SHAKE 237 ML CAN PO SCH (12:57)
[2018-04-26] MEDS ORDERED: DESMOPRESSIN 20 MCG in NA CHLORIDE 0.9% 50 ML IV SCH (13:00)
[2018-04-26] MEDS: TRAMADOL HCL 50 MG TAB PO PRN (17:18)
[2018-04-26] MEDS ORDERED: NA CHLORIDE 0.9% 500 ML ONE (20:46)
--- NOTE | 2018-04-27 00:40 | PN ---
Date of Progress Note: 04/26/2018 Subjective: The patient underwent EGD with biopsy yesterday. Today hemoglobin dropped again to 7.2. Physical Examination: Vital Signs: When I saw the patient, patient had low blood pressure down to the 102/56, pulse of 78. Chest: Clear to auscultation. Heart: S1, S2. Regular. Abdomen: Soft, nontender. Extremities: +1 edema. Laboratory Data: H and H 7.2/21. Sodium 136, potassium 4.1, bicarb 28, BUN 61, creatinine 7.7, calc ium of 7. Current Medications: The patient on include: 1.Vancomycin. 2.Midodrine. 3.Epogen. 4.Metoprolol. 5.Renvela. Assessment And Plan: 1.End-stage renal disease. Normal volume. We will continue dialysis Saturday, , Saturday. 2.Hypertension, currently blood pressure on the lower side. We will hold the blood pressure medicat ion and we will continue midodrine. 3.Gastrointestinal bleed. Esophagogastroduodenoscopy was not significant. I am going to give DDAVP . We will transfuse the patient 3 unit today with dialysis and I am going to order RBC tagged nuclear medicine/bleeding scan and we will follow up. 4.Coronary artery disease, stable. Follow up with primary. LEANN/TRICE Voice ID: [id number] Report ID: [id number]
[2018-04-27] MEDS: TRAMADOL HCL 50 MG TAB PO PRN ×3 (01:43→20:39)
[2018-04-27] MEDS: VANCOMYCIN/NS 1 gm 1 GM/250 ML BAG IV SCH (04:10)
[2018-04-27 05:34] LABS: Hematocrit 24.9 % (39.6-49.0)
[2018-04-27 05:56] LABS: Albumin 1.8 g/dL (3.4-5.0); Phosphorus 5.1 mg/dL (2.5-4.9); Potassium 3.8 mmol/L (3.5-5.1)
[2018-04-27] MEDS: METOPROLOL TAR 25 MG TAB PO SCH (06:00)
[2018-04-27] MEDS: AMIODARONE HCL 200 MG TAB PO SCH (08:44)
[2018-04-27] MEDS: SODIUM CHLORIDE 1 GM TAB PO SCH ×2 (08:44→17:03)
[2018-04-27] MEDS: SERTRALINE HCL 50 MG TAB PO SCH (08:44)
[2018-04-27] MEDS: SEVELAMER CARBONATE 800 MG TABLET PO SCH ×3 (08:44→17:13)
[2018-04-27] MEDS: MEDIHONEY 44 ML TOPICAL TUBE TOP SCH ×3 (09:00→20:40)
[2018-04-27] MEDS: NEPRO SHAKE 237 ML CAN PO SCH ×3 (10:06→20:37)
[2018-04-27] MEDS: PANTOPRAZOLE 40 MG INJ IVP SCH ×3 (10:18→20:40)
--- NOTE | 2018-04-27 11:26 | P.PN ---
Subjective Date of Service: 04/27/18 Primary Care Provider: Dr. Donald; Nephrology-Dr. Joseph; Cardiology-Dr. Green; Ramses-Dr. Nava Chief Complaint: Altered mental status, right lower extremity pain Patient seen and examined at bedside with RN. Chart reviewed. -Currently patient has no complaints to offer overnight. -currently status post EGD. Hemoglobin this morning is 8.3 after she chews units of transfusion yesterday. -Patient is scheduled for a tagged RBC scan to identify the source of bleeding. Review of Systems 10-point ROS is otherwise unremarkable Physical Examination - Vital Signs Temperature: 97.1 F Blood Pressure: 118/50 Pulse: 70 Respirations: 18 Pulse Ox (%): 95 - Physical Exam General: Alert, In no apparent distress HEENT: Atraumatic, PERRLA, EOMI Neck: Supple, JVD not distended Respiratory: Clear to auscultation bilaterally, Normal air movement Cardiovascular: Regular rate/rhythm, Normal S1 S2 Gastrointestinal: Normal bowel sounds, No tenderness Musculoskeletal: Erythema, Tenderness, Warmth Integumentary: No rashes Neurological: Normal speech, Normal tone, Normal affect Lymphatics: No axilla or inguinal lymphadenopathy - Studies Medications List Reviewed: Yes Assessment And Plan - Current Problems (Diagnosis) (1) History of GI bleed Onset Date: 04/21/18 Current Visit: Yes Status: Chronic Plan: Stool occult x1 positive here in the hospital. Hemoglobin is up to 8.3 posttransfusion. However currently not consistently stable -GI has been consulted. appreciated recommendations at this time. -S/P EGD - Hiatal Hernia, Atrophic gastritis -will continue with IV Protonix at this time -patient is scheduled for a tagged RBC scan today (2) Cellulitis Onset Date: 04/21/18 Current Visit: Yes Status: Acute Plan: Cellulitis of the right lower extremity. -blood culture positive for MRSA. -Currently patient is on IV antibiotics vanc 8. -F/U with improvement on the cellulitis Qualifiers: Site of cellulitis: extremity Site of cellulitis of extremity: lower extremity Laterality: right Qualified Code(s): L03.115 - Cellulitis of right lower limb (3) Bacteremia Current Visit: No Status: Acute Plan: Blood culture positive for MRSA. Currently on IV antibiotics Vanc 8/. Will continue at this time. (4) DVT (deep venous thrombosis) Onset Date: 04/21/18 Current Visit: Yes Status: Acute Plan: Patient with history and currently on right lower extremity DVT. Status post IVC filter placement in the past. -high risk for bleeding this the coagulation was stopped. Patient is not a good candidate for anticoagulation as risk outweighed the benefits at this time. Cardiology agreed with stopping all the anti coagulation at this time. Qualifiers: DVT location: lower extremity Affected thrombotic vein of extremity: popliteal Chronicity: acute Laterality: right Qualified Code(s): I82.431 - Acute embolism and thrombosis of right popliteal vein (5) Presence of IVC filter Onset Date: 04/21/18 Current Visit: Yes Status: Chronic (6) Atrial fibrillation Onset Date: 07/29/17 Current Visit: No Status: Chronic Qualifiers: Atrial fibrillation type: chronic Qualified Code(s): I48.2 - Chronic atrial fibrillation (7) Congestive heart failure Onset Date: 02/24/18 Current Visit: No Status: Chronic Qualifiers: Heart failure type: combined systolic and diastolic Heart failure chronicity: chronic Qualified Code(s): I50.42 - Chronic combined systolic ( congestive) and diastolic (congestive) heart failure (8) Dementia Onset Date: 10/23/17 Current Visit: No Status: Chronic Qualifiers: Dementia type: unspecified type Dementia behavioral disturbance: without behavioral disturbance Qualified Code(s): F03.90 - Unspecified dementia without behavioral disturbance (9) Depression Onset Date: 02/24/18 Current Visit: No Status: Chronic Qualifiers: Depression Type: unspecified Qualified Code(s): F32.9 - Major depressive disorder, single episode, unspecified (10) ESRD (end stage renal disease) Onset Date: 01/30/18 Current Visit: No Status: Chronic (11) History of CVA (cerebrovascular accident) Current Visit: No Status: Chronic (12) History of pulmonary embolism Current Visit: No Status: Chronic (13) Hyperlipidemia Onset Date: 02/24/18 Current Visit: No Status: Chronic Qualifiers: Hyperlipidemia type: unspecified Qualified Code(s): E78.5 - Hyperlipidemia , unspecified (14) Hypertension Onset Date: 06/25/17 Current Visit: No Status: Chronic Qualifiers: Hypertension type: essential hypertension Qualified Code(s): I10 - Essential (primary) hypertension - Plan Currently awaiting clinical improvement. Scheduled for tagged RBC scan today. Will follow up with the results today. Discharge Plan: Home Plan to discharge in: 48 Hours - Code Status/Comfort Care Code Status Assessed: Yes Critical Care: No
[2018-04-27] MEDS: MIDODRINE HCL 5 MG TABLET PO SCH ×4 (11:48→20:38)
--- NOTE | 2018-04-27 16:55 | PN ---
Date of Progress Note: 04/27/2018 Subjective: The patient was admitted with hypovolemic shock, septic shock. The patient grown RSA be cause of cellulitis, osteomyelitis has been ruled out. Physical Examination: Vital Signs: Blood pressure 118/50, pulse of 70. The patient is status post dialysis yesterday. We managed to transfuse 2 units. The patient received also DDAVP. Chest: Clear to auscultation. Heart: S1, S2. Systolic murmur. Abdomen: Soft. Nontender. Extremities: Swelling on the right leg, more than the left, no erythema. Laboratory Data: H and H 8.5/24.9, sodium 135, potassium 3.8, bicarb 26, BUN 42, creatinine of 6, ca lcium 8.9, phosphor 5.1. Medications: Current medications the patient on its include; 1.Vancomycin. 2.Midodrine. 3.Epogen. 4.Metoprolol 12.5. 5.Tylenol. 6.Clonazepam. 7.Zoloft. 8.Renvela. Assessment And Plan: 1.End-stage renal disease. Normal volume. We will continue dialysis per schedule. The patient TTS dialysis date on Saturday. 2.Hypertension, currently controlled, optimal. Continue current medication. 3.Secondary hyperparathyroidism. Continue binder. 4.Anemia of chronic kidney disease and secondary to gastrointestinal loss status post transfusion, s tatus post DDAVP. Waiting for red blood cell tagged bleeding scan as EGD was not that impressive. W e will follow up. 5.Deconditioning. Continue PT/OT. Follow up with this patient. SHEELA Voice ID: [id number] Report ID: [id number]
[2018-04-27] MEDS: DOCUSATE NA 100 MG CAP PO PRN (17:03)
[2018-04-27] MEDS: clonazePAM 0.5 MG TAB PO PRN (20:40)
[2018-04-28] MEDS: METOPROLOL TAR 25 MG TAB PO SCH (06:02)
[2018-04-28] MEDS ORDERED: HEPARIN 500 UNIT/5 ML SYR IV ONE (06:38)
[2018-04-28] MEDS: NEPRO SHAKE 237 ML CAN PO SCH ×2 (09:00→21:00)
[2018-04-28] MEDS: PANTOPRAZOLE 40 MG INJ IVP SCH ×2 (09:31→22:26)
[2018-04-28] MEDS: SERTRALINE HCL 50 MG TAB PO SCH (09:32)
[2018-04-28] MEDS: AMIODARONE HCL 200 MG TAB PO SCH (09:32)
[2018-04-28] MEDS: SODIUM CHLORIDE 1 GM TAB PO SCH ×2 (09:32→16:50)
[2018-04-28] MEDS: SEVELAMER CARBONATE 800 MG TABLET PO SCH ×3 (09:32→16:49)
--- NOTE | 2018-04-28 09:39 | RAD REPORT ---
EXAM DESCRIPTION: NM - GI Blood Loss Imaging - 04/28/2018 8:53 am CLINICAL HISTORY: RBC tagged scan<Reason For Exam>RBC tagged scan COMPARISON: Small Bowel Series dated 11/26/2017<Comparisons>Small Bowel Series dated 11/26/2017 TECHNIQUE: Patient was administered 26.5 millicuries technetium 99 M labeled RBCs. Imaging was perfo rmed over 2 hours. Static and cine loop sequencing was reviewed. FINDINGS: Normal liver activity is identified. There is normal activity in the great vessels and a s mall amount of low-level gastric activity is physiologic. Sequential imaging shows progressive accumu lation of radiopharmaceutical in the bladder common normal finding. No abnormal activity to indicate an acute GI bleed. IMPRESSION: No acute GI bleed.
[2018-04-28] MEDS: TRAMADOL HCL 50 MG TAB PO PRN (10:41)
[2018-04-28] MEDS: MIDODRINE HCL 5 MG TABLET PO SCH ×3 (11:02→22:26)
[2018-04-28] MEDS ORDERED: predniSONE 20 MG TAB PO SCH (14:00)
--- NOTE | 2018-04-28 14:09 | P.PN ---
Subjective Date of Service: 04/28/18 Primary Care Provider: Dr. Donald; Nephrology-Dr. Joseph; Cardiology-Dr. Green; Ramses-Dr. Nava Chief Complaint: Altered mental status, right lower extremity pain Patient seen and examined at bedside with RN. Chart reviewed. -Currently patient has no complaints to offer overnight. -currently status post EGD. Hemoglobin this morning is 8.3 -RBC scan negative for acute GI bleed at this time. Review of Systems 10-point ROS is otherwise unremarkable Physical Examination - Vital Signs Temperature: 97.3 F Blood Pressure: 100/48 Pulse: 72 Respirations: 20 Pulse Ox (%): 97 - Physical Exam General: Alert, In no apparent distress HEENT: Atraumatic, PERRLA, EOMI Neck: Supple, JVD not distended Respiratory: Clear to auscultation bilaterally, Normal air movement Cardiovascular: Regular rate/rhythm, Normal S1 S2 Gastrointestinal: Normal bowel sounds, No tenderness Musculoskeletal: Erythema, Tenderness, Warmth Integumentary: No rashes Neurological: Normal speech, Normal tone, Normal affect Lymphatics: No axilla or inguinal lymphadenopathy - Studies Medications List Reviewed: Yes Assessment And Plan - Current Problems (Diagnosis) (1) History of GI bleed Onset Date: 04/21/18 Current Visit: Yes Status: Chronic Plan: Hemoglobin stable for past 24 hr. No active bleeding noted -GI has been consulted. appreciated recommendations at this time. -S/P EGD - Hiatal Hernia, Atrophic gastritis -IV Protonix at this time -RBC scan tagged negative at this time. -patient's baseline acute anemia could also be secondary to his chronic kidney disease. (2) Cellulitis Onset Date: 04/21/18 Current Visit: Yes Status: Acute Plan: Cellulitis of the right lower extremity. -blood culture positive for MRSA. -Currently patient is on IV vanc 05/09. -F/U with improvement on the cellulitis Qualifiers: Site of cellulitis: extremity Site of cellulitis of extremity: lower extremity Laterality: right Qualified Code(s): L03.115 - Cellulitis of right lower limb (3) Bacteremia Current Visit: No Status: Acute Plan: Blood culture positive for MRSA. Currently on IV 05/09. Will continue at this time. (4) DVT (deep venous thrombosis) Onset Date: 04/21/18 Current Visit: Yes Status: Acute Plan: Patient with history and currently on right lower extremity DVT. Status post IVC filter placement in the past. -high risk for bleeding this the coagulation was stopped. Patient is not a good candidate for anticoagulation as risk outweighed the benefits at this time. Cardiology agreed with stopping all the anti coagulation at this time. Qualifiers: DVT location: lower extremity Affected thrombotic vein of extremity: popliteal Chronicity: acute Laterality: right Qualified Code(s): I82.431 - Acute embolism and thrombosis of right popliteal vein (5) Presence of IVC filter Onset Date: 04/21/18 Current Visit: Yes Status: Chronic (6) Atrial fibrillation Onset Date: 07/29/17 Current Visit: No Status: Chronic Qualifiers: Atrial fibrillation type: chronic Qualified Code(s): I48.2 - Chronic atrial fibrillation (7) Congestive heart failure Onset Date: 02/24/18 Current Visit: No Status: Chronic Qualifiers: Heart failure type: combined systolic and diastolic Heart failure chronicity: chronic Qualified Code(s): I50.42 - Chronic combined systolic ( congestive) and diastolic (congestive) heart failure (8) Dementia Onset Date: 10/23/17 Current Visit: No Status: Chronic Qualifiers: Dementia type: unspecified type Dementia behavioral disturbance: without behavioral disturbance Qualified Code(s): F03.90 - Unspecified dementia without behavioral disturbance (9) Depression Onset Date: 02/24/18 Current Visit: No Status: Chronic Qualifiers: Depression Type: unspecified Qualified Code(s): F32.9 - Major depressive disorder, single episode, unspecified (10) ESRD (end stage renal disease) Onset Date: 01/30/18 Current Visit: No Status: Chronic (11) History of CVA (cerebrovascular accident) Current Visit: No Status: Chronic (12) History of pulmonary embolism Current Visit: No Status: Chronic (13) Hyperlipidemia Onset Date: 02/24/18 Current Visit: No Status: Chronic Qualifiers: Hyperlipidemia type: unspecified Qualified Code(s): E78.5 - Hyperlipidemia , unspecified (14) Hypertension Onset Date: 06/25/17 Current Visit: No Status: Chronic Qualifiers: Hypertension type: essential hypertension Qualified Code(s): I10 - Essential (primary) hypertension - Plan Currently awaiting clinical improvement. Her antibiotics day 9 at this time. Will consult case management to arrange for IV antibiotics at the longterm versus home. Discharge Plan: Assisted Plan to discharge in: 48 Hours - Code Status/Comfort Care Code Status Assessed: Yes Critical Care: No
[2018-04-28] MEDS: MEDIHONEY 44 ML TOPICAL TUBE TOP SCH (21:00)
[2018-04-28] MEDS: DOCUSATE NA 100 MG CAP PO PRN (22:26)
--- NOTE | 2018-04-28 23:11 | PN ---
Date of Progress Note: 04/28/2018 Chief Complaint: End-stage renal disease, on dialysis. Subjective: The patient has fluid overload and dilutional hyponatremia. He is treated with dialysis 3 times per week. Hyponatremia has improved. The patient received blood transfusion and required DDAVP for gastrointestinal bleeding. He is awaiting workup with EGD and WBC cell tagged bleeding scan. Review of Systems: Denies complaints today. Physical Examination: Lungs: Clear to auscultation bilaterally. Heart: S1, S2. Abdomen: Soft, benign. Extremities: Edema in both legs. Laboratory Data: Hemoglobin 8.5. Sodium 135, potassium 3.8, bicarbonate 26, BUN 42, creatinine is 6, phosphorus 5.1. Impression And Plan: 1. End-stage renal disease. Continue dialysis 3 times per week. Monitor electrolytes closely. Continue p.o. fluid restriction. 2. Hypertension. Blood pressure controlled. The patient has history of intradialytic hypotension. Continue midodrine. 3. Secondary hyperparathyroidism. Phosphorus level is in acceptable ranges. 4. Chronic anemia, status post DDAVP. Workup pending. Previously, the patient was seen by resort host for workup of chronic anemia. Continue AZUCENA. EB/MODL Voice ID: [id number] Report ID: [id number] LUIS
[2018-04-29 05:03] VITALS: O2SAT 94
[2018-04-29] MEDS: METOPROLOL TAR 25 MG TAB PO SCH (05:28)
[2018-04-29 05:58] VITALS: BMI 30.9
[2018-04-29] MEDS: SODIUM CHLORIDE 1 GM TAB PO SCH ×2 (07:59→16:52)
[2018-04-29] MEDS: SEVELAMER CARBONATE 800 MG TABLET PO SCH ×3 (07:59→16:51)
[2018-04-29] MEDS: MIDODRINE HCL 5 MG TABLET PO SCH ×3 (08:06→12:24)
[2018-04-29] MEDS: NEPRO SHAKE 237 ML CAN PO SCH (09:00)
[2018-04-29] MEDS: PANTOPRAZOLE 40 MG INJ IVP SCH (09:29)
[2018-04-29] MEDS: SERTRALINE HCL 50 MG TAB PO SCH (09:29)
[2018-04-29] MEDS: AMIODARONE HCL 200 MG TAB PO SCH (09:31)
[2018-04-29] MEDS: EPOETIN ALFA 10,000 UNIT/ML VIAL IV SCH (11:03)
[2018-04-29] MEDS: VANCOMYCIN/NS 1 gm 1 GM/250 ML BAG IV SCH (12:17)
--- NOTE | 2018-04-29 13:22 | P.DS ---
Admission Date: 04/19/18 Discharge Date: 04/29/18 Primary Care Provider: Dr. Donald; Nephrology-Dr. Joseph; Cardiology-Dr. Green; Ramses-Dr. Nava Reason for Admission: Altered mental status, right lower extremity pain Consultations: GI Wound care Cardiology Procedures: EGD - Gastritis and atrophic gastritis - Problems (1) History of GI bleed Onset Date: 04/21/18 Current Visit: Yes Status: Chronic (2) Cellulitis Onset Date: 04/21/18 Current Visit: Yes Status: Acute Qualifiers: Site of cellulitis: extremity Site of cellulitis of extremity: lower extremity Laterality: right Qualified Code(s): L03.115 - Cellulitis of right lower limb (3) Bacteremia Current Visit: No Status: Acute (4) DVT (deep venous thrombosis) Onset Date: 04/21/18 Current Visit: Yes Status: Acute Qualifiers: DVT location: lower extremity Affected thrombotic vein of extremity: popliteal Chronicity: acute Laterality: right Qualified Code(s): I82.431 - Acute embolism and thrombosis of right popliteal vein (5) Presence of IVC filter Onset Date: 04/21/18 Current Visit: Yes Status: Chronic (6) Atrial fibrillation Onset Date: 07/29/17 Current Visit: No Status: Chronic Qualifiers: Atrial fibrillation type: chronic Qualified Code(s): I48.2 - Chronic atrial fibrillation (7) Congestive heart failure Onset Date: 02/24/18 Current Visit: No Status: Chronic Qualifiers: Heart failure type: combined systolic and diastolic Heart failure chronicity: chronic Qualified Code(s): I50.42 - Chronic combined systolic ( congestive) and diastolic (congestive) heart failure (8) Dementia Onset Date: 10/23/17 Current Visit: No Status: Chronic Qualifiers: Dementia type: unspecified type Dementia behavioral disturbance: without behavioral disturbance Qualified Code(s): F03.90 - Unspecified dementia without behavioral disturbance (9) Depression Onset Date: 02/24/18 Current Visit: No Status: Chronic Qualifiers: Depression Type: unspecified Qualified Code(s): F32.9 - Major depressive disorder, single episode, unspecified (10) ESRD (end stage renal disease) Onset Date: 01/30/18 Current Visit: No Status: Chronic (11) History of CVA (cerebrovascular accident) Current Visit: No Status: Chronic (12) History of pulmonary embolism Current Visit: No Status: Chronic (13) Hyperlipidemia Onset Date: 02/24/18 Current Visit: No Status: Chronic Qualifiers: Hyperlipidemia type: unspecified Qualified Code(s): E78.5 - Hyperlipidemia , unspecified (14) Hypertension Onset Date: 06/25/17 Current Visit: No Status: Chronic Qualifiers: Hypertension type: essential hypertension Qualified Code(s): I10 - Essential (primary) hypertension (15) Sepsis Onset Date: 06/25/17 Current Visit: No Status: Suspected Qualifiers: Sepsis type: methicillin resistant Staphylococcus aureus Qualified Code(s) : A41.02 - Sepsis due to Methicillin resistant Staphylococcus aureus Brief History of Present Illness: 67-year-old male presented to the ER with multiple complaints including altered mental status and right lower extremity pain. Most of the information came from the who is present at bedside. The reports that earlier this week the patient had been seen in the emergency room for right lower extremity pain. Venous Doppler at that time showed no DVT. The patient was sent home. The patient had gone to dialysis on . 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 The patient was sent tube vascular on Saturday in [place] to repair. Today he had increasing pain to the right lower extremity. Erythema and warmth was noted. Patient was also confused. He was not at his baseline level. Patient denied any significant shortness of breath, chest pain. He did report some fatigue. brought him to the emergency room for evaluation. Patient has complicated history of end-stage renal disease on dialysis, atrial fibrillation, GERD, hypertension, orthostatics hypotension, anxiety, chronic pain, previous history of GI bleed, history of pulmonary embolism previously on anti coagulation therapy but stop due to high risk for bleeding, and IVC filter in place. The also further reports that the patient had been seen in the past by Hematology. His last colonoscopy was about 6 months ago. She does not recall anything else. No melena or rectal bleeding noted at this time. In the ER patient found to have a hemoglobin 7.1, white count 6.0. Sodium 123, potassium 5.6, BUN of 110, creatinine of 11 with a GFR 6. Glucose 93. Pro calcitonin elevated at 21. Lactic acid elevated as well. CRP elevated. Troponin 6.7. CPK 1294. Chest x-ray unremarkable. Venous Doppler of the lower extremity showed a right popliteal vein thrombus. This appeared acute. CT head unremarkable. Evaluation of AV graft shows no high-grade stenosis. The patient was admitted for multiple issues. Patient to be admitted to the ICU. When I saw the patient ER, he appeared stable. at bedside. He did not appear in any respiratory distress. Patient slightly confused. Hospital Course: Overall during the hospital stay patient remained stable Patient was initially admitted to the hospital for altered mental status and severe sepsis. Patient's was initially admitted to the ICU for severe septic shock most likely secondary to cellulitis. Patient had left leg cellulitis which was positive for methicillin resistant Staph aureus. Patient also had blood cultures which were positive for MRSA. Patient was initially started on IV vanc and Zosyn. Zosyn was discontinued with the cultures positive for MRSA. IV vancomycin was continued. Patient had marked improvement in his symptoms and thus was transferred back to the floor under stable condition. Of note patient was also found to have bilateral lower leg DVTs while here in the hospital. Patient is currently status post IVC filter placement. Anticoagulation was a big concern for the patient as patient does have a history of GI bleed. Patient initially was on Eliquis however Eliquis was stopped here in the hospital. Cardiology was consulted who agreed with patient not needed any anti coagulation due to IVC filter placement and his risk of GI bleeding outweighs the benefit of being on anti coagulation for DVT. Patient does have his Eliquis discontinued permanently here in the hospital. Patient had GI consultation here in the hospital to rule out any acute GI bleeding due to and declining hemoglobin. EGD was done and patient the EGD was consistent with gastritis along with atrophic gastritis. Patient then had an RBC tagged scan which was also within normal limits. Patient did receive some transfusion while here in the hospital and then his hemoglobin stabilized. Patient then was doing well overall and IV antibiotics Arrangements were made and patient then was discharged home under stable condition with IV vanc to be taken during hemodialysis. Patient was alert and oriented x3. Hemodynamically stable. No further concerns for septic shock. And thus was discharged home under stable condition. Blood cultures x2 was repeated while here in the hospital and are currently pending as well. All other chronic conditions remained stable while patient was here in the hospital. Vital Signs/Physical Exam: Temp Pulse Resp BP Pulse Ox 97.3 F 62 17 104/57 L 97 09/04/18 08:00 04/29/18 08:00 04/29/18 08:00 04/29/18 08:00 04/29/18 08:00 General: Alert, In no apparent distress HEENT: Atraumatic, PERRLA, EOMI Neck: Supple, JVD not distended Respiratory: Clear to auscultation bilaterally, Normal air movement Cardiovascular: Regular rate/rhythm, Normal S1 S2 Gastrointestinal: Normal bowel sounds, No tenderness Musculoskeletal: Erythema, Warmth Integumentary: No rashes Neurological: Normal speech, Normal tone, Normal affect Lymphatics: No axilla or inguinal lymphadenopathy Laboratory Data at Discharge: WBC 8.7 K/uL (4.3-10.9) D 04/26/18 05:36 Hgb 8.5 g/dL (13.6-17.9) L 04/27/18 04:45 Hct 24.9 % (39.6-49.0) L D 04/27/18 04:45 Plt Count 160 K/uL (152-406) 04/26/18 05:36 PT 16.6 SECONDS (9.5-12.5) H 04/21/18 04:45 INR 1.40 04/21/18 04:45 APTT 38.5 SECONDS (24.3-36.9) H 04/25/18 05:40 Sodium 135 mmol/L (136-145) L 04/27/18 04:45 Potassium 3.8 mmol/L (3.5-5.1) 04/27/18 04:45 BUN 42 mg/dL (7-18) H 04/27/18 04:45 Creatinine 6.00 mg/dL (0.55-1.3) H* D 04/27/18 04:45 Glucose 89 mg/dL (74-106) 04/27/18 04:45 Phosphorus 5.1 mg/dL (2.5-4.9) H 04/27/18 04:45 Magnesium 2.3 mg/dL (1.8-2.4) 04/28/18 05:20 Total Bilirubin 0.5 mg/dL (0.2-1.0) 04/24/18 04:05 AST 18 U/L (15-37) 04/24/18 04:05 ALT 10 U/L (12-78) L 04/24/18 04:05 Alkaline Phosphatase 123 U/L (45-117) H 04/24/18 04:05 Troponin I 6.06 ng/mL (0.0-0.045) H* 04/20/18 05:21 Amylase 78 U/L (25-115) 04/19/18 10:30 Lipase 119 U/L (73-393) 04/19/18 10:30 Home Medications: Atorvastatin Calcium [Lipitor] 40 mg PO BEDTIME 01/30/18 Hydrocodone 10/APAP 325 [Alder 10/325*] 1 tab PO TID PRN 01/30/18 Pantoprazole [Protonix Tab*] 40 mg PO DAILY 01/30/18 Sertraline [Zoloft*] 50 mg PO DAILY 01/30/18 clonazePAM [Clonazepam] 1 mg PO BID 01/30/18 Aspirin [Adult Aspirin] 81 mg PO DAILY 02/07/18 Metoprolol Tartrate [Lopressor*] 12.5 mg PO DAILY 02/07/18 Midodrine HCl [Proamatine*] 5 mg PO TID #90 tab 02/08/18 Polyethylene Glycol 3350 [Miralax] 17 gm PO DAILY PRN 02/23/18 Amiodarone HCl [Pacerone] 200 mg PO DAILY 04/19/18 Cinacalcet HCl [Sensipar] 30 mg PO BREAKFAST 04/19/18 Lactulose 10 gm PO BID 04/19/18 Sevelamer Carbonate [Renvela] 1,600 mg PO TIDWM 04/19/18
[2018-04-29] MEDS: MEDIHONEY 44 ML TOPICAL TUBE TOP SCH (14:41)
[2018-04-29] MEDS: DOCUSATE NA 100 MG CAP PO PRN (14:41)
[2018-04-29 16:11] VITALS: BP 111/56; TEMP 97.8
--- NOTE | 2018-04-29 20:16 | PN ---
Date of Progress Note: 04/29/2018 Subjective: The patient is doing well, status post dialysis today. Objective: Vital Signs: Blood pressure 124/57, pulse of 62, afebrile. Chest: Clear to auscultation. Heart: S1, S2. Systolic murmur. Abdomen: Soft, nontender. Extremities: Trace edema. Laboratory Data: H and H 8.5/24.9, sodium 135, potassium 3.8, bicarb 26, BUN 42, creatinine 6, calci um 8.9, phosphorus 5.1. Medications: Current medications the patient on its include, 1.Vancomycin. 2.Epogen. 3.Amiodarone. 4.Metoprolol. 5.Nephro. 6.Renvela. 7.Pantoprazole. 8.Midodrine. Assessment And Plan: 1.End-stage renal disease. Normal volume. Continue dialyzing on sodium module and midodrine. 2.Hypertension, currently low blood pressure. We will utilize using midodrine and sodium module. W e will follow up. 3.Cellulitis. Continue current antibiotic. We will follow up. 4.Deconditioning. Continue PT/OT. LEANN/TRICE Voice ID: [id number] Report ID: [id number]
== END 2018-04-29 18:19 | disposition home health service (06) | DRG 871 ==
LOC: ER 10:13 → ERHOLD 13:53 → 3RD-ICU 16:08 → 4TH 04-23 18:00
PROVIDERS: ADMIT Family Medicine; ATTEND Family Medicine
PROC: 30233N1 Transfusion of Nonautologous Red Blood Cells into Peripheral Vein, Percutaneous Approach (ICD-10-PCS; 2018-04-19)
PROC: 5A1D70Z Performance of Urinary Filtration, Intermittent, Less than 6 Hours Per Day (ICD-10-PCS; principal; 2018-04-20)
PROC: 0DB98ZX Excision of Duodenum, Via Natural or Artificial Opening Endoscopic, Diagnostic (ICD-10-PCS; 2018-04-25)
PROC: 0DB78ZX Excision of Stomach, Pylorus, Via Natural or Artificial Opening Endoscopic, Diagnostic (ICD-10-PCS; 2018-04-25)
PROC: 0DB68ZX Excision of Stomach, Via Natural or Artificial Opening Endoscopic, Diagnostic (ICD-10-PCS; 2018-04-25)
DX: A41.02 Sepsis due to Methicillin resistant Staphylococcus aureus (principal); N18.6 End stage renal disease; R65.21 Severe sepsis with septic shock; G93.40 Encephalopathy, unspecified; I82.431 Acute embolism and thrombosis of right popliteal vein; E87.1 Hypo-osmolality and hyponatremia; L03.115 Cellulitis of right lower limb; I12.0 Hypertensive chronic kidney disease with stage 5 chronic kidney disease or end stage renal disease; I13.2 Hypertensive heart and chronic kidney disease with heart failure and with stage 5 chronic kidney disease, or end stage renal disease; I50.42 Chronic combined systolic (congestive) and diastolic (congestive) heart failure; Z99.2 Dependence on renal dialysis; K21.9 Gastro-esophageal reflux disease without esophagitis; I48.2 Chronic atrial fibrillation; F03.90 Unspecified dementia, unspecified severity, without behavioral disturbance, psychotic disturbance, mood disturbance, and anxiety; F32.9 Major depressive disorder, single episode, unspecified; E78.5 Hyperlipidemia, unspecified; Z86.73 Personal history of transient ischemic attack (TIA), and cerebral infarction without residual deficits; Z86.711 Personal history of pulmonary embolism; K29.40 Chronic atrophic gastritis without bleeding; Z79.82 Long term (current) use of aspirin; E21.3 Hyperparathyroidism, unspecified; D63.1 Anemia in chronic kidney disease; D50.0 Iron deficiency anemia secondary to blood loss (chronic); K44.9 Diaphragmatic hernia without obstruction or gangrene; Z66 Do not resuscitate; Z95.1 Presence of aortocoronary bypass graft; I27.20 Pulmonary hypertension, unspecified; E87.5 Hyperkalemia; E66.9 Obesity, unspecified; R74.8 Abnormal levels of other serum enzymes; I25.10 Atherosclerotic heart disease of native coronary artery without angina pectoris; I25.2 Old myocardial infarction; I95.89 Other hypotension; N25.0 Renal osteodystrophy; M35.3 Polymyalgia rheumatica; M10.9 Gout, unspecified; Z68.29 Body mass index [BMI] 29.0-29.9, adult
CPT/HCPCS: 36415; 70450; 71045; 78278; 80048; 80053; 80069; 80076; 80202; 82150; 82533; 82550; 82553; 82728; 82746; 83540; 83605; 83690; 83735; 84100; 84145; 84443; 84466; 84484; 85014; 85018; 85025; 85044; 85610; 85652; 85730; 86140; 86704; 86706; 86803; 86850; 86900; 86901; 87040; 87077; 87186; 87205; 87340; 88305; 88312; 90935; 93005; 93306; 93971; 93990; 96365; 96366; 99285; A9512; C9113; J1642; J2001; J2370; J2405; J2543; J2597; J3370; J7030; J7512; P9016; Q4081

== ENCOUNTER 2018-05-30 20:04 | Emergency (ER) | payer OTHER, BC ==
--- OUTSIDE RECORDS SUMMARY | 2018-05-30 20:07 | XMS REPORT | Clinical Summary ---
:1950 Author Organization [facility] Address [address] [place] [address] Care Team Providers Name Role Phone Asked, [...] vein stenosis 01/31/2017 DVT (deep venous thrombosis) ([facility]) 01/26/2017 ESRD (end stage renal disease) ([facility]) 01/26/2017 Systolic congestive heart failure ([facility]) 01/26/2017 Anasarca 01/26/2017 Supratherapeutic INR 01/10/2017 Social [...] INFLUENZA VACCINE 03/26/2018 Implants Implanted Type Area Fire Marshal Device Expiration Model / Identifier Date Serial / Lot Catheter Angio Log Roller Ii 5fr 65cm Selc Braidd Torque [place] - [id number] Surgical N/A: N/A BSC PERIPHERAL [id number] / Implanted: 01/31/2017 (Quantity not on file) Implants; INTERVENTION / Expanders; VASCULAR RAEGAN Extenders; Surgical Wires Abdominal Mesh Procedures Procedure Name Priority Date/Time Associated Diagnosis Comments TRANSFUSE RED BLOOD Routine 04/30/2018 5:35 PM CDT CELLS after 05/29/2017 Results Transfuse RBC (04/30/2018 5:35 PM)Only the most recent of2 resultswithin the time period is included.after 05/29/2017 Insurance Payer Benefit Plan / Group Subscriber ID Type Phone Address MEDICARE MEDICARE PART A AND B xxxxxxxxxx Medicare [place], [place] BCBS BCBS CHOICE PPO/FEDERAL EMPL PPO xxxxxxxxxxxx PPO [phone] [place] [phone]
--- OUTSIDE RECORDS SUMMARY | 2018-05-30 20:08 | XMS REPORT | Continuity of Care Document ---
:1950 Author Organization Interface Problems Problem Status Onset Classification Date Comments Source Date Reported ANEMIA Active 05/14/20 [facility] [place] GI BLEED, ANEMIA, Active 04/22/20 [facility] [place] DISEAS DIALYSIS Active 04/22/20 [facility] [place] Stented coronary Resolved 03/26/20 Problem 04/27/2017 [facility] artery 17 [place] Afib Resolved Problem 04/27/2017 [facility] [place] Anemia Resolved Problem 04/27/2017 [facility] [place] CHF (<span Resolved Problem 04/27/2017 [facility] ID="[id number]">C [place] onfirmed</span>) ESRD on Active Problem 04/27/2017 [facility] [place] DM (<span Resolved Problem 04/27/2017 [facility] ID="[id number]">[facility] [place] onfirmed</span>) Diverticulosis Resolved Problem 04/27/2017 [facility] [place] Hyperlipidemia Active Problem 04/27/2017 [facility] [place] High blood pressure Active Problem 04/27/2017 [facility] [place] GASTROINTESTINAL Active [facility] HEMORRHAGE, [place] UNSPECIFIED ANEMIA, UNSPECIFIED Active [facility] [place] END STAGE RENAL Active [facility] DISEASE [place] Medications Medication Details Route Status Patient Ordering Order Source Instructions Provider Date pantoprazole 40 mg, 1 tab, No Longer Route: PO, [...] Aspirin 81 mg, 1 tab, No Longer MH Route: PO, Active 017 [facility] Drug form: [place] ECTAB, Daily, Dosing Weight 118.182, kg, Start date: 04/25/17 9:00:00 CDT, Duration: 30 day, Stop date: 05/24/17 9:00:00 CDTNotes: Do not crush or chew. (Same As: Ecotrin) atorvastatin 40 mg, 1 tab, Inactive MH Route: [...] Renvela Tramadol 50 mg, 1 tab, Inactive MH Route: PO, [...] as: Protonix) Lovenox 30 mg, Route: Inactive MH SUB-Q, Drug 017 [facility] form: INJ, [place] [id number], Dosing Weight 118.182, kg, Start date: 04/23/17 [...] sodium chloride 2,000 mL, 500 No Longer 0.9% (Priming ml/hr, Infuse Active 017 [facility] and Over: 4 hr, [place] Maintenance) Route: IV, 2,000, Drug form: INJ, PRN, Dosing Weight 118.182 kg, Start date: 04/23/17 9:56:00 CDT, Duration: 24 hr, Stop date: 04/24/17 9:55:00 CDT, For Use by Dialysis nurse ONLY, PRN Dialysis Acetaminophen 1 tab, PO, No Longer 325 MG / TID, PRN Pain Active 017 [facility] Hydrocodone Score 4-6, 0 [facility] Bitartrate 10 Refill(s) MG Oral Tablet metoprolol 25 mg, PO, Active tartrate BID, 0 017 [facility] Refill(s) [place] Sertraline 50 mg, PO, No Longer Daily, 0 Active 017 [facility] Refill(s) [facility] atorvastatin 40 40 mg=1 tab, Active MH mg oral tablet PO, Bedtime, # 017 [facility] 30 tab, 0 [place] Refill(s) Tramadol 50 mg, PO, Active TID, PRN Pain, 017 [facility] # 20 tab, 0 [facility] Refill(s) pantoprazole 40 40 mg=1 tab, Active mg oral enteric PO, Daily, 30 017 [facility] coated tablet minutes before [facility] breakfast, # 30 tab, 0 Refill(s) sevelamer 1,600 mg=2 Active carbonate 800 tab, PO, 017 [facility] MG Oral Tablet TID-Meals, # [place] [Renvela] 180 tab, 0 Refill(s) Colchicine 0.6 0.3 mg=0.5 Active MG Oral Tablet tab, PO, BID, 017 [facility] [Colcrys] 0 Refill(s) [facility] Aspirin 81 mg, PO, Active Daily, 0 017 [facility] Refill(s) [facility] Aspirin 325 MG 1 tab, PO, No Longer / Codeine Q4H, PRN for Active 017 [facility] Phosphate 60 MG pain, 0 [facility] Oral Tablet Refill(s) Clonazepam 0.5 mg, PO, No Longer BID, PRN Active 017 [facility] Anxiety, 0 [facility] Refill(s) apixaban 2.5 MG 2.5 mg=1 tab, Active Oral Tablet PO, BID, 0 017 [facility] [Eliquis] Refill(s) [facility] Docusate 100 mg, 1 cap, No Longer Route: PO, Active 017 [facility] Drug form: [facility] CAP, BID, Dosing Weight 118.182, kg, PRN [...] Stop date: 05/23/17 9:23:00 CDTNotes: (Same as: Dupo 325/5) Do not exceed 4gm/day of acetaminophen. [...] Stop date: 05/23/17 6:04:00 CDTNotes: (Same as: Magaly) MEDICATION WASTE Product [...] Reaction Status Date Comments Source type Reported Immunizations Immunization Date Given Site Status Last Updated Comments Source Results Order Name Results Value Reference Date Interpretation Comments Source Range CHEM PANEL Magnesium 2.4 mg/dL 1.8 - 2.4 04/24 [facility] CHEM PANEL eGFR 7 04/24 Result Comment: The eGFR is calculated using the CKD-EPI formula. In most young, healthy individuals the eGFR will be >90 mL/ min/1.73m2. The eGFR declines with age. An eGFR of 60-89 may be normal in MH mL/min/1.73 /2017 some populations, particularly the elderly, for whom the CKD-EPI formula has not been extensively validated. Use of the eGFR is not recommended in the following populations: [facility] [place] Individuals with unstable creatinine concentrations, including patients [...] Lvl 9.4 mg/dL 8.5 - 10.5 04/24 [facility] CHEM PANEL CO2 25 meq/L 24 - 32 04/24 [facility] CHEM PANEL Chloride Lvl 98 meq/L 95 - 109 04/24 [facility] CHEM PANEL BUN 34 mg/dL 7 - 22 04/24 [facility] CHEM PANEL Glucose Lvl 98 mg/dL 70 - 99 04/24 [facility] CHEM PANEL Potassium 4.2 meq/L 3.5 - 5.1 04/24 [facility] CHEM PANEL Sodium Lvl 136 meq/L 135 - 145 04/24 [facility] CHEM PANEL Creatinine 7.60 mg/dL 0.50 - 04/24 MH Lvl 1.40 [facility] CHEM PANEL AGAP 17.2 meq/L 10.0 - 04/24 MH 20.0 [facility] HEMATOLOGY Monocytes 12.3 % 2.0 - 12.0 04/24 [facility] HEMATOLOGY Eosinophils 1.1 % 0.0 - 4.0 04/24 [facility] HEMATOLOGY Eosinophils 0.1 K/CMM 0.0 - 0.5 08/30 MH # /2017 [facility] HEMATOLOGY Lymphocytes 1.2 K/CMM 1.0 - 5.5 04/24 MH # /2016 [facility] HEMATOLOGY Monocytes # 0.6 K/CMM 0.0 - 0.8 04/24 /2016 [facility] HEMATOLOGY Segs-Bands # 3.2 K/CMM 1.5 - 8.1 04/24 /2016 [facility] HEMATOLOGY Segs 62.5 % 45.0 - 04/24 MH 75.0 /2016 [facility] HEMATOLOGY Lymphocytes 23.3 % 20.0 - 04/24 MH 40.0 /2016 [facility] HEMATOLOGY Basophils 0.8 % 0.0 - 1.0 04/24 /2016 [facility] HEMATOLOGY MPV 8.1 fL 7.4 - 10.4 04/24 [facility] HEMATOLOGY Platelet 229 K/CMM 133 - 450 04/24 /2016 [facility] HEMATOLOGY Hct 22.7 % 42.0 - 04/24 54.0 /2016 [facility] HEMATOLOGY Hgb 7.6 g/dL 14.0 - 04/24 18.0 /2016 [facility] HEMATOLOGY MCHC 33.3 g/dL 32.0 - 04/24 36.0 /2016 [facility] HEMATOLOGY RDW 19.4 % 11.5 - 04/24 14.5 /2016 [facility] HEMATOLOGY MCH 30.8 pg 27.0 - 04/24 31.0 /2016 [facility] HEMATOLOGY MCV 92.4 fL 80.0 - 04/24 94.0 /2016 [facility] HEMATOLOGY WBC 5.1 K/CMM 3.7 - 10.4 04/24 [facility] HEMATOLOGY RBC 2.45 M/CMM 4.70 - 04/24 6.10 /2016 [facility] IMMUNOLOGY Hep Bs Ag Negative Negative 04/24 [facility] *NA* [facility] (04/23/17 7:30 PM) IMMUNOLOGY Hep Bs Ag Negative Negative 04/24 [facility] *NA* [facility] (04/23/17 7:30 PM) BLOOD BANK RBC product Product available 2 04/23 Result Comment: 2016 12:24 [id number] RESULTS /2016 Notified [employer] @ 1224 [facility] (04/23/17 12:07 PM) [facility] BLOOD BANK Antibody Negative 1 04/23 Result Comment: 04/23/2017 06:59 [id number] RESULTS Scrn /2016 "Significant Findings of Pos Antibody Screen__ called to Davy Bustos RN__ at _04/23/2017 06:58_ by _GG_. Read Back OK" Asked for collection of 2 Benedict and 2 Red top tubes for Antibody workup. [facility] (04/23/17 5:57 AM) [facility] BLOOD BANK ABO/Rh A POS 04/23 RESULTS /2016 [facility] HEMATOLOGY PTT 58.7 s 22.9 - 04/23 MH 35.8 /2016 [facility] HEMATOLOGY INR 1.64 0.85 - 04/23 MH 1.17 /2016 [facility] HEMATOLOGY PT 19.7 s 12.0 - 04/23 MH 14.7 /2016 [facility] CARDIAC CK MB 1.7 ng/mL 0.5 - 3.6 04/23 ENZYMES /2016 [facility] CARDIAC Troponin-I 0.20 ng/mL 0.00 - 04/23 ENZYMES 0.40 /2016 [facility] CARDIAC Total CK 108 unit/L 12 - 191 04/23 ENZYMES [facility] CARDIAC CK MB Index 1.6 0.0 - 2.5 04/23 ENZYMES [facility] CHEM PANEL Alk Phos 120 unit/L 39 - 136 04/23 [facility] CHEM PANEL Bili Total 0.3 mg/dL 0.2 - 1.3 04/23 [facility] CHEM PANEL A/G Ratio 0.3 0.7 - 1.6 04/23 [facility] CHEM PANEL AST 19 unit/L 0 - 37 04/23 [facility] CHEM PANEL Globulin 7.4 g/dL 2.7 - 4.2 04/23 [facility] CHEM PANEL ALT 6 unit/L 0 - 65 04/23 [facility] CHEM PANEL eGFR 5 04/23 Result Comment: [...] is not recommended in the following populations: [address] Individuals with unstable creatinine concentrations, including [...] PANEL Creatinine 8.97 mg/dL 0.50 - 04/23 MH Lvl 1.40 [facility] CHEM PANEL Potassium 5.1 meq/L 3.5 - 5.1 04/23 Lvl /2016 [facility] CHEM PANEL CO2 25 meq/L 24 - 32 04/23 [facility] CHEM PANEL Sodium Lvl 132 meq/L 135 - 145 04/23 [facility] CHEM PANEL Chloride Lvl 97 meq/L 95 - 109 04/23 [facility] CHEM PANEL Glucose Lvl 102 mg/dL 70 - 99 04/23 [facility] CHEM PANEL BUN 41 mg/dL 7 - 22 04/23 [facility] CHEM PANEL Calcium Lvl 10.1 mg/dL 8.5 - 10.5 04/23 [facility] CHEM PANEL Albumin Lvl 1.9 g/dL 3.5 - 5.0 04/23 [facility] CHEM PANEL Total 9.3 g/dL 6.4 - 8.4 04/23 [facility] CHEM PANEL AGAP 15.1 meq/L 10.0 - 04/23 20.0 [facility] CHEM PANEL B/C Ratio 5 6 - 25 04/23 [facility] HEMATOLOGY Platelet 275 K/CMM 133 - 450 04/23 [facility] HEMATOLOGY MPV 7.6 fL 7.4 - 10.4 04/23 [facility] HEMATOLOGY Hgb 7.1 g/dL 14.0 - 04/23 18.0 [facility] HEMATOLOGY Hct 21.3 % 42.0 - 04/23 54.0 [facility] HEMATOLOGY MCHC 32.9 g/dL 32.0 - 04/23 36.0 [facility] HEMATOLOGY RBC 2.24 M/CMM 4.70 - 04/23 MH 6.10 [facility] HEMATOLOGY MCH 31.2 pg 27.0 - 04/23 MH 31.0 [facility] HEMATOLOGY MCV 95.1 fL 80.0 - 04/23 94.0 [facility] HEMATOLOGY RDW 20.4 % 11.5 - 04/23 MH 14.5 /2016 [facility] HEMATOLOGY WBC 5.5 K/CMM 3.7 - 10.4 04/23 [facility] HEMATOLOGY Segs 64.0 % 45.0 - 04/23 MH 75.0 /2016 [facility] HEMATOLOGY Lymphocytes 24.1 % 20.0 - 04/23 MH 40.0 /2016 [facility] HEMATOLOGY Monocytes 10.3 % 2.0 - 12.0 04/23 [facility] HEMATOLOGY Eosinophils 1.0 % 0.0 - 4.0 04/23 [facility] HEMATOLOGY Segs-Bands # 3.5 K/CMM 1.5 - 8.1 04/23 [facility] HEMATOLOGY Basophils 0.6 % 0.0 - 1.0 04/23 [facility] HEMATOLOGY Monocytes # 0.6 K/CMM 0.0 - 0.8 04/23 [facility] HEMATOLOGY Lymphocytes 1.3 K/CMM 1.0 - 5.5 04/23 MH # /2016 [facility] HEMATOLOGY Eosinophils 0.1 K/CMM 0.0 - 0.5 04/23 MH # /2016 [facility] Chest 1view Chest 1view Chest, single view dated 04/23/2017. 04/23 - DX DX - [facility] HISTORY: Chest pain. Read by: Chapin Luna [...] Comments Source Systolic (mm Hg) 109 04/24/2017 [facility] Diastolic (mm Hg) 58 04/24/2017 [facility] Temperature Oral (F) 98.2 F 04/24/2017 [facility] Respitory Rate 20 04/24/2017 [facility] Heart Rate 87 04/24/2017 [facility] Systolic (mm Hg) 91 04/24/2017 MH [facility] [...] 04/23/2017 [facility] [place] Weight 118.182 04/23/2017 [facility] [place] BMI Calculated 32.57 04/23/2017 [facility] Encounters Location Location Encounter Encounter Reason Attending ADM DC Status Source Details Type Number For Provider Date Date Visit [facility] [id number] Cherise 04/23 04/24 Sánchez Amato [facility] [place] [facility] Procedures Procedure Code Date Perfomer Comments Source Stent placement [id number] 03/26/2017 [facility] Abdomen endoscopy [id number] [facility] AV - Creation of [id number] [facility] arteriovenous fistula [place] CABG x 4 - Coronary [id number] [facility] artery bypass grafts [place] x 4 Catheterization of [id number] [facility] inferior vena cava [place] Colonoscopy [id number] [facility]
--- NOTE | 2018-05-30 21:39 | RAD REPORT ---
EXAM DESCRIPTION: RAD - Chest Single View - 05/30/2018 9:27 pm CLINICAL HISTORY: anemia Chest pain. COMPARISON: Chest Single View dated 04/19/2018; Chest Pa And Lat (2 Views) dated 02/23/2018; Chest Sing le View dated 02/22/2018; Chest Single View dated 02/07/2018 FINDINGS: Portable technique limits examination quality. Mild interstitial pulmonary edema. The heart is moderately enlarged in size. No displaced fractures.S ternotomy wires noted. IMPRESSION: Mild CHF versus volume overload pattern.
[2018-05-30 22:01] LABS: Absolute Lymphocytes (CBC) 1.1 K/uL (0.7-4.9); Absolute Monocytes 0.5 K/uL (0.1-1.3); Absolute Neutrophil 3.9 K/uL (1.8-8.0); Basophils % 0.5 % (0-1.3); Eosinophils % 0.2 % (0-4.4); Hematocrit 23.3 % (39.6-49.0); Lymphocytes % 19.5 % (15.3-44.8); MCV 89.2 fL (80-100); MPV 8.1 fL (7.6-11.3); Monocytes % 8.5 % (3.3-12.3); RBC Red Blood Cell Count 2.61 M/uL (4.33-5.43)
[2018-05-30 22:09] LABS: Protime INR 1.54
[2018-05-30 22:28] LABS: Albumin 2.1 g/dL (3.4-5.0); Bilirubin Direct 0.4 mg/dL (0-0.2); Bilirubin Total 0.6 mg/dL (0.2-1.0); Magnesium 2.2 mg/dL (1.8-2.4); Potassium 4.2 mmol/L (3.5-5.1); Protein, Total 9.6 g/dL (6.4-8.2); Troponin (Emerg Dept Use Only) 0.17 ng/mL (0.0-0.045)
--- NOTE | 2018-05-30 22:39 | ER ---
Nurse's Notes [facility] Name: Nain Cartagena Jr Age: 67 yrs Sex: Male : 1950 Arrival Date: 05/30/2018 Time: 20:05 Bed 16 Private MD: Diagnosis: Chronic renal disease. Anemia Presentation: 05/30 20:08 Presenting complaint: Presenting complaint: states: He was admitted at [address] for physical therapy because he had been in bed for a DVT previous. He had a blood transfusion on Saturday. They redrew his labs before he was discharged today, but they were sent home before the results came back. The facility called them to tell them that his hemoglobin was 6.4 so they should come to the nearest ER to get a blood transfusion. Patient has dialysis Saturday, and Saturday. 20:11 Transition of care: patient was not received from another setting of care. Onset of [facility] symptoms was May 30, 2018. Risk Assessment: Do you want to hurt yourself or someone else?. Initial Sepsis Screen: Does the patient meet any 2 criteria? HR > 90 bpm. No. Patient's initial sepsis screen is negative. Does the patient have a suspected source of infection? No. Patient's initial sepsis screen is negative. Care prior to arrival: None. 20:11 Method Of Arrival: Wheelchair [facility] 20:11 Acuity: RADHA 3 [facility] Triage Assessment: 20:20 General: Appears in no apparent distress. comfortable, Behavior is calm, cooperative, aj appropriate for age. Pain: Denies pain. Neuro: Level of Consciousness is awake, alert, obeys commands. Cardiovascular: Patient's skin is warm and dry. Respiratory: Airway is patent Respiratory effort is even, unlabored, Respiratory pattern is regular, symmetrical. Historical: - Allergies: 20:20 No Known Allergies; [facility] - Home Meds: 20:20 cyanocobalamin (vitamin B-12) oral oral [Active]; Folic Acid Oral [Active]; gabapentin aj1 oral oral [Active]; silver sulfadiazine topical topical [Active]; Zinc Sulfate Oral [Active]; multivitamin oral oral [Active]; clonazepam 0.5 mg Oral tab 1 tab 2 times per day [Active]; Melatonin 12 mg Oral at bedtime [Active]; midodrine 5 mg Oral tab 1 tabs 3 times per day [Active]; sertraline 50 mg Oral tab once daily [Active]; Renvela 800 mg Oral tab 1 tab 3 times per day [Active]; [place] Oral [Active]; Benadryl 25 mg Oral cap as needed [Active]; amiodarone 200 mg Oral tab 1 tab once daily [Active]; aspirin 81 mg Oral chew 1 tab once daily [Active]; atorvastatin 40 mg Oral tab 1 tab once daily [Active]; cinacalcet oral oral [Active]; linaclotide oral oral [Active]; metoprolol tartrate 25 mg oral tab [Active]; pantoprazole 40 mg Oral TbEC 1 tab once daily [Active]; - PMHx: 20:20 Atrial Fib; CHF; Diabetes - NIDDM; DIALYSIS Saturday, and saturdays; DVT; Edema aj1 Lower leg; ESRD; Ganglion, shoulder; GERD; Gout; Hypertension; polymyalgia rheumatica; - Immunization history:: Flu vaccine is up to date. - Social history:: Smoking status: Patient/guardian denies using tobacco. - Ebola Screening: : Patient denies travel to an Ebola-affected area in the 21 days before illness onset. Screenin:50 Abuse screen: Denies threats or abuse. Denies injuries from another. Nutritional kr2 screening: No deficits noted. Tuberculosis screening: No symptoms or risk factors identified. Fall Risk Ambulatory Aid- Crutches/Cane/Walker (15 pts). Gait- Weak (10 pts.). Assessment: 20:30 General: Appears in no apparent distress. comfortable, well groomed, Behavior is calm, kr2 cooperative, appropriate for age. Pain: Complains of pain in right leg Pain currently is 3 out of 10 on a pain scale. Quality of pain is described as aching, tender, Is continuous, Alleviated by rest. Neuro: Level of Consciousness is awake, alert, obeys commands, Oriented to person, place, time, situation. Cardiovascular: Capillary refill < 3 seconds in bilateral fingers Patient's skin is warm and dry. Cardiovascular: Dialysis shunt: in the left arm, with palpable thrill, with auscultated bruit, with no erythema, with no edema, no bleeding noted. Respiratory: Airway is patent Respiratory effort is even, unlabored, Respiratory pattern is regular, symmetrical. GI: Abdomen is flat, non-distended. : Reports he is on dialysis and is supposed to go tomorrow. Derm: Skin is healthy with good turgor, Skin is pink, warm \T\ dry. Wound noted right lower leg Wound is being cared for by home health and rehab facility. Wound bed is black. Musculoskeletal: Circulation, motion, and sensation intact. 21:44 Reassessment: Patient appears in no apparent distress at this time. Difficulty kr2 obtaining blood specimens/IV access. Provider and charge nurse notified. Charge nurse at bedside attempting IV access via ultrasound. 21:56 Reassessment: Patient appears in no apparent distress at this time. Patient and/or kr2 family updated on plan of care and expected duration. Pain level reassessed. Patient is alert, oriented x 3, equal unlabored respirations, skin warm/dry/pink. 23:00 Reassessment: Patient appears in no apparent distress at this time. Patient and/or kr2 family updated on plan of care and expected duration. Pain level reassessed. Patient is alert, oriented x 3, equal unlabored respirations, skin warm/dry/pink. Patient denies pain at this time. Patient states feeling better. Vital Signs: 20:20 BP 102 / 62; Pulse 70; Resp 18; Temp 97.4; Pulse Ox 99% on R/A; Weight 108.86 kg (R); aj1 Height 6 ft. 3 in. (190.50 cm) (R); Pain 0/10; 21:56 BP 110 / 60; Pulse 60; Resp 17; Pulse Ox 95% on R/A; kr2 23:01 BP 104 / 63; Pulse 72; Resp 17; Pulse Ox 97% on R/A; kr2 20:20 Body Mass Index 30.00 (108.86 kg, 190.50 cm) aj1 ED Course: 20:05 Patient arrived in ED. ds1 20:14 Triage completed. aj1 20:20 Arm band placed on Patient placed in an exam room. aj1 20:23 Jhonatan Holland MD is Attending Physician. pkl 20:30 Patient has correct armband on for positive identification. Bed in low position. Call kr2 light in reach. Side rails up X 1. sql data architect on. Pulse ox on. NIBP on. Door closed. Warm blanket given. Head of bed elevated. 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 Guaiac negative per provider. kr2 20:48 Dayanara Lomax, RN is Primary Nurse. kr2 20:55 Missed attempt(s): 20 gauge in right upper arm. Bleeding controlled, band aid applied, kr2 catheter tip intact. 21:26 EKG done, by ED staff, reviewed by Jhonatan Holland MD. kr2 21:27 XRAY Chest (1 view) In Process Unspecified. EDMS 21:32 Missed attempt(s): 22 gauge in right forearm. Bleeding controlled, band aid applied, oe catheter tip intact. 21:50 Inserted saline lock: 18 gauge in right upper arm, using aseptic technique. ,using kr2 aseptic technique. Performed by Shira Roy RN Blood collected. 21:57 Dayanara Lomax, RN is Primary Nurse. kr2 22:09 Notified ED physician of a critical lab result(s). HGB of 7.8 Dr Holland notified. bb 22:32 Notified ED physician of a critical lab result(s). Creatinine of 8.4 Dr Holland notified. bb 23:02 IV discontinued, intact, bleeding controlled, No redness/swelling at site. Pressure kr2 dressing applied. Administered Medications: No medications were administered Outcome: 22:39 Discharge ordered by . pktierra 23:01 Discharged to home via wheelchair, with family. kr2 23:01 Condition: stable 23:01 Discharge instructions given to patient, family, Instructed on discharge instructions, follow up and referral plans. Demonstrated understanding of instructions, follow-up care. 23:02 Patient left the ED. kr2 Signatures: Dispatcher [employer] [facility] Rita Louise RN RN Jhonatan Brower MD MD pkl [place], Demi ds1 Shira Roy RN RN bb Espinosa, [place] oe Dayanara Lomax, BREANNE RN kr2 Corrections: (The following items were deleted from the chart) 20:14 20:08 Presenting complaint: aj1 aj1
--- NOTE | 2018-05-30 22:39 | EDPHYS ---
Physician Documentation [facility] Name: Nain Cartagena Jr Age: 67 yrs Sex: Male : 1950 Arrival Date: 05/30/2018 Time: 20:05 Bed 16 Private MD: ED Physician Jhonatan Holland HPI: 05/30 20:44 This 67 yrs old Black Male presents to ER via Wheelchair with complaints of Abnomal pkl Labs. 20:44 [facility] Had blood pkl transfusion 3 days ago. Had blood tests done prior to discharge. Told his Hb was 6.4 and told to go to the hospital for blood transfusion.. Historical: - Allergies: 20:20 No Known Allergies; aj1 - Home Meds: 20:20 cyanocobalamin (vitamin B-12) oral oral [Active]; Folic Acid Oral [Active]; gabapentin aj1 oral oral [Active]; silver sulfadiazine topical topical [Active]; Zinc Sulfate Oral [Active]; multivitamin oral oral [Active]; clonazepam 0.5 mg Oral tab 1 tab 2 times per day [Active]; Melatonin 12 mg Oral at bedtime [Active]; midodrine 5 mg Oral tab 1 tabs 3 times per day [Active]; sertraline 50 mg Oral tab once daily [Active]; Renvela 800 mg Oral tab 1 tab 3 times per day [Active]; [place] Oral [Active]; Benadryl 25 mg Oral cap as needed [Active]; amiodarone 200 mg Oral tab 1 tab once daily [Active]; aspirin 81 mg Oral chew 1 tab once daily [Active]; atorvastatin 40 mg Oral tab 1 tab once daily [Active]; cinacalcet oral oral [Active]; linaclotide oral oral [Active]; metoprolol tartrate 25 mg oral tab [Active]; pantoprazole 40 mg Oral TbEC 1 tab once daily [Active]; - PMHx: 20:20 Atrial Fib; CHF; Diabetes - NIDDM; DIALYSIS Saturday, and saturdays; DVT; Edema aj1 Lower leg; ESRD; Ganglion, shoulder; GERD; Gout; Hypertension; polymyalgia rheumatica; - Immunization history:: Flu vaccine is up to date. - Social history:: Smoking status: Patient/guardian denies using tobacco. - Ebola Screening: : Patient denies travel to an Ebola-affected area in the 21 days before illness onset. ROS: 20:44 Eyes: Negative for injury, pain, redness, and discharge, ENT: Negative for injury, pkl pain, and discharge, Neck: Negative for injury, pain, and swelling, Cardiovascular: Negative for chest pain, palpitations, and edema, Respiratory: Negative for shortness of breath, cough, wheezing, and pleuritic chest pain, Abdomen/GI: Negative for abdominal pain, nausea, vomiting, diarrhea, and constipation, Back: Negative for injury and pain, : Negative for injury, bleeding, discharge, and swelling. 20:44 MS/extremity: Positive for swelling, of the both legs.. 20:44 Skin: Positive for Non -healing wound right calf. 20:44 Neuro: Negative for altered mental status. Exam: 20:44 Head/Face: Normocephalic, atraumatic. Eyes: Pupils equal round and reactive to light, pkl extra-ocular motions intact. Lids and lashes normal. Conjunctiva and sclera are non-icteric and not injected. Cornea within normal limits. Periorbital areas with no swelling, redness, or edema. ENT: Nares patent. No nasal discharge, no septal abnormalities noted. Tympanic membranes are normal and external auditory canals are clear. Oropharynx with no redness, swelling, or masses, exudates, or evidence of obstruction, uvula midline. Mucous membranes moist. Neck: Trachea midline, no thyromegaly or masses palpated, and no cervical lymphadenopathy. Supple, full range of motion without nuchal rigidity, or vertebral point tenderness. No Meningismus. Chest/axilla: Normal chest wall appearance and motion. Nontender with no deformity. No lesions are appreciated. Cardiovascular: Regular rate and rhythm with a normal S1 and S2. No gallops, murmurs, or rubs. Normal PMI, no JVD. No pulse deficits. Respiratory: Lungs have equal breath sounds bilaterally, clear to auscultation and percussion. No rales, rhonchi or wheezes noted. No increased work of breathing, no retractions or nasal flaring. Abdomen/GI: Soft, non-tender, with normal bowel sounds. No distension or tympany. No guarding or rebound. No evidence of tenderness throughout. Back: No spinal tenderness. No costovertebral tenderness. Full range of motion. 20:44 Musculoskeletal/extremity: Extremities: grossly normal except: noted in the both legs: swelling. 20:44 Skin: Appearance: Non-healing wound right calf. 20:44 Neuro: Orientation: appropriate for stated age, Mentation: appropriate for stated age, Cranial nerves: grossly normal, Motor: is normal. Vital Signs: 20:20 BP 102 / 62; Pulse 70; Resp 18; Temp 97.4; Pulse Ox 99% on R/A; Weight 108.86 kg (R); aj1 Height 6 ft. 3 in. (190.50 cm) (R); Pain 0/10; 21:56 BP 110 / 60; Pulse 60; Resp 17; Pulse Ox 95% on R/A; kr2 23:01 BP 104 / 63; Pulse 72; Resp 17; Pulse Ox 97% on R/A; kr2 20:20 Body Mass Index 30.00 (108.86 kg, 190.50 cm) aj1 MDM: 20:23 Patient medically screened. pkl 22:37 Data reviewed: vital signs, nurses notes, lab test result(s), EKG, radiologic studies, pkl plain films. 05/30 20:42 Order name: Basic Metabolic Panel; Complete Time: 22:36 pkl 05/30 20:42 Order name: CBC with Diff; Complete Time: 22:08 pkl 05/30 20:42 Order name: LFT's; Complete Time: 22:36 pkl 05/30 20:42 Order name: Magnesium; Complete Time: 22:36 pkl 05/30 20:42 Order name: NT PRO-BNP; Complete Time: 22:36 pkl 05/30 20:42 Order name: PT-INR; Complete Time: 22:36 pkl 05/30 20:42 Order name: Troponin (emerg Dept Use Only); Complete Time: 22:36 pkl 05/30 20:42 Order name: XRAY Chest (1 view); Complete Time: 21:47 pkl 05/30 20:42 Order name: EKG; Complete Time: 20:43 pkl 05/30 20:42 Order name: Cardiac monitoring; Complete Time: 21:17 pkl 05/30 20:42 Order name: EKG - Nurse/Tech; Complete Time: 21:57 pkl 05/30 20:42 Order name: IV Saline Lock; Complete Time: 21:57 pkl 05/30 20:42 Order name: Labs collected and sent; Complete Time: 21:57 pkl 05/30 20:43 Order name: Type And Screen pkl 05/30 20:42 Order name: O2 Per Protocol; Complete Time: 21:17 pkl 05/30 20:42 Order name: O2 Sat Monitoring; Complete Time: 21:17 pkl Administered Medications: No medications were administered Disposition: 05/30/18 22:39 Discharged to Home. Impression: Chronic renal disease. Anemia. - Condition is Stable. - Medication Reconciliation Form, Thank You Letter, Antibiotic Education, Prescription Opioid Use form. - Follow up: Private Physician; When: 2 - 3 days; Reason: Re-evaluation by your physician. - Problem is new. - Symptoms have improved. Signatures: Dispatcher [employer] EDRita Darling RN RN aj1 Jhonatan Holland MD MD pkl Dayanara Lomax RN RN kr2 Corrections: (The following items were deleted from the chart) 23:02 22:39 05/30/2018 22:39 Discharged to Home. Impression: Chronic renal disease. Anemia. kr2 Condition is Stable. Forms are Medication Reconciliation Form, Thank You Letter, Antibiotic Education, Prescription Opioid Use. Follow up: Private Physician; When: 2 - 3 days; Reason: Re-evaluation by your physician. Problem is new. Symptoms have improved. pkl
[2018-05-30 23:13] VITALS: TEMP 97.4
[2018-05-30 23:15] VITALS: BP 104/63; O2SAT 97
--- NOTE | 2018-05-31 07:50 | EKG ---
Test Date: 2018-05-30 Test Time: 21:25:15 Director Biologics: DONNY MEASUREMENT RESULTS: Intervals: Rate: 60 NE: 202 QRSD: 148 QT: 478 QTc: 478 [place]: P: 54 NE: 202 QRS: -51 T: 143 INTERPRETIVE STATEMENTS: Normal sinus rhythm Left axis deviation Nonspecific intraventricular block Abnormal ECG Compared to ECG 04/19/2018 11:23:18 Sinus bradycardia no longer present First degree AV block no longer present Electronically Signed On 05-31-18 07:48:42 CDT by Roberto Tabares
== END 2018-05-30 23:02 | disposition home or self-care (01) ==
LOC: ER 20:04
DX: E11.22 Type 2 diabetes mellitus with diabetic chronic kidney disease (principal); N18.6 End stage renal disease; I10 Essential (primary) hypertension; I48.91 Unspecified atrial fibrillation; Z99.2 Dependence on renal dialysis; Z79.82 Long term (current) use of aspirin
CPT/HCPCS: 36415; 71045; 80048; 80076; 83735; 83880; 84484; 85025; 85610; 86850; 86900; 86901; 93005; 99284

== ENCOUNTER 2018-06-04 11:17 | Inpatient (IN) | payer OTHER, BC ==
--- OUTSIDE RECORDS SUMMARY | 2018-06-04 11:18 | XMS REPORT | Clinical Summary ---
:1950 Author Organization [facility] Address [address] [place] [address] Care Team Providers Name Role Phone Asked, [...] vein stenosis 01/31/2017 DVT (deep venous thrombosis) ([facility]) 01/26/2017 ESRD (end stage renal disease) ([facility]) 01/26/2017 Systolic congestive heart failure ([facility]) 01/26/2017 Anasarca 01/26/2017 Supratherapeutic INR 01/10/2017 Social [...] INFLUENZA VACCINE 03/26/2018 Implants Implanted Type Area Telephone Diaphragm Assembler Device Expiration Model / Identifier Date Serial / Lot Catheter Angio Lead Embedded Software Engineer Ii 5fr 65cm Selc Braidd Torque [place] - [id number] Surgical N/A: N/A BSC PERIPHERAL [id number] / Implanted: 01/31/2017 (Quantity not on file) Implants; INTERVENTION / Expanders; VASCULAR REAGAN Extenders; Surgical Wires Abdominal Mesh Procedures Procedure Name Priority Date/Time Associated Diagnosis Comments TRANSFUSE RED BLOOD Routine 04/30/2018 5:35 PM CDT CELLS after 06/03/2017 Results Transfuse RBC (04/30/2018 5:35 PM)Only the most recent of2 resultswithin the time period is included.after 06/03/2017 Insurance Payer Benefit Plan / Group Subscriber ID Type Phone Address MEDICARE MEDICARE PART A AND B xxxxxxxxxx Medicare [place], [place] BCBS BCBS CHOICE PPO/FEDERAL EMPL PPO xxxxxxxxxxxx PPO [phone] [place] [phone]
--- OUTSIDE RECORDS SUMMARY | 2018-06-04 11:19 | XMS REPORT | Continuity of Care Document ---
:1950 Author Organization Interface Problems Problem Status Onset Classification Date Comments Source Date Reported ANEMIA Active 05/14/20 [facility] [address] GI BLEED, ANEMIA, Active 04/22/20 [facility] END STAGE RENAL [address] [place] DISEAS DIALYSIS Active 04/22/20 [facility] [address] [place] Stented coronary Resolved 03/26/20 Problem 04/27/2017 [facility] artery [address] [place] Afib Resolved Problem 04/27/2017 [facility] [place] Anemia Resolved Problem 04/27/2017 [facility] [place] CHF (<span Resolved Problem 04/27/2017 [facility] ID="[id number]">C [place] onfirmed</span>) ESRD on Active Problem 04/27/2017 [facility] hemodialysis [place] DM (<span Resolved Problem 04/27/2017 [facility] ID="[id number]">[facility] [place] onfirmed</span>) Diverticulosis Resolved Problem 04/27/2017 [facility] [...] SUB-Q, Drug 017 [facility] form: INJ, [place] [id number], Dosing Weight 118.182, kg, Start date: 04/23/17 [...] Active 017 [facility] Hydrocodone Score 4-6, 0 [facility] Bitartrate 10 Refill(s) MG Oral Tablet metoprolol 25 mg, PO, Active tartrate BID, 0 017 [facility] Refill(s) [place] Sertraline 50 mg, PO, No Longer Daily, 0 Active 017 [facility] Refill(s) [facility] atorvastatin 40 40 mg=1 tab, Active MH mg oral tablet PO, Bedtime, # 017 [facility] 30 tab, 0 [place] Refill(s) Tramadol 50 mg, PO, Active TID, PRN Pain, 017 [facility] # 20 tab, 0 [facility] Refill(s) pantoprazole 40 40 mg=1 tab, Active mg oral enteric PO, Daily, 30 017 [facility] coated tablet minutes before [facility] breakfast, # 30 tab, 0 Refill(s) sevelamer 1,600 mg=2 Active carbonate 800 tab, PO, 017 [facility] MG Oral Tablet TID-Meals, # [place] [Renvela] 180 tab, 0 Refill(s) Colchicine 0.6 0.3 mg=0.5 Active MG Oral Tablet tab, PO, BID, 017 [facility] [Colcrys] 0 Refill(s) [facility] Aspirin 81 mg, PO, Active Daily, 0 017 [facility] Refill(s) [facility] Aspirin 325 MG 1 tab, PO, No Longer / Codeine Q4H, PRN for Active 017 [facility] Phosphate 60 MG pain, 0 [facility] Oral Tablet Refill(s) Clonazepam 0.5 mg, PO, No Longer BID, PRN Active 017 [facility] Anxiety, 0 [facility] Refill(s) apixaban 2.5 MG 2.5 mg=1 tab, Active Oral Tablet PO, BID, 0 017 [facility] [Eliquis] Refill(s) [facility] Docusate 100 mg, 1 cap, No Longer Route: PO, Active 017 [facility] Drug form: [facility] CAP, BID, Dosing Weight 118.182, kg, PRN [...] Stop date: 05/23/17 9:23:00 CDTNotes: (Same as: aMgaly) MEDICATION WASTE Product Size: 4 mg Product Wasted: ___ mg Acetaminophen 2 tab, Route: No Longer 325 MG / PO, Drug Form: Active 017 [facility] Hydrocodone TAB, Dosing [place] Bitartrate 5 MG Weight Oral Tablet 118.182, kg, Q4H, PRN Pain Score 7-10, Start date: 04/23/17 9:24:00 CDT, Duration: 30 day, Stop date: 05/23/17 9:23:00 CDTNotes: (Same as: [place] 325/5) Do not exceed 4gm/day of acetaminophen. [...] - 2.4 04/24 [facility] CHEM PANEL eGFR 7 04/24 Result Comment: [...] - 10.5 04/24 [facility] CHEM PANEL CO2 25 meq/L 24 - 32 04/24 [facility] CHEM PANEL Chloride Lvl 98 meq/L 95 - 109 04/24 [facility] CHEM PANEL BUN 34 mg/dL 7 - 22 04/24 [facility] CHEM PANEL Glucose Lvl 98 mg/dL 70 - 99 04/24 [facility] CHEM PANEL Potassium 4.2 meq/L 3.5 - 5.1 04/24 [facility] CHEM PANEL Sodium Lvl 136 meq/L 135 - 145 04/24 [facility] CHEM PANEL Creatinine 7.60 mg/dL 0.50 - 04/24 MH Lvl 1.40 [facility] CHEM PANEL AGAP 17.2 meq/L 10.0 - 04/24 MH 20.0 [facility] HEMATOLOGY Monocytes 12.3 % 2.0 - 12.0 04/24 [facility] HEMATOLOGY Eosinophils 1.1 % 0.0 - 4.0 04/24 [facility] HEMATOLOGY Eosinophils 0.1 K/CMM 0.0 - 0.5 08/30 MH # /2017 [facility] HEMATOLOGY Lymphocytes 1.2 K/CMM 1.0 - 5.5 04/24 MH # /2016 [facility] HEMATOLOGY Monocytes # 0.6 K/CMM 0.0 - 0.8 04/24 /2016 [facility] HEMATOLOGY Segs-Bands # 3.2 K/CMM 1.5 - 8.1 04/24 /2016 [facility] HEMATOLOGY Segs 62.5 % 45.0 - 04/24 MH 75.0 /2016 [facility] HEMATOLOGY Lymphocytes 23.3 % 20.0 - 04/24 MH 40.0 /2016 [facility] HEMATOLOGY Basophils 0.8 % 0.0 - 1.0 04/24 /2016 [facility] HEMATOLOGY MPV 8.1 fL 7.4 - 10.4 04/24 [facility] HEMATOLOGY Platelet 229 K/CMM 133 - 450 04/24 /2016 [facility] HEMATOLOGY Hct 22.7 % 42.0 - 04/24 54.0 /2016 [facility] HEMATOLOGY Hgb 7.6 g/dL 14.0 - 04/24 18.0 /2016 [facility] HEMATOLOGY MCHC 33.3 g/dL 32.0 - 04/24 36.0 /2016 [facility] HEMATOLOGY RDW 19.4 % 11.5 - 04/24 14.5 /2016 [facility] HEMATOLOGY MCH 30.8 pg 27.0 - 04/24 31.0 /2016 [facility] HEMATOLOGY MCV 92.4 fL 80.0 - 04/24 94.0 /2016 [facility] HEMATOLOGY WBC 5.1 K/CMM 3.7 - 10.4 04/24 [facility] HEMATOLOGY RBC 2.45 M/CMM 4.70 - 04/24 6.10 /2016 [facility] IMMUNOLOGY Hep Bs Ag Negative Negative 04/24 [facility] *NA* [facility] (04/23/17 7:30 PM) IMMUNOLOGY Hep Bs Ag Negative Negative 04/24 [facility] *NA* [facility] (04/23/17 7:30 PM) BLOOD BANK RBC product Product available 2 04/23 Result Comment: 2016 12:24 [id number] RESULTS /2016 Notified [employer] @ 1224 [facility] (04/23/17 12:07 PM) [facility] BLOOD BANK Antibody Negative 1 04/23 Result Comment: 04/23/2017 06:59 [id number] RESULTS Scrn /2016 "Significant Findings of Pos Antibody Screen__ called to Davy Bustos RN__ at _04/23/2017 06:58_ by _GG_. Read Back OK" Asked for collection of 2 [place] and 2 Red top tubes for Antibody workup. [facility] (04/23/17 5:57 AM) [facility] BLOOD BANK ABO/Rh A POS 04/23 RESULTS /2016 [facility] HEMATOLOGY PTT 58.7 s 22.9 - 04/23 MH 35.8 /2016 [facility] HEMATOLOGY INR 1.64 0.85 - 04/23 MH 1.17 /2016 [facility] HEMATOLOGY PT 19.7 s 12.0 - 04/23 MH 14.7 /2016 [facility] CARDIAC CK MB 1.7 ng/mL 0.5 - 3.6 04/23 ENZYMES /2016 [facility] CARDIAC Troponin-I 0.20 ng/mL 0.00 - 04/23 ENZYMES 0.40 /2016 [facility] CARDIAC Total CK 108 unit/L 12 - 191 04/23 ENZYMES [facility] CARDIAC CK MB Index 1.6 0.0 - 2.5 04/23 ENZYMES [facility] CHEM PANEL Alk Phos 120 unit/L 39 - 136 04/23 [facility] CHEM PANEL Bili Total 0.3 mg/dL 0.2 - 1.3 04/23 [facility] CHEM PANEL A/G Ratio 0.3 0.7 - 1.6 04/23 [facility] CHEM PANEL AST 19 unit/L 0 - 37 04/23 [facility] CHEM PANEL Globulin 7.4 g/dL 2.7 - 4.2 04/23 [facility] CHEM PANEL ALT 6 unit/L 0 - 65 04/23 [facility] CHEM PANEL eGFR 5 04/23 Result Comment: [...] is not recommended in the following populations: [address] Individuals with unstable creatinine concentrations, including [...] mg/dL 0.50 - 04/23 MH Lvl 1.40 [facility] CHEM PANEL Potassium 5.1 meq/L 3.5 - 5.1 04/23 Lvl /2016 [facility] CHEM PANEL CO2 25 meq/L 24 - 32 04/23 [facility] CHEM PANEL Sodium Lvl 132 meq/L 135 - 145 04/23 [facility] CHEM PANEL Chloride Lvl 97 meq/L 95 - 109 04/23 [facility] CHEM PANEL Glucose Lvl 102 mg/dL 70 - 99 04/23 [facility] CHEM PANEL BUN 41 mg/dL 7 - 22 04/23 [facility] CHEM PANEL Calcium Lvl 10.1 mg/dL 8.5 - 10.5 04/23 [facility] CHEM PANEL Albumin Lvl 1.9 g/dL 3.5 - 5.0 04/23 [facility] CHEM PANEL Total 9.3 g/dL 6.4 - 8.4 04/23 [facility] CHEM PANEL AGAP 15.1 meq/L 10.0 - 04/23 20.0 [facility] CHEM PANEL B/C Ratio 5 6 - 25 04/23 [facility] HEMATOLOGY Platelet 275 K/CMM 133 - 450 04/23 [facility] HEMATOLOGY MPV 7.6 fL 7.4 - 10.4 04/23 [facility] HEMATOLOGY Hgb 7.1 g/dL 14.0 - 04/23 18.0 [facility] HEMATOLOGY Hct 21.3 % 42.0 - 04/23 54.0 [facility] HEMATOLOGY MCHC 32.9 g/dL 32.0 - 04/23 36.0 [facility] HEMATOLOGY RBC 2.24 M/CMM 4.70 - 04/23 MH 6.10 [facility] HEMATOLOGY MCH 31.2 pg 27.0 - 04/23 MH 31.0 [facility] HEMATOLOGY MCV 95.1 fL 80.0 - 04/23 94.0 [facility] HEMATOLOGY RDW 20.4 % 11.5 - 04/23 MH 14.5 /2016 [facility] HEMATOLOGY WBC 5.5 K/CMM 3.7 - 10.4 04/23 [facility] HEMATOLOGY Segs 64.0 % 45.0 - 04/23 MH 75.0 /2016 [facility] HEMATOLOGY Lymphocytes 24.1 % 20.0 - 04/23 MH 40.0 /2016 [facility] HEMATOLOGY Monocytes 10.3 % 2.0 - 12.0 04/23 [facility] HEMATOLOGY Eosinophils 1.0 % 0.0 - 4.0 04/23 [facility] HEMATOLOGY Segs-Bands # 3.5 K/CMM 1.5 - 8.1 04/23 [facility] HEMATOLOGY Basophils 0.6 % 0.0 - 1.0 04/23 [facility] HEMATOLOGY Monocytes # 0.6 K/CMM 0.0 - 0.8 04/23 [facility] HEMATOLOGY Lymphocytes 1.3 K/CMM 1.0 - 5.5 04/23 MH # /2016 [facility] HEMATOLOGY Eosinophils 0.1 K/CMM 0.0 - 0.5 04/23 MH # /2016 [facility] Chest 1view Chest 1view Chest, single view dated 04/23/2017. 04/23 - DX DX - [facility] HISTORY: Chest pain. Read by: Chapin Luna [...] Source Systolic (mm Hg) 109 04/24/2017 [facility] Diastolic (mm Hg) 58 04/24/2017 [facility] Temperature Oral (F) 98.2 F 04/24/2017 [facility] Respitory Rate 20 04/24/2017 [facility] Heart Rate 87 04/24/2017 [facility] Systolic (mm Hg) 91 04/24/2017 [facility] [...] [place] BMI Calculated 32.57 04/23/2017 [facility] Encounters Location Location Encounter Encounter Reason Attending ADM DC Status Source Details Type Number For Provider Date Date Visit [facility] [id number] Cherise 04/23 04/24 [facility] [place] [facility] Procedures Procedure Code Date Perfomer Comments Source Stent placement [id number] 03/26/2017 [facility] Abdomen endoscopy [id number] [facility] AV - Creation of [id number] [facility] arteriovenous fistula [place] CABG x 4 - Coronary [id number] [facility] artery bypass grafts [place] x 4 Catheterization of [id number] [facility] inferior vena cava [place] Colonoscopy [id number] [facility]
--- NOTE | 2018-06-04 12:25 | RAD REPORT ---
EXAM DESCRIPTION: RAD - Chest Single View - 06/04/2018 12:10 pm CLINICAL HISTORY: MALAISE Chest pain. COMPARISON: Chest Single View dated 05/30/2018; Chest Single View dated 04/19/2018; Chest Pa And Lat ( 2 Views) dated 02/23/2018; Chest Single View dated 02/22/2018 FINDINGS: Portable technique limits examination quality. Moderate bilateral pulmonary opacities are seen compatible with pulmonary edema. The heart is moderat roxanne to significantly enlarged in size. No displaced fractures.Sternotomy wires present. IMPRESSION: Moderate CHF versus volume overload pattern.
[2018-06-04 12:38] LABS: Absolute Lymphocytes (CBC) 1.2 K/uL (0.7-4.9); Absolute Monocytes 0.5 K/uL (0.1-1.3)
[2018-06-04 12:48] LABS: Absolute Neutrophil 3.8 K/uL (1.8-8.0); Basophils % 0.4 % (0-1.3); Eosinophils % 0.3 % (0-4.4); Hematocrit 21.5 % (39.6-49.0); Lymphocytes % 21.6 % (15.3-44.8); MCH 30.6 pg (27.0-35.0); MCV 89.3 fL (80-100); MPV 7.8 fL (7.6-11.3); Monocytes % 9.3 % (3.3-12.3); RBC Red Blood Cell Count 2.41 M/uL (4.33-5.43)
[2018-06-04 12:58] LABS: Protime INR 1.81
[2018-06-04 13:21] LABS: Platelet Estimate ADEQ; Platelets, Giant SLIGHT
[2018-06-04 13:22] LABS: Anisocytosis 1+; Blood Morphology Comment NOTED (NOT SEEN); Hypochromasia 1+; Polychromasia 1+; Rouleau NOTED
[2018-06-04] MEDS ORDERED: NALOXONE 0.4 MG/ML VIAL ONE (13:24)
[2018-06-04] MEDS ORDERED: NA CHLORIDE 0.9% 1,000 ML ONE (13:24)
[2018-06-04] MEDS ORDERED: PIPER/TAZO/NS 2.25gm 2.25 GM/50 ML BAG ONE (13:24)
[2018-06-04] MEDS ORDERED: VANCOMYCIN 1 GM/250 ML BAG ONE (13:24)
[2018-06-04 13:38] LABS: Albumin 2.1 g/dL (3.4-5.0); Bilirubin Direct 0.6 mg/dL (0-0.2); Bilirubin Total 0.7 mg/dL (0.2-1.0); Potassium 3.9 mmol/L (3.5-5.1); Protein, Total 10.2 g/dL (6.4-8.2); Troponin (Emerg Dept Use Only) 0.55 ng/mL (0.0-0.045)
--- NOTE | 2018-06-04 14:03 | ER ---
Nurse's Notes [facility] Name: Nain Cartagena Jr Age: 67 yrs Sex: Male : 1950 Arrival Date: 06/04/2018 Time: 11:24 Bed 25 Private MD: Diagnosis: Severe sepsis without septic shock Presentation: 06/04 11:23 Presenting complaint: Sent from wound healing clinic for low blood pressure, 90/30's. ss Pt has a history of ESRD, completed dialysis yesterday and is currently being treated for a wound to R lower extremity. Transition of care: wound healing center. Onset of symptoms is unknown. Risk Assessment: Do you want to hurt yourself or someone else? Patient reports no desire to harm self or others. Initial Sepsis Screen: Does the patient meet any 2 criteria? Mean Arterial Pressure (MAP) < 65. Does the patient have a suspected source of infection? Yes: Skin breakdown/wound. 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 11:23 Method Of Arrival: Stretcher ss 11:23 Acuity: RADHA 2 ss Historical: - Allergies: 12:46 No Known Allergies; ss - PMHx: 12:46 Atrial Fib; CHF; GERD; ESRD; Gout; DVT; Diabetes - NIDDM; Hypertension; DIALYSIS ss Saturday, and saturdays; Edema Lower leg; polymyalgia rheumatica; Ganglion, shoulder; - Immunization history:: Adult Immunizations up to date. - Social history:: Smoking status: Patient/guardian denies using tobacco. - Ebola Screening: : Patient denies exposure to infectious person Patient denies travel to an Ebola-affected area in the 21 days before illness onset. Screenin:30 Abuse screen: Denies threats or abuse. Denies injuries from another. Nutritional ss screening: No deficits noted. Tuberculosis screening: No symptoms or risk factors identified. Never had TB. Fall Risk No fall in past 12 months (0 pts). Secondary diagnosis (15 points) impaired mobility, IV access (20 points). Ambulatory Aid- None/Bed Rest/Nurse Assist (0 pts). Gait- Normal/Bed Rest/Wheelchair (0 pts) Mental Status- Oriented to own ability (0 pts). Assessment: 11:30 General: Appears in no apparent distress. comfortable, Behavior is calm, cooperative, ss drowsy, Pt appears tired/ drowsy, but responds easily to verbal stimuli. Denies fever, feeling ill, fatigue, chills. Pain: Complains of pain in right ellis Pain currently is 0 out of 10 on a pain scale. at worst was 10 out of 10 on a pain scale. Quality of pain is described as aching, crampy, tender, Is continuous. Neuro: Level of Consciousness is obeys commands, Oriented to person, place, situation, Speech is normal, Denies blurred vision dizziness, headache. Cardiovascular: Capillary refill is > 3 seconds is sluggish in bilateral fingers toes. Cardiovascular: Dialysis shunt: in the left bicep, with palpable thrill, with auscultated bruit, with no erythema, with no edema, no bleeding noted. Respiratory: Airway is patent Respiratory effort is even, unlabored, Respiratory pattern is regular, symmetrical. GI: Abdomen is non-distended, Patient currently denies diarrhea, nausea, vomiting. : Parent/caregiver report the patient having reports that patient no longer produces any urine. EENT: Oral mucosa is dry. Derm: Skin is intact, is healthy with good turgor, Skin is dry, Skin is pink, warm \T\ dry. normal. Musculoskeletal: Circulation, motion, and sensation intact. Swelling absent. 12:30 Reassessment: Patient appears in no apparent distress at this time. Pt is resting with ss eyes closed, respirations remain even and unlabored. 13:00 Reassessment: Confirmed order for liter bolus of NS with Dr. Mcgee due to patient being kr2 on Dialysis. Per Dr. Mcgee continue with order. 14:04 Reassessment: Patient appears in no apparent distress at this time. Patient and/or kr2 family updated on plan of care and expected duration. Pain level reassessed. Patient remains drowsy. 15:00 Reassessment: Patient appears in no apparent distress at this time. Patient and/or kr2 family updated on plan of care and expected duration. Pain level reassessed. Patient sleeping at this time. 17:24 Reassessment: Patient appears in no apparent distress at this time. Patient and/or kr2 family updated on plan of care and expected duration. Pain level reassessed. Patient is more alert at this time, able to give his name, date of and location. Patient's spouse at bedside. Report called to Joslyn Meyer RN. Vital Signs: 12:46 BP 97 / 50; Pulse 54; Resp 16; Temp 98.2(TE); Pulse Ox 98% on R/A; Weight 113.4 kg; ss Height 6 ft. 3 in. (190.50 cm); Pain 0/10; 12:48 BP 100 / 47; ss 13:30 BP 125 / 60; Pulse 52; Resp 15; Pulse Ox 100% on R/A; ss 14:05 BP 124 / 56; Pulse 50; Resp 17; Pulse Ox 98% on R/A; kr2 15:07 BP 96 / 50; Pulse 52; Resp 13; Pulse Ox 98% on R/A; kr2 16:38 BP 113 / 47; Pulse 50; Resp 12; Temp 97.7; Pulse Ox 100% on R/A; kr2 17:30 BP 107 / 54; Pulse 50; Resp 14; Pulse Ox 99% ; kr2 12:46 Body Mass Index 31.25 (113.40 kg, 190.50 cm) ED Course: 11:24 Patient arrived in ED. pt 11:30 Patient maintains SpO2 saturation greater than 95% on room air. ss 11:30 Patient has correct armband on for positive identification. Bed in low position. Call ss light in reach. 11:31 Chris Mcgee MD is Attending Physician. gs 12:09 Chest Single View XRAY In Process Unspecified. EDMS 12:10 X-ray completed. Portable x-ray completed in exam room. Patient tolerated procedure jb2 well. 12:20 Inserted saline lock: 22 gauge in right antecubital area, using aseptic technique. ss Blood collected. 12:37 Parul Lion, BREANNE is Primary Nurse. ss 12:39 Triage completed. ss 13:00 Patient notified of wait time. kr2 13:45 Notified ED physician of a critical lab result(s). creatinine 5.4, troponin 0.55. dm5 14:01 Mike Castellanos DO is Hospitalizing Provider. gs 14:24 CT completed. Patient tolerated procedure well. Patient moved to CT via stretcher. sj Patient moved back from CT. 14:26 CT Head Brain wo Cont In Process Unspecified. EDMS 17:54 No provider procedures requiring assistance completed. Patient admitted, IV remains in kr2 place. Administered Medications: 13:35 Drug: NARcan 0.4 mg Route: IVP; Site: right antecubital; kr2 14:03 Follow up: Response: No adverse reaction kr2 13:36 Drug: Zosyn 2.25 grams Route: IVPB; Infused Over: 60 mins; Site: right antecubital; kr2 14:30 Follow up: Response: No adverse reaction; IV Status: Completed infusion kr2 13:37 Drug: NS 0.9% 1000 ml Route: IV; Rate: 1 bolus; Site: right antecubital; kr2 16:52 Follow up: Response: No adverse reaction; IV Status: Completed infusion kr2 14:35 Drug: vancoMYCIN 1 grams Route: IVPB; Infused Over: 2 hrs; Site: right antecubital; kr2 16:52 Follow up: Response: No adverse reaction; IV Status: Completed infusion kr2 Outcome: 14:02 Decision to Hospitalize by Provider. 17:54 Admitted to ICU accompanied by nurse, accompanied by tech, via stretcher, room 7, with kr2 chart, Report called to Joslyn Meyer RN 17:54 Condition: stable 17:54 Instructed on the need for admit, spoke with spouse Demonstrated understanding of instructions. 17:59 Patient left the ED. kr2 Signatures: Dispatcher [employer] EDMS Juli Eldridge, RN Sheila Serrano RN RN pt Buechter, Jesse jb2 Jones, Susan sj Solis, Maria ms Parul Lion RN RN ss Starr, Gregory, MD MD Dayanara Lomax RN RN kr2 Corrections: (The following items were deleted from the chart) 12:24 12:23 Inserted saline lock: 20 gauge in right antecubital area, using aseptic ms technique. Blood collected. ms 12:24 12:23 Initial lab(s) drawn, by co, sent to lab. Urine collected: clean catch specimen, ms clear, EKG done, by technical staff engineer. reviewed by Chris Mcgee MD ms 15:08 14:04 Reassessment: Patient appears in no apparent distress at this time. Patient kr2 and/or family updated on plan of care and expected duration. Pain level reassessed. kr2 16:53 16:38 BP 113 / 47; Pulse 50bpm; Resp 12bpm; Pulse Ox 100% RA; kr2 kr2 17:58 17:24 Reassessment: Patient appears in no apparent distress at this time. Patient kr2 and/or family updated on plan of care and expected duration. Pain level reassessed. Report called to Joslyn Meyer RN kr2
--- NOTE | 2018-06-04 14:03 | EDPHYS ---
Physician Documentation [facility] Name: Nain Cartagena Jr Age: 67 yrs Sex: Male : 1950 Arrival Date: 06/04/2018 Time: 11:24 Bed 25 Private MD: ED Physician Chris Mcgee HPI: 06/04 15:53 This 67 yrs old Black Male presents to ER via Stretcher with complaints of low BP, sent gs by PCP. 15:53 The patient presents with decreased mental status. Onset: The symptoms/episode gs began/occurred 2 day(s) ago, and became persistent. Possible causes: drug use, narcotics, in presence of esrd. Associated signs and symptoms: Pertinent positives: hypotension. The patient has experienced similar episodes in the past, a few times. Historical: - Allergies: 12:46 No Known Allergies; ss - PMHx: 12:46 Atrial Fib; CHF; GERD; ESRD; Gout; DVT; Diabetes - NIDDM; Hypertension; DIALYSIS ss Saturday, and saturdays; Edema Lower leg; polymyalgia rheumatica; Ganglion, shoulder; - Immunization history:: Adult Immunizations up to date. - Social history:: Smoking status: Patient/guardian denies using tobacco. - Ebola Screening: : Patient denies exposure to infectious person Patient denies travel to an Ebola-affected area in the 21 days before illness onset. ROS: 15:53 Unable to obtain ROS due to patient distress. gs Exam: 15:53 Head/Face: Normocephalic, atraumatic. Eyes: Pupils equal round and reactive to light, gs extra-ocular motions intact. Lids and lashes normal. Conjunctiva and sclera are non-icteric and not injected. Cornea within normal limits. Periorbital areas with no swelling, redness, or edema. ENT: Nares patent. No nasal discharge, no septal abnormalities noted. Tympanic membranes are normal and external auditory canals are clear. Oropharynx with no redness, swelling, or masses, exudates, or evidence of obstruction, uvula midline. Mucous membranes moist. Chest/axilla: Normal chest wall appearance and motion. Nontender with no deformity. No lesions are appreciated. 15:53 Respiratory: Lungs have equal breath sounds bilaterally, clear to auscultation and percussion. No rales, rhonchi or wheezes noted. No increased work of breathing, no retractions or nasal flaring. Abdomen/GI: Soft, non-tender, with normal bowel sounds. No distension or tympany. No guarding or rebound. No evidence of tenderness throughout. Back: No spinal tenderness. No costovertebral tenderness. Full range of motion. 15:53 Constitutional: The patient appears lethargic. 15:53 Cardiovascular: Rate: bradycardic, Pulses: thready. 15:53 ECG was reviewed by the Attending Physician. 15:53 Musculoskeletal/extremity: swelling ulceration r calf. 15:53 Neuro: Mentation: slow to respond, Cranial nerves: no acute changes, Motor: moves all fours. Vital Signs: 12:46 BP 97 / 50; Pulse 54; Resp 16; Temp 98.2(TE); Pulse Ox 98% on R/A; Weight 113.4 kg; ss Height 6 ft. 3 in. (190.50 cm); Pain 0/10; 12:48 BP 100 / 47; ss 13:30 BP 125 / 60; Pulse 52; Resp 15; Pulse Ox 100% on R/A; ss 14:05 BP 124 / 56; Pulse 50; Resp 17; Pulse Ox 98% on R/A; kr2 15:07 BP 96 / 50; Pulse 52; Resp 13; Pulse Ox 98% on R/A; kr2 16:38 BP 113 / 47; Pulse 50; Resp 12; Temp 97.7; Pulse Ox 100% on R/A; kr2 17:30 BP 107 / 54; Pulse 50; Resp 14; Pulse Ox 99% ; kr2 12:46 Body Mass Index 31.25 (113.40 kg, 190.50 cm) MDM: 12:01 Patient medically screened. gs 15:53 Differential Diagnosis: CVA, electrolyte abnormality, pneumonia, sepsis. Data reviewed: vital signs, nurses notes. Response to treatment: the patient's symptoms have markedly improved after treatment, and as a result, I will admit patient. Physician consultation: Dixon Bran MD can see if needed. 06/04 12:00 Order name: Basic Metabolic Panel; Complete Time: 14:01 06/04 12:00 Order name: Blood Culture Adult (2) 06/04 12:00 Order name: CBC with Diff; Complete Time: 13:33 06/04 12:00 Order name: CPK; Complete Time: 14:01 06/04 12:00 Order name: Lactate; Complete Time: 14:01 06/04 12:00 Order name: LFT's; Complete Time: 14:01 06/04 12:00 Order name: Lipase; Complete Time: 14:01 06/04 12:00 Order name: Procalcitonin; Complete Time: 15:59 06/04 12:00 Order name: Protime (+inr); Complete Time: 13:04 06/04 12:00 Order name: Ptt, Activated; Complete Time: 13:04 06/04 12:00 Order name: Troponin (emerg Dept Use Only); Complete Time: 14:01 06/04 12:00 Order name: Urine Microscopic Only 06/04 13:09 Order name: Manual Differential; Complete Time: 13:33 [facility] 06/04 14:21 Order name: Lactate EDMA 06/04 14:21 Order name: CKMB Creatine Kinase MB EDMA 06/04 14:21 Order name: CKMB Creatine Kinase MB EDMA 06/04 14:21 Order name: CKMB Creatine Kinase MB EDMA 06/04 14:21 Order name: Comprehensive Metabolic Panel [facility] 06/04 14:21 Order name: Comprehensive Metabolic Panel [facility] 06/04 14:21 Order name: Comprehensive Metabolic Panel [facility] 06/04 14:21 Order name: Comprehensive Metabolic Panel [facility] 06/04 14:21 Order name: Creatine Phosphokinase EDMA 06/04 14:21 Order name: Creatine Phosphokinase EDMA 06/04 14:21 Order name: Creatine Phosphokinase EDMA 06/04 14:21 Order name: Magnesium EDMA 06/04 14:21 Order name: Magnesium EDMA 06/04 14:21 Order name: Magnesium EDMS 06/04 14:21 Order name: Magnesium EDMA 06/04 14:21 Order name: Troponin I EDMA 06/04 12:00 Order name: Chest Single View XRAY; Complete Time: 12:47 06/04 12:00 Order name: Accucheck; Complete Time: 13:32 06/04 12:00 Order name: Cardiac monitoring; Complete Time: 12:23 06/04 12:00 Order name: EKG - Nurse/Tech; Complete Time: 12:22 06/04 12:00 Order name: IV Saline Lock - Large Bore; Complete Time: 13:32 gs 06/04 12:00 Order name: Labs collected and sent; Complete Time: 13:31 gs 06/04 12:00 Order name: O2 Per Protocol; Complete Time: 12:23 gs 06/04 12:00 Order name: O2 Sat Monitoring; Complete Time: 13:31 gs 06/04 12:00 Order name: Urine Dipstick-Ancillary (obtain specimen); Complete Time: 13:31 gs 06/04 12:34 Order name: EKG Electrocardiogram EDMS 06/04 12:44 Order name: Labs - recollect needed; Complete Time: 13:31 bd 06/04 14:10 Order name: CT Head Brain wo Cont; Complete Time: 15:59 gs 06/04 14:21 Order name: CONS Physician Consult EDMA 06/04 14:21 Order name: CONS Physician Consult EDMA 06/04 14:21 Order name: Troponin I EDMA 06/04 14:21 Order name: Troponin I EDMA 06/04 14:21 Order name: Blood Culture EDMA 06/04 14:21 Order name: Urine Culture EDMA 06/04 14:22 Order name: CONS Pharmacy Consult EDMS 06/04 14:22 Order name: Respiratory Therapy Consult EDMA 06/04 14:22 Order name: Renal EDMS 06/04 14:22 Order name: CBC with Automated Diff EDMS 06/04 14:22 Order name: CBC with Automated Diff EDMS 06/04 14:22 Order name: CBC with Automated Diff EDMS 06/04 14:22 Order name: CBC with Automated Diff EDMS 06/04 14:22 Order name: Chest Single View EDMA 06/04 14:22 Order name: Chest Single View EDMS 06/04 16:27 Order name: Lactate Sepsis 2 HR Follow-up EDMS EC:53 Rate is 54 beats/min. Rhythm is regular. OK interval is prolonged. QRS interval is gs prolonged. Clinical impression: NSR w/ Non-specific ST/T Changes and Abnormal EKG without significant change. Interpreted by me. Administered Medications: 13:35 Drug: NARcan 0.4 mg Route: IVP; Site: right antecubital; kr2 14:03 Follow up: Response: No adverse reaction kr2 13:36 Drug: Zosyn 2.25 grams Route: IVPB; Infused Over: 60 mins; Site: right antecubital; kr2 14:30 Follow up: Response: No adverse reaction; IV Status: Completed infusion kr2 13:37 Drug: NS 0.9% 1000 ml Route: IV; Rate: 1 bolus; Site: right antecubital; kr2 16:52 Follow up: Response: No adverse reaction; IV Status: Completed infusion kr2 14:35 Drug: vancoMYCIN 1 grams Route: IVPB; Infused Over: 2 hrs; Site: right antecubital; kr2 16:52 Follow up: Response: No adverse reaction; IV Status: Completed infusion kr2 Disposition: 15:53 Critical Care:. gs Disposition: 06/04/18 14:02 Hospitalization ordered by Mike Castellanos for Inpatient Admission. Preliminary diagnosis is Severe sepsis without septic shock. - Bed requested for Intensive Care Unit. - Status is Inpatient Admission. kr2 - Condition is Stable. - Problem is new. - Symptoms have improved. UTI on Admission? No Critical care time excluding procedures: 15:53 Critical care time: Bedside Care: 10 minutes, Consultation: 10 minutes, Family gs Intervention: 10 minutes. Total time: 30 minutes Signatures: Dispatcher [employer] EDMA Sunitha Pacheco Diana, RN RN dw Smirch, Shelby, RN RN ss Starr, Gregory, MD MD gs Reaves, Karey, RN RN kr2 Corrections: (The following items were deleted from the chart) 13:09 12:52 CBC Smear Scan ordered. EDMA EDMA 16:08 14:02 Hospitalization Ordered by Mike Castellanos DO for Inpatient Admission. Preliminary diagnosis is Severe sepsis without septic shock. Bed requested for Telemetry/MedSurg (Inpatient). Status is Inpatient Admission. Condition is Stable. Problem is new. Symptoms have improved. UTI on Admission? No. gs 16:10 16:08 06/04/2018 14:02 Hospitalization Ordered by Mike Castellanos DO for Inpatient dw Admission. Preliminary diagnosis is Severe sepsis without septic shock. Bed requested for Telemetry/MedSurg (Inpatient). Status is Inpatient Admission. Condition is Stable. Problem is new. Symptoms have improved. UTI on Admission? No. dw 17:59 16:10 06/04/2018 14:02 Hospitalization Ordered by Mike Castellanos DO for Inpatient kr2 Admission. Preliminary diagnosis is Severe sepsis without septic shock. Bed requested for Intensive Care Unit. Status is Inpatient Admission. Condition is Stable. Problem is new. Symptoms have improved. UTI on Admission? No. dw
[2018-06-04] MEDS ORDERED: ACETAMINOPHEN 500 MG TAB PO PRN (14:06)
[2018-06-04] MEDS ORDERED: ACETAMINOPHEN 650MG/RECT SUPP PR PRN (14:06)
[2018-06-04] MEDS ORDERED: SODIUM CHLORIDE 0.9% 10ML INJ IV PRN (14:06)
[2018-06-04] MEDS ORDERED: ONDANSETRON 4 MG/2 ML VIAL IV PRN (14:06)
--- NOTE | 2018-06-04 14:38 | RAD REPORT ---
EXAM DESCRIPTION: CT - Head Brain Wo Cont - 06/04/2018 2:26 pm CLINICAL HISTORY: DECLINING STATE Hypotension, drowsiness. COMPARISON: Head Brain Wo Cont dated 04/19/2018; Head Brain Wo Cont dated 02/22/2018 TECHNIQUE: All CT scans are performed using dose optimization technique as appropriate and may inclu de automated exposure control or mA/KV adjustment according to patient size. FINDINGS: No intracranial hemorrhage, hydrocephalus or extra-axial fluid collection.Moderate general ized brain atrophy is present with moderate periventricular and deep white matter chronic microvascul ar ischemic changes.No areas of brain edema or evidence of midline shift. Opacification of the right mastoid air cell is noted. The paranasal sinuses and mastoids are otherwis e clear. The calvarium is intact. IMPRESSION: No acute intracranial abnormality. Right mastoiditis.
[2018-06-04] MEDS ORDERED: ENOXAPARIN 40 MG/0.4 ML SQ SCH (15:00)
[2018-06-04] MEDS ORDERED: PIPER/TAZO/NS 3.375gm 3.375 GM/100 ML BAG IVPB SCH (15:00)
--- NOTE | 2018-06-04 15:23 | P.HP ---
Certification for Inpatient Patient admitted to: Inpatient With expected LOS: >2 Midnights Patient will require the following post-hospital care: Long Term Practitioner: I am a practitioner with admitting privileges, knowledge of patient current condition, hospital course, and medical plan of care. Services: Services provided to patient in accordance with Admission requirements found in Title 42 Section 412.3 of the Code of Federal Regulations Patient History Date of Service: 06/04/18 Primary Care Provider: Dr. Donald; Nephrology-Dr. Joseph Reason for admission: Confusion, fatigue History of Present Illness: 67-year-old male with multiple medical problems was sent from the wound Care Center to the ER for further evaluation due to increasing fatigue and confusion. Patient was seen by the wound care doctor to follow up on right lower extremity cellulitis. Patient with multiple medical problems including end-stage renal disease, chronic right lower extremity wound with history of MRSA, severe pulmonary hypertension, combined CHF, hypertension, depression, dementia, history of PE/DVT with IVC filter in place, GERD, history of GI bleed, anemia of chronic disease and chronic atrial fibrillation not on chronic anti coagulation therapy. Wound care doctor reports that the patient appeared slightly confused likely from increase pain medication use. Blood pressures were decreased with a blood pressure of around 90 systolic. Patient was recently hospitalized for suspected GI bleed. Patient had workup including EGD and blood scan. At that time. Anti coagulation therapy was not recommended for his DVT/PE. The reports that the patient had been having some increased confusion. Sepsis was suspected. Patient was sent to the ER for evaluation. In the ER patient was given 250 cc bolus of fluids. Blood pressure improved. White count 5.5, hemoglobin 7.4, platelet count 151. 3 bands were noted. Sodium 127, potassium 3.9, BUN of 40, creatinine 5.4 with a GFR 13. Lactic acid 2.6, calcium 8.1, PTT 21.5 with an INR 1.8. Troponin 0.5. Pro calcitonin pending. CT of the head unremarkable. Chest x-ray showed some pulmonary edema. Patient was admitted for treatment. When I saw the patient ER, he appeared confused with increased somnolence. Allergies No Known Allergies Allergy (Verified 01/30/18 01:55) Home medications list reviewed: Yes Home Medications: Atorvastatin Calcium [Lipitor] 40 mg PO BEDTIME 01/30/18 Hydrocodone 10/APAP 325 [[place] 10/325*] 1 tab PO TID PRN 01/30/18 Pantoprazole [Protonix Tab*] 40 mg PO DAILY 01/30/18 Sertraline [Zoloft*] 50 mg PO DAILY 01/30/18 clonazePAM [Clonazepam] 1 mg PO BID 01/30/18 Aspirin [Adult Aspirin] 81 mg PO DAILY 02/07/18 Metoprolol Tartrate [Lopressor*] 12.5 mg PO DAILY 02/07/18 Midodrine HCl [Proamatine*] 5 mg PO TID #90 tab 02/08/18 Polyethylene Glycol 3350 [Miralax] 17 gm PO DAILY PRN 02/23/18 Amiodarone HCl [Pacerone] 200 mg PO DAILY 04/19/18 Cinacalcet HCl [Sensipar] 30 mg PO BREAKFAST 04/19/18 Lactulose 10 gm PO BID 04/19/18 Sevelamer Carbonate [Renvela] 1,600 mg PO TIDWM 04/19/18 - Past Medical/Surgical History Diabetic: No -: ESRD on Saturday, , and Saturday -: Combined CHF, severe pulmonary hypertension -: HTN -: Cyst to bilateral arms -: Carpal Tunnel -: Atrial fibrillation/atrial flutter/No anticoagulation due to GI bleed risk -: Small-bowel obstruction/abdominal surgery -: Hx Pulmonary embolism, now with IVC filter -: DVT with bilateral upper and lower extremity DVTs -: CAD, CABG, Heart attack x2 -: Dementia -: Hypotension on Midodrine. -: Dialysis access catheter placement -: carpal tunnel surgery bilat hands -: CABG -: IVC filter Psychosocial/ Personal History: He is . - Family History Sister -: Cancer Notes: leukemia Father -: Heart disease Mother -: Other (see notes) Notes: Dementia Brother -: Cancer - Social History Smoking Status: Unknown if ever smoked Alcohol use: No CD- Drugs: No Caffeine use: Yes Place of Residence: Home Review of Systems General: Weakness, Malaise Eyes: As per HPI ENT: As per HPI Respiratory: Shortness of Breath, As per HPI Cardiovascular: Edema, As per HPI Gastrointestinal: Unremarkable Genitourinary: Unremarkable Musculoskeletal: Pedal edema, As per HPI Integumentary: As per HPI Neurological: Confusion, As per HPI Lymphatics: Unremarkable Physical Examination - Physical Exam General: Alert, In no apparent distress, Confused HEENT: Atraumatic, Normocephalic, Mucous membr. moist/pink Neck: Supple, No Thyromegaly Respiratory: Crackles/rales (Bilateral) Cardiovascular: Normal pulses, Regular rate/rhythm Gastrointestinal: Normal bowel sounds, Soft and benign, Non-distended, No tenderness, No masses, No rebound, No guarding Musculoskeletal: No warmth, Tenderness (Mild tenderness to the right lower extremity) Integumentary: Tenderness/swelling (Edema to the right lower extremity. Chronic wound to the right lower extremity noted below the knee. Bandage in place) Neurological: Normal strength at 5/5 x4 extr, Normal tone, Other (Confusion noted), Dementia - Studies Laboratory Data (last 24 hrs) 06/04/18 13:02: Sodium 127 L, Potassium 3.9, BUN 40 H, Creatinine 5.40 H* D, Glucose 88, Total Bilirubin 0.7, AST 19, ALT 10 L, Alkaline Phosphatase 169 H, Lipase 75 06/04/18 12:20: PT 21.5 H, INR 1.81, APTT 35.2 06/04/18 12:20: WBC 5.5, Hgb 7.4 L*, Hct 21.5 L, Plt Count 151 L D Assessment and Plan - Plan Impression: Acute encephalopathy multifactorial suspect sepsis related to chronic right lower extremity ulcer/cellulitis, uremia, and possible pain medication-related Chronic right lower extremity ulcer/cellulitis with history of MRSA End-stage renal disease on dialysis Anemia with history of GI bleed, no rectal bleeding identified Acute on chronic combined CHF with severe pulmonary hypertension and moderate tricuspid regurgitation Dementia Depression Hypotension currently on Midodrine History pulmonary embolism/DVT not on chronic anti coagulation due to high risk for GI bleed GERD Chronic atrial fibrillation not on chronic anti coagulation due to high risk for bleed Hyponatremia Plan: Acute encephalopathy multifactorial suspect sepsis related to chronic right lower extremity ulcer/cellulitis, uremia, and possible pain medication-related: Patient will be admitted to ICU for close monitoring. Continue with IV antibiotic therapy-vancomycin and Zosyn. Pharmacy to monitor and adjust. Will obtain urine, blood and wound culture. Will hold blood pressure medication. Patient given Narcan in the emergency room. Case discussed at length with nephrology. Chronic right lower extremity ulcer/cellulitis with history of MRSA: Will continue with IV antibiotic therapy. Will continue with wound care as per wound care instruction. End-stage renal disease on dialysis: Patient may require dialysis today. Nephrology to evaluate and address. Anemia with history of GI bleed, no rectal bleeding identified: Will type and cross for 2 units of blood as the patient may require blood transfusion during dialysis. Will continue with DVT prophylaxis. Patient not on chronic anti coagulation therapy. Will provide Protonix IV Acute on chronic combined CHF with severe pulmonary hypertension and moderate tricuspid regurgitation: Patient may require dialysis today. Case discussed with nephrology. Nephrology to evaluate further. Dementia: Will need to obtain and review home medication. Medication may need to be started. Depression: Will obtain and review home medication. Medication may need to be restarted. Hypotension currently on Midodrine: Will obtain and review home medication. Midodrine may need to be restarted. History pulmonary embolism/DVT not on chronic anti coagulation due to high risk for GI bleed: Will continue with DVT prophylaxis only. Will monitor patient closely. Will monitor hemoglobin closely. GERD: Will provide PPI b.i.d.. Chronic atrial fibrillation not on chronic anti coagulation due to high risk for bleed: Will need to obtain and verify home medication. Will provide DVT prophylaxis only. Hyponatremia: Patient will likely receive dialysis. Case discussed with nephrology. Nephrology to further address. I will turn the service over to Dr. Moyer tomorrow. I will go over the plan of care with her. Discharge Plan: Home (With home health and physical therapy) Plan to discharge in: Greater than 2 days - Advance Directives Does patient have a Living Will: Yes Does patient have a Durable POA for Healthcare: Yes - Code Status/Comfort Care Code Status Assessed: Yes (Patient is full code.) Time Spent Managing Pts Care (In Minutes): 55
[2018-06-04] MEDS ORDERED: DESMOPRESSIN 4 MCG/ML AMP IV ONE (17:19)
--- NOTE | 2018-06-04 17:39 | EKG ---
Test Date: 2018-06-04 Test Time: 11:40:07 Internet Sales Manager: ALLEY MEASUREMENT RESULTS: Intervals: Rate: 54 UT: 216 QRSD: 154 QT: 548 QTc: 519 [place]: P: 110 UT: 216 QRS: -50 T: 112 INTERPRETIVE STATEMENTS: Sinus bradycardia with 1st degree AV block Left axis deviation Nonspecific intraventricular block Abnormal ECG Compared to ECG 05/30/2018 21:25:15 First degree AV block now present Sinus rhythm no longer present Electronically Signed On 06-04-18 17:38:12 CDT by Isai Martinez
[2018-06-04] MEDS ORDERED: DESMOPRESSIN 20 MCG in NA CHLORIDE 0.9% 50 ML IV ONE (18:00)
[2018-06-04] MEDS: PANTOPRAZOLE 40 MG INJ IVP SCH ×2 (18:21→21:33)
[2018-06-04 19:41] LABS: CKMB Creatine Kinase MB 1.3 ng/mL (0.3-3.6)
[2018-06-04 19:42] LABS: Troponin I 0.53 ng/mL (0.0-0.045)
[2018-06-04] MEDS ORDERED: VANCOMYCIN 1.75 GM in NA CHLORIDE 0.9% 500 ML IVPB ONE (21:00)
[2018-06-04] MEDS ORDERED: NA CHLORIDE 0.9% 250 ML ONE (21:30)
[2018-06-04] MEDS: PIPER/TAZO/NS 3.375gm 3.375 GM/100 ML BAG IVPB SCH (21:34)
[2018-06-04] MEDS ORDERED: EPOETIN ALFA 10,000 UNIT/ML VIAL IV SCH (23:15)
--- NOTE | 2018-06-05 03:32 | CON ---
Date of Consultation: 06/04/2018 Reason For Consultation: Elevated BUN and creatinine, hemodialysis management, altered mental status . History Of Present Illness: This is a pleasant unfortunate 67-year-old gentleman with significant [facility] medical history of end-stage renal disease, on hemodialysis, TTS; recurrent GI bleed; coronary art ana disease with congestive heart failure and diastolic dysfunction; secondary hyperparathyroidism; h ypertension. The patient went from the senior living to the Wound Care for evaluation, found to have low blood pressure, altered mental status. For that reason, the patient was sent to the emergency ro om. In the emergency room, found to have severely anemic, low blood pressure down to the 70 with mul tiple ulcers and yellowish drainage on the right leg. For that reason, the patient was admitted for septic shock. The patient apparently has giving him pain medication. For that reason, he was a ltered in the hospital. In the ER, the patient was given Narcan, started being awake, given a bolus of normal saline and blood pressure stabilized. We have been consulted to maintain his dialysis. Past Medical History: Include: 1.Hypertension. 2.Hyperlipidemia. 3.AFib. 4.Coronary artery disease with congestive heart failure, diastolic dysfunction. 5.Secondary hyperparathyroidism. 6.GI bleed. 7.End-stage renal disease, on hemodialysis, TTS. Allergies: NO KNOWN DRUG ALLERGIES. Social History: Denies smoking, denies drinking, denies drug abuse. Past Surgical History: Includes CABG, carpal tunnel, AV fistula creation. Review of Systems: Head and Neck: No red eye. No ear pain. GI: Has abdominal pain. : No polyuria. No dysuria. No hematuria. 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 Respiratory: No shortness of breath. The patient is lying flat. Cardiovascular: Has leg swelling. Endocrine: No polydipsia. Skin: No rash. Neuro: The patient has generalized weakness. Musculoskeletal: No joint pain. Physical Examination: Vital Signs: When I saw the patient, blood pressure of 113/30, pulse of 50, afebrile. Chest: Clear to auscultation. Heart: S1, S2. Systolic murmur. Abdomen: Soft, nontender. Extremities: Plus edema. Swelling on the right leg with foul smelling. Laboratory Data: WBC 5.5, H and H 7.4/21.5, platelets 151. Sodium 127, potassium 3.9, bicarb 26, BU N 40, creatinine 5.4, calcium 8.1. Troponin 0.5, procalcitonin 4.1. Albumin 2.1. Home Medications: Include tramadol, Sensipar, gabapentin, midodrine, pantoprazole, metoprolol, and R envela. Current Medications: Include Lovenox, Zosyn, and vancomycin. Assessment And Plan: 1.End-stage renal disease. Normal volume with severe anemia. Possible septic shock/cardiogenic hilda ck. I am going to hold on the IV fluid. I do not see the need to do the dialysis right now to give a chance for more stability. We will arrange for dialysis tomorrow. 2.Anemia, possible secondary to chronic kidney disease and possible recurrent gastrointestinal loss. I gave the patient DDAVP and we will transfuse the patient 1 unit today, then we are going to do an other unit tomorrow with the dialysis. We will start the patient on Epogen. 3.Hyponatremia secondary to dilutional, renal failure, congestive heart failure. Going to be correc tania with dialysis. 4.Hypertension/hypotension secondary to septic shock/cardiogenic shock. We will continue supportive treatment with midodrine. We will transfuse another unit tomorrow. 5.Coronary artery disease. Congestive heart failure. Currently normal volume. 6.Sepsis secondary to wound infection. I agree with current antibiotic. We will follow up the cult ure. 7.Cardiogenic shock. Continue current treatment. Hold blood pressure medication. We will use sven love for support. LEANN/TRICE Voice ID: [id number] Report ID: [id number]
[2018-06-05 05:20] LABS: Absolute Lymphocytes (CBC) 0.8 K/uL (0.7-4.9); Absolute Monocytes 0.4 K/uL (0.1-1.3); Absolute Neutrophil 3.2 K/uL (1.8-8.0); Basophils % 0.7 % (0-1.3); Eosinophils % 0.3 % (0-4.4); Lymphocytes % 18.7 % (15.3-44.8); MCH 30.3 pg (27.0-35.0); MCV 88.1 fL (80-100); MPV 7.8 fL (7.6-11.3); Monocytes % 8.3 % (3.3-12.3); RBC Red Blood Cell Count 2.38 M/uL (4.33-5.43)
[2018-06-05 05:40] LABS: Albumin 1.8 g/dL (3.4-5.0); Bilirubin Total 0.8 mg/dL (0.2-1.0); CKMB Creatine Kinase MB 1.3 ng/mL (0.3-3.6); Magnesium 1.9 mg/dL (1.8-2.4); Potassium 4.2 mmol/L (3.5-5.1); Protein, Total 9.3 g/dL (6.4-8.2); Troponin I 0.48 ng/mL (0.0-0.045)
--- NOTE | 2018-06-05 08:04 | RAD REPORT ---
EXAM DESCRIPTION: [place]iet Single View06/05/2018 6:56 am CLINICAL HISTORY: Chest pain COMPARISON: 06/04/2018 FINDINGS: The interstitial pulmonary edema has resolved. The heart is moderately to markedly enlarg ed. Postsurgical changes involve the chest. IMPRESSION: Resolution of interstitial pulmonary edema
[2018-06-05] MEDS ORDERED: MIDODRINE HCL 5 MG TABLET PO SCH ×2 (08:55→09:00)
[2018-06-05] MEDS ORDERED: VANCOMYCIN 1 GM in NA CHLORIDE 0.9% 500 ML IVPB SCH (09:00)
[2018-06-05] MEDS ORDERED: ENOXAPARIN 30 MG/0.3 ML SQ SCH (09:00)
[2018-06-05] MEDS: ASPIRIN EC 81 MG TAB PO SCH (09:17)
[2018-06-05] MEDS: PANTOPRAZOLE 40 MG INJ IVP SCH (09:18)
[2018-06-05] MEDS ORDERED: MIDODRINE HCL 5 MG TABLET PO PRN (10:38)
[2018-06-05] MEDS ORDERED: HEPARIN 5000 UNIT/ML 1 ML VIAL SQ SCH (11:30)
[2018-06-05] MEDS: SEVELAMER CARBONATE 800 MG TABLET PO SCH ×2 (12:00→17:00)
[2018-06-05] MEDS ORDERED: ALBUMIN HUMAN 25% 100 ML IV ONE (12:05)
--- NOTE | 2018-06-05 12:30 | P.PN ---
Subjective Date of Service: 06/05/18 Primary Care Provider: Dr. Donald; Nephrology-Dr. Joseph Chief Complaint: Confusion, fatigue Patient seen and examined at bedside with RN. Chart reviewed. Case discussed with nephrology at this time. No complaints to offer overnight. Patient however does seem to be very uncomfortable on the bed at this time. States he has not been able to rest up. Feels better than before however Review of Systems 10-point ROS is otherwise unremarkable Physical Examination - Vital Signs Temperature: 97.8 F Blood Pressure: 126/37 Pulse: 59 Respirations: 13 Pulse Ox (%): 100 - Physical Exam General: Alert, In no apparent distress HEENT: Atraumatic, PERRLA, EOMI Neck: Supple, JVD not distended Respiratory: Clear to auscultation bilaterally, Normal air movement Cardiovascular: Regular rate/rhythm, Normal S1 S2 Gastrointestinal: Normal bowel sounds, No tenderness Musculoskeletal: No tenderness Integumentary: Skin breakdown, Skin lesion, Tenderness/swelling, Erythema, Warmth, Other (Right-sided lower leg wound noted.) Neurological: Normal speech, Normal tone, Normal affect Lymphatics: No axilla or inguinal lymphadenopathy - Studies Laboratory Data (last 24 hrs) 06/04/18 13:02: Sodium 127 L, Potassium 3.9, BUN 40 H, Creatinine 5.40 H* D, Glucose 88, Total Bilirubin 0.7, AST 19, ALT 10 L, Alkaline Phosphatase 169 H, Lipase 75 06/04/18 12:20: PT 21.5 H, INR 1.81, APTT 35.2 06/04/18 12:20: WBC 5.5, Hgb 7.4 L*, Hct 21.5 L, Plt Count 151 L D Medications List Reviewed: Yes Assessment And Plan - Current Problems (Diagnosis) (1) Sepsis Onset Date: 06/25/17 Current Visit: No Status: Acute Plan: Septic shock most likely secondary to chronic venous stasis ulcer and cellulitis of the right lower extremity -currently on IV vancomycin and Zosyn at this time -wound culture and blood culture pending at this time -wound care consulted appreciated recommendations at this time -if no change in symptoms or no clinical improved will get surgical consultation -septic shock has now resolved Qualifiers: Sepsis type: sepsis due to unspecified organism Qualified Code(s): A41.9 - Sepsis, unspecified organism (2) ESRD on dialysis Onset Date: 06/05/18 Current Visit: No Status: Chronic Plan: Patient received hemodialysis yesterday and will get another dialysis session today. Will continue his regular dialysis from tomorrow. Case discussed with nephrology at this time (3) GERD (gastroesophageal reflux disease) Onset Date: 06/05/18 Current Visit: No Status: Chronic Plan: Over with past medical history of GI bleeding. The restarted on Protonix at this time Qualifiers: Esophagitis presence: with esophagitis Qualified Code(s): K21.0 - Gastro- esophageal reflux disease with esophagitis (4) Pulmonary hypertension Onset Date: 06/05/18 Current Visit: No Status: Chronic (5) Atrial fibrillation Onset Date: 07/29/17 Current Visit: No Status: Chronic Plan: Patient currently on rate control medication. 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 (7) Depression Onset Date: 02/24/18 Current Visit: No Status: Chronic Qualifiers: Depression Type: unspecified Qualified Code(s): F32.9 - Major depressive disorder, single episode, unspecified (8) History of CVA (cerebrovascular accident) Current Visit: No Status: Chronic (9) History of DVT of lower extremity Current Visit: No Status: Chronic (10) History of GI bleed Onset Date: 04/21/18 Current Visit: No Status: Chronic (11) History of pulmonary embolism Current Visit: No Status: Chronic (12) Hyperlipidemia Onset Date: 02/24/18 Current Visit: No Status: Chronic Qualifiers: Hyperlipidemia type: unspecified Qualified Code(s): E78.5 - Hyperlipidemia , unspecified (13) Hypertension Onset Date: 06/25/17 Current Visit: No Status: Chronic Qualifiers: Hypertension type: essential hypertension Qualified Code(s): I10 - Essential (primary) hypertension (14) S/P IVC filter Current Visit: No Status: Chronic Discharge Plan: Other Plan to discharge in: Greater than 2 days - Code Status/Comfort Care Code Status Assessed: Yes Critical Care: Yes
[2018-06-05] MEDS: ALBUMIN HUMAN 25% 50 ML IV SCH (12:31)
--- NOTE | 2018-06-05 13:41 | CON ---
Dr. Joseph is also seeing him. Reason For Cardiology Consult: Abnormal troponins. History Of Present Illness: Mr. Cartagena has a history of coronary heart disease with bypass. He has a history of AFib, but maintains sinus rhythm. He is a patient, who could not take anticoagulation. He always has hemoglobins around 7. Even tiny doses of Lovenox have made him bleed excessively and required transfusions. He came to the hospital because his blood pressure was low. He seems to have an infection. He is admitted to the hospital with a diagnosis of sepsis without shock. One of the dictations indicates he is in cardiogenic shock, but that is really not the case. He has a wound. Marietta burns has seen wound care nurses in the [place] [facility] and they noted that his blood pressure was low. His mental status had changed somewhat, so he was sent to the ER. He has normal ejection fraction; end- stage renal disease, on hemodialysis; diabetes; hypertension; history of AFib; history of GI bleeding . He has no allergies. He is a Saturday, , Saturday dialysis patient. Outpatient Medications: Clonazepam, sertraline, Protonix, metoprolol, Sevelamer, amiodarone, folic a denys, tramadol, cinacalcet, gabapentin, hydrocodone, midodrine, linaclotide, melatonin, Silvadene crea m. He has to take midodrine chronically for low blood pressure. Physical Examination: General: He is alert, oriented. Denies having chest pain. Denies having shortness of breath. He f eels about usual for him. Lungs: Do not reveal crackles. Heart: Reveals a regular rate and rhythm. Laboratory Data: His EKG shows sinus bradycardia or sinus rhythm on the monitor. Most recent heart rate was 54. There is first-degree AV block. He has very little atrial fib. It has showed up on te lemetry monitoring over the past admissions, none this admission. His troponin levels are in the ran ge of 0.5. Creatinine is 6. Impression: The patient is not having an acute coronary syndrome, not having atrial fibrillation. I would recommend continuing his present medications if we can. An idea of giving both a beta-cori and midodrine does not make much sense, but I think he is actually not in cardiogenic shock, but his vascular tone is very low chronically from autonomic dysfunction and any infection just exacerbates that and makes it worse. Using midodrine to support his blood pressure, which is a vasoconstrictor a nd would not increase cardiac output at all is still reasonable to do. His most recent blood pressur e is 141/50. I think if we do give midodrine, we probably do not want to give any metoprolol or any agents to lower his blood pressure. Thank you very much for your kind referral of Mr. Cartagena. I will follow him with you. ELVIA Voice ID: [id number] Report ID: [id number]
[2018-06-05] MEDS: PIPER/TAZO/NS 3.375gm 3.375 GM/100 ML BAG IVPB SCH ×2 (14:00→20:19)
[2018-06-05] MEDS: HYDROCODONE/APAP 10/325 TAB PO PRN (14:00)
[2018-06-05] MEDS: MIDODRINE HCL 5 MG TABLET PO SCH ×2 (14:02→20:19)
[2018-06-05] MEDS ORDERED: VANCOMYCIN/NS 1 gm 1 GM/250 ML BAG IV SCH (14:45)
[2018-06-05] MEDS: SILVER SULFADIAZINE 1% 25 GM TOP SCH (14:52)
[2018-06-05 16:36] LABS: Hematocrit 23.3 % (39.6-49.0)
[2018-06-05] MEDS: TRAMADOL HCL 50 MG TAB PO PRN (19:25)
[2018-06-05] MEDS: MELATONIN 3 MG TABLET PO SCH (20:18)
[2018-06-05] MEDS: clonazePAM 1 MG TAB PO SCH (20:18)
[2018-06-05] MEDS: FOLIC ACID 1 MG TABLET PO SCH (20:18)
--- NOTE | 2018-06-05 21:24 | P.PN ---
Subjective Date of Service: 06/05/18 Primary Care Provider: Dr. Donald; Nephrology-Dr. Joseph Chief Complaint: Confusion, fatigue Pt was admitted for AMS and hypotension, Rt leg wound and gangrenous changes , tolerated HD with 1.6 net UF received 1 PRBC Vascular evaluation No, SOB, CP, nause, vomiting , or diarrhea Review of Systems General: As per HPI Eyes: As per HPI Cardiovascular: As per HPI Physical Examination - Vital Signs Temperature: 96.8 F Blood Pressure: 91/49 Pulse: 56 Respirations: 9 Pulse Ox (%): 100 - Physical Exam General: Alert HEENT: Atraumatic Cardiovascular: Normal pulses, Normal S1 S2 Musculoskeletal: Other (Rt leg wound, gangrnous changes with foul smell) - Studies Medications List Reviewed: Yes Assessment And Plan - Current Problems (Diagnosis) (1) ESRD on dialysis Onset Date: 06/05/18 Current Visit: No Status: Chronic (2) Ulcer of right lower extremity Onset Date: 06/05/18 Current Visit: No Status: Chronic (3) Altered mental status Onset Date: 02/24/18 Current Visit: No Status: Acute Qualifiers: Altered mental status type: unspecified Qualified Code(s): R41.82 - Altered mental status, unspecified (4) Anemia Onset Date: 03/21/17 Current Visit: No Status: Acute Qualifiers: Anemia type: due to chronic kidney disease Chronic kidney disease stage: on chronic dialysis Qualified Code(s): N18.6 - End stage renal disease; D63.1 - Anemia in chronic kidney disease; Z99.2 - Dependence on renal dialysis - Plan A 67-year-old man with significant past medical history of ESRD on HD TTsat , recurrent GI bleed; CAD , CHF, HTN , DVT/PE S/p IVC The patient went from the [place] [facility] the Wound Care for evaluation, found to have low blood pressure, altered mental status. For that reason, the patient was sent to the emergency room. lab significant for severe anemia , recived IVF in ER Home Medications: Include tramadol, Sensipar, gabapentin, midodrine, pantoprazole, metoprolol, and Renvela. Current Medications: Include Lovenox, Zosyn, and vancomycin. Assessment And Plan: 1.End-stage renal disease. HD TTsat Adjust meds as per RFTR Monitor Vanco levels Give Vancop on HD days only after HD 2.Anemia, Will start AZUCENA, though unlikley o respond in view of active inflammation S/P PRBC 3.Hyponatremia secondary to dilutional HD 4. Septic Shock Rt leg ulcer Vascular evaluation 5.Coronary artery disease. Congestive heart failure. Currently normal volume.
[2018-06-06] MEDS: HYDROCODONE/APAP 10/325 TAB PO PRN ×3 (03:38→20:52)
[2018-06-06 05:18] LABS: Absolute Lymphocytes (CBC) 0.8 K/uL (0.7-4.9); Absolute Monocytes 0.4 K/uL (0.1-1.3); Absolute Neutrophil 3.2 K/uL (1.8-8.0); Basophils % 0.5 % (0-1.3); Eosinophils % 0.1 % (0-4.4); Hematocrit 24.5 % (39.6-49.0); Lymphocytes % 18.2 % (15.3-44.8); MCH 29.8 pg (27.0-35.0); MCV 88.1 fL (80-100); MPV 7.6 fL (7.6-11.3); Monocytes % 8.1 % (3.3-12.3); RBC Red Blood Cell Count 2.78 M/uL (4.33-5.43)
[2018-06-06 05:36] LABS: Albumin 1.9 g/dL (3.4-5.0); Bilirubin Total 0.8 mg/dL (0.2-1.0); Phosphorus 2.8 mg/dL (2.5-4.9); Potassium 3.5 mmol/L (3.5-5.1); Protein, Total 9.5 g/dL (6.4-8.2)
[2018-06-06] MEDS: PANTOPRAZOLE 40MG TABLET PO SCH (06:25)
[2018-06-06] MEDS: SEVELAMER CARBONATE 800 MG TABLET PO SCH ×3 (08:19→17:47)
[2018-06-06] MEDS: clonazePAM 1 MG TAB PO SCH ×2 (08:19→20:52)
[2018-06-06] MEDS: HOME MED 1 EA UNK (Linaclotide [Linzess] 145 MCG) PO SCH (08:20)
[2018-06-06] MEDS: SERTRALINE HCL 50 MG TAB PO SCH (08:20)
[2018-06-06] MEDS: ASPIRIN EC 81 MG TAB PO SCH (08:20)
[2018-06-06] MEDS: FOLIC ACID 1 MG TABLET PO SCH ×2 (08:20→20:52)
[2018-06-06] MEDS: MIDODRINE HCL 5 MG TABLET PO SCH ×3 (08:20→20:52)
[2018-06-06] MEDS: CINACALCET HCL 30 MG TAB PO SCH (08:20)
[2018-06-06] MEDS: SILVER SULFADIAZINE 1% 25 GM TOP SCH (08:21)
[2018-06-06] MEDS: TRAMADOL HCL 50 MG TAB PO PRN (08:23)
[2018-06-06] MEDS: PIPER/TAZO/NS 3.375gm 3.375 GM/100 ML BAG IVPB SCH ×2 (10:13→20:51)
--- NOTE | 2018-06-06 11:41 | P.PN ---
Subjective Date of Service: 06/06/18 Primary Care Provider: Dr. Donald; Nephrology-Dr. Joseph Chief Complaint: Confusion, fatigue Patient seen and examined at bedside with RN. Chart reviewed. Case discussed with nephrology at this time. No complaints to offer overnight. Right leg wound is still having a significant amount of drainage. Wound care was consulted yesterday. This morning patient does feel better than before and has no complaints to offer Review of Systems 10-point ROS is otherwise unremarkable Physical Examination - Vital Signs Temperature: 97.3 F Blood Pressure: 94/49 Pulse: 62 Respirations: 19 Pulse Ox (%): 99 - Physical Exam General: Alert, In no apparent distress HEENT: Atraumatic, PERRLA, EOMI Neck: Supple, JVD not distended Respiratory: Normal air movement, Expiratory wheezes, Inspiratory wheezes Cardiovascular: Regular rate/rhythm, Normal S1 S2 Gastrointestinal: Normal bowel sounds, No tenderness Musculoskeletal: No tenderness Integumentary: Tenderness/swelling, Erythema, Warmth, Other (Right leg ellis with necrotic wound with serous sanguinous drainage noticed) Neurological: Normal speech, Normal tone, Normal affect Lymphatics: No axilla or inguinal lymphadenopathy - Studies Medications List Reviewed: Yes Assessment And Plan - Current Problems (Diagnosis) (1) Sepsis Onset Date: 06/25/17 Current Visit: No Status: Acute Plan: Septic shock most likely secondary to chronic venous stasis ulcer and cellulitis of the right lower extremity -currently on IV vancomycin and Zosyn at this time -wound culture and blood culture pending at this time -wound care consulted appreciated recommendations at this time -no change in surgical wound will consult surgery at this time Qualifiers: Sepsis type: sepsis due to unspecified organism Qualified Code(s): A41.9 - Sepsis, unspecified organism (2) ESRD on dialysis Onset Date: 06/05/18 Current Visit: No Status: Chronic Plan: Patient received hemodialysis yesterday here in the hospital -nephrology consulted appreciated recommendations at this time -most likely patient will be receiving another dialysis tomorrow morning (3) GERD (gastroesophageal reflux disease) Onset Date: 06/05/18 Current Visit: No Status: Chronic Plan: Patient with past medical history of GI bleeding. Started on Protonix at this time Qualifiers: Esophagitis presence: with esophagitis Qualified Code(s): K21.0 - Gastro- esophageal reflux disease with esophagitis (4) Pulmonary hypertension Onset Date: 06/05/18 Current Visit: No Status: Chronic (5) Atrial fibrillation Onset Date: 07/29/17 Current Visit: No Status: Chronic Plan: Patient currently on rate control medication. 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 (7) Depression Onset Date: 02/24/18 Current Visit: No Status: Chronic Qualifiers: Depression Type: unspecified Qualified Code(s): F32.9 - Major depressive disorder, single episode, unspecified (8) History of CVA (cerebrovascular accident) Current Visit: No Status: Chronic (9) History of DVT of lower extremity Current Visit: No Status: Chronic (10) History of GI bleed Onset Date: 04/21/18 Current Visit: No Status: Chronic (11) History of pulmonary embolism Current Visit: No Status: Chronic (12) Hyperlipidemia Onset Date: 02/24/18 Current Visit: No Status: Chronic Qualifiers: Hyperlipidemia type: unspecified Qualified Code(s): E78.5 - Hyperlipidemia , unspecified (13) Hypertension Onset Date: 06/25/17 Current Visit: No Status: Chronic Qualifiers: Hypertension type: essential hypertension Qualified Code(s): I10 - Essential (primary) hypertension (14) S/P IVC filter Current Visit: No Status: Chronic Discharge Plan: Other Plan to discharge in: Greater than 2 days - Code Status/Comfort Care Code Status Assessed: Yes Critical Care: Yes
--- NOTE | 2018-06-06 12:10 | P.PN ---
Subjective Date of Service: 06/06/18 Primary Care Provider: Dr. Donald; Nephrology-Dr. Joseph Chief Complaint: Confusion, fatigue Pt was admitted for AMS and hypotension, Rt leg wound , Vascular evaluation : possible debridment No, SOB, CP, nausea, vomiting , or diarrhea Physical Examination - Vital Signs Temperature: 97.3 F Blood Pressure: 94/49 Pulse: 62 Respirations: 19 Pulse Ox (%): 99 - Physical Exam General: Alert HEENT: Atraumatic Neck: Supple, JVD not distended Respiratory: Clear to auscultation bilaterally, Normal air movement Cardiovascular: Regular rate/rhythm, Normal S1 S2 (Rt leg swelling and bandaged wound ) - Studies Medications List Reviewed: Yes Assessment And Plan - Current Problems (Diagnosis) (1) ESRD on dialysis Onset Date: 06/05/18 Current Visit: No Status: Chronic (2) Ulcer of right lower extremity Onset Date: 06/05/18 Current Visit: No Status: Chronic (3) Altered mental status Onset Date: 02/24/18 Current Visit: No Status: Acute Qualifiers: Altered mental status type: unspecified Qualified Code(s): R41.82 - Altered mental status, unspecified (4) Anemia Onset Date: 03/21/17 Current Visit: No Status: Acute Qualifiers: Anemia type: due to chronic kidney disease Chronic kidney disease stage: on chronic dialysis Qualified Code(s): N18.6 - End stage renal disease; D63.1 - Anemia in chronic kidney disease; Z99.2 - Dependence on renal dialysis - Plan A 67-year-old man with significant past medical history of ESRD on HD TTsat , recurrent GI bleed; CAD , CHF, HTN , DVT/PE S/p IVC The patient went from the senior care to the Wound Care for evaluation, found to have low blood pressure, altered mental status. For that reason, the patient was sent to the emergency room. lab significant for severe anemia , received IVF in ER Assessment And Plan: 1.End-stage renal disease. HD TTsat Adjust meds as per RFTR Monitor Vanco levels Give Vancop on HD days only after HD 2.Anemia, on AZUCENA , response likely to be poor 2/2 aactive inflamation S/P PRBC 3.Hyponatremia secondary to dilutional HD 4. Septic Shock Rt leg ulcer Vascular evaluation 5.Coronary artery disease. Congestive heart failure. Currently normal volume.
--- NOTE | 2018-06-06 13:24 | PN ---
Subjective: Mr. Cartagena seems to be doing fine. I do not think he has an acute coronary syndrome. H e has end-stage renal disease, CAD that is stable, and his septic picture seems to be improving. Ple ase call back if he wants me to evaluate any heart or vascular issues as of now. I am signing off Mr Niraj Cartagena case. ROSAMARIA/TRICE Voice ID: [id number] Report ID: [id number]
[2018-06-06] MEDS ORDERED: MIDODRINE HCL 5 MG TABLET PO ONE (15:00)
[2018-06-06] MEDS: GABAPENTIN 300 MG CAP PO PRN (16:35)
[2018-06-06] MEDS: PROMOD 30 ML DOSE PO SCH (20:51)
[2018-06-06] MEDS: MELATONIN 3 MG TABLET PO SCH (20:52)
[2018-06-06] MEDS ORDERED: VANCOMYCIN 1.75 GM in NA CHLORIDE 0.9% 500 ML IVPB SCH (21:00)
[2018-06-06] MEDS ORDERED: NA CHLORIDE 0.9% 50 ML ONE (22:08)
[2018-06-07] MEDS: HYDROCODONE/APAP 10/325 TAB PO PRN ×3 (03:27→18:05)
[2018-06-07 05:05] LABS: Absolute Lymphocytes (CBC) 1.1 K/uL (0.7-4.9); Absolute Monocytes 0.4 K/uL (0.1-1.3); Absolute Neutrophil 2.9 K/uL (1.8-8.0); Basophils % 0.4 % (0-1.3); Eosinophils % 0.4 % (0-4.4); Hematocrit 24.8 % (39.6-49.0); Lymphocytes % 24.4 % (15.3-44.8); MCH 29.8 pg (27.0-35.0); MCV 88.5 fL (80-100); MPV 7.6 fL (7.6-11.3); Monocytes % 9.4 % (3.3-12.3)
[2018-06-07 05:24] LABS: Albumin 1.9 g/dL (3.4-5.0); Bilirubin Total 0.7 mg/dL (0.2-1.0); Magnesium 1.8 mg/dL (1.8-2.4); Phosphorus 3.3 mg/dL (2.5-4.9); Potassium 3.8 mmol/L (3.5-5.1); Protein, Total 9.5 g/dL (6.4-8.2)
[2018-06-07] MEDS: PANTOPRAZOLE 40MG TABLET PO SCH (06:24)
[2018-06-07] MEDS: MIDODRINE HCL 5 MG TABLET PO SCH ×4 (07:33→21:00)
[2018-06-07] MEDS: SEVELAMER CARBONATE 800 MG TABLET PO SCH ×3 (07:33→16:46)
[2018-06-07] MEDS: CINACALCET HCL 30 MG TAB PO SCH (07:33)
[2018-06-07] MEDS: PIPER/TAZO/NS 3.375gm 3.375 GM/100 ML BAG IVPB SCH ×2 (07:34→23:10)
[2018-06-07 07:53] LABS: Blood Morphology Comment NOTED (NOT SEEN); Platelet Estimate ADEQ; Rouleau NOTED
[2018-06-07] MEDS: HOME MED 1 EA UNK (Linaclotide [Linzess] 145 MCG) PO SCH (09:00)
[2018-06-07] MEDS: SILVER SULFADIAZINE 1% 25 GM TOP SCH (09:00)
[2018-06-07] MEDS ORDERED: NA CHLORIDE 0.9% 500 ML ONE (09:26)
[2018-06-07] MEDS ORDERED: PROPOFOL 200 MG/20 ML VIAL IV ONE (09:59)
[2018-06-07] MEDS ORDERED: BUPIVACAINE 0.25% PF 10 ML VIAL ONE (10:07)
[2018-06-07] MEDS ORDERED: COLLAGENASE 30 GM OINTMENT TOP ONE (10:42)
[2018-06-07] MEDS: MORPHINE 4 MG/ML SYR ONE ×2 (11:05→11:13)
--- NOTE | 2018-06-07 11:40 | OP ---
Date of Procedure: 06/07/2018 Surgeon: Alexis Knott MD, Wash Box Operator: None. Preoperative Diagnoses: Necrotic infected tissue of the right lower extremity extending from medial tibia to posterior lower extremity in distribution of gastrocnemius muscle area, approximately 15 x 1 0 cm irregularly shaped wound. Postoperative Diagnoses: Necrotic infected tissue of the right lower extremity extending from medial tibia to posterior lower extremity in distribution of gastrocnemius muscle area, approximately 15 x 10 cm irregularly shaped wound. Procedure Performed: Debridement of the above stated wound. Estimated Blood Loss: 75 cc. Specimen: Cultures sent for aerobic and anaerobic speciation and necrotic eschar was sent with necro tic tissue. Anesthesia: MAC with sedation. Procedure In Detail: After informed consent was obtained, patient brought to the operating room, pre pped and draped in the usual sterile fashion. After adequate anesthesia achieved, I used a scalpel t o dissect down through an area of approximately 15 x 10 cm of necrotic tissue along the medial aspect of the tibia into the soft tissue in the subcutaneous fat. There was obvious purulent necrotic tiss ue emanating from this area with multiloculated abscess in this area, which I cultured at this time c ompletely unroofed and marsupialized the tissue. I sent the eschar off for pathologic examination an d culture. I then scraped with a curette, the remaining necrotic tissue on the surface and removed a ll necrotic and nonviable tissue. I tied off the saphenous vein as it was invested through this area and could not be spared, had abscess adjacent to it, and tracking along this area, therefore, it was tied off both proximally and distally with good hemostasis. Electrocautery was used to achieve hemo stasis throughout the other portions of the wound. The area was copiously irrigated until completely dry and hemostasis was achieved. There were some additional punctate areas of necrosis, very superf icial, which were scraped free on the posterior aspect near the gastroc distribution. There were sev eral small islands of approximately 1-2 cm in size of just necrotic epidermis extending to the superf icial dermal layers. These were also curetted until completely clean and all necrotic tissue was ralph rided. After hemostasis was achieved with electrocautery, the entire wound was once again irrigated and dried. Good hemostasis was ensured without any additional hemostatic maneuvers at this time. I then placed Santyl and damp-to-dry dressings on all of these tissues and circumferentially wrapped th e leg with a sterile dressing. The patient tolerated the procedure well without evidence of complica tion and transferred to the PACU in good condition. All counts were correct at the end of the case. CHIDI/TRICE Voice ID: [id number] Report ID: [id number]
--- NOTE | 2018-06-07 12:22 | CON ---
Date of Consultation: 06/06/2018 Brief History Of Present Illness: The patient is a 67-year-old male with multiple m edical problems, sent from the Wound Care Center here at [facility] to the ER for further evaluation due to increasing fatigue, confusion, and lethargy. The patient was seen by the wound care physician , I believe, Dr. Villar who was evaluating him and found that he was profoundly confused likely from i ncreasing pain medication use. His blood pressure was decreased, and he was found to be hypotensive. As such, he was transferred to the emergency room for further workup. He was being seen in the [facility] for a right lower extremity wound along the medial aspect of the tibia extending to an area approximately 15 cm wide area in a somewhat oval irregular distribution with a black eschar ove rlying but some purulent material was noted to be under this black eschar. The patient was seen in [facility] emergency room and found to have evidence of profound hypotension possibly from sepsis. Past Medical History: Significant for end-stage renal disease, on Saturday, , Saturday dialys is, congestive heart failure, and severe pulmonary hypertension, hypertension, atrial fibrillation, a trial flutter. No anticoagulation due to GI bleeding risk. He has had a history of small bowel obst ruction, pulmonary embolism with an IVC filter in place, bilateral upper and lower extremity DVTs, co ronary artery disease, dementia, hypotension at times, dialysis. Past Surgical History: Includes an IVC filter, CABG, carpal tunnel bilaterally, dialysis catheter pl acement. He has had abdominal surgery for bowel obstruction, carpal tunnel repair. Allergies: NO KNOWN DRUG ALLERGIES. Medications: At home include [place], Protonix, Zoloft, clonazepam, aspirin, Lopressor, protamine, Isael aLAX, Pacerone, Sensipar, lactulose, Renvela. Family History: Reviewed, noncontributory. Social History: He denies smoking, alcohol, recreational drug use, has poor insight to his medical h istory during the exam. Physical Examination: Focused Examination: He is awake and conversive. He is oriented, but has poor insight to his comple te medical history, but he is able to converse with me and appears to be oriented x3. At this time, focused examination of the right lower extremity shows a right lower extremity wound with a black esc brenton approximately 15-18 cm in size oblong, irregular borders, on the medial aspect of the tibia exten ding toward the gastrocnemius muscle and overlying the skin at this area. There is some murky purule nt fluid emanating from below consistent with abscess and necrotic tissue. There is a mild amount of hyperemia surrounding this and cellulitis. Laboratory Data: He had a laboratory exam, which reveals a white blood cell count of 4.4, hemoglobin of 8.3 over hematocrit of 24.5, platelet count was 134. His last coags showed a PT of 21.5, INR 1.8 1, PTT is 35.2, but this is from 06/04/2018. His chemistry showed a sodium of 133, potassium 3.5, ch loride 94, carbon dioxide 26, BUN 29, creatinine 4.9, glucose is 110. Lactic acid was 1.4 on 06/04, alkaline phosphatase 149. Assessment/plan: This is a 67-year-old male who comes in with multiple medical problems. I have bee n asked to evaluate the right lower extremity wound. I find that this has evidence of necrotic tissu e, which is slightly contributing to his overall clinical picture, and as such, I recommend a surgica l debridement of this necrotic tissue. I have explained the risks, benefits, and alternatives of the above-stated plan including, but not limited to bleeding, infection, damage to surrounding tissues, injury to nerves, need for further wound care. The patient agrees to proceed as indicated. Continue antibiotic coverage and continue medical management. Thank you for this interesting consult. CHIDI/TRICE Voice ID: [id number] Report ID: [id number]
[2018-06-07] MEDS: FOLIC ACID 1 MG TABLET PO SCH ×2 (12:25→23:11)
[2018-06-07] MEDS: SERTRALINE HCL 50 MG TAB PO SCH (12:26)
[2018-06-07] MEDS: PROMOD 30 ML DOSE PO SCH ×2 (12:26→21:00)
[2018-06-07] MEDS: ASPIRIN EC 81 MG TAB PO SCH (12:26)
[2018-06-07] MEDS: clonazePAM 1 MG TAB PO SCH ×2 (12:26→23:11)
--- NOTE | 2018-06-07 13:58 | P.PN ---
Subjective Date of Service: 06/07/18 Primary Care Provider: Dr. Donald; Nephrology-Dr. Joseph Chief Complaint: Confusion, fatigue Pt was admitted for AMS and hypotension, Rt leg wound , Vascular evaluation : possible debridment No, SOB, CP, nausea, vomiting , or diarrhea S/P debridment Bp is better now HD TTsat Physical Examination - Vital Signs Temperature: 96.3 F Blood Pressure: 133/58 Pulse: 67 Respirations: 10 Pulse Ox (%): 96 - Physical Exam General: Alert HEENT: Atraumatic Neck: Supple, JVD not distended Respiratory: Clear to auscultation bilaterally Cardiovascular: Regular rate/rhythm, Normal S1 S2, Edema (Rt leg edema ) - Studies Medications List Reviewed: Yes Assessment And Plan - Current Problems (Diagnosis) (1) ESRD on dialysis Onset Date: 06/05/18 Current Visit: No Status: Chronic (2) Ulcer of right lower extremity Onset Date: 06/05/18 Current Visit: No Status: Chronic (3) Altered mental status Onset Date: 02/24/18 Current Visit: No Status: Acute Qualifiers: Altered mental status type: unspecified Qualified Code(s): R41.82 - Altered mental status, unspecified (4) Anemia Onset Date: 03/21/17 Current Visit: No Status: Acute Qualifiers: Anemia type: due to chronic kidney disease Chronic kidney disease stage: on chronic dialysis Qualified Code(s): N18.6 - End stage renal disease; D63.1 - Anemia in chronic kidney disease; Z99.2 - Dependence on renal dialysis - Plan A 67-year-old man with significant past medical history of ESRD on HD TTsat , recurrent GI bleed; CAD , CHF, HTN , DVT/PE S/p IVC The patient went from the long term to the Wound Care for evaluation, found to have low blood pressure, altered mental status. For that reason, the patient was sent to the emergency room. lab significant for severe anemia , received IVF in ER BP better now S/P debridment HD Ttsat Assessment And Plan: 1.End-stage renal disease. HD TTsat Adjust meds as per RFTR Monitor Vanco levels Give Vancop on HD days only after HD 2.Anemia, on AZUCENA , response likely to be poor 2/2 aactive inflamation S/P PRBC 3.Hyponatremia secondary to dilutional HD 4. Septic Shock Rt leg ulcer Vascular evaluation 5.Coronary artery disease. Congestive heart failure. Currently normal volume.
--- NOTE | 2018-06-07 15:05 | P.PN ---
Subjective Date of Service: 06/07/18 Primary Care Provider: Dr. Donald; Nephrology-Dr. Joseph Chief Complaint: Confusion, fatigue Patient seen and examined at bedside with RN. Chart reviewed. Case discussed with nephrology at this time. No complaints to offer overnight. Scheduled for I and D with general surgery this morning Review of Systems 10-point ROS is otherwise unremarkable Physical Examination - Vital Signs Temperature: 96.3 F Blood Pressure: 127/47 Pulse: 64 Respirations: 18 Pulse Ox (%): 96 - Physical Exam General: Alert, In no apparent distress HEENT: Atraumatic, PERRLA, EOMI Neck: Supple, JVD not distended Respiratory: Clear to auscultation bilaterally, Normal air movement Cardiovascular: Regular rate/rhythm, Normal S1 S2 Gastrointestinal: Normal bowel sounds, No tenderness Musculoskeletal: No tenderness Integumentary: Skin lesion, Tenderness/swelling, Erythema, Warmth Neurological: Normal speech, Normal tone, Normal affect Lymphatics: No axilla or inguinal lymphadenopathy - Studies Medications List Reviewed: Yes Assessment And Plan - Current Problems (Diagnosis) (1) Sepsis Onset Date: 06/25/17 Current Visit: No Status: Acute Plan: Septic shock most likely secondary to chronic venous stasis ulcer and cellulitis of the right lower extremity -currently on IV vancomycin and Zosyn at this time -wound culture positive for E. coli and Proteus -wound care consulted appreciated recommendations at this time -currently awaiting incision and drainage with general surgery this morning Qualifiers: Sepsis type: Escherichia coli Qualified Code(s): A41.51 - Sepsis due to Escherichia coli [E. coli] (2) ESRD on dialysis Onset Date: 06/05/18 Current Visit: No Status: Chronic Plan: Patient received hemodialysis yesterday here in the hospital -nephrology consulted appreciated recommendations at this time (3) GERD (gastroesophageal reflux disease) Onset Date: 06/05/18 Current Visit: No Status: Chronic Plan: Patient with past medical history of GI bleeding. Started on Protonix at this time Qualifiers: Esophagitis presence: with esophagitis Qualified Code(s): K21.0 - Gastro- esophageal reflux disease with esophagitis (4) Pulmonary hypertension Onset Date: 06/05/18 Current Visit: No Status: Chronic (5) Atrial fibrillation Onset Date: 07/29/17 Current Visit: No Status: Chronic Plan: Patient currently on rate control medication. 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 (7) Depression Onset Date: 02/24/18 Current Visit: No Status: Chronic Qualifiers: Depression Type: unspecified Qualified Code(s): F32.9 - Major depressive disorder, single episode, unspecified (8) History of CVA (cerebrovascular accident) Current Visit: No Status: Chronic (9) History of DVT of lower extremity Current Visit: No Status: Chronic (10) History of GI bleed Onset Date: 04/21/18 Current Visit: No Status: Chronic (11) History of pulmonary embolism Current Visit: No Status: Chronic (12) Hyperlipidemia Onset Date: 02/24/18 Current Visit: No Status: Chronic Qualifiers: Hyperlipidemia type: unspecified Qualified Code(s): E78.5 - Hyperlipidemia , unspecified (13) Hypertension Onset Date: 06/25/17 Current Visit: No Status: Chronic Qualifiers: Hypertension type: essential hypertension Qualified Code(s): I10 - Essential (primary) hypertension (14) S/P IVC filter Current Visit: No Status: Chronic - Plan Currently awaiting clinical improvement at this time. Awaiting incision and drainage of the right lower extremity wound. Wound culture positive for E. coli and Proteus at this time currently patient is on IV vanc and Zosyn. Will await for the general surgery recommendations Discharge Plan: Other Plan to discharge in: Greater than 2 days - Code Status/Comfort Care Code Status Assessed: Yes Critical Care: Yes
[2018-06-07] MEDS: TRAMADOL HCL 50 MG TAB PO PRN (15:53)
[2018-06-07] MEDS: EPOETIN ALFA 10,000 UNIT/ML VIAL IV SCH (18:59)
[2018-06-07] MEDS: MELATONIN 3 MG TABLET PO SCH (23:11)
[2018-06-07] MEDS: GABAPENTIN 300 MG CAP PO PRN (23:11)
[2018-06-08] MEDS: HYDROCODONE/APAP 10/325 TAB PO PRN ×2 (04:33→15:19)
[2018-06-08] MEDS: PANTOPRAZOLE 40MG TABLET PO SCH ×2 (05:39→20:23)
[2018-06-08 06:09] LABS: Albumin 1.8 g/dL (3.4-5.0); Phosphorus 2.7 mg/dL (2.5-4.9); Potassium 3.6 mmol/L (3.5-5.1)
[2018-06-08 06:52] VITALS: BMI 30.1
[2018-06-08] MEDS: PIPER/TAZO/NS 3.375gm 3.375 GM/100 ML BAG IVPB SCH ×2 (08:39→20:22)
[2018-06-08] MEDS: clonazePAM 1 MG TAB PO SCH ×2 (08:39→20:23)
[2018-06-08] MEDS: FOLIC ACID 1 MG TABLET PO SCH ×2 (08:41→20:23)
[2018-06-08] MEDS: SEVELAMER CARBONATE 800 MG TABLET PO SCH ×3 (08:41→17:13)
[2018-06-08] MEDS: ASPIRIN EC 81 MG TAB PO SCH (08:41)
[2018-06-08] MEDS: HOME MED 1 EA UNK (Linaclotide [Linzess] 145 MCG) PO SCH (08:49)
[2018-06-08] MEDS: PROMOD 30 ML DOSE PO SCH ×2 (08:49→20:23)
[2018-06-08] MEDS: COLLAGENASE 30 GM OINTMENT TOP SCH (08:51)
[2018-06-08] MEDS: MIDODRINE HCL 5 MG TABLET PO SCH ×3 (10:29→20:24)
[2018-06-08] MEDS: CINACALCET HCL 30 MG TAB PO SCH (10:30)
[2018-06-08] MEDS: SERTRALINE HCL 50 MG TAB PO SCH (10:31)
--- NOTE | 2018-06-08 10:47 | P.PN ---
Subjective Date of Service: 06/08/18 Primary Care Provider: Dr. Donald; Nephrology-Dr. Joseph Chief Complaint: Confusion, fatigue Patient seen and examined at bedside with RN. Chart reviewed. Case discussed with nephrology at this time. No complaints to offer overnight. S/P I&D and tranfer to the floor. Doing well. Denies any SOB, CP or Fever at this time. Review of Systems 10-point ROS is otherwise unremarkable Physical Examination - Vital Signs Temperature: 97.1 F Blood Pressure: 138/64 Pulse: 71 Respirations: 18 Pulse Ox (%): 96 - Physical Exam General: Alert, In no apparent distress HEENT: Atraumatic, PERRLA, EOMI Neck: Supple, JVD not distended Respiratory: Clear to auscultation bilaterally, Normal air movement Cardiovascular: Regular rate/rhythm, Normal S1 S2 Gastrointestinal: Normal bowel sounds, No tenderness Musculoskeletal: No tenderness Integumentary: Skin lesion, Tenderness/swelling, Erythema, Warmth, Venous stasis ulcer (on thr right LE ellis. Wraped. No Drainage noted. ) Neurological: Normal speech, Normal tone, Normal affect Lymphatics: No axilla or inguinal lymphadenopathy - Studies Medications List Reviewed: Yes Assessment And Plan - Current Problems (Diagnosis) (1) Sepsis Onset Date: 06/25/17 Current Visit: No Status: Acute Plan: Septic shock most likely secondary to chronic venous stasis ulcer and cellulites of the right lower extremity -S/P I&D with Surgery POD # 1 -currently on IV vancomycin and Zosyn at this time -wound culture positive for E. coli, MRSA and Proteus. Repeat Wound culture post I&D pending. -wound care consulted appreciated recommendations at this time Qualifiers: Sepsis type: Escherichia coli Qualified Code(s): A41.51 - Sepsis due to Escherichia coli [E. coli] (2) ESRD on dialysis Onset Date: 06/05/18 Current Visit: No Status: Chronic Plan: Patient received hemodialysis yesterday here in the hospital -nephrology consulted appreciated recommendations at this time (3) GERD (gastroesophageal reflux disease) Onset Date: 06/05/18 Current Visit: No Status: Chronic Plan: Patient with past medical history of GI bleeding. Started on Protonix at this time Qualifiers: Esophagitis presence: with esophagitis Qualified Code(s): K21.0 - Gastro- esophageal reflux disease with esophagitis (4) Pulmonary hypertension Onset Date: 06/05/18 Current Visit: No Status: Chronic (5) Atrial fibrillation Onset Date: 07/29/17 Current Visit: No Status: Chronic Plan: Patient currently on rate control medication. 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 (7) Depression Onset Date: 02/24/18 Current Visit: No Status: Chronic Qualifiers: Depression Type: unspecified Qualified Code(s): F32.9 - Major depressive disorder, single episode, unspecified (8) History of CVA (cerebrovascular accident) Current Visit: No Status: Chronic (9) History of DVT of lower extremity Current Visit: No Status: Chronic (10) History of GI bleed Onset Date: 04/21/18 Current Visit: No Status: Chronic (11) History of pulmonary embolism Current Visit: No Status: Chronic (12) Hyperlipidemia Onset Date: 02/24/18 Current Visit: No Status: Chronic Qualifiers: Hyperlipidemia type: unspecified Qualified Code(s): E78.5 - Hyperlipidemia , unspecified (13) Hypertension Onset Date: 06/25/17 Current Visit: No Status: Chronic Qualifiers: Hypertension type: essential hypertension Qualified Code(s): I10 - Essential (primary) hypertension (14) S/P IVC filter Current Visit: No Status: Chronic - Plan Currently awaiting clinical improvement at this time. S/p I& D POD # 1 incision and drainage of the right lower extremity wound. Wound culture collected during I&D pendign at this time. Continue IV abx. Will await for the general surgery recommendations Discharge Plan: Other Plan to discharge in: 72 Hours - Code Status/Comfort Care Code Status Assessed: Yes Critical Care: No
--- NOTE | 2018-06-08 16:20 | P.PN ---
Subjective Date of Service: 06/08/18 Primary Care Provider: Dr. Donald; Nephrology-Dr. Joseph Chief Complaint: Confusion, fatigue Pt was admitted for AMS and hypotension, Rt leg wound , Vascular evaluation : possible debridment No, SOB, CP, nausea, vomiting , or diarrhea Transferred to the floor S/P debridment Bp is better now HD TTsat Plesae check Vanco level on days of HD before HD , last level checked after HD Physical Examination - Vital Signs Temperature: 97.9 F Blood Pressure: 129/59 Pulse: 65 Respirations: 18 Pulse Ox (%): 96 - Physical Exam General: Alert HEENT: Atraumatic Neck: Without JVD or thyroid abnormality Respiratory: Clear to auscultation bilaterally Cardiovascular: No edema, Edema (Rt leg swelling ) - Studies Medications List Reviewed: Yes Assessment And Plan - Current Problems (Diagnosis) (1) ESRD on dialysis Onset Date: 06/05/18 Current Visit: No Status: Chronic (2) Ulcer of right lower extremity Onset Date: 06/05/18 Current Visit: No Status: Chronic (3) Altered mental status Onset Date: 02/24/18 Current Visit: No Status: Acute Qualifiers: Altered mental status type: unspecified Qualified Code(s): R41.82 - Altered mental status, unspecified (4) Anemia Onset Date: 03/21/17 Current Visit: No Status: Acute Qualifiers: Anemia type: due to chronic kidney disease Chronic kidney disease stage: on chronic dialysis Qualified Code(s): N18.6 - End stage renal disease; D63.1 - Anemia in chronic kidney disease; Z99.2 - Dependence on renal dialysis - Plan A 67-year-old man with significant past medical history of ESRD on HD TTsat , recurrent GI bleed; CAD , CHF, HTN , DVT/PE S/p IVC The [facility] for evaluation, found to have low blood pressure, altered mental status. For that reason, the patient was sent to the emergency room. lab significant for severe anemia , received IVF in ER BP better now S/P debridment HD Ttsat AZUCENA Monitor Vanco level on days of HD before HD Assessment And Plan: 1.End-stage renal disease. HD TTsat Adjust meds as per RFT Monitor Vanco levels on HD days before HD Give Vancop on HD days only after HD 2.Anemia, on AZUCENA , response likely to be poor 2/2 aactive inflamation S/P PRBC 3.Hyponatremia , resolved secondary to dilutional HD 4. Septic Shock Rt leg ulcer S/P debridment Vascular evaluation Tika 5.Coronary artery disease. Congestive heart failure. Currently normal volume.
[2018-06-08] MEDS: MELATONIN 3 MG TABLET PO SCH (20:23)
[2018-06-08] MEDS: GABAPENTIN 300 MG CAP PO PRN (20:25)
[2018-06-09] MEDS: HYDROCODONE/APAP 10/325 TAB PO PRN ×2 (02:53→11:20)
[2018-06-09 05:15] LABS: Albumin 1.7 g/dL (3.4-5.0); Magnesium 1.9 mg/dL (1.8-2.4); Phosphorus 3.5 mg/dL (2.5-4.9); Potassium 3.9 mmol/L (3.5-5.1)
[2018-06-09] MEDS: SEVELAMER CARBONATE 800 MG TABLET PO SCH ×3 (08:01→17:00)
[2018-06-09] MEDS: HOME MED 1 EA UNK (Linaclotide [Linzess] 145 MCG) PO SCH (09:00)
[2018-06-09] MEDS: MIDODRINE HCL 5 MG TABLET PO SCH ×3 (09:00→20:31)
[2018-06-09] MEDS: PROMOD 30 ML DOSE PO SCH ×2 (09:00→20:31)
[2018-06-09] MEDS: TRAMADOL HCL 50 MG TAB PO PRN ×2 (09:22→20:36)
[2018-06-09] MEDS: CINACALCET HCL 30 MG TAB PO SCH (09:23)
[2018-06-09] MEDS: PANTOPRAZOLE 40MG TABLET PO SCH ×2 (09:23→20:31)
[2018-06-09] MEDS: ASPIRIN EC 81 MG TAB PO SCH (09:24)
[2018-06-09] MEDS: FOLIC ACID 1 MG TABLET PO SCH ×2 (09:24→20:32)
[2018-06-09] MEDS: clonazePAM 1 MG TAB PO SCH ×2 (09:24→20:33)
[2018-06-09] MEDS: SERTRALINE HCL 50 MG TAB PO SCH (09:25)
[2018-06-09] MEDS: PIPER/TAZO/NS 3.375gm 3.375 GM/100 ML BAG IVPB SCH ×2 (09:26→20:30)
[2018-06-09] MEDS: COLLAGENASE 30 GM OINTMENT TOP SCH (11:22)
--- NOTE | 2018-06-09 14:28 | P.PN ---
Subjective Date of Service: 06/09/18 Primary Care Provider: Dr. Donald; Nephrology-Dr. Joseph Chief Complaint: Confusion, fatigue Patient seen and examined at bedside with RN. Chart reviewed. Case discussed with nephrology at this time. No complaints to offer overnight. S/P I&D and transfer to the floor. Doing well. Denies any SOB, CP or Fever at this time. Review of Systems 10-point ROS is otherwise unremarkable Physical Examination - Vital Signs Temperature: 97.4 F Blood Pressure: 110/52 Pulse: 66 Respirations: 20 Pulse Ox (%): 0 - Physical Exam General: Alert, In no apparent distress HEENT: Atraumatic, PERRLA, EOMI Neck: Supple, JVD not distended Respiratory: Clear to auscultation bilaterally, Normal air movement Cardiovascular: Regular rate/rhythm, Normal S1 S2 Gastrointestinal: Normal bowel sounds, No tenderness Musculoskeletal: No tenderness Integumentary: Skin lesion, Tenderness/swelling, Erythema, Warmth Neurological: Normal speech, Normal tone, Normal affect Lymphatics: No axilla or inguinal lymphadenopathy - Studies Microbiology Data (last 24 hrs): 06/04/18 12:37 Blood - Blood Aerobic Blood Culture - Final No growth in 5 days. 06/04/18 12:37 Blood - Blood Anaerobic Blood Culture - Final No growth in 5 days. 06/04/18 12:20 Blood - Blood Aerobic Blood Culture - Final No growth in 5 days. 06/04/18 12:20 Blood - Blood Anaerobic Blood Culture - Final No growth in 5 days. Medications List Reviewed: Yes Assessment And Plan - Current Problems (Diagnosis) (1) Sepsis Onset Date: 06/25/17 Current Visit: No Status: Acute Plan: Septic shock most likely secondary to chronic venous stasis ulcer and cellulites of the right lower extremity -S/P I&D with Surgery POD # 2 -currently on IV vancomycin and Zosyn at this time -wound culture positive for E. coli, MRSA and Proteus. Repeat Wound culture post I&D pending. -wound care consulted appreciated recommendations at this time Qualifiers: Sepsis type: Escherichia coli Qualified Code(s): A41.51 - Sepsis due to Escherichia coli [E. coli] (2) ESRD on dialysis Onset Date: 06/05/18 Current Visit: No Status: Chronic Plan: Patient received hemodialysis yesterday here in the hospital -nephrology consulted appreciated recommendations at this time (3) GERD (gastroesophageal reflux disease) Onset Date: 06/05/18 Current Visit: No Status: Chronic Plan: Patient with past medical history of GI bleeding. Started on Protonix at this time Qualifiers: Esophagitis presence: with esophagitis Qualified Code(s): K21.0 - Gastro- esophageal reflux disease with esophagitis (4) Pulmonary hypertension Onset Date: 06/05/18 Current Visit: No Status: Chronic (5) Atrial fibrillation Onset Date: 07/29/17 Current Visit: No Status: Chronic Plan: Patient currently on rate control medication. 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 (7) Depression Onset Date: 02/24/18 Current Visit: No Status: Chronic Qualifiers: Depression Type: unspecified Qualified Code(s): F32.9 - Major depressive disorder, single episode, unspecified (8) History of CVA (cerebrovascular accident) Current Visit: No Status: Chronic (9) History of DVT of lower extremity Current Visit: No Status: Chronic (10) History of GI bleed Onset Date: 04/21/18 Current Visit: No Status: Chronic (11) History of pulmonary embolism Current Visit: No Status: Chronic (12) Hyperlipidemia Onset Date: 02/24/18 Current Visit: No Status: Chronic Qualifiers: Hyperlipidemia type: unspecified Qualified Code(s): E78.5 - Hyperlipidemia , unspecified (13) Hypertension Onset Date: 06/25/17 Current Visit: No Status: Chronic Qualifiers: Hypertension type: essential hypertension Qualified Code(s): I10 - Essential (primary) hypertension (14) S/P IVC filter Current Visit: No Status: Chronic - Plan Currently awaiting clinical improvement at this time. S/p I& D POD # 2 incision and drainage of the right lower extremity wound. Wound culture collected during I&D pending at this time. Continue IV abx. Discharge Plan: Home Plan to discharge in: 48 Hours - Code Status/Comfort Care Code Status Assessed: Yes Critical Care: No
[2018-06-09] MEDS: GABAPENTIN 300 MG CAP PO PRN (14:34)
--- NOTE | 2018-06-09 19:40 | P.PN ---
Subjective Date of Service: 06/09/18 Primary Care Provider: Dr. Donald; Nephrology-Dr. Joseph Chief Complaint: Confusion, fatigue Pt was admitted for AMS and hypotension, Rt leg wound , Vascular evaluation : possible debridment No, SOB, CP, nausea, vomiting , or diarrhea No new complaints HD today Ca low , will hold sensipar for now S/P I/D HD TTsat Plesae check Vanco level on days of HD before HD , last level checked after HD Physical Examination - Vital Signs Temperature: 97.4 F Blood Pressure: 124/58 Pulse: 61 Respirations: 18 Pulse Ox (%): 94 - Studies Microbiology Data (last 24 hrs): 06/04/18 12:37 Blood - Blood Aerobic Blood Culture - Final No growth in 5 days. 06/04/18 12:37 Blood - Blood Anaerobic Blood Culture - Final No growth in 5 days. 06/04/18 12:20 Blood - Blood Aerobic Blood Culture - Final No growth in 5 days. 06/04/18 12:20 Blood - Blood Anaerobic Blood Culture - Final No growth in 5 days. Medications List Reviewed: Yes Assessment And Plan - Current Problems (Diagnosis) (1) ESRD on dialysis Onset Date: 06/05/18 Current Visit: No Status: Chronic (2) Ulcer of right lower extremity Onset Date: 06/05/18 Current Visit: No Status: Chronic (3) Altered mental status Onset Date: 02/24/18 Current Visit: No Status: Acute Qualifiers: Altered mental status type: unspecified Qualified Code(s): R41.82 - Altered mental status, unspecified (4) Anemia Onset Date: 03/21/17 Current Visit: No Status: Acute Qualifiers: Anemia type: due to chronic kidney disease Chronic kidney disease stage: on chronic dialysis Qualified Code(s): N18.6 - End stage renal disease; D63.1 - Anemia in chronic kidney disease; Z99.2 - Dependence on renal dialysis - Plan A 67-year-old man with significant past medical history of ESRD on HD TTsat , recurrent GI bleed; CAD , CHF, HTN , DVT/PE S/p IVC [facility], found to have low blood pressure, altered mental status. For that reason, the patient was sent to the emergency room. lab significant for severe anemia , received IVF in ER HD S/P debridment and I&D HD Ttsat Low calcium, will hold sensipar for now AZUCENA Monitor Vanco level on days of HD before HD Assessment And Plan: 1.End-stage renal disease. HD TTsat Adjust meds as per RFT Monitor Vanco levels on HD days before HD Give Vancop on HD days only after HD 2.Anemia, on AZUCENA , response likely to be poor 2/2 aactive inflamation S/P PRBC 3.Hyponatremia , resolved secondary to dilutional HD 4. Septic Shock Rt leg ulcer S/P I& D Vascular evaluation Jyoti and Vanessa 5.Coronary artery disease. Congestive heart failure. Currently normal volume.
[2018-06-09] MEDS: MELATONIN 3 MG TABLET PO SCH (20:31)
[2018-06-10] MEDS: MIDODRINE HCL 5 MG TABLET PO SCH ×5 (09:00→21:44)
[2018-06-10] MEDS: PROMOD 30 ML DOSE PO SCH ×2 (09:00→21:47)
[2018-06-10] MEDS: HOME MED 1 EA UNK (Linaclotide [Linzess] 145 MCG) PO SCH (09:00)
[2018-06-10] MEDS: COLLAGENASE 30 GM OINTMENT TOP SCH (09:00)
[2018-06-10] MEDS: TRAMADOL HCL 50 MG TAB PO PRN (09:25)
[2018-06-10] MEDS: clonazePAM 1 MG TAB PO SCH ×2 (09:25→21:45)
[2018-06-10] MEDS: FOLIC ACID 1 MG TABLET PO SCH ×2 (09:25→21:45)
[2018-06-10] MEDS: SEVELAMER CARBONATE 800 MG TABLET PO SCH ×3 (09:25→17:00)
[2018-06-10] MEDS: PANTOPRAZOLE 40MG TABLET PO SCH ×2 (09:25→21:44)
[2018-06-10] MEDS: ASPIRIN EC 81 MG TAB PO SCH (09:25)
[2018-06-10] MEDS: SERTRALINE HCL 50 MG TAB PO SCH (09:26)
[2018-06-10] MEDS: ALBUMIN HUMAN 25% 50 ML IV SCH ×2 (10:25→12:15)
[2018-06-10] MEDS: EPOETIN ALFA 10,000 UNIT/ML VIAL IV SCH (10:38)
--- NOTE | 2018-06-10 14:22 | PN ---
Date of Progress Note: 06/10/2018 History: The patient is seen and examined. Chart reviewed and case discussed with RN and Dr. Figueredo. The patient is doing well. Will be going for hemodialysis today. No acute events overnight, pending placement. Review of Systems: Negative except as above. Medications: List reviewed. Code Status: Full. Physical Examination: Vital Signs: Temperature 96.6, heart rate 66, blood pressure 107/52, respirations 16, O2 98% on room air. General: Awake, alert, oriented x3, not in any acute distress. Elderly male, obese. CV: S1, S2. Regular rate and rhythm. Peripheral pulses present. Respiratory: Moving air well bilaterally. No wheezing or stridor. No use of accessory muscles. Gastrointestinal: Abdomen is soft, nontender, nondistended. Positive bowel sounds. Extremities: No clubbing, cyanosis. The patient does have lower extremity edema bilaterally. Neurologic: Nonfocal. Skin: The patient has a wound on the right lower extremity, bandaged. Laboratory Data: Pending. Microbiology wound from the right lower leg is growing Proteus mirabilis and E. coli, and MRSA. Blood cultures no growth, final. Assessment And Plan: 1. Sepsis secondary to chronic venous stasis ulcer and cellulitis of the right lower extremity, status post I and D, postoperative #[address] Knott, currently on IV vancomycin and Zosyn. Cultures positive for Escherichia coli, methicillin-resistant Staphylococcus aureus, and Proteus in the wound. Continue wound care. ID has been consulted. Blood cultures negative to date. 2. End-stage renal disease, on hemodialysis. Nephrology on board. Appreciate their recommendations. 3. Gastroesophageal reflux disease with esophagitis. The patient has history of previous gastrointestinal bleeds. We will continue Protonix. 4. Chronic blood loss anemia secondary to history of gastrointestinal bleed. Monitor hemoglobin and hematocrit and transfuse as needed. 5. Pulmonary hypertension. 6. Atrial fibrillation, on rate control. No anticoagulation due to risk of recurrent gastrointestinal bleed. 7. Combined systolic and diastolic heart failure, chronic. We will continue home medications. 8. Major depressive disorder, stable. 9. History of cerebrovascular accident. 10. History of deep venous thrombosis of the right lower extremity. 11. History of gastrointestinal bleed. 12. History of pulmonary embolism. 13. Hyperlipidemia. 14. Continue home medications. 15. Essential hypertension, stable. 16. Status post IVC filter. 17. Severe protein-calorie malnutrition. Albumin 1.7 from yesterday's labs. We will continue with supplementation. Plan: Placement: Apparently, the family does not wish the patient to return to [facility], may need to go to LTAC or SNF. The patient will need long-term IV antibiotics due to MRSA. ID has been consulted. We will follow up with their recommendations. Proteus and E. coli, may be switched to oral. /TRICE Voice ID: [id number] Report ID: [id number] LUIS
[2018-06-10] MEDS: HYDROCODONE/APAP 10/325 TAB PO PRN (14:38)
[2018-06-10] MEDS: PIPER/TAZO/NS 3.375gm 3.375 GM/100 ML BAG IVPB SCH ×2 (14:39→21:45)
[2018-06-10] MEDS: MELATONIN 3 MG TABLET PO SCH (21:46)
--- NOTE | 2018-06-10 21:58 | CON ---
History Of Present Illness: The patient is a 67-year-old male with significant history of end-stage renal disease. I was consulted for right leg wound, which is infected with E. coli, Proteus mirabili s, and MRSA. The patient is currently being treated with IV antibiotic and will be transferred to [facility]. The patient denies any headache, nausea, vomiting, chest pain, abdominal beryl n, constipation, or diarrhea. Having pain in his right leg at the wound site. E. coli is sensitive to gentamicin, cefazolin, cefoxitin, cephalosporins, and broad spectrum penicillin. Proteus mirabili s is sensitive to all of the drugs, and MRSA is sensitive to vancomycin, Bactrim, tetracycline, rifam pin, and intermediate to Levaquin. The patient is currently getting Zosyn and vancomycin. Past Medical History: Includes end-stage renal disease, congestive heart failure, hypertension, carp al tunnel, atrial fibrillation, atrial flutter, small-bowel obstruction, pulmonary embolism, DVT, cor onary artery disease, CABG, heart attack x2, dementia, hypertension, IVC filter. Social History: Nonsmoker, nondrinker. Family History: Noncontributory. Medications: Vancomycin, Zosyn. See MARs for other medication. Allergies: NO KNOWN DRUG ALLERGIES. Review of Systems: A 10-point review was performed. Physical Examination: General: This is a 67-year-old male, lying in bed, not in any cardiopulmonary distress. Vital Signs: Temperature 97.2, pulse 70, respirations 16, blood pressure 115/47. HEENT: Unremarkable. Neck: Supple. Lungs: Basal crackles. Heart: S1, S2. Regular. Abdomen: Soft, nontender. Bowel sounds positive. Extremities: 1+ edema. Right leg wound noted. Laboratory Data: Shows WBC 4.5, hemoglobin 8.4, platelets 127. Chemistry shows sodium 131, potassiu m 3.9, chloride 94, bicarb 27, BUN 30, creatinine 5.3, glucose is 77. Chest x-ray shows resolving in terstitial pulmonary edema. Assessment And Plan: Right lower extremity cellulitis and ulceration infected with methicillin-resis tant Staphylococcus aureus, Proteus mirabilis, and Escherichia coli. Continue vancomycin and Zosyn. Total course should be 4 weeks. The patient should also get Santyl to the wound site. Continue ant ibiotic and supportive care. Keep leg elevated. We will follow the patient as needed. Thank you Dr. Brower for consult. NF/TRICE Voice ID: [id number] Report ID: [id number]
--- NOTE | 2018-06-10 22:22 | PN ---
Date of Progress Note: 06/10/2018 Subjective: The patient is status post dialysis today. We managed to remove [id number]. The patient was admitted with end-stage renal disease, septic shock secondary to infected wound, ulcer on the right l eg status post debridement. Physical Examination: Vital Signs: When I saw the patient, blood pressure 124/57, pulse of 75. Chest: Clear to auscultation. Heart: S1, S2. Regular. Abdomen: Soft, nontender. Extremities: Trace edema. Dressing on the right leg. Laboratory Data: WBC 4.5, H and H 8.4/24.8, platelets 127. Sodium of 131, potassium 3.9, bicarb 27, BUN 32, creatinine 5.3, calcium 7.8, phosphorous 3.5, magnesium 1.9. Current Medications: 1.Hydrocodone. 2.Tylenol. 3.Clonazepam. 4.Melatonin. 5.Midodrine. 6.Zosyn. 7.Zofran. 8.Renvela. 9.Tramadol. Assessment And Plan: 1.End-stage renal disease, normal volume, status post dialysis today. We managed to remove [id number]. W e will continue dialysis TTS. 2.Secondary hyperparathyroidism. Phosphorous being controlled. I am going to discontinue Renvela. 3.Hypertension, currently blood pressure controlled off blood pressure medication. Continue to kandy tor. 4.Hyponatremia secondary to renal failure. Recovered. 5.Wound infection, multi-organism, Escherichia coli, methicillin-resistant Staphylococcus aureus, an d Proteus mirabilis. We will follow up with ID. Continue Zosyn and vancomycin for the time being. 6.Altered mental status, metabolic, secondary to sepsis. We will follow up with the primary. LEANN/TRICE Voice ID: [id number] Report ID: [id number]
[2018-06-11 03:52] LABS: HBsAG Nonreactive (Nonreactive)
[2018-06-11 05:23] LABS: Absolute Lymphocytes (CBC) 1.3 K/uL (0.7-4.9); Absolute Monocytes 0.5 K/uL (0.1-1.3); Absolute Neutrophil 3.4 K/uL (1.8-8.0); Basophils % 0.4 % (0-1.3); Eosinophils % 0.4 % (0-4.4); Hematocrit 23.2 % (39.6-49.0); Lymphocytes % 24.2 % (15.3-44.8); MCH 29.6 pg (27.0-35.0); MCV 88.2 fL (80-100); MPV 7.5 fL (7.6-11.3); Monocytes % 9.8 % (3.3-12.3); RBC Red Blood Cell Count 2.63 M/uL (4.33-5.43)
[2018-06-11 05:49] LABS: Albumin 1.8 g/dL (3.4-5.0); Bilirubin Total 0.8 mg/dL (0.2-1.0); Magnesium 1.9 mg/dL (1.8-2.4); Protein, Total 8.7 g/dL (6.4-8.2)
[2018-06-11 06:05] LABS: Anisocytosis 2+; Blood Morphology Comment NOTED (NOT SEEN); Hypochromasia 1+; Platelet Estimate DECR; Polychromasia 1+; Rouleau NOTED; Urine White Blood Cell Casts OK
[2018-06-11] MEDS: HOME MED 1 EA UNK (Linaclotide [Linzess] 145 MCG) PO SCH (09:00)
[2018-06-11 09:11] VITALS: O2SAT 95
[2018-06-11] MEDS: PANTOPRAZOLE 40MG TABLET PO SCH (09:11)
[2018-06-11] MEDS: SERTRALINE HCL 50 MG TAB PO SCH (09:11)
[2018-06-11] MEDS: clonazePAM 1 MG TAB PO SCH (09:11)
[2018-06-11] MEDS: SEVELAMER CARBONATE 800 MG TABLET PO SCH ×3 (09:11→16:53)
[2018-06-11] MEDS: FOLIC ACID 1 MG TABLET PO SCH (09:12)
[2018-06-11] MEDS: MIDODRINE HCL 5 MG TABLET PO SCH ×2 (09:12→13:03)
[2018-06-11] MEDS: ASPIRIN EC 81 MG TAB PO SCH (09:12)
[2018-06-11] MEDS: PROMOD 30 ML DOSE PO SCH (09:13)
--- NOTE | 2018-06-11 10:58 | P.OP ---
Preoperative diagnosis: Need for exterminator helper antibiotics Postoperative diagnosis: Need for exterminator helper antibiotics Primary procedure: Placement of LEFT femoral central venous catheter Secondary procedure: micro-introducer used Anesthesia: Local 1% lidocaine Estimated blood loss: <20cc Specimen: None Findings: dark, non-pulsatile blood returned, IVC filter present Complications: None Implants: Triple lumen power injectable central venous catheter Transferred to: Other (room) Condition: Good
[2018-06-11] MEDS ORDERED: LIDOCAINE 1% MPF 5 ML VIAL IJ ONE (11:00)
[2018-06-11] MEDS: COLLAGENASE 30 GM OINTMENT TOP SCH (11:30)
[2018-06-11] MEDS ORDERED: EPOETIN ALFA 10,000 UNIT/ML VIAL IV SCH (16:15)
[2018-06-11] MEDS: GABAPENTIN 300 MG CAP PO PRN (17:50)
--- NOTE | 2018-06-11 18:16 | PN ---
Date of Progress Note: 06/11/2018 Subjective: The patient seen and examined. Chart reviewed and case discussed with RN, Dr. Knott, Dr. Joseph, and Dr. Figueredo. The patient somewhat listless and lethargic today, however, able to an swer questions appropriately. Review of Systems: Negative except as above. Medications: List reviewed. Physical Examination: Vital Signs: Temperature 97.2, heart rate 78, blood pressure 143/65, respirations 17, O2 99% on room air. General: Awake, alert, oriented x3, not in any acute distress, somewhat lethargic, obese male. CV: S1, S2. No murmurs. Respiratory: Moving air well bilaterally. No wheezing. Gastrointestinal: Abdomen is soft, nontender, nondistended. Positive bowel sounds. Extremities: No clubbing, cyanosis. Pedal edema present bilaterally. Neurologic: Nonfocal. Laboratory Data: Sodium 133, potassium 4, chloride 95, CO2 of 27, BUN 29, creatinine 4.7, glucose 74 , calcium 7.8, albumin 1.8. WBC 5.2, H and H 7.8 and 23.2, platelets 100. Wound cultures growing ou t Proteus, E coli, and MRSA from the right leg. Assessment And Plan: A 67-year-old male with: 1.Sepsis secondary to chronic venous stasis ulcer and cellulitis of the right lower extremity, statu s post incision and drainage, postoperative day #4, by Dr. Knott. Cultures are positive for Escher ichia coli, methicillin-resistant staphylococcus aureus, and Proteus in wound. Blood cultures negati ve. We will continue IV vancomycin and Zosyn. Appreciate Dr. Figueredo's input. 2.Right lower extremity wound with methicillin-resistant Staphylococcus aureus, Proteus, and Escheri clement coli, status post debridement. We will continue IV antibiotics for 4 weeks. Referral to LTAC h as been sent. 3.End-stage renal disease, on hemodialysis. Appreciate Dr. Joseph's input. Continue dialysis as scheduled. 4.Gastroesophageal reflux disease without esophagitis. Continue Protonix. 5.Chronic blood loss anemia secondary to history of gastrointestinal bleed. We will monitor H and H , transfuse as needed. 6.Pulmonary hypertension. 7.Atrial fibrillation, on rate control. No anticoagulation due to risk of gastrointestinal bleed. 8.Combined systolic and diastolic heart failure, chronic. We will continue fluid restriction. Nicolette tor I's and O's. Currently compensated. 9.Major depressive disorder, stable. 10.History of cerebrovascular accident, stable. 11.History of deep venous thrombosis of the right lower extremity. 12.History of pulmonary embolism. 13.History of gastrointestinal bleed. 14.Hyperlipidemia. 15.Essential hypertension, stable. 16.Status post IVC filter. 17.Severe protein-calorie malnutrition. Albumin is 1.8. We will continue supplementation. Plan: Due to patient's extensive wound, which needs around the clock wound care as well as IV antibi otics with 2 different agents, I would recommend the patient go to LTAC to have the proper level of s upport for his wounds as he is high risk for recurrent sepsis bacteremia and is immunocompromised due to his end-stage renal disease, being on hemodialysis. /TRICE Voice ID: [id number] Report ID: [id number]
[2018-06-11 18:41] VITALS: BP 124/60; TEMP 96.1
[2018-06-11] MEDS ORDERED: PIPER/TAZO/NS 3.375gm 3.375 GM/100 ML BAG IVPB SCH (21:00)
--- NOTE | 2018-06-11 21:35 | OP ---
Date of Procedure: 06/11/2018 Surgeon: Alexis Knott MD, Preoperative Diagnosis: Need for long-term antibiotics. Postoperative Diagnosis: Need for long-term antibiotics. Procedure Performed: Placement of left femoral central venous catheter, microintroducer set used. Anesthesia: Local 1% lidocaine. Estimated Blood Loss: Less than 20 cc. Specimen: None. Findings: Dark nonpulsatile blood return. IVC filter is present and was noted to be an obstruction to advancement of the guidewire. Implants: Triple lumen power injectable central venous catheter. Disposition: The patient remained in room in good condition. Procedure In Detail: After informed consent was obtained, the patient was prepped and draped in the usual sterile fashion. After adequate anesthesia was achieved, I placed a microintroducer wire into the femoral vein on the left side on the first attempt without evidence of complication. I advanced the micro wire without evidence of complication. I made a small tommy in the skin overlying the wire entry point and advanced the microintroducer sheath. The wire out was called at this time. Dark red nonpulsatile blood was returned. I then placed a standard wire into the femoral vein; however, upon advancement of the wire, I could tell that I was running into the inferior vena cava filter __. I then removed the introducer sheath and sequentially dilated the left femoral vein and placed t he catheter into the femoral vein without evidence of complication. The standard guidewire was then removed. All ports were drawn back and returned dark red nonpulsatile blood and all ports were flush ed easily. I then placed a sterile dressing over the top and secured the catheter to the skin using the above 2-0 nylon suture. Sterile dressing was placed over the top. The patient tolerated the pro cedure well without evidence of complication, remained in room throughout the procedure in good condi tion. All counts were correct at the end of the case. CHIDI/TRICE Voice ID: [id number] Report ID: [id number]
--- NOTE | 2018-06-12 08:45 | PN ---
Date of Progress Note: 06/11/2018 Subjective: The patient still feeling weak, confused. Physical Examination: Vital Signs: Blood pressure 143/65, pulse of 70. Chest: Clear to auscultation. Heart: S1, S2. Regular. Abdomen: Soft, nontender. Extremities: Dressing on the right leg with ulcer almost 7 inches. Laboratory Data: WBC 5.2, H and H 7.8/23.2, platelet of 100. Sodium 130, potassium 4, bicarb 27, BU N 29, creatinine 4.7, calcium 7.8, magnesium 2.1. Current Medications: The patient on include: 1.Aspirin. 2.Epogen. 3.Gabapentin 300 daily. 4.Midodrine. 5.Pantoprazole. 6.Zosyn. 7.Renvela. 8.Vancomycin. Assessment And Plan: 1.End-stage renal disease. I am going to continue the patient on dialysis. The patient is going to be scheduled for dialysis tomorrow. 2.Hypertension, controlled. Currently . 3.Secondary hyperparathyroidism. Continue binder. 4.Anemia of chronic kidney disease. Continue the patient on Epogen. We will arrange for transfusio n tomorrow. 5.Foot ulcer, multi organism. We will follow up with ID. Plan for central line to start the patien t on antibiotic. SHEELA Voice ID: [id number] Report ID: [id number]
--- NOTE | 2018-06-12 14:18 | DS ---
Date of Discharge: 06/11/2018 Consultants: 1.Dr. Joseph, Nephrology. 2.Dr. Figueredo, Infectious Disease. 3.Dr. Martinez, Cardiology. 4.Dr. Knott with General Surgery. Procedures: On 06/07/[address] Knott, debriding of right lower extremity wound. Procedure on , placement of left femoral central venous catheter. Admitting Diagnoses: 1.Acute metabolic encephalopathy. 2.Sepsis. 3.Right lower extremity cellulitis. 4.End-stage renal disease, on dialysis. 5.Anemia with history of gastrointestinal bleed. 6.Uyiul-gy-yqczely combined congestive heart failure with severe pulmonary hypertension and moderate tricuspid regurgitation. 7.Dementia. 8.Depression. 9.Hypotension on midodrine. 10.History of pulmonary embolism and deep vein thrombosis, not on anticoagulation due to risk for ga strointestinal bleed. 11.Gastroesophageal reflux disease. 12.Chronic atrial fibrillation. 13.Hyponatremia. Discharge Diagnoses: 1.Sepsis secondary to right lower extremity wound growing out Methicillin-resistant Staphylococcus a ureus, Escherichia coli, Proteus. 2.Right lower extremity cellulitis and ulcer, status post debridement, growing Escherichia coli, Met hicillin-resistant Staphylococcus aureus and Proteus. 3.End-stage renal disease, on dialysis. 4.Gastroesophageal reflux disease with esophagitis, on Protonix. 5.Chronic blood loss anemia secondary to history of gastrointestinal bleed. 6.Pulmonary hypertension. 7.Tricuspid regurgitation. 8.Atrial fibrillation, not on anticoagulation due to gastrointestinal bleed. 9.Combined systolic and diastolic heart failure, stable. 10.Major depressive disorder. 11.History of cerebrovascular accident. 12.History of deep venous thrombosis of the right lower extremity, not on anticoagulation due to gas trointestinal bleed. 13.History of pulmonary embolism. 14.History of chronic gastrointestinal bleed. 15.Hyperlipidemia. 16.Hypotension on midodrine. 17.Status post inferior vena cava filter. 18.Severe protein-calorie malnutrition. Hospital Course: The patient has had a protracted stay in the hospital, has been in and out of hospi thuan, recently comes in this time for confusion and fatigue. He was altered. This was likely due to sepsis coming from the right lower extremity wound. He had to follow up with his wound care doctor. He has history of MRSA along with multiple other comorbidities including CHF, dementia, history of P E, DVT with IVC filter in place, history of GERD, history of GI bleed, anemia, atrial fibrillation, a nd end-stage renal disease on dialysis. The patient was started on IV antibiotics. Cultures were ob tained, which grew out MRSA, E coli, and Proteus from the wound. The patient was also seen by Dr. Venkata preciado, who performs surgery as mentioned above with debridement of the right lower extremity wound. The patient's blood cultures remained negative. He did respond well to therapy. However, wound was fairly large, due to his immunocompromised status and due to the end-stage renal disease, he will nee d long-term IV antibiotic therapy. Dr. Figueredo with Infectious Disease was also consulted, who recomm ended vancomycin and Zosyn for 4 weeks. The patient was also seen by his regional maintenance manager, Dr. Joseph and dialysis was continued as scheduled. The patient was then referred to LTAC after central line wa s placed for long-term IV antibiotics. The patient need vancomycin and Zosyn for 4 weeks. He will n eed wound care around the clock and good nursing care to help heal his wounds and prevent further inf ection, bacteremia, sepsis and even or and possible loss of limb. The patient will need weekly CBCs, CRP, ESR, and CMP and repeat wound cultures once antibiotics are completed. Followup: The patient will need to follow up with primary care physician in 1-2 weeks. The patient will need to follow up with surgeon, Dr. Knott for wound check. The patient will follow up with ne phrologist, Dr. Joseph in 2 weeks. Follow up with Infectious Disease, Dr. Figueredo in 1 week. Medications: As per medication reconciliation list. Diet: Renal diet. Activity: Fall precautions. Physical Examination: For physical exam findings, please see the progress note dictated on the day of discharge. Disposition: The patient was discharged to LTAC in his stable condition. Total time spent discharging the patient was 41 minutes. /TRICE Voice ID: [id number] Report ID: [id number]
== END 2018-06-11 19:00 | DRG 853 ==
LOC: ER 11:17 → ERHOLD 14:06 → 3RD-ICU 17:25 → 2ND 06-07 15:10
PROVIDERS: ADMIT Family Medicine; ATTEND Family Medicine
PROC: 30233N1 Transfusion of Nonautologous Red Blood Cells into Peripheral Vein, Percutaneous Approach (ICD-10-PCS; principal; 2018-06-04)
PROC: 5A1D70Z Performance of Urinary Filtration, Intermittent, Less than 6 Hours Per Day (ICD-10-PCS; 2018-06-05)
PROC: 0KBS0ZZ Excision of Right Lower Leg Muscle, Open Approach (ICD-10-PCS; 2018-06-07)
PROC: 5A1D70Z Performance of Urinary Filtration, Intermittent, Less than 6 Hours Per Day (ICD-10-PCS; 2018-06-07)
PROC: 5A1D70Z Performance of Urinary Filtration, Intermittent, Less than 6 Hours Per Day (ICD-10-PCS; 2018-06-10)
PROC: 06HV33Z Insertion of Infusion Device into Left Foot Vein, Percutaneous Approach (ICD-10-PCS; 2018-06-11)
DX: A41.51 Sepsis due to Escherichia coli [E. coli] (principal); E43 Unspecified severe protein-calorie malnutrition; I50.43 Acute on chronic combined systolic (congestive) and diastolic (congestive) heart failure; N18.6 End stage renal disease; G93.41 Metabolic encephalopathy; R65.21 Severe sepsis with septic shock; L97.818 Non-pressure chronic ulcer of other part of right lower leg with other specified severity; L03.115 Cellulitis of right lower limb; I13.2 Hypertensive heart and chronic kidney disease with heart failure and with stage 5 chronic kidney disease, or end stage renal disease; E87.1 Hypo-osmolality and hyponatremia; N25.81 Secondary hyperparathyroidism of renal origin; I96 Gangrene, not elsewhere classified; A41.02 Sepsis due to Methicillin resistant Staphylococcus aureus; A41.59 Other Gram-negative sepsis; B96.20 Unspecified Escherichia coli [E. coli] as the cause of diseases classified elsewhere; B95.62 Methicillin resistant Staphylococcus aureus infection as the cause of diseases classified elsewhere; B96.4 Proteus (mirabilis) (morganii) as the cause of diseases classified elsewhere; D50.0 Iron deficiency anemia secondary to blood loss (chronic); K21.0 Gastro-esophageal reflux disease with esophagitis; I07.1 Rheumatic tricuspid insufficiency; I48.2 Chronic atrial fibrillation; F32.9 Major depressive disorder, single episode, unspecified; Z86.73 Personal history of transient ischemic attack (TIA), and cerebral infarction without residual deficits; Z86.718 Personal history of other venous thrombosis and embolism; Z86.711 Personal history of pulmonary embolism; E78.5 Hyperlipidemia, unspecified; I95.9 Hypotension, unspecified; Z68.31 Body mass index [BMI] 31.0-31.9, adult; M35.3 Polymyalgia rheumatica; E11.22 Type 2 diabetes mellitus with diabetic chronic kidney disease; Z99.2 Dependence on renal dialysis; I27.20 Pulmonary hypertension, unspecified; I25.10 Atherosclerotic heart disease of native coronary artery without angina pectoris; Z95.1 Presence of aortocoronary bypass graft; I25.2 Old myocardial infarction; F03.90 Unspecified dementia, unspecified severity, without behavioral disturbance, psychotic disturbance, mood disturbance, and anxiety; D63.1 Anemia in chronic kidney disease
CPT/HCPCS: 36415; 70450; 71045; 80048; 80053; 80069; 80076; 80202; 82550; 82553; 83605; 83690; 83735; 84100; 84145; 84484; 85014; 85018; 85025; 85610; 85730; 86317; 86704; 86706; 86850; 86900; 86901; 87040; 87070; 87075; 87077; 87186; 87205; 87340; 88304; 88305; 90935; 93005; 96365; 96366; 96367; 96375; 97163; 99204; 99285; C9113; J2310; J2543; J2597; J3370; J3590; J7030; P9016; P9047; Q4081

== ENCOUNTER 2018-07-22 09:23 | Inpatient (IN) | payer OTHER, BC ==
--- OUTSIDE RECORDS SUMMARY | 2018-07-22 09:35 | XMS REPORT | Clinical Summary ---
:1950 Author Organization [facility] Address [address] [place] [address] Care Team Providers Name Role Phone Asked, No Pcp Primary Care Provider Unavailable Allergies No Known Allergies Medications Medication Sig Dispensed Refills Start Date End Date Status cinacalcet (SENSIPAR) Take 60 mg by 0 Active 60 MG tablet mouth every morning. metoprolol tartrate Take 50 mg by 0 Active (LOPRESSOR) 50 mg mouth 2 (two) tablet times a day. sevelamer (RENVELA) 800 Take 1,600 mg by 0 Active mg tablet mouth 3 (three) times a day with meals. isosorbide mononitrate Take 60 mg by 0 Active (IMDUR) 60 MG 24 hr mouth every tablet morning. 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 Last Filed Vital Signs Not on file Plan of Treatment Health Maintenance Due Date Last Done Comments COLON CANCER SCREENING 1998 SHINGRIX VACCINE (1 of 2) 1998 ZOSTER VACCINE 2008 PNEUMOCOCCAL POLYSACCHARIDE VACCINE AGE 65 AND OVER 2013 PNEUMOCOCCAL-13 2013 INFLUENZA VACCINE 03/26/2018 Implants Implanted Type Area Job Service Specialist Device Shelf Model / Identifier Expiration Serial / Date Lot Catheter Angio Basket Grader Ii 5fr 65cm Selc Braidd Torque [place] - [id number] Surgical N/A: N/A [place] [id number] / Implanted: 01/31/2017 (Quantity not on file) Implants; INTERVENTION / Expanders; VASCULAR REAGAN Extenders; Surgical Wires Abdominal Mesh Procedures Procedure Name Priority Date/Time Associated Diagnosis Comments TRANSFUSE RED BLOOD Routine 04/30/2018 5:35 PM CDT CELLS after 07/21/2017 Results Transfuse RBC (04/30/2018 5:35 PM CDT)Only the most recent of2 resultswithin the time period is included.after 07/21/2017 Insurance Payer Benefit Plan / Group Subscriber ID Type Phone Address MEDICARE MEDICARE PART A AND B xxxxxxxxxx Medicare [place], [place] BCBS BCBS CHOICE PPO/FEDERAL EMPL PPO xxxxxxxxxxxx PPO Advance Directives Patient has advance care planning documents on file. For more information, please contact:[facility] [address] [place] [address]
[2018-07-22 10:26] LABS: Absolute Lymphocytes (CBC) 1.1 K/uL (0.7-4.9); Absolute Monocytes 0.4 K/uL (0.1-1.3); Absolute Neutrophil 2.1 K/uL (1.8-8.0); Basophils % 0.7 % (0-1.3); Eosinophils % 0.4 % (0-4.4); Lymphocytes % 30.5 % (15.3-44.8); MPV 7.6 fL (7.6-11.3); Monocytes % 10.3 % (3.3-12.3); RBC Red Blood Cell Count 2.13 M/uL (4.33-5.43)
[2018-07-22 10:28] LABS: Protime INR 1.71
[2018-07-22 10:34] LABS: Hematocrit 18.9 % (39.6-49.0)
[2018-07-22 11:20] LABS: Albumin 1.9 g/dL (3.4-5.0); Bilirubin Direct 0.4 mg/dL (0-0.2); Bilirubin Total 0.4 mg/dL (0.2-1.0); Magnesium 2.6 mg/dL (1.8-2.4); Potassium 3.6 mmol/L (3.5-5.1); Protein, Total 9.5 g/dL (6.4-8.2); Troponin (Emerg Dept Use Only) 0.18 ng/mL (0.0-0.045)
[2018-07-22] MEDS ORDERED: ACETAMINOPHEN 500 MG TAB PO PRN (11:26)
[2018-07-22] MEDS ORDERED: ONDANSETRON 4 MG/2 ML VIAL IV PRN (11:26)
--- NOTE | 2018-07-22 11:32 | ER ---
Nurse's Notes [facility] Name: Nain Cartagena Jr Age: 67 yrs Sex: Male : 1950 Arrival Date: 07/22/2018 Time: 09:25 Bed 19 Private MD: Diagnosis: Anemia Presentation: 07/22 09:26 Presenting complaint: [facility] sent patient over for evaluation of low Hgb ss (6.2) that was discovered from routine labs. correction denies bloody stools. Pt has no complaints at this time other than episodic nose bleeds that occurred weeks ago. Transition of care: patient was received from another setting of care ([facility]. Onset of symptoms is unknown. Risk Assessment: Do you want to hurt yourself or someone else? Patient reports no desire to harm self or others. Initial Sepsis Screen: Does the patient meet any 2 criteria? Mean Arterial Pressure (MAP) < 65. Does the patient have a suspected source of infection? No. Patient's initial sepsis screen is negative. Care prior to arrival: None. 09:26 Method Of Arrival: EMS: [facility] ss 09:26 Acuity: RADHA 3 ss Triage Assessment: 09:29 General: Appears in no apparent distress. comfortable, Behavior is calm, cooperative. ss Neuro: Level of Consciousness is awake, alert, obeys commands. Derm: Skin is pink, warm \T\ dry. Historical: - Allergies: 09:28 No Known Allergies; - Home Meds: 15:41 amiodarone 200 mg Oral tab 1 tab once daily [Active]; aspirin 81 mg Oral chew 1 tab bp once daily [Active]; atorvastatin 40 mg Oral tab 1 tab once daily [Active]; Benadryl 25 mg Oral cap as needed [Active]; cinacalcet Oral [Active]; clonazepam 0.5 mg Oral tab 1 tab 2 times per day [Active]; cyanocobalamin (vitamin B-12) Oral [Active]; Folic Acid Oral [Active]; gabapentin Oral [Active]; linaclotide Oral [Active]; Melatonin 12 mg Oral at bedtime [Active]; metoprolol tartrate 25 mg Oral tab [Active]; midodrine 5 mg Oral tab 1 tabs 3 times per day [Active]; multivitamin Oral [Active]; [place] Oral [Active]; pantoprazole 40 mg Oral TbEC 1 tab once daily [Active]; Renvela 800 mg Oral tab 1 tab 3 times per day [Active]; sertraline 50 mg Oral tab once daily [Active]; silver sulfadiazine Topical [Active]; Zinc Sulfate Oral [Active]; - PMHx: 09:28 Atrial Fib; CHF; Diabetes - NIDDM; DIALYSIS Saturday, and saturdays; DVT; Edema ss Lower leg; ESRD; Gout; Hypertension; polymyalgia rheumatica; - Immunization history:: Adult Immunizations unknown. - Social history:: Smoking status: Patient/guardian denies using tobacco, Patient/guardian denies using alcohol. - Ebola Screening: : Patient denies exposure to infectious person Patient denies travel to an Ebola-affected area in the 21 days before illness onset. Screenin:48 Abuse screen: Denies threats or abuse. Denies injuries from another. Nutritional bp screening: No deficits noted. Tuberculosis screening: No symptoms or risk factors identified. Fall Risk None identified. Assessment: 09:30 General: Appears in no apparent distress. comfortable, Behavior is calm, cooperative, bp appropriate for age. General: 67YO BM SENT FROM [place] FOR LOW H/H NOTED ON ROUTINE LABS. PT DENIES ACUTE S/S. Pain: Denies pain. Neuro: Level of Consciousness is awake, alert, obeys commands, Oriented to person, place, time, situation, Appropriate for age. Cardiovascular: No deficits noted. Respiratory: Airway is patent Respiratory effort is even, unlabored, Respiratory pattern is regular, symmetrical. GI: No signs and/or symptoms were reported involving the gastrointestinal system. : No signs and/or symptoms were reported regarding the genitourinary system. EENT: No deficits noted. Derm: No deficits noted. Musculoskeletal: Circulation, motion, and sensation intact. Range of motion: intact in all extremities. 10:56 Reassessment: ALL CURRENT ORDERS COMPLETED, RESULTS PENDING. NO ACUTE S/S AT THIS TIME. bp 11:38 Reassessment: PT SEEN BY HOSPITALIST, ADMIT IN PROCESS. bp 13:00 Reassessment: PT SLEEPING, VS STABLE ON MONITOR, ADMIT IN PROCESS. bp 14:30 Reassessment: PT SLEEPING, VS STABLE ON MONITOR, ADMIT IN PROCESS. bp Vital Signs: 09:28 BP 86 / 47; Pulse 65; Resp 16; Temp 97.7(O); Pulse Ox 97% on R/A; Height 6 ft. 3 in. ss (190.50 cm); Pain 0/10; 09:28 BP 92 / 46; ss 09:48 BP 89 / 61; Pulse 62; Resp 14; Pulse Ox 100% ; bp 10:57 BP 86 / 57; Pulse 59; Resp 14; Pulse Ox 95% ; bp 11:39 BP 100 / 62; Pulse 61; Resp 14; Pulse Ox 100% ; bp 13:00 BP 94 / 51; Pulse 61; Resp 14; Pulse Ox 100% ; bp 14:30 BP 92 / 45; Pulse 60; Resp 12; Pulse Ox 100% ; bp 15:30 BP 95 / 49; Pulse 62; Resp 16; Pulse Ox 100% ; bp ED Course: 09:25 Patient arrived in ED. 09:26 Ken Ewing, RN is Primary Nurse. bp 09:27 Triage completed. 09:28 Arm band placed on right wrist. 09:36 Rian Calderon PA is PHCP. [facility] 09:36 Yasir Moran MD is Attending Physician. [facility] 09:48 Patient has correct armband on for positive identification. Placed in gown. Bed in low bp position. Call light in reach. Side rails up X2. 10:06 EKG done, by screening technician. reviewed by Rian FAJARDO. 10:09 Inserted saline lock: 20 gauge in right forearm, using aseptic technique. Blood bp collected. 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 bp 11:31 Mike Castellanos DO is Hospitalizing Provider. m 15:49 Patient admitted, IV remains in place. bp Administered Medications: No medications were administered Outcome: 11:31 Decision to Hospitalize by Provider. jmm 15:43 Condition: stable bp 15:43 Instructed on the need for admit. 15:51 Admitted to Tele accompanied by tech, via stretcher, room 205, with chart, Report bp called to RICO RANDALL RN 16:13 Patient left the ED. bp Signatures: Rian Calderon PA PA jmm Smirch, Shelby, RN RN Radha Pérez Ken Ewing, RN RN bp
--- NOTE | 2018-07-22 11:32 | EDPHYS ---
Physician Documentation [facility] Name: Nain Cartagena Jr Age: 67 yrs Sex: Male : 1950 Arrival Date: 07/22/2018 Time: 09:25 Bed 19 Private MD: ED Physician Yasir Moran HPI: 07/22 09:48 This 67 yrs old Black Male presents to ER via EMS with complaints of Abnormal Lab [facility] Results. 09:48 This is a 67 year old male with a history of ESRD, DM, Atrial Fib, CHF that presents to [facility] the ED with abnormal hemaglobin per prison. Patient states he had nose bleeds last week that are currently resolved. Patient denies abdominal pain or dark stools. Patient denies chest pain or shortness of breath. . Historical: - Allergies: 09:28 No Known Allergies; ss - Home Meds: 15:41 amiodarone 200 mg Oral tab 1 tab once daily [Active]; aspirin 81 mg Oral chew 1 tab bp once daily [Active]; atorvastatin 40 mg Oral tab 1 tab once daily [Active]; Benadryl 25 mg Oral cap as needed [Active]; cinacalcet Oral [Active]; clonazepam 0.5 mg Oral tab 1 tab 2 times per day [Active]; cyanocobalamin (vitamin B-12) Oral [Active]; Folic Acid Oral [Active]; gabapentin Oral [Active]; linaclotide Oral [Active]; Melatonin 12 mg Oral at bedtime [Active]; metoprolol tartrate 25 mg Oral tab [Active]; midodrine 5 mg Oral tab 1 tabs 3 times per day [Active]; multivitamin Oral [Active]; [place] Oral [Active]; pantoprazole 40 mg Oral TbEC 1 tab once daily [Active]; Renvela 800 mg Oral tab 1 tab 3 times per day [Active]; sertraline 50 mg Oral tab once daily [Active]; silver sulfadiazine Topical [Active]; Zinc Sulfate Oral [Active]; - PMHx: 09:28 Atrial Fib; CHF; Diabetes - NIDDM; DIALYSIS Saturday, and saturdays; DVT; Edema ss Lower leg; ESRD; Gout; Hypertension; polymyalgia rheumatica; - Immunization history:: Adult Immunizations unknown. - Social history:: Smoking status: Patient/guardian denies using tobacco, Patient/guardian denies using alcohol. - Ebola Screening: : Patient denies exposure to infectious person Patient denies travel to an Ebola-affected area in the 21 days before illness onset. ROS: 09:48 Constitutional: Negative for fever, chills, and weight loss. jmm 09:48 Cardiovascular: Negative for chest pain, palpitations, and edema, Respiratory: Negative for shortness of breath, cough, wheezing, and pleuritic chest pain. 09:48 Back: Negative for injury and pain, : Negative for injury, bleeding, discharge, and swelling, MS/Extremity: Negative for injury and deformity, Skin: Negative for injury, rash, and discoloration, Neuro: Negative for headache, weakness, numbness, tingling, and seizure. 09:48 ENT: Positive for nose bleed. 09:48 Abdomen/GI: Positive for flatulence, Negative for nausea and vomiting, vomiting, diarrhea. 09:48 All other systems are negative. Exam: 09:48 Constitutional: This is a well developed, well nourished patient who is awake, alert, jmm and in no acute distress. Head/Face: atraumatic. Eyes: EOMI, no conjunctival erythema appreciated ENT: Moist Mucus Membranes Neck: Trachea midline, Supple Chest/axilla: Normal chest wall appearance and motion. 09:48 Cardiovascular: Rate: normal, Rhythm: regular. 09:48 Respiratory: the patient does not display signs of respiratory distress, Respirations: normal. 09:48 Abdomen/GI: Inspection: abdomen appears normal, Bowel sounds: normal, Palpation: abdomen is soft and non-tender, in all quadrants. 09:48 Back: ROM is normal. 09:48 Musculoskeletal/extremity: ROM: intact in all extremities. 09:48 Skin: Appearance: Color: normal in color. 09:48 Neuro: Orientation: is normal, Mentation: is normal, Memory: is normal. 09:48 Psych: Behavior/mood is pleasant, cooperative. Vital Signs: 09:28 BP 86 / 47; Pulse 65; Resp 16; Temp 97.7(O); Pulse Ox 97% on R/A; Height 6 ft. 3 in. ss (190.50 cm); Pain 0/10; 09:28 BP 92 / 46; ss 09:48 BP 89 / 61; Pulse 62; Resp 14; Pulse Ox 100% ; bp 10:57 BP 86 / 57; Pulse 59; Resp 14; Pulse Ox 95% ; bp 11:39 BP 100 / 62; Pulse 61; Resp 14; Pulse Ox 100% ; bp 13:00 BP 94 / 51; Pulse 61; Resp 14; Pulse Ox 100% ; bp 14:30 BP 92 / 45; Pulse 60; Resp 12; Pulse Ox 100% ; bp 15:30 BP 95 / 49; Pulse 62; Resp 16; Pulse Ox 100% ; bp MDM: 09:48 Patient medically screened. [facility] 10:26 Data reviewed: vital signs, nurses notes. [facility] 11:30 Counseling: I had a detailed discussion with the patient and/or guardian regarding: the [facility] historical points, exam findings, and any diagnostic results supporting the discharge/admit diagnosis, the need for further work-up and treatment in the hospital. ED course: I discussed the patient with Dr. Castellanos whom accepted admission. 12:26 Data interpreted: Pulse oximetry: on room air is 100 %. Interpretation: normal. [facility] 07/22 09:49 Order name: Basic Metabolic Panel; Complete Time: 11:26 [facility] 07/22 09:49 Order name: CBC with Diff; Complete Time: 10:38 [facility] 07/22 09:49 Order name: LFT's; Complete Time: 11: [facility] 07/22 09:49 Order name: Magnesium; Complete Time: 11: [facility] 07/22 09:49 Order name: NT PRO-BNP; Complete Time: 11:26 [facility] 07/22 09:49 Order name: PT-INR; Complete Time: 10:38 [facility] 07/22 09:49 Order name: Troponin (emerg Dept Use Only); Complete Time: 11: [facility] 07/22 09:49 Order name: EKG; Complete Time: 09:51 [facility] 07/22 09:49 Order name: Cardiac monitoring; Complete Time: 09:51 [facility] 07/22 09:49 Order name: EKG - Nurse/Tech; Complete Time: 09:54 [facility] 07/22 09:49 Order name: IV Saline Lock; Complete Time: 10:11 [facility] 07/22 09:49 Order name: Labs collected and sent; Complete Time: 10:11 [facility] 07/22 09:49 Order name: Type And Screen [facility] 07/22 10:15 Order name: Occult Blood--Ancillary bd 07/22 09:49 Order name: O2 Per Protocol; Complete Time: 09:50 [facility] 07/22 09:49 Order name: O2 Sat Monitoring; Complete Time: 09:50 [facility] 07/22 10:25 Order name: Labs - recollect needed; Complete Time: 10:53 bd Administered Medications: No medications were administered Disposition: 18:31 Co-signature as Attending Physician, Yasir Moran MD. rn Disposition: 07/22/18 11:31 Hospitalization ordered by Mike Castellanos for Observation. Preliminary diagnosis is Anemia. - Bed requested for Telemetry/MedSurg (observation). - Status is Observation. bp - Condition is Stable. - Problem is new. - Symptoms are unchanged. UTI on Admission? No Signatures: Dispatcher [employer] EDMS Sunitha Pacheco Joel, PA PA [facility] Yasir Moran MD MD rn Smirch, Shelby, RN RN ss Norma Browne RN RN df Peltier, Brian, RN RN bp Corrections: (The following items were deleted from the chart) 14:58 11:31 Hospitalization Ordered by Mike Castellanos DO for Observation. Preliminary df diagnosis is Anemia. Bed requested for Telemetry/MedSurg (observation). Status is Observation. Condition is Stable. Problem is new. Symptoms are unchanged. UTI on Admission? No. [facility] 16:13 14:58 07/22/2018 11:31 Hospitalization Ordered by Mike Castellanos DO for Observation. bp Preliminary diagnosis is Anemia. Bed requested for Telemetry/MedSurg (observation). Status is Observation. Condition is Stable. Problem is new. Symptoms are unchanged. UTI on Admission? No. df
--- NOTE | 2018-07-22 11:42 | P.HP ---
Certification for Inpatient Patient admitted to: Observation With expected LOS: <2 Midnights Patient will require the following post-hospital care: Other (Back to [facility]) Practitioner: I am a practitioner with admitting privileges, knowledge of patient current condition, hospital course, and medical plan of care. Services: Services provided to patient in accordance with Admission requirements found in Title 42 Section 412.3 of the Code of Federal Regulations Patient History Date of Service: 07/22/18 Primary Care Provider: none; Nephrology-Dr. Joseph Reason for admission: Abnormal lab History of Present Illness: 67-year-old male presented emergency room with abnormal lab. Patient with multiple medical problems including end-stage renal disease on dialysis, anemia of chronic disease with history of GI bleed, combined CHF with severe pulmonary hypertension and moderate mitral regurgitation, hypotension on midodrine, history of PE, chronic atrial fibrillation, GERD. [facility] due to low hemoglobin. Hemoglobin was 6.2. Previous hemoglobin 7.8. Patient recently hospitalized in May for sepsis and right lower extremity cellulitis. He was found to have cultures positive for MRSA, E coli and Proteus. The patient was sent to a long-term acute care facility for treatment at that time. It appears the patient has finished treatment with this. Patient without any significant symptoms. Patient denies any nausea, vomiting, coughing up blood, hematemesis, rectal bleeding, chest pain or shortness of breath. In the ER patient evaluated. Repeat hemoglobin 6.4. Sodium 133, potassium 3.6. BUN of 86, creatinine 7.1. White count 3.6. Platelet count 101. Guaiac stool was negative. Patient stabilize in the emergency room. Blood pressure slightly low. Patient to be admitted for transfusion. When I saw the patient ER, he appeared stable. He is without any significant complaints. Allergies No Known Allergies Allergy (Verified 01/30/18 01:55) Home medications list reviewed: Yes Home Medications: Pantoprazole [Protonix Tab*] 40 mg PO DAILY 01/30/18 Sertraline [Zoloft*] 50 mg PO DAILY 01/30/18 clonazePAM [Clonazepam] 1 mg PO BID 01/30/18 Metoprolol Tartrate [Lopressor*] 12.5 mg PO DAILY 02/07/18 Amiodarone HCl [Pacerone] 200 mg PO DAILY 04/19/18 Sevelamer Carbonate [Renvela*] 1,600 mg PO TIDWM 04/19/18 Cinacalcet HCl [Sensipar*] 30 mg PO DAILY 06/04/18 Folic Acid 1 mg PO BID 06/04/18 Gabapentin 300 mg PO DAILY PRN 06/04/18 Hydrocodone Bit/Acetaminophen [Hydrocodon-Acetaminophn 10-325] 1 each PO Q6HP PRN 06/04/18 Linaclotide [Linzess] 145 mcg PO DAILY 06/04/18 Melatonin 12 mg PO BEDTIME 06/04/18 Midodrine HCl [Proamatine*] 5 mg PO PRN PRN 06/04/18 Midodrine HCl [Proamatine*] 5 mg PO TID 06/04/18 Tramadol HCl [Ultram] 50 mg PO BID PRN 06/04/18 Collagenase [Santyl Ointment*] 1 appl TOP DAILY #0 tube 06/11/18 PIPER/TAZO/NS 3.375gm [Zosyn 3.375 gm/100 ml Ns Ivpb] 3.375 gm IV Q12HR #1 bag 06/11/18 Vancomycin/0.9 % Sod Chloride [Vancomycin 1 G/100Ml-0.9% NaCl] 1 gm IV AFTER EACH DIALYSIS #1 plast..bag 06/11/18 - Past Medical/Surgical History Diabetic: No -: ESRD on Saturday, , and Saturday -: Combined CHF, severe pulmonary hypertension -: Severe pulmonary hypertension, moderate tricuspid regurgitation -: Cyst to bilateral arms -: Carpal Tunnel -: Atrial fibrillation/atrial flutter/No anticoagulation due to GI bleed risk -: Small-bowel obstruction/abdominal surgery -: Hx Pulmonary embolism, now with IVC filter -: DVT with bilateral upper and lower extremity DVTs -: CAD, CABG, Heart attack x2 -: Dementia -: Hypotension on Midodrine. -: Dialysis access catheter placement -: carpal tunnel surgery bilat hands -: CABG -: IVC filter Psychosocial/ Personal History: He is . - Family History Sister -: Cancer Notes: leukemia Father -: Heart disease Mother -: Other (see notes) Notes: Dementia Brother -: Cancer - Social History Smoking Status: Never smoker Alcohol use: No CD- Drugs: No Caffeine use: Yes Place of Residence: [place] Review of Systems General: As per HPI Eyes: Unremarkable ENT: Unremarkable Respiratory: Unremarkable Cardiovascular: Unremarkable Gastrointestinal: Unremarkable Genitourinary: Unremarkable Musculoskeletal: Unremarkable Integumentary: Unremarkable Neurological: Unremarkable Lymphatics: Unremarkable Physical Examination - Physical Exam General: Alert, In no apparent distress, Cooperative, Demented HEENT: Atraumatic, Mucous membr. moist/pink Neck: Supple Respiratory: Clear to auscultation bilaterally, Normal air movement Cardiovascular: Normal pulses, Regular rate/rhythm Gastrointestinal: Normal bowel sounds, Soft and benign, Non-distended, No tenderness, No masses, No rebound, No guarding Musculoskeletal: No erythema, No tenderness, No warmth Integumentary: No tenderness/swelling, No erythema, No warmth, No cyanosis Neurological: Normal speech, Normal strength at 5/5 x4 extr, Normal tone, Dementia - Studies Laboratory Data (last 24 hrs) 07/22/18 10:40: Sodium 133 L, Potassium 3.6, BUN 86 H, Creatinine 7.10 H*, Glucose 84, Magnesium 2.6 H D, Total Bilirubin 0.4, AST 14 L, ALT 7 L, Alkaline Phosphatase 178 H 07/22/18 10:00: PT 20.3 H, INR 1.71 07/22/18 10:00: WBC 3.6 L, Hgb 6.4 L*, Hct 18.9 L*, Plt Count 101 L Assessment and Plan - Plan Impression: Abnormal lab-low hemoglobin with history of GI bleed/GERD, patient asymptomatic complicated with anemia of chronic disease End-stage renal disease on hemodialysis Chronic atrial fibrillation off chronic anti coagulation therapy Severe pulmonary hypertension Moderate tricuspid regurgitation Chronic combined CHF Depression Dementia Recent history of right lower extremity cellulitis positive for methicillin- resistant Staph aureus, E coli, Proteus status post long-term acute care facility placement and treatment Hypotension on midodrine Plan: Abnormal lab-low hemoglobin with history of GI bleed/GERD, patient asymptomatic complicated with anemia of chronic disease: Patient asymptomatic at this time but hemoglobin low compared to previous hemoglobin at 7.8. Current hemoglobin 6.4. Will discuss with Nephrology to arrange for blood transfusion during dialysis today. Guaiac study negative. Will continue with PPI. Will obtain and restart home medication. Anticipate discharge likely tomorrow. Will monitor hemoglobin. End-stage renal disease on hemodialysis: Will consult Nephrology for dialysis today. Chronic atrial fibrillation off chronic anti coagulation therapy: Will need to obtain and restart home medication. Patient off chronic anti coagulation therapy due to high risk of bleeding and history of GI bleed. Severe pulmonary hypertension: Will continue with home medication Moderate tricuspid regurgitation: Will continue with home medication Chronic combined CHF: Will continue with 1500 cc per day fluid restriction. Will continue with dialysis. Will continue with home medication. Depression: Will need to review and restart home medication Dementia: Will need to review and restart home medication. Recent history of right lower extremity cellulitis positive for methicillin- resistant Staph aureus, E coli, Proteus status post long-term acute care facility placement and treatment: Currently stable this time. Will monitor closely. Hypotension on midodrine: Will need to review and restart home medication. Discharge Plan: [facility] Plan to discharge in: 24 Hours - Advance Directives Does patient have a Living Will: No Does patient have a Durable POA for Healthcare: No - Code Status/Comfort Care Code Status Assessed: Yes (patient is full code) Time Spent Managing Pts Care (In Minutes): 55
--- NOTE | 2018-07-22 12:09 | EKG ---
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: CHARLES MEASUREMENT RESULTS: Intervals: Rate: 62 [place]: 148 QRSD: 150 QT: 522 QTc: 529 [place]: P: -13 [place]: 148 QRS: -48 T: 100 INTERPRETIVE STATEMENTS: Sinus rhythm with fusion complexes and premature atrial complexes with aberrant conduction Left axis deviation Nonspecific intraventricular block Abnormal ECG Compared to ECG 06/04/2018 11:40:07 Atrial premature complex(es) now present Fusion complex(es) now present Aberrant conduction of supraventricular beat(s) now present Sinus bradycardia no longer present First degree AV block no longer present Electronically Signed On 07-22-18 12:09:01 [employer] by Roberto Tabares
[2018-07-22] MEDS ORDERED: SODIUM CHLORIDE 0.9% 10ML INJ IV PRN (16:23)
[2018-07-23 06:12] LABS: Absolute Lymphocytes (CBC) 1.2 K/uL (0.7-4.9); Absolute Monocytes 0.3 K/uL (0.1-1.3); Absolute Neutrophil 1.7 K/uL (1.8-8.0); Basophils % 0.5 % (0-1.3); Eosinophils % 0.3 % (0-4.4); Hematocrit 15.7 % (39.6-49.0); Lymphocytes % 37.6 % (15.3-44.8); MCH 30.3 pg (27.0-35.0); MPV 7.9 fL (7.6-11.3); Monocytes % 9.9 % (3.3-12.3); RBC Red Blood Cell Count 1.76 M/uL (4.33-5.43)
[2018-07-23 06:23] LABS: Albumin 1.9 g/dL (3.4-5.0); Magnesium 2.5 mg/dL (1.8-2.4); Phosphorus 5.2 mg/dL (2.5-4.9); Potassium 4.1 mmol/L (3.5-5.1)
[2018-07-23] MEDS ORDERED: TRAMADOL HCL 50 MG TAB PO PRN (07:43)
[2018-07-23] MEDS ORDERED: GABAPENTIN 300 MG CAP PO PRN (07:43)
[2018-07-23] MEDS: SEVELAMER CARBONATE 800 MG TABLET PO SCH ×4 (08:00→17:07)
[2018-07-23 08:04] LABS: Anisocytosis 2+; Blood Morphology Comment NOTED (NOT SEEN); Hypochromasia 1+; Platelet Estimate DECR
[2018-07-23] MEDS: HOME MED 1 EA UNK (Linaclotide [Linzess] 290 MCG) PO SCH (09:00)
[2018-07-23] MEDS ORDERED: PANTOPRAZOLE 40MG TABLET PO SCH (09:00)
[2018-07-23] MEDS: clonazePAM 1 MG TAB PO SCH ×3 (09:00→21:00)
[2018-07-23] MEDS: MIDODRINE HCL 5 MG TABLET PO SCH ×3 (09:00→21:31)
[2018-07-23] MEDS ORDERED: NA CHLORIDE 0.9% 1,000 ML IV PRN (09:23)
[2018-07-23] MEDS ORDERED: NA CHLORIDE 0.9% 250 ML ONE ×2 (09:35→10:40)
[2018-07-23] MEDS ORDERED: ALBUMIN HUMAN 25% 50 ML IV SCH (10:00)
[2018-07-23] MEDS: EPOETIN ALFA 10,000 UNIT/ML VIAL IV SCH (11:51)
[2018-07-23] MEDS ORDERED: DESMOPRESSIN 4 MCG/ML AMP IV ONE (13:19)
[2018-07-23] MEDS: PANTOPRAZOLE 40 MG INJ IVP SCH (13:29)
[2018-07-23] MEDS: CINACALCET HCL 30 MG TAB PO SCH (13:29)
[2018-07-23] MEDS: FOLIC ACID 1 MG TABLET PO SCH ×2 (13:30→21:31)
[2018-07-23] MEDS: SERTRALINE HCL 50 MG TAB PO SCH (13:31)
[2018-07-23] MEDS: AMIODARONE HCL 200 MG TAB PO SCH (13:31)
[2018-07-23] MEDS ORDERED: DESMOPRESSIN 20 MCG in NA CHLORIDE 0.9% 50 ML IV ONE (14:00)
--- NOTE | 2018-07-23 15:06 | P.PN ---
Subjective Date of Service: 07/23/18 Primary Care Provider: none; Nephrology-Dr. Joseph Chief Complaint: Abnormal lab Subjective: Doing well (Wants to go home.) Physical Examination - Vital Signs Temperature: 97.2 F Blood Pressure: 101/55 Pulse: 70 Respirations: 20 Pulse Ox (%): 98 - Physical Exam General: Alert, In no apparent distress, Oriented x3, Cooperative HEENT: Atraumatic Neck: Supple Respiratory: Clear to auscultation bilaterally, Normal air movement Cardiovascular: Normal pulses, Regular rate/rhythm Gastrointestinal: Normal bowel sounds, Soft and benign, Non-distended, No tenderness, No masses, No rebound, No guarding Musculoskeletal: No erythema, No tenderness, No warmth Integumentary: Other (chronic lower ext wound appears stable. ) Neurological: Normal speech, Normal strength at 5/5 x4 extr, Normal tone, Normal affect - Studies Medications List Reviewed: Yes Assessment & Plan Discharge Plan: Home Plan to discharge in: 24 Hours Physician Review Additional Text: Impression: Abnormal lab-low hemoglobin with history of GI bleed/GERD, patient asymptomatic complicated with anemia of chronic disease End-stage renal disease on hemodialysis Chronic atrial fibrillation off chronic anti coagulation therapy Severe pulmonary hypertension Moderate tricuspid regurgitation Chronic combined CHF Depression Dementia Recent history of right lower extremity cellulitis positive for methicillin- resistant Staph aureus, E coli, Proteus status post long-term acute care facility placement and treatment Hypotension on midodrine Plan: Abnormal lab-low hemoglobin with history of GI bleed/GERD, patient asymptomatic complicated with anemia of chronic disease: Patient asymptomatic at this time but hemoglobin low. Repeat lab still shows low Hemoglobin. He will get transfused with dialysis today. Will need to monitor overnight. Case discussed with Nephrology. If stable by tomorrow then will plan to DC home tomorrow. Guaiac study negative yesterday in the ER. Will continue with PPI. End-stage renal disease on hemodialysis: Spoke to Nephrology. Dialysis could not be done last night so Dialysis today. Chronic atrial fibrillation off chronic anti coagulation therapy: Will need to continue with his meds. Patient off chronic anti coagulation therapy due to high risk of bleeding and history of GI bleed. Severe pulmonary hypertension: Will continue with home medication Moderate tricuspid regurgitation: Will continue with home medication Chronic combined CHF: Will continue with 1500 cc per day fluid restriction. Will continue with dialysis. Will continue with home medication. Depression: Will continue with home medication Dementia: Will continue with home medication. Recent history of right lower extremity cellulitis positive for methicillin- resistant Staph aureus, E coli, Proteus status post long-term acute care facility placement and treatment: Currently stable this time. Will monitor closely. Continue with wound care and follow up with wound care center. Hypotension on midodrine: Will continue with home medication. Time Spent Managing Pts Care (In Minutes): 55
[2018-07-23 15:20] LABS: Hematocrit 20.7 % (39.6-49.0)
[2018-07-23] MEDS: HYDROCODONE/APAP 10/325 TAB PO PRN (17:07)
--- NOTE | 2018-07-23 18:53 | CON ---
Date of Consultation: 07/23/2018 History Of Present Illness: This is a pleasant 67-year-old gentleman, well known to me from the dial ysis with significant past medical history of end-stage renal disease on hemodialysis, TTS at [facility]; hyperlipidemia, hypertension, CVA, coronary artery disease with congestive h eart failure, GI bleed, recurrent anemia required transfusion, patient was in his regular state of he alth. Lab in the senior living show hemoglobin below 7. For that reason refer to the hospital. Prim leilani workup in the hospital. Repeated hemoglobin today down to 5.3. For that reason, we took the pat ient for dialysis, we arrange for 2 units of transfusion of the blood with dialysis. The patient see n on dialysis, tolerating the dialysis very well. Past Medical History: Include: 1.Hypertension. 2.Hyperlipidemia. 3.AFib. 4.Coronary artery disease with congestive heart failure, diastolic dysfunction. 5.Secondary hyperparathyroidism. 6.GI bleed. 7.End-stage renal disease, on hemodialysis, TTS. Allergies: NO KNOWN DRUG ALLERGIES. Social History: Denies smoking. Denies drinking. Denies drug abuse. Past Surgical History: Include: 1.CABG. 2.Carpal tunnel. 3.AV fistula. 4.Debridement of infected leg wound. Review of Systems: Head and Neck: No red eye. No ear pain. GI: No nausea. No vomiting. : No polyuria. No dysuria. No hematuria. 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 Respiratory: No shortness of breath. Cardiovascular: Has leg swelling. Endocrine: No polydipsia. Skin: No rash. Neuro: Has altered mental status. Musculoskeletal: Low back pain and leg pain. Physical Examination: General: When I saw the patient, patient was lying in bed, not in any distress. Vital signs: Blood pressure 101/55, pulse of 70, afebrile. Chest: Clear to auscultation. Heart: S1 and S2. Regular. Abdomen: Soft, nontender. Extremities: No edema. Dressing on the leg. Laboratory Data: WBC 3.3, H and H 5.3/15.7, platelets of 90. Sodium 133, potassium 4.1, bicarb 23, BUN 94, creatinine 8.4, calcium of 8, phosphorus 2.5. Current Medications: The patient on its include: 1.Epogen. 2.Melatonin. 3.Midodrine. 4.Renvela. 5.Clonazepam. 6.Folic acid. 7.Sensipar. 8.Amiodarone. Current medications: The patient on in the hospital Sensipar, amiodarone, clonazepam, Epogen, midodr ine, Renvela. Laboratory Data: As above. Assessment And Plan: 1.End-stage renal disease. We will do the patient dialysis today, transfuse the patient. I am sangita g to go ahead and give the patient DDAVP to avoid any further bleed and we will monitor the patient. 2.Hypertension, currently blood pressure on the lower side. I am going to hold all blood pressure m edication. We will keep using midodrine p.r.n. 3.Secondary hyperparathyroidism. Phosphorus on the normal range. I do not see any need for Renvela . I am going to go ahead and decrease it for 800. 4.Recurrent gastrointestinal bleed. Full workup has been done before, all workup negative. We will continue to monitor. 5.Leg infection status post treatment. We will follow up with primary. 6.Diabetes as by the primary. Case discussed with Dr. Castellanos, agreed on the plan. SHEELA Voice ID: [id number] Report ID: [id number]
[2018-07-23] MEDS: ENSURE HIGH PROTEIN 237 ML CAN PO SCH (21:00)
[2018-07-23] MEDS: PROMOD 30 ML DOSE PO SCH (21:00)
[2018-07-23] MEDS: MELATONIN 3 MG TABLET PO SCH (23:06)
[2018-07-24 07:06] LABS: Absolute Lymphocytes (CBC) 1.1 K/uL (0.7-4.9); Absolute Monocytes 0.4 K/uL (0.1-1.3); Basophils % 0.4 % (0-1.3); Eosinophils % 0.1 % (0-4.4); Hematocrit 19.4 % (39.6-49.0); Lymphocytes % 30.9 % (15.3-44.8); MCH 30.1 pg (27.0-35.0); MCV 87.7 fL (80-100); MPV 7.7 fL (7.6-11.3); Monocytes % 11.9 % (3.3-12.3); RBC Red Blood Cell Count 2.22 M/uL (4.33-5.43)
[2018-07-24 07:14] LABS: Magnesium 2.2 mg/dL (1.8-2.4); Phosphorus 3.5 mg/dL (2.5-4.9); Potassium 3.7 mmol/L (3.5-5.1)
[2018-07-24] MEDS: CINACALCET HCL 30 MG TAB PO SCH (08:40)
[2018-07-24] MEDS: MIDODRINE HCL 5 MG TABLET PO SCH ×4 (08:40→21:16)
[2018-07-24] MEDS: PANTOPRAZOLE 40 MG INJ IVP SCH (08:41)
[2018-07-24] MEDS: SEVELAMER CARBONATE 800 MG TABLET PO SCH ×3 (08:42→16:48)
[2018-07-24] MEDS: SERTRALINE HCL 50 MG TAB PO SCH (08:42)
[2018-07-24] MEDS: AMIODARONE HCL 200 MG TAB PO SCH (08:42)
[2018-07-24] MEDS: ENSURE HIGH PROTEIN 237 ML CAN PO SCH ×2 (08:42→21:00)
[2018-07-24] MEDS: FOLIC ACID 1 MG TABLET PO SCH ×2 (08:42→21:16)
[2018-07-24] MEDS: clonazePAM 1 MG TAB PO SCH ×2 (08:42→21:16)
[2018-07-24] MEDS: HOME MED 1 EA UNK (Linaclotide [Linzess] 290 MCG) PO SCH (08:43)
[2018-07-24] MEDS: PROMOD 30 ML DOSE PO SCH ×2 (08:44→21:00)
[2018-07-24 09:13] LABS: Anisocytosis 1+; Blood Morphology Comment NOTED (NOT SEEN); Platelet Estimate DECR; Urine White Blood Cell Casts OK
--- NOTE | 2018-07-24 13:33 | P.PN ---
Subjective Date of Service: 07/24/18 Primary Care Provider: none; Nephrology-Dr. Joseph Chief Complaint: Abnormal lab Subjective: No new changes Hb today 6.7 plan for1 PRBC today and 2 tomorrow during HD pt had extensive Gi W/U in the past that was -ve , and low retic count will Rpt retic count Physical Examination - Vital Signs Temperature: 98.3 F Blood Pressure: 107/57 Pulse: 79 Respirations: 18 Pulse Ox (%): 95 - Physical Exam General: Alert HEENT: Atraumatic Neck: Supple Respiratory: Clear to auscultation bilaterally Cardiovascular: Regular rate/rhythm, Normal S1 S2, Edema Gastrointestinal: Normal bowel sounds, Soft and benign - Studies Laboratory Data (last 24 hrs) 07/24/18 07:41: Hgb Cancelled, Hct Cancelled 07/24/18 06:34: WBC 3.6 L, Hgb 6.7 L*, Hct 19.4 L*, Plt Count 88 L 07/24/18 06:34: Sodium 130 L, Potassium 3.7, BUN 62 H D, Creatinine 6.40 H* D, Glucose 90, Phosphorus 3.5, Magnesium 2.2 07/23/18 15:00: Hgb 7.2 L*, Hct 20.7 L* D Microbiology Data (last 24 hrs): 07/22/18 18:16 Other - Right Lower Leg Gram Stain - Final 07/22/18 18:16 Other - Right Lower Leg Culture & Sensitivity - Final Meth Resistant Staph Aureus Proteus Mirabilis Escherichia Coli Medications List Reviewed: Yes Assessment And Plan - Current Problems (Diagnosis) (1) Abnormal laboratory test Onset Date: 07/23/18 Current Visit: Yes Status: Acute (2) Chronic atrial fibrillation Onset Date: 07/23/18 Current Visit: Yes Status: Chronic (3) Anemia Onset Date: 03/21/17 Current Visit: No Status: Acute Qualifiers: Anemia type: due to chronic kidney disease Chronic kidney disease stage: on chronic dialysis Qualified Code(s): N18.6 - End stage renal disease; D63.1 - Anemia in chronic kidney disease; Z99.2 - Dependence on renal dialysis (4) ESRD (end stage renal disease) Onset Date: 01/30/18 Current Visit: No Status: Chronic - Plan A 67-year-old man, , with PMHx of ESRD on HD TTS at [facility] ; hyperlipidemia, hypertension, CVA, coronary artery disease with congestive heart failure, GI bleed, recurrent anemia required transfusion, pt was sent for low hb, asymptomatic had extensive Gi w/u in th past that was -ve, relatively low retic count Assessment And Plan: End-stage renal disease. will cont HD MWF renal dose all meds hypotesnion On midodrine on HD days acute on chronic anemia had gi w/u in the pat that was -ve low retic count in the past , need to rpt and hematology as per results on AZUCENA Secondary hyperparathyroidism. on Renvela Leg infection status post treatment. We will follow up with primary. recently completed 4-6 wks of Abx course Diabetes as by the primary. Physician Review Additional Text: Impression: Abnormal lab-low hemoglobin with history of GI bleed/GERD, patient asymptomatic complicated with anemia of chronic disease End-stage renal disease on hemodialysis Chronic atrial fibrillation off chronic anti coagulation therapy Severe pulmonary hypertension Moderate tricuspid regurgitation Chronic combined CHF Depression Dementia Recent history of right lower extremity cellulitis positive for methicillin- resistant Staph aureus, E coli, Proteus status post long-term acute care facility placement and treatment Hypotension on midodrine Plan: Abnormal lab-low hemoglobin with history of GI bleed/GERD, patient asymptomatic complicated with anemia of chronic disease: Patient asymptomatic at this time but hemoglobin low. Repeat lab still shows low Hemoglobin. He will get transfused with dialysis today. Will need to monitor overnight. Case discussed with Nephrology. If stable by tomorrow then will plan to DC home tomorrow. Guaiac study negative yesterday in the ER. Will continue with PPI. End-stage renal disease on hemodialysis: Spoke to Nephrology. Dialysis could not be done last night so Dialysis today. Chronic atrial fibrillation off chronic anti coagulation therapy: Will need to continue with his meds. Patient off chronic anti coagulation therapy due to high risk of bleeding and history of GI bleed. Severe pulmonary hypertension: Will continue with home medication Moderate tricuspid regurgitation: Will continue with home medication Chronic combined CHF: Will continue with 1500 cc per day fluid restriction. Will continue with dialysis. Will continue with home medication. Depression: Will continue with home medication Dementia: Will continue with home medication. Recent history of right lower extremity cellulitis positive for methicillin- resistant Staph aureus, E coli, Proteus status post long-term acute care facility placement and treatment: Currently stable this time. Will monitor closely. Continue with wound care and follow up with wound care center. Hypotension on midodrine: Will continue with home medication.
--- NOTE | 2018-07-24 16:23 | P.PN ---
Subjective Date of Service: 07/24/18 Primary Care Provider: none; Nephrology-Dr. Joseph Chief Complaint: Abnormal lab Subjective: Doing well Physical Examination - Vital Signs Temperature: 98.3 F Blood Pressure: 107/57 Pulse: 79 Respirations: 18 Pulse Ox (%): 95 - Physical Exam General: Alert, In no apparent distress, Oriented x3, Cooperative HEENT: Atraumatic Neck: Supple Respiratory: Clear to auscultation bilaterally, Normal air movement Cardiovascular: Normal pulses, Regular rate/rhythm Gastrointestinal: Normal bowel sounds, Soft and benign, Non-distended, No tenderness, No masses, No rebound, No guarding Neurological: Normal speech, Normal strength at 5/5 x4 extr, Normal tone - Studies Laboratory Data (last 24 hrs) 07/24/18 07:41: Hgb Cancelled, Hct Cancelled 07/24/18 06:34: WBC 3.6 L, Hgb 6.7 L*, Hct 19.4 L*, Plt Count 88 L 07/24/18 06:34: Sodium 130 L, Potassium 3.7, BUN 62 H D, Creatinine 6.40 H* D, Glucose 90, Phosphorus 3.5, Magnesium 2.2 Microbiology Data (last 24 hrs): 07/22/18 18:16 Other - Right Lower Leg Gram Stain - Final 07/22/18 18:16 Other - Right Lower Leg Culture & Sensitivity - Final Meth Resistant Staph Aureus Proteus Mirabilis Escherichia Coli Medications List Reviewed: Yes Assessment & Plan Discharge Plan: Home Plan to discharge in: 24 Hours Physician Review Additional Text: Impression: Abnormal lab-low hemoglobin with history of GI bleed/GERD, patient asymptomatic complicated with anemia of chronic disease End-stage renal disease on hemodialysis Chronic atrial fibrillation off chronic anti coagulation therapy Severe pulmonary hypertension Moderate tricuspid regurgitation Chronic combined CHF Depression Dementia Recent history of right lower extremity cellulitis positive for methicillin- resistant Staph aureus, E coli, Proteus status post long-term acute care facility placement and treatment Hypotension on midodrine Plan: Abnormal lab-low hemoglobin with history of GI bleed/GERD, patient asymptomatic complicated with anemia of chronic disease: Patient received 2 units of blood yesterday. Hemoglobin still low. Case discussed at length with nephrology. Will provide 1 unit of packed red blood cells today. Patient will need to receive another 2 units of packed red blood cells tomorrow with dialysis. Patient is had workup done in the past by GI as reported by nephrology. Nephrology recommends hematological evaluation. Will consult Hematology for further recommendation. End-stage renal disease on hemodialysis: Spoke to Nephrology. Dialysis done yesterday. Patient will continue with dialysis again tomorrow.. Chronic atrial fibrillation off chronic anti coagulation therapy: Will need to continue with his meds. Patient off chronic anti coagulation therapy due to high risk of bleeding and history of GI bleed. Severe pulmonary hypertension: Will continue with home medication Moderate tricuspid regurgitation: Will continue with home medication Chronic combined CHF: Will continue with 1500 cc per day fluid restriction. Will continue with dialysis. Will continue with home medication. Depression: Will continue with home medication Dementia: Will continue with home medication. Recent history of right lower extremity cellulitis positive for methicillin- resistant Staph aureus, E coli, Proteus status post long-term acute care facility placement and treatment: Currently stable this time. Will monitor closely. Continue with wound care and follow up with wound care center. Will consult infectious disease to further monitor and address. Hypotension on midodrine: Will continue with home medication. Time Spent Managing Pts Care (In Minutes): 55
[2018-07-24] MEDS: HYDROCODONE/APAP 10/325 TAB PO PRN (17:46)
[2018-07-24] MEDS ORDERED: NA CHLORIDE 0.9% 250 ML ONE (21:43)
[2018-07-24 22:17] LABS: Ferritin 901.9 ng/mL (26-388)
[2018-07-24] MEDS: MELATONIN 3 MG TABLET PO SCH (23:17)
[2018-07-25] MEDS ORDERED: FUROSEMIDE 20 MG/ 2ML VIAL IV ONE (01:41)
[2018-07-25 03:30] LABS: Absolute Monocytes 0.5 K/uL (0.1-1.3); Absolute Neutrophil 2.3 K/uL (1.8-8.0); Eosinophils % 0.2 % (0-4.4); Hematocrit 22.5 % (39.6-49.0); Lymphocytes % 27.1 % (15.3-44.8); MCV 88.4 fL (80-100); MPV 7.2 fL (7.6-11.3); RBC Red Blood Cell Count 2.55 M/uL (4.33-5.43)
[2018-07-25 03:42] LABS: Magnesium 2.3 mg/dL (1.8-2.4); Phosphorus 3.7 mg/dL (2.5-4.9); Potassium 3.8 mmol/L (3.5-5.1)
[2018-07-25 05:38] VITALS: BMI 28.3
[2018-07-25 07:48] LABS: RBC Red Blood Cell Count 2.42 M/uL (4.33-5.43)
[2018-07-25] MEDS: PANTOPRAZOLE 40 MG INJ IVP SCH (08:07)
[2018-07-25] MEDS: AMIODARONE HCL 200 MG TAB PO SCH (08:07)
[2018-07-25] MEDS: CINACALCET HCL 30 MG TAB PO SCH (08:07)
[2018-07-25] MEDS: SEVELAMER CARBONATE 800 MG TABLET PO SCH ×3 (08:07→16:59)
[2018-07-25] MEDS: FOLIC ACID 1 MG TABLET PO SCH (08:07)
[2018-07-25] MEDS: SERTRALINE HCL 50 MG TAB PO SCH (08:07)
[2018-07-25] MEDS: MIDODRINE HCL 5 MG TABLET PO SCH ×5 (08:08→15:13)
[2018-07-25] MEDS: clonazePAM 1 MG TAB PO SCH (08:11)
[2018-07-25] MEDS: HOME MED 1 EA UNK (Linaclotide [Linzess] 290 MCG) PO SCH (08:12)
[2018-07-25] MEDS: PROMOD 30 ML DOSE PO SCH (08:12)
[2018-07-25] MEDS: ENSURE HIGH PROTEIN 237 ML CAN PO SCH (08:12)
[2018-07-25 09:06] VITALS: O2SAT 96
--- NOTE | 2018-07-25 12:52 | P.PN ---
Subjective Date of Service: 07/25/18 Primary Care Provider: none; Nephrology-Dr. Joseph Chief Complaint: Abnormal lab Subjective: No new changes Hb today 7.6 no new complaints low retic for anemic pt Will need to follow with hematology Physical Examination - Vital Signs Temperature: 97.9 F Blood Pressure: 97/55 Pulse: 75 Respirations: 18 Pulse Ox (%): 97 - Physical Exam General: Alert HEENT: Atraumatic Neck: Supple, Without JVD or thyroid abnormality Respiratory: Clear to auscultation bilaterally, Normal air movement Cardiovascular: No edema, Regular rate/rhythm, Normal S1 S2 - Studies Microbiology Data (last 24 hrs): 07/22/18 18:16 Other - Right Lower Leg Gram Stain - Final 07/22/18 18:16 Other - Right Lower Leg Culture & Sensitivity - Final Meth Resistant Staph Aureus Proteus Mirabilis Escherichia Coli Medications List Reviewed: Yes Assessment And Plan - Current Problems (Diagnosis) (1) Abnormal laboratory test Onset Date: 07/23/18 Current Visit: Yes Status: Acute (2) Chronic atrial fibrillation Onset Date: 07/23/18 Current Visit: Yes Status: Chronic (3) Anemia Onset Date: 03/21/17 Current Visit: No Status: Acute Qualifiers: Anemia type: due to chronic kidney disease Chronic kidney disease stage: on chronic dialysis Qualified Code(s): N18.6 - End stage renal disease; D63.1 - Anemia in chronic kidney disease; Z99.2 - Dependence on renal dialysis (4) ESRD (end stage renal disease) Onset Date: 01/30/18 Current Visit: No Status: Chronic - Plan A 67-year-old man, , with PMHx of ESRD on HD TTS at [facility] ; hyperlipidemia, hypertension, CVA, coronary artery disease with congestive heart failure, GI bleed, recurrent anemia required transfusion, pt was sent for low hb, asymptomatic had extensive Gi w/u in th past that was -ve, relatively low retic count Assessment And Plan: End-stage renal disease. will cont HD MWF renal dose all meds hypotesnion On midodrine on HD days acute on chronic anemia had gi w/u in the pat that was -ve low retic count in the past , need to rpt and hematology as per results on AZUCENA low retic for anemic pt Will need to follow with hematology , was scheduled for appointment before but missed Secondary hyperparathyroidism. on Renvela Leg infection status post treatment. We will follow up with primary. recently completed 4-6 wks of Abx course Diabetes as by the primary. Physician Review Additional Text: Impression: Abnormal lab-low hemoglobin with history of GI bleed/GERD, patient asymptomatic complicated with anemia of chronic disease End-stage renal disease on hemodialysis Chronic atrial fibrillation off chronic anti coagulation therapy Severe pulmonary hypertension Moderate tricuspid regurgitation Chronic combined CHF Depression Dementia Recent history of right lower extremity cellulitis positive for methicillin- resistant Staph aureus, E coli, Proteus status post long-term acute care facility placement and treatment Hypotension on midodrine Plan: Abnormal lab-low hemoglobin with history of GI bleed/GERD, patient asymptomatic complicated with anemia of chronic disease: Patient received 2 units of blood yesterday. Hemoglobin still low. Case discussed at length with nephrology. Will provide 1 unit of packed red blood cells today. Patient will need to receive another 2 units of packed red blood cells tomorrow with dialysis. Patient is had workup done in the past by GI as reported by nephrology. Nephrology recommends hematological evaluation. Will consult Hematology for further recommendation. End-stage renal disease on hemodialysis: Spoke to Nephrology. Dialysis done yesterday. Patient will continue with dialysis again tomorrow.. Chronic atrial fibrillation off chronic anti coagulation therapy: Will need to continue with his meds. Patient off chronic anti coagulation therapy due to high risk of bleeding and history of GI bleed. Severe pulmonary hypertension: Will continue with home medication Moderate tricuspid regurgitation: Will continue with home medication Chronic combined CHF: Will continue with 1500 cc per day fluid restriction. Will continue with dialysis. Will continue with home medication. Depression: Will continue with home medication Dementia: Will continue with home medication. Recent history of right lower extremity cellulitis positive for methicillin- resistant Staph aureus, E coli, Proteus status post long-term acute care facility placement and treatment: Currently stable this time. Will monitor closely. Continue with wound care and follow up with wound care center. Will consult infectious disease to further monitor and address. Hypotension on midodrine: Will continue with home medication.
--- NOTE | 2018-07-25 13:51 | P.DS ---
Admission Date: 07/24/18 Discharge Date: 07/25/18 Primary Care Provider: none; Nephrology-Dr. Joseph Disposition: TRANSFER TO [facility] Discharge Condition: GOOD Reason for Admission: Abnormal lab Consultations: Nephrology-Dr. Landeros Procedures: None Medical Problem List: Abnormal lab-low hemoglobin with history of GI bleed/GERD, patient asymptomatic complicated with anemia of chronic disease secondary to myeloma End-stage renal disease on hemodialysis Chronic atrial fibrillation off chronic anti coagulation therapy Severe pulmonary hypertension Moderate tricuspid regurgitation Chronic combined CHF Depression Dementia Recent history of right lower extremity cellulitis positive for methicillin- resistant Staph aureus, E coli, Proteus status post long-term acute care facility placement and treatment Hypotension on midodrine Brief History of Present Illness: 67-year-old male presented emergency room with abnormal lab. Patient with multiple medical problems including end-stage renal disease on dialysis, anemia of chronic disease with history of GI bleed, combined CHF with severe pulmonary hypertension and moderate mitral regurgitation, hypotension on midodrine, history of PE, chronic atrial fibrillation, GERD. Patient was sent from the group home due to low hemoglobin. Hemoglobin was 6.2. Previous hemoglobin 7.8. Patient recently hospitalized in May for sepsis and right lower extremity cellulitis. He was found to have cultures positive for MRSA, E coli and Proteus. The patient was sent to a long-term acute care facility for treatment at that time. It appears the patient has finished treatment with this. Patient without any significant symptoms. Patient denies any nausea, vomiting, coughing up blood, hematemesis, rectal bleeding, chest pain or shortness of breath. In the ER patient evaluated. Repeat hemoglobin 6.4. Sodium 133, potassium 3.6. BUN of 86, creatinine 7.1. White count 3.6. Platelet count 101. Guaiac stool was negative. Patient stabilize in the emergency room. Blood pressure slightly low. Patient to be admitted for transfusion. When I saw the patient ER, he appeared stable. He is without any significant complaints. Hospital Course: Patient presented with low hemoglobin with history of GI bleed/GERD. Patient also with a anemia of chronic disease. Myeloma is suspected. Patient admitted for treatment. Patient received 5 units of packed red blood cells along with dialysis. Hemoglobin stable this time. Care discussed with nephrology who reports that the patient has had full workup done from a GI perspective without any evidence of bleeding. Care also discuss with hematology who has seen the patient in the past. Recommendation by Hematology is for the patient to have a bone marrow biopsy to evaluate for myeloma. This will have to be done as an outpatient. At discharge patient will return to the group home to continue rehabilitation. It is recommended within the next 1-2 weeks for the patient to follow up with hematology to further evaluate. Outpatient bone marrow biopsy can be arranged through the help of Nephrology. At discharge patient will continue with folic acid daily. Recommendation to recheck lab-CBC in 1 week to monitor his progress. Patient with end-stage renal disease on hemodialysis. Patient received dialysis during the course of his stay. Patient remained stable. Patient will continue with dialysis every Saturday, Wednesdays and Fridays. At discharge he will continue with Sensipar 30 mg daily and Renvela 800 mg 3 times a day. Patient with chronic atrial fibrillation. He is off chronic anti coagulation therapy due to history of bleeding and anemia. Recommendation is to continue with amiodarone 200 mg daily. Patient with severe pulmonary hypertension, moderate tricuspid regurgitation and chronic combination CHF. All remain stable. He will continue with a 1500 cc per day restriction. Patient may follow up with cardiology as directed. Patient with depression. At discharge patient will continue with sertraline 50 mg daily. Patient also takes clonazepam 1 mg twice daily as needed for any anxiety. Patient with recent history of right lower extremity cellulitis positive for methicillin-resistant Staph aureus, E coli and Proteus. Patient previously at a long-term acute care facility transitioned to skilled placement to continue his care. Patient will continue with current wound care. Patient will follow up at [facility] and with infectious disease to continue to monitor closely. Patient has GERD. Patient will continue with Protonix 40 mg 1 pill daily. Patient with history of hypotension on midodrine. Patient will continue with his current regimen of midodrine 5 mg 1 pill 3 times a day. He is to use 5 mg after each dialysis. Further adjustment can be done by nephrology. Patient with chronic pain 300 mg daily, tramadol 50 mg 1 pill twice daily as needed for mild pain, and hydrocodone 10/325 mg 1 pill every 6 hr as needed for severe pain. Further adjustment can be done by his PCP. Patient may require pain management as an outpatient. Patient with chronic constipation. Patient will continue with Linzess 200 mcg daily. Vital Signs/Physical Exam: Temp Pulse Resp BP Pulse Ox 97.9 F 75 18 97/55 L 97 07/25/18 12:52 07/25/18 12:52 07/25/18 12:52 07/25/18 12:52 07/25/18 12:52 General: Alert, In no apparent distress, Oriented x3, Cooperative HEENT: Atraumatic Neck: Supple Respiratory: Clear to auscultation bilaterally, Normal air movement Cardiovascular: Normal pulses, Regular rate/rhythm Gastrointestinal: Normal bowel sounds, Soft and benign, Non-distended, No masses , No rebound, No guarding Musculoskeletal: No warmth, Other (Chronic wound noted to the lower extremity) Integumentary: No erythema, No warmth, No cyanosis Neurological: Normal speech, Normal strength at 5/5 x4 extr, Normal tone, Normal affect Laboratory Data at Discharge: WBC 3.9 K/uL (4.3-10.9) L 07/25/18 03:09 Hgb 7.6 g/dL (13.6-17.9) L* 07/25/18 03:09 Hct 22.5 % (39.6-49.0) L D 07/25/18 03:09 Plt Count 83 K/uL (152-406) L 07/25/18 03:09 PT 20.3 SECONDS (9.5-12.5) H 07/22/18 10:00 INR 1.71 07/22/18 10:00 Sodium 129 mmol/L (136-145) L 07/25/18 03:09 Potassium 3.8 mmol/L (3.5-5.1) 07/25/18 03:09 BUN 69 mg/dL (7-18) H 07/25/18 03:09 Creatinine 7.40 mg/dL (0.55-1.3) H* D 07/25/18 03:09 Glucose 99 mg/dL (74-106) 07/25/18 03:09 Phosphorus 3.7 mg/dL (2.5-4.9) 07/25/18 03:09 Magnesium 2.3 mg/dL (1.8-2.4) 07/25/18 03:09 Total Bilirubin 0.4 mg/dL (0.2-1.0) 07/22/18 10:40 AST 14 U/L (15-37) L 07/22/18 10:40 ALT 7 U/L (12-78) L 07/22/18 10:40 Alkaline Phosphatase 178 U/L (45-117) H 07/22/18 10:40 Home Medications: Pantoprazole [Protonix Tab*] 40 mg PO DAILY 01/30/18 Sertraline [Zoloft*] 50 mg PO DAILY 01/30/18 clonazePAM [Clonazepam] 1 mg PO BID 01/30/18 Amiodarone HCl [Pacerone] 200 mg PO DAILY 04/19/18 Sevelamer Carbonate [Renvela*] 1,600 mg PO TIDWM 04/19/18 Cinacalcet HCl [Sensipar*] 30 mg PO DAILY 06/04/18 Folic Acid 1 mg PO BID 06/04/18 Gabapentin 300 mg PO DAILY PRN 06/04/18 Hydrocodone Bit/Acetaminophen [Hydrocodon-Acetaminophn 10-325] 1 each PO Q6HP PRN 06/04/18 Linaclotide [Linzess] 290 mcg PO DAILY 06/04/18 Melatonin 12 mg PO BEDTIME 06/04/18 Midodrine HCl [Proamatine*] 5 mg PO SEECOM 06/04/18 Midodrine HCl [Proamatine*] 5 mg PO TID 06/04/18 Tramadol HCl [Ultram] 50 mg PO BID PRN 06/04/18 Patient Discharge Instructions: 1. Patient will return to the group home to continue his care. 2. Patient presented with low hemoglobin with history of GI bleed/GERD. Patient also with a anemia of chronic disease. Myeloma is suspected. Patient admitted for treatment. Patient received 5 units of packed red blood cells along with dialysis. Hemoglobin stable this time. Care discussed with nephrology who reports that the patient has had full workup done from a GI perspective without any evidence of bleeding. Care also discuss with hematology who has seen the patient in the past. Recommendation by Hematology is for the patient to have a bone marrow biopsy to evaluate for myeloma. This will have to be done as an outpatient. At discharge patient will return to the group home to continue rehabilitation. It is recommended within the next 1-2 weeks for the patient to follow up with hematology to further evaluate. Outpatient bone marrow biopsy can be arranged through the help of Nephrology. At discharge patient will continue with folic acid daily. Recommendation to recheck lab-CBC in 1 week to monitor his progress. 3. Patient with end-stage renal disease on hemodialysis. Patient received dialysis during the course of his stay. Patient remained stable. Patient will continue with dialysis every Saturday, Wednesdays and Fridays. At discharge he will continue with Sensipar 30 mg daily and Renvela 800 mg 3 times a day. 4. Patient with chronic atrial fibrillation. He is off chronic anti coagulation therapy due to history of bleeding and anemia. Recommendation is to continue with amiodarone 200 mg daily. 5. Patient with severe pulmonary hypertension, moderate tricuspid regurgitation and chronic combination CHF. All remain stable. He will continue with a 1500 cc per day restriction. Patient may follow up with cardiology as directed. 6. Patient with depression. At discharge patient will continue with sertraline 50 mg daily. Patient also takes clonazepam 1 mg twice daily as needed for any anxiety. 7. Patient with recent history of right lower extremity cellulitis positive for methicillin-resistant Staph aureus , E coli and Proteus. Patient previously at a long-term acute care facility transitioned to skilled placement to continue his care. Patient will continue with current wound care. Patient will follow up at [facility] and with infectious disease to continue to monitor closely. 8. Patient has GERD. Patient will continue with Protonix 40 mg 1 pill daily. 9. Patient with history of hypotension on midodrine. Patient will continue with his current regimen of midodrine 5 mg 1 pill 3 times a day. He is to use 5 mg after each dialysis. Further adjustment can be done by nephrology. 10. Patient with chronic pain 300 mg daily, tramadol 50 mg 1 pill twice daily as needed for mild pain, and hydrocodone 10/325 mg 1 pill every 6 hr as needed for severe pain. Further adjustment can be done by his PCP. Patient may require pain management as an outpatient. 11. Patient with chronic constipation. Patient will continue with Linzess 200 mcg daily. Diet: Renal Activity: Fall precautions Time spent managing pt's care (in minutes): 55
[2018-07-25] MEDS: EPOETIN ALFA 10,000 UNIT/ML VIAL IV SCH (14:12)
[2018-07-25 20:35] VITALS: BP 109/56; TEMP 97
[2018-07-25 21:07] LABS: HBsAG Nonreactive (Nonreactive)
[2018-07-29 12:42] LABS: Immunoglobulin A 5167 mg/dL (81-463); Immunoglobulin G 812 mg/dL (694-1618); Immunoglobulin M 13 mg/dL (48-271)
[2018-07-29 21:15] LABS: Albumin, (SPE) 2.6 g/dL (3.8-4.8); Alpha-1-Globulins 0.3 g/dL (0.2-0.3); Alpha-2-Globulins 0.5 g/dL (0.5-0.9); Gamma Globulins 1.1 g/dL (0.8-1.7); INTERPRETATION REPORT
== END 2018-07-25 20:40 | DRG 291 ==
LOC: ER 09:23 → ERHOLD 11:12 → 2ND 15:55 → OBSVTOIN 07-24 13:19
PROVIDERS: ADMIT Family Medicine; ATTEND Family Medicine
PROC: 5A1D70Z Performance of Urinary Filtration, Intermittent, Less than 6 Hours Per Day (ICD-10-PCS; principal; 2018-07-24)
PROC: 30233N1 Transfusion of Nonautologous Red Blood Cells into Peripheral Vein, Percutaneous Approach (ICD-10-PCS; 2018-07-24)
DX: I13.2 Hypertensive heart and chronic kidney disease with heart failure and with stage 5 chronic kidney disease, or end stage renal disease (principal); N18.6 End stage renal disease; I50.42 Chronic combined systolic (congestive) and diastolic (congestive) heart failure; E11.22 Type 2 diabetes mellitus with diabetic chronic kidney disease; D63.1 Anemia in chronic kidney disease; Z99.2 Dependence on renal dialysis; I48.2 Chronic atrial fibrillation; I27.20 Pulmonary hypertension, unspecified; I36.1 Nonrheumatic tricuspid (valve) insufficiency; F32.9 Major depressive disorder, single episode, unspecified; F03.90 Unspecified dementia, unspecified severity, without behavioral disturbance, psychotic disturbance, mood disturbance, and anxiety; Z86.711 Personal history of pulmonary embolism; Z86.718 Personal history of other venous thrombosis and embolism; I95.9 Hypotension, unspecified; K21.9 Gastro-esophageal reflux disease without esophagitis; G89.29 Other chronic pain; K59.09 Other constipation; E78.5 Hyperlipidemia, unspecified; E21.3 Hyperparathyroidism, unspecified
CPT/HCPCS: 36415; 36430; 80048; 80069; 80076; 82728; 82784; 83540; 83735; 83880; 84165; 84466; 84484; 85014; 85018; 85025; 85044; 85610; 85652; 86317; 86334; 86704; 86706; 86850; 86870; 86900; 86901; 86922; 87070; 87077; 87186; 87205; 87340; 90935; 93005; 99285; C9113; J1644; J1940; J2597; P9016; Q4081

== ENCOUNTER 2018-08-15 09:07 | Day surgery (SDC) | payer OTHER, BC ==
[2018-08-15] MEDS ORDERED: ACETAMINOPHEN 325 MG TABLET ONE (10:34)
[2018-08-15] MEDS ORDERED: DIPHENHYDRAMINE 50 MG/ML VIAL ONE (10:35)
[2018-08-15] MEDS ORDERED: NA CHLORIDE 0.9% 250 ML ONE (10:35)
[2018-08-15 10:46] VITALS: BMI 35.1
[2018-08-15 12:06] VITALS: TEMP 96; O2SAT 96
[2018-08-15 16:20] LABS: Hematocrit 22.3 % (39.6-49.0)
[2018-08-15 17:13] VITALS: BP 103/46
--- NOTE | 2018-08-15 18:06 | EKG ---
Test Date: 2018-08-15 Test Time: 10:36:33 Fulfillment Mail Clerk: ERIKA MEASUREMENT RESULTS: Intervals: Rate: 78 OK: 222 QRSD: 156 QT: 466 QTc: 531 [place]: P: 5 OK: 222 QRS: -53 T: 106 INTERPRETIVE STATEMENTS: Sinus rhythm with 1st degree AV block with premature atrial complexes with aberrant conduction Left axis deviation Nonspecific intraventricular block Abnormal ECG Compared to ECG 07/22/2018 09:58:13 First degree AV block now present Fusion complex(es) no longer present Electronically Signed On 08-15-18 18:04:52 COMPUTER PROGRAMMER CHIEF by Roberto Tabares
--- OUTSIDE RECORDS SUMMARY | 2018-08-15 18:27 | XMS REPORT | Clinical Summary ---
:1950 Author Organization [facility] Address [address] [place] [address] Care Team Providers Name Role Phone Asked, [...] Last Done Comments COLON CANCER SCREENING 1998 SHINGLES VACCINES (1 of 2) 1998 PNEUMOCOCCAL POLYSACCHARIDE VACCINE AGE 65 AND OVER 2013 PNEUMOCOCCAL-13 2013 INFLUENZA VACCINE 03/26/2018 Implants Implanted Type Area Ice Cutter Device Shelf Model / Identifier Expiration Serial / Date Lot Catheter Angio Plate Grinder Ii 5fr 65cm Selc Braidd Torque Say - [id number] Surgical N/A: N/A BSC PERIPHERAL [id number] / Implanted: 01/31/2017 (Quantity not on file) Implants; INTERVENTION / Expanders; VASCULAR REAGAN Extenders; Surgical Wires Abdominal Mesh Procedures Procedure Name Priority Date/Time Associated Diagnosis Comments TRANSFUSE RED BLOOD Routine 04/30/2018 5:35 PM CDT CELLS after 08/14/2017 Results Transfuse RBC (04/30/2018 5:35 PM CDT)Only the most recent of2 resultswithin the time period is included.after 08/14/2017 Insurance Payer Benefit Plan / Group Subscriber ID Type Phone Address MEDICARE MEDICARE PART A AND B xxxxxxxxxx Medicare [place], [place] BCBS BCBS CHOICE PPO/FEDERAL EMPL PPO xxxxxxxxxxxx PPO Advance Directives Patient has advance care planning documents on file. For more information, please contact:[place] [address]
== END 2018-08-15 17:10 | disposition home or self-care (01) ==
LOC: DS 09:07
PROVIDERS: ATTEND Internal Medicine
DX: D64.9 Anemia, unspecified (principal)
CPT/HCPCS: 36415; 36430; 82553; 84484; 85014; 85018; 86850; 86900; 86901; 93005; P9016

== ENCOUNTER 2018-08-15 17:07 | Emergency (ER) | payer OTHER, BC ==
[2018-08-15 17:42] LABS: Absolute Lymphocytes (CBC) 0.9 K/uL (0.7-4.9); Absolute Monocytes 0.5 K/uL (0.1-1.3); Absolute Neutrophil 2.1 K/uL (1.8-8.0); Basophils % 0.6 % (0-1.3); Eosinophils % 0.3 % (0-4.4); Hematocrit 23.4 % (39.6-49.0); Lymphocytes % 26.1 % (15.3-44.8); MPV 7.8 fL (7.6-11.3); Monocytes % 12.9 % (3.3-12.3); RBC Red Blood Cell Count 2.62 M/uL (4.33-5.43)
[2018-08-15 17:45] LABS: Protime INR 1.43
--- NOTE | 2018-08-15 18:05 | EKG ---
Test Date: 2018-08-15 Test Time: 17:38:25 Farm Rancher: WAYNE MEASUREMENT RESULTS: Intervals: Rate: 81 CA: 174 QRSD: 148 QT: 458 QTc: 532 [place]: P: 54 CA: 174 QRS: -48 T: 96 INTERPRETIVE STATEMENTS: Normal sinus rhythm Left axis deviation Nonspecific intraventricular block Abnormal ECG Compared to ECG 08/15/2018 10:36:33 Atrial premature complex(es) no longer present First degree AV block no longer present Aberrant conduction of supraventricular beat(s) no longer present Electronically Signed On 08-15-18 18:04:38 SHIPPING PROCESSOR by Roberto Tabares
[2018-08-15 18:06] LABS: Albumin 1.9 g/dL (3.4-5.0); Bilirubin Direct 0.3 mg/dL (0-0.2); Bilirubin Total 0.5 mg/dL (0.2-1.0); Magnesium 2.1 mg/dL (1.8-2.4); Potassium 3.4 mmol/L (3.5-5.1); Protein, Total 9.8 g/dL (6.4-8.2); Troponin (Emerg Dept Use Only) 0.44 ng/mL (0.0-0.045)
[2018-08-15 18:11] LABS: Platelet Estimate DECR; Urine White Blood Cell Casts OK
[2018-08-15 18:12] LABS: Anisocytosis 1+; Blood Morphology Comment NOTED (NOT SEEN); Rouleau PRESENT
--- NOTE | 2018-08-15 18:35 | RAD REPORT ---
EXAM DESCRIPTION: RAD - Chest Single View - 08/15/2018 6:22 pm CLINICAL HISTORY: CHEST PAIN Chest pain. COMPARISON: Chest Single View dated 06/05/2018; Chest Single View dated 06/04/2018; Chest Single Vie w dated 05/30/2018; Chest Single View dated 04/19/2018 FINDINGS: Portable technique limits examination quality. Mild interstitial pulmonary edema. The heart is moderately enlarged in size. No displaced fractures.S ternotomy wires are noted. IMPRESSION: Mild CHF versus volume overload pattern.
--- NOTE | 2018-08-15 18:40 | ER ---
Nurse's Notes [facility] Name: Nain Cartagena Jr Age: 67 yrs Sex: Male : 1950 Arrival Date: 08/15/2018 Time: 17:12 Bed 15 Private MD: Diagnosis: Chest pain, unspecified;Anemia, unspecified;Elevated troponin;End stage renal disease;Volume overload Presentation: 08/15 17:12 Presenting complaint: Patient states: I was having an outpatient blood trasfusion and la1 before it started and for about 30 minutes I had some chest pressure. Nurse transport states pts post transfusion hgb was 7.6 and that they brandy a troponin due to the chest pain and it was 0.24, pt is on hemodialysis. Pts , Dr. Fink instructed nurse to transport pt to ER for further evaluation and admission. Transition of care: patient was not received from another setting of care. Onset of symptoms was August 15, 2018. Risk Assessment: Do you want to hurt yourself or someone else? Patient reports no desire to harm self or others. Initial Sepsis Screen: Does the patient meet any 2 criteria? No. Patient's initial sepsis screen is negative. Does the patient have a suspected source of infection? No. Patient's initial sepsis screen is negative. Care prior to arrival: None. 17:12 Method Of Arrival: Wheelchair la1 17:12 Acuity: RADHA 3 la1 Historical: - Allergies: 17:14 No Known Allergies; la1 - Home Meds: 18:23 amiodarone 200 mg Oral tab 1 tab once daily [Active]; aspirin 81 mg Oral chew 1 tab mg2 once daily [Active]; atorvastatin 40 mg Oral tab 1 tab once daily [Active]; Benadryl 25 mg Oral cap as needed [Active]; cinacalcet Oral [Active]; clonazepam 0.5 mg Oral tab 1 tab 2 times per day [Active]; cyanocobalamin (vitamin B-12) Oral [Active]; Folic Acid Oral [Active]; gabapentin Oral [Active]; linaclotide Oral [Active]; Melatonin 12 mg Oral at bedtime [Active]; metoprolol tartrate 25 mg Oral tab [Active]; midodrine 5 mg Oral tab 1 tabs 3 times per day [Active]; multivitamin Oral [Active]; [place] Oral [Active]; pantoprazole 40 mg Oral TbEC 1 tab once daily [Active]; Renvela 800 mg Oral tab 1 tab 3 times per day [Active]; sertraline 50 mg Oral tab once daily [Active]; silver sulfadiazine Topical [Active]; Zinc Sulfate Oral [Active]; - PMHx: 17:14 Atrial Fib; CHF; Diabetes - NIDDM; DIALYSIS Saturday, and saturdays; DVT; Edema la1 Lower leg; ESRD; Gout; Hypertension; polymyalgia rheumatica; - Immunization history:: Adult Immunizations up to date. - Social history:: Smoking status: Patient/guardian denies using tobacco. - Ebola Screening: : No symptoms or risks identified at this time. Screenin:40 Abuse screen: Denies threats or abuse. Denies injuries from another. Nutritional mg2 screening: No deficits noted. Tuberculosis screening: No symptoms or risk factors identified. Fall Risk IV access (20 points). Assessment: 17:39 General: Appears in no apparent distress. comfortable, Behavior is calm, cooperative. mg2 Pain: Denies pain. Neuro: Level of Consciousness is awake, alert, obeys commands, Oriented to person, place, time, situation. Cardiovascular: Capillary refill is > 3 seconds Patient's skin is warm and dry. Respiratory: Airway is patent Respiratory effort is even, unlabored, Respiratory pattern is regular, symmetrical. GI: No signs and/or symptoms were reported involving the gastrointestinal system. : No signs and/or symptoms were reported regarding the genitourinary system. EENT: No signs and/or symptoms were reported regarding the EENT system. Derm: Skin is intact, is healthy with good turgor, Skin is pink, warm \T\ dry. normal. Musculoskeletal: No signs and/or symptoms reported regarding the musculoskeletal system. 19:11 Reassessment: Patient appears in no apparent distress at this time. Patient and/or mg2 family updated on plan of care and expected duration. Pain level reassessed. Patient is alert, oriented x 3, equal unlabored respirations, skin warm/dry/pink. patient refused admission because he said he doesn't have any symptoms and he just wants to go. risk explained. ama form signed by patient himself. [facility] called and they said they will call back about the transportation. 20:30 Reassessment: Patient appears in no apparent distress at this time. Patient and/or cc3 family updated on plan of care and expected duration. Pain level reassessed. Patient is alert, oriented x 3, equal unlabored respirations, skin warm/dry/pink. RN Antoni said she spoke with [facility] and was told to wait for the transportation for the patient because it will be coming from [place], patient informed. 21:45 Reassessment: Patient appears in no apparent distress at this time. Patient and/or cc3 family updated on plan of care and expected duration. Pain level reassessed. Patient is alert, oriented x 3, equal unlabored respirations, skin warm/dry/pink. No IV cannula in situ. Patient taken for transport to [facility] and left ER vitally stable by wheelchair with the skilled nursing transport staff and left against medical advice. Vital Signs: 17:14 BP 106 / 60; Pulse 81; Resp 16; Temp 97.8; Pulse Ox 98% on R/A; Weight 104.33 kg; la1 Height 6 ft. 3 in. (190.50 cm); 18:20 BP 122 / 84; Pulse 84; Resp 18; Pulse Ox 100% on R/A; Pain 0/10; mg2 19:45 BP 117 / 62; Pulse 82; Resp 18 S; Pulse Ox 99% on R/A; cc3 20:40 BP 118 / 83; Pulse 83; Resp 17 S; Pulse Ox 99% on R/A; cc3 21:18 BP 120 / 76; Pulse 85; Resp 17 S; Pulse Ox 99% on R/A; cc3 17:14 Body Mass Index 28.75 (104.33 kg, 190.50 cm) la1 ED Course: 17:12 Patient arrived in ED. la1 17:14 Triage completed. la1 17:15 Arm band placed on left wrist. la1 17:17 Marquis Oneil NP is PHCP. pm1 17:17 Yasir Moran MD is Attending Physician. pm1 17:26 Antoni Samayoa, RN is Primary Nurse. mg2 17:41 No provider procedures requiring assistance completed. IV is patent, is intact, with mg2 fluids infusing freely, with good blood return, IV from day surgery.. 17:43 Patient has correct armband on for positive identification. lifestyle director on. Pulse mg2 ox on. NIBP on. 17:53 EKG done, by crime scene technician. reviewed by Marquis Oneil NP. sm3 18:23 XRAY Chest (1 view) In Process Unspecified. EDMS 19:13 IV discontinued, intact, bleeding controlled, No redness/swelling at site. Pressure mg2 dressing applied. Administered Medications: No medications were administered Outcome: 19:13 AMA AMA form signed mg2 19:13 Condition: stable 19:13 Discharge instructions given to patient, Instructed on discharge instructions, follow up and referral plans. Demonstrated understanding of instructions, follow-up care. 19:14 Patient left the ED. mg2 21:47 Patient left the ED. cc3 Signatures: Dispatcher [employer] EDMS Tino Howard, RN RN la1 Marquis Oneil NP TAKE UP SUPERVISOR pm1 Antoni Samayoa, RN RN mg2 Shanon Patel sm3 Caren Borden cc3 Corrections: (The following items were deleted from the chart) 22:19 21:45 Reassessment: Patient appears in no apparent distress at this time. Patient cc3 and/or family updated on plan of care and expected duration. Pain level reassessed. Patient is alert, oriented x 3, equal unlabored respirations, skin warm/dry/pink. Patient taken for transport to [facility] and left ER vitally stable by wheelchair with the skilled nursing transport staff. cc3 22:28 21:45 Reassessment: Patient appears in no apparent distress at this time. Patient cc3 and/or family updated on plan of care and expected duration. Pain level reassessed. Patient is alert, oriented x 3, equal unlabored respirations, skin warm/dry/pink. No IV cannula in situ. Patient taken for transport to [facility] and left ER vitally stable by wheelchair with the skilled nursing transport staff. cc3
--- NOTE | 2018-08-15 18:40 | EDPHYS ---
Physician Documentation [facility] Name: Nain Cartagena Jr Age: 67 yrs Sex: Male : 1950 Arrival Date: 08/15/2018 Time: 17:12 Bed 15 Private MD: ED Physician Yasir Moran HPI: 08/15 17:39 This 67 yrs old Black Male presents to ER via Wheelchair with complaints of Abnormal pm1 Lab Results. 17:39 The patient or guardian reports chest pain that is located primarily in the anterior pm1 chest wall, right. Onset: this morning, around 1000. The pain does not radiate. Associated signs and symptoms: The patient has no apparent associated signs or symptoms. The chest pain is described as a pressure. Duration: The patient or guardian reports a single episode, that is now resolved, that lasted 30 minute(s). Modifying factors: The symptoms are alleviated by nothing. the symptoms are aggravated by nothing. Severity of pain: in the emergency department the pain has resolved is a 0 / 10. Patient was getting outpatient blood transfusion this AM. Had right sided chest pressure without any other symptoms around 1000 per patient. Lasted 30 minutes and has been chest pressure/pain free since. No other symptoms, no sob, nausea, vomiting, or sweating. Received one unit of blood. Troponin drawn at 09:40 this AM was 0.24 and Hgb and Hct drawn at 16:03 were 7.6 and 22.3 respectively. Historical: - Allergies: 17:14 No Known Allergies; la1 - Home Meds: 18:23 amiodarone 200 mg Oral tab 1 tab once daily [Active]; aspirin 81 mg Oral chew 1 tab mg2 once daily [Active]; atorvastatin 40 mg Oral tab 1 tab once daily [Active]; Benadryl 25 mg Oral cap as needed [Active]; cinacalcet Oral [Active]; clonazepam 0.5 mg Oral tab 1 tab 2 times per day [Active]; cyanocobalamin (vitamin B-12) Oral [Active]; Folic Acid Oral [Active]; gabapentin Oral [Active]; linaclotide Oral [Active]; Melatonin 12 mg Oral at bedtime [Active]; metoprolol tartrate 25 mg Oral tab [Active]; midodrine 5 mg Oral tab 1 tabs 3 times per day [Active]; multivitamin Oral [Active]; [place] Oral [Active]; pantoprazole 40 mg Oral TbEC 1 tab once daily [Active]; Renvela 800 mg Oral tab 1 tab 3 times per day [Active]; sertraline 50 mg Oral tab once daily [Active]; silver sulfadiazine Topical [Active]; Zinc Sulfate Oral [Active]; - PMHx: 17:14 Atrial Fib; CHF; Diabetes - NIDDM; DIALYSIS Saturday, and saturdays; DVT; Edema la1 Lower leg; ESRD; Gout; Hypertension; polymyalgia rheumatica; - Immunization history:: Adult Immunizations up to date. - Social history:: Smoking status: Patient/guardian denies using tobacco. - Ebola Screening: : No symptoms or risks identified at this time. ROS: 17:50 Constitutional: Negative for fever, chills, and weight loss, Eyes: Negative for injury, pm1 pain, redness, and discharge, ENT: Negative for injury, pain, and discharge, Neck: Negative for injury, pain, and swelling. 17:50 Respiratory: Negative for shortness of breath, cough, wheezing, and pleuritic chest pain, Abdomen/GI: Negative for abdominal pain, nausea, vomiting, diarrhea, and constipation, Back: Negative for injury and pain, : Negative for injury, bleeding, discharge, and swelling, MS/Extremity: Negative for injury and deformity, Skin: Negative for injury, rash, and discoloration, Neuro: Negative for headache, weakness, numbness, tingling, and seizure. 17:50 Cardiovascular: Positive for chest pain, of the anterior aspect of right upper chest, Negative for orthopnea, palpitations. Exam: 17:50 Constitutional: This is a well developed, well nourished patient who is awake, alert, pm1 and in no acute distress. Head/Face: Normocephalic, atraumatic. Neck: Trachea midline, no thyromegaly or masses palpated, and no cervical lymphadenopathy. Supple, full range of motion without nuchal rigidity, or vertebral point tenderness. No Meningismus. Chest/axilla: Normal chest wall appearance and motion. Nontender with no deformity. No lesions are appreciated. Cardiovascular: Regular rate and rhythm with a normal S1 and S2. No gallops, murmurs, or rubs. No pulse deficits. Respiratory: Lungs have equal breath sounds bilaterally, clear to auscultation and percussion. No rales, rhonchi or wheezes noted. No increased work of breathing, no retractions or nasal flaring. Abdomen/GI: Soft, non-tender, with normal bowel sounds. No distension or tympany. No guarding or rebound. No evidence of tenderness throughout. Back: No spinal tenderness. No costovertebral tenderness. Full range of motion. Skin: Warm, dry with normal turgor. Normal color with no rashes, no lesions, and no evidence of cellulitis. MS/ Extremity: Pulses equal, no cyanosis. Neurovascular intact. Full, normal range of motion. 17:50 Neuro: Awake and alert, GCS 15, oriented to person, place, time, and situation. Motor strength 5/5 in all extremities. Sensory grossly intact Vital Signs: 17:14 BP 106 / 60; Pulse 81; Resp 16; Temp 97.8; Pulse Ox 98% on R/A; Weight 104.33 kg; la1 Height 6 ft. 3 in. (190.50 cm); 18:20 BP 122 / 84; Pulse 84; Resp 18; Pulse Ox 100% on R/A; Pain 0/10; mg2 19:45 BP 117 / 62; Pulse 82; Resp 18 S; Pulse Ox 99% on R/A; cc3 20:40 BP 118 / 83; Pulse 83; Resp 17 S; Pulse Ox 99% on R/A; cc3 21:18 BP 120 / 76; Pulse 85; Resp 17 S; Pulse Ox 99% on R/A; cc3 17:14 Body Mass Index 28.75 (104.33 kg, 190.50 cm) la1 MDM: 17:19 Patient medically screened. pm1 17:38 Data reviewed: vital signs. Data interpreted: Pulse oximetry: on room air is 98 %. pm1 Interpretation: normal. 18:35 Counseling: I had a detailed discussion with the patient and/or guardian regarding: the pm1 historical points, exam findings, and any diagnostic results supporting the discharge/admit diagnosis, lab results, radiology results, the need for further work-up and treatment in the hospital. 18:36 Refusal of service: The patient/guardian displays adequate decision making capability pm1 and despite a detailed discussion of alternatives, benefits, risks, and consequences refuses: Admission to the hospital for further work-up and treatment, Patient does not want to stay in the hospital. Says that he is not having chest pain and that he has been in the hospital for over 8 hours and wants to go home. 08/15 17:23 Order name: Basic Metabolic Panel; Complete Time: 18:14 pm1 08/15 17:23 Order name: CBC with Diff; Complete Time: 18:14 pm1 08/15 17:23 Order name: LFT's; Complete Time: 18:14 pm1 08/15 17:23 Order name: Magnesium; Complete Time: 18:14 pm1 08/15 17:23 Order name: NT PRO-BNP; Complete Time: 18:14 pm1 08/15 17:23 Order name: PT-INR; Complete Time: 17:51 pm1 08/15 17:23 Order name: Troponin (emerg Dept Use Only); Complete Time: 18:14 pm1 08/15 17:23 Order name: XRAY Chest (1 view); Complete Time: 18:41 pm1 08/15 17:23 Order name: EKG; Complete Time: 17:24 pm1 08/15 17:23 Order name: Cardiac monitoring; Complete Time: 17:39 pm1 08/15 17:23 Order name: EKG - Nurse/Tech; Complete Time: 17:39 pm1 08/15 17:23 Order name: IV Saline Lock; Complete Time: 17:39 pm1 08/15 17:23 Order name: Labs collected and sent; Complete Time: 17:39 pm1 08/15 17:46 Order name: CBC Smear Scan; Complete Time: 18:14 EDMS 08/15 17:23 Order name: O2 Per Protocol; Complete Time: 17:39 pm1 08/15 17:23 Order name: O2 Sat Monitoring; Complete Time: 17:39 pm1 Administered Medications: No medications were administered Disposition: 08/15/18 18:40 Patient has left against medical advice. Impression: Chest pain, unspecified, Anemia, unspecified, Elevated troponin, End stage renal disease, Volume overload. - Patients states they are going to Home. - Condition is Undetermined. - Discharge Instructions: Anemia, Nonspecific, Nonspecific Chest Pain. Follow up: Emergency Department; When: As needed; Reason: Worsening of condition, Continuance of care. Follow up: Private Physician; When: Upon discharge from the Emergency Department; Reason: Recheck today's complaints, Continuance of care, Re-evaluation by your physician. - Problem is new. - Symptoms have improved. Addendum: 08/24/2018 07:37 Co-signature as Attending Physician, Yasir Moran MD. r n Signatures: Dispatcher [employer] EDYasir Almaguer MD MD rn Attema, Tino RN RN la1 Marquis Oneil, STARCH FACTORY LABORER STARCH FACTORY LABORER pm1 Antoni Samayoa RN RN mg2 Caren Borden cc3 Corrections: (The following items were deleted from the chart) 08/15 18:42 18:40 08/15/2018 18:40 Patients has left against medical advice. Impression: Chest pm1 pain, unspecified; Anemia, unspecified. Patient states they are going to Home. Condition is Stable. Follow up: Emergency Department; When: As needed; Reason: Worsening of condition, Continuance of care. Follow up: Private Physician; When: Upon discharge from the Emergency Department; Reason: Recheck today's complaints, Continuance of care, Re-evaluation by your physician. Problem is new. Symptoms have improved. pm1 18:42 18:42 08/15/2018 18:40 Patients has left against medical advice. Impression: Chest pm1 pain, unspecified; Anemia, unspecified; Elevated troponin. Patient states they are going to Home. Condition is Stable. Follow up: Emergency Department; When: As needed; Reason: Worsening of condition, Continuance of care. Follow up: Private Physician; When: Upon discharge from the Emergency Department; Reason: Recheck today's complaints, Continuance of care, Re-evaluation by your physician. Problem is new. Symptoms have improved. pm1 18:45 18:42 08/15/2018 18:40 Patients has left against medical advice. Impression: Chest pm1 pain, unspecified; Anemia, unspecified; Elevated troponin. Patient states they are going to Home. Condition is Undetermined. Follow up: Emergency Department; When: As needed; Reason: Worsening of condition, Continuance of care. Follow up: Private Physician; When: Upon discharge from the Emergency Department; Reason: Recheck today's complaints, Continuance of care, Re-evaluation by your physician. Problem is new. Symptoms have improved. pm1 19:14 18:45 08/15/2018 18:40 Patients has left against medical advice. Impression: Chest mg2 pain, unspecified; Anemia, unspecified; Elevated troponin; End stage renal disease; Volume overload. Patient states they are going to Home. Condition is Undetermined. Follow up: Emergency Department; When: As needed; Reason: Worsening of condition, Continuance of care. Follow up: Private Physician; When: Upon discharge from the Emergency Department; Reason: Recheck today's complaints, Continuance of care, Re-evaluation by your physician. Problem is new. Symptoms have improved. pm1 21:47 19:14 08/15/2018 18:40 Patients has left against medical advice. Impression: Chest cc3 pain, unspecified; Anemia, unspecified; Elevated troponin; End stage renal disease; Volume overload. Patient states they are going to Home. Condition is Undetermined. Discharge Instructions: Anemia, Nonspecific, Nonspecific Chest Pain. Follow up: Emergency Department; When: As needed; Reason: Worsening of condition, Continuance of care. Follow up: Private Physician; When: Upon discharge from the Emergency Department; Reason: Recheck today's complaints, Continuance of care, Re-evaluation by your physician. Problem is new. Symptoms have improved. mg2
--- OUTSIDE RECORDS SUMMARY | 2018-08-15 19:07 | XMS REPORT | Clinical Summary ---
:1950 Author Organization [facility] Address [address] [place] [address] Care Team Providers Name Role Phone Asked, [...] INFLUENZA VACCINE 03/26/2018 Implants Implanted Type Area Director Of Catering Device Shelf Model / Identifier Expiration Serial / Date Lot Catheter Angio Facility Maintenance Manager Ii 5fr 65cm Selc Braidd Torque Say - [id number] Surgical N/A: N/A BSC PERIPHERAL [id number] / Implanted: 01/31/2017 (Quantity not on file) [...] MEDICARE PART A AND B xxxxxxxxxx Medicare [place], [place] BCBS BCBS CHOICE PPO/FEDERAL EMPL PPO xxxxxxxxxxxx PPO Advance Directives Patient has advance care planning documents on file. For more information, please contact:[place] [address]
[2018-08-15 19:22] VITALS: TEMP 97.8
[2018-08-15 22:03] VITALS: BP 117/62; O2SAT 99
== END 2018-08-15 21:47 | disposition left against medical advice (07) ==
LOC: ER 17:07
DX: D64.9 Anemia, unspecified (principal); R07.9 Chest pain, unspecified; E87.70 Fluid overload, unspecified; E11.22 Type 2 diabetes mellitus with diabetic chronic kidney disease; I12.0 Hypertensive chronic kidney disease with stage 5 chronic kidney disease or end stage renal disease; N18.6 End stage renal disease; Z79.82 Long term (current) use of aspirin; Z99.2 Dependence on renal dialysis; I48.91 Unspecified atrial fibrillation
CPT/HCPCS: 36415; 71045; 80048; 80076; 83735; 83880; 84484; 85025; 85610; 93005; 99284

== ENCOUNTER 2018-08-19 14:12 | Emergency (ER) | payer OTHER, BC ==
--- OUTSIDE RECORDS SUMMARY | 2018-08-19 14:15 | XMS REPORT | Clinical Summary ---
:1950 Author Organization [facility] Address [address] [place] [address] Care Team Providers Name Role Phone Asked, [...] INFLUENZA VACCINE 03/26/2018 Implants Implanted Type Area Horticultural Specialty Grower Field Device Shelf Model / Identifier Expiration Serial / Date Lot Catheter Angio Assessment Nurse Ii 5fr 65cm Selc Braidd Torque Say - [id number] Surgical N/A: N/A BSC PERIPHERAL [id number] / Implanted: 01/31/2017 (Quantity not on file) Implants; INTERVENTION / Expanders; VASCULAR REAGAN Extenders; Surgical Wires Abdominal Mesh Procedures Procedure Name Priority Date/Time Associated Diagnosis Comments TRANSFUSE RED BLOOD Routine 04/30/2018 5:35 PM CDT CELLS after 08/18/2017 Results Transfuse RBC (04/30/2018 5:35 PM CDT)Only the most recent of2 resultswithin the time period is included.after 08/18/2017 Insurance Payer Benefit Plan / Group Subscriber ID Type Phone Address MEDICARE MEDICARE PART A AND B xxxxxxxxxx Medicare [place], [place] BCBS BCBS CHOICE PPO/FEDERAL EMPL PPO xxxxxxxxxxxx PPO Advance Directives Patient has advance care planning documents on file. For more information, please contact:[place] [address]
--- NOTE | 2018-08-19 14:56 | ER ---
Nurse's Notes [facility] Department Name: Nain Cartagena Jr Age: 67 yrs Sex: Male : 1950 Arrival Date: 08/19/2018 Time: 14:14 Bed 15 Private MD: Diagnosis: Other specified arthritis, left knee Presentation: 08/19 14:13 Presenting complaint: EMS states: left knee pain since Saturday after pt heard a "pop". sv Xray was done and was negative for a fracture. Transition of care: patient was not received from another setting of care. Onset of symptoms was August 16, 2018. Risk Assessment: Do you want to hurt yourself or someone else? Patient reports no desire to harm self or others. Initial Sepsis Screen: Does the patient meet any 2 criteria? No. Patient's initial sepsis screen is negative. Does the patient have a suspected source of infection? No. Patient's initial sepsis screen is negative. Care prior to arrival: None. 14:13 Method Of Arrival: EMS: [facility] sv 14:13 Acuity: RADHA 4 sv Triage Assessment: 14:13 General: Appears in no apparent distress. uncomfortable, Behavior is calm, cooperative, sv appropriate for age. Pain: Complains of pain in left knee Pain currently is 6 out of 10 on a pain scale. Neuro: Level of Consciousness is awake, alert, obeys commands, Oriented to person, place, time, situation, Moves all extremities. Full function. Respiratory: Respiratory effort is even, unlabored, Respiratory pattern is regular, symmetrical. Derm: Skin is pink, warm \\T\\ dry. Musculoskeletal: Range of motion: intact in all extremities, Swelling present in left knee. Historical: - Allergies: 14:45 No Known Allergies; sv - PMHx: 14:45 Atrial Fib; CHF; Diabetes - NIDDM; DIALYSIS Saturday, and saturdays; DVT; Edema sv Lower leg; ESRD; Gout; Hypertension; polymyalgia rheumatica; - Immunization history:: Adult Immunizations up to date. - Social history:: Patient/guardian denies using alcohol, street drugs, The patient lives with family, Smoking status: Patient/guardian denies using tobacco. - Family history:: not pertinent. - Ebola Screening: : No symptoms or risks identified at this time. Screenin:13 Abuse screen: Denies threats or abuse. Denies injuries from another. Nutritional sv screening: No deficits noted. Tuberculosis screening: No symptoms or risk factors identified. Fall Risk None identified. Assessment: 15:32 Reassessment: [facility] called and informed pt is ready to be discharged. Nurse stated that she would call for transportation. 15:43 Reassessment: Transportation to be here in about 30 mins. sv 17:00 Reassessment: [facility] called back by myself and asked about ETA for transportation. sv Stated [facility] [employer] should be here soon. 17:58 Reassessment: [facility] to call [employer] to get an ETA. sv 18:08 Reassessment: Patient appears in no apparent distress at this time. Patient and/or sv family updated on plan of care and expected duration. Pain level reassessed. Patient is alert, oriented x 3, equal unlabored respirations, skin warm/dry/pink. Patient is alert/active/playful, equal unlabored respirations, skin warm/dry/pink. Patient states symptoms have improved. Patient states symptoms have not improved. Pt's son here to take pt back to [facility]. Vital Signs: 14:31 BP 100 / 48; Pulse 85; Resp 18; Temp 97.8(TE); Pulse Ox 100% ; mh5 16:17 BP 91 / 49; Pulse 88; Resp 18; Temp 97.9; Pulse Ox 98% ; mh5 17:51 BP 97 / 41; Pulse 87; Resp 20; Temp 97.9(TE); Pulse Ox 97% ; wj1 ED Course: 14:13 Arm band placed on. sv 14:14 Patient arrived in ED. sv 14:16 Ann Wong, BREANNE is Primary Nurse. sv 14:20 Siobhan Martinez MD is Attending Physician. ma2 14:20 Patient has correct armband on for positive identification. Bed in low position. Side sv rails up X2. Door closed. Head of bed elevated. 14:44 Triage completed. sv 18:08 No provider procedures requiring assistance completed. Patient did not have IV access sv during this emergency room visit. Administered Medications: 15:30 Drug: TORadol 60 mg Route: IM; Site: right gluteus; sv 18:09 Follow up: Response: No adverse reaction sv 15:31 Drug: SOLU-Medrol 125 mg Route: IM; Site: right gluteus; sv 18:09 Follow up: Response: No adverse reaction sv Outcome: 14:54 Discharge ordered by . winnie 15:43 Discharged to skilled nursing. Report called to [facility] 15:43 Condition: stable 15:43 Discharge instructions given to skilled nursing, Instructed on discharge instructions, follow up and referral plans. Demonstrated understanding of instructions, follow-up care. 18:10 Patient left the ED. sv Signatures: Ann Wong RN RN sv Martinez, Maria 5 Siobhan Martinez MD MD ma2 Johnson, Whitney wj1
--- NOTE | 2018-08-19 14:56 | EDPHYS ---
Physician Documentation [facility] Name: Nain Cartagena Jr Age: 67 yrs Sex: Male : 1950 Arrival Date: 08/19/2018 Time: 14:14 Bed 15 Private MD: ED Physician Siobhan Martinez HPI: 08/19 14:50 This 67 yrs old Black Male presents to ER via EMS with complaints of Knee Pain - left. ma2 14:50 The patient presents with pain. The complaints affect the left knee. Onset: The ma2 symptoms/episode began/occurred gradually, 3 week(s) ago. Associated signs and symptoms: Pertinent positives: swelling, Pertinent negatives fever, nausea, numbness, rash, warmth. Severity of symptoms: At their worst the symptoms were moderate, in the emergency department the symptoms are unchanged. The patient has experienced similar episodes in the past. has left knee OA scheduled for steroid injections.. here with worsening of the swelling no fever or redness. Historical: - Allergies: 14:45 No Known Allergies; sv - PMHx: 14:45 Atrial Fib; CHF; Diabetes - NIDDM; DIALYSIS Saturday, and saturdays; DVT; Edema sv Lower leg; ESRD; Gout; Hypertension; polymyalgia rheumatica; - Immunization history:: Adult Immunizations up to date. - Social history:: Patient/guardian denies using alcohol, street drugs, The patient lives with family, Smoking status: Patient/guardian denies using tobacco. - Family history:: not pertinent. - Ebola Screening: : No symptoms or risks identified at this time. ROS: 14:50 Constitutional: Negative for fever, chills, and weight loss, Cardiovascular: Negative ma2 for chest pain, palpitations, and edema, Respiratory: Negative for shortness of breath, cough, wheezing, and pleuritic chest pain, Abdomen/GI: Negative for abdominal pain, nausea, diarrhea, and constipation, Skin: Negative for injury, rash, and discoloration, Neuro: Negative for headache, weakness, numbness, tingling, and seizure, Psych: Negative for depression, anxiety, suicide ideation, homicidal ideation, and hallucinations. 14:50 MS/extremity: Positive for pain, Negative for abrasion, erythema, paresthesias, tingling, warmth. 14:50 All other systems are negative. Exam: 14:50 Constitutional: This is a well developed, well nourished patient who is awake, alert, ma2 and in no acute distress. Head/Face: Normocephalic, atraumatic. Chest/axilla: Normal chest wall appearance and motion. Nontender with no deformity. No lesions are appreciated. Cardiovascular: Regular rate and rhythm with a normal S1 and S2. No gallops, murmurs, or rubs. Normal PMI, no JVD. No pulse deficits. Respiratory: Lungs have equal breath sounds bilaterally, clear to auscultation and percussion. No rales, rhonchi or wheezes noted. No increased work of breathing, no retractions or nasal flaring. Abdomen/GI: Soft, non-tender, with normal bowel sounds. No distension or tympany. No guarding or rebound. No evidence of tenderness throughout. Back: No spinal tenderness. No costovertebral tenderness. Full range of motion. 14:50 Musculoskeletal/extremity: ROM: limited active range of motion, limited passive range of motion, left knee, no warmth or erythema , Circulation is intact in all extremities. Sensation intact. Vital Signs: 14:31 BP 100 / 48; Pulse 85; Resp 18; Temp 97.8(TE); Pulse Ox 100% ; mh5 16:17 BP 91 / 49; Pulse 88; Resp 18; Temp 97.9; Pulse Ox 98% ; mh5 17:51 BP 97 / 41; Pulse 87; Resp 20; Temp 97.9(TE); Pulse Ox 97% ; wj1 MDM: 14:20 Patient medically screened. ma2 14:50 Differential diagnosis: contusion, abrasion, tendonitis, likely osteoartheritis no ma2 septic knee, no emergent indication for aspiration. Data reviewed: vital signs, nurses notes. Counseling: I had a detailed discussion with the patient and/or guardian regarding: the historical points, exam findings, and any diagnostic results supporting the discharge/admit diagnosis, the presence of at least one elevated blood pressure reading (>120/80) during this emergency department visit, the need for outpatient follow up. Response to treatment: the patient's symptoms have markedly improved after treatment. Administered Medications: 15:30 Drug: TORadol 60 mg Route: IM; Site: right gluteus; sv 18:09 Follow up: Response: No adverse reaction sv 15:31 Drug: SOLU-Medrol 125 mg Route: IM; Site: right gluteus; sv 18:09 Follow up: Response: No adverse reaction sv Disposition: 08/19/18 14:54 Discharged to Home. Impression: Other specified arthritis, left knee. - Condition is Stable. - Discharge Instructions: Knee Pain. - Prescriptions for Prednisone 20 mg Oral Tablet - take 3 tablet by ORAL route once daily for 5 days; 15 tablet. Tylenol- Codeine #3 300-30 mg Oral Tablet - take 2 tablet by ORAL route every 6 hours As needed; 30 tablet. - Medication Reconciliation Form, Thank You Letter, Antibiotic Education, Prescription Opioid Use form. - Follow up: Private Physician; When: Tomorrow; Reason: Continuance of care. Signatures: Ann Wong RN RN Siobhan Martinez MD MD ma2 Corrections: (The following items were deleted from the chart) 18:10 14:54 08/19/2018 14:54 Discharged to Home. Impression: Other specified arthritis, left sv knee. Condition is Stable. Forms are Medication Reconciliation Form, Thank You Letter, Antibiotic Education, Prescription Opioid Use. Follow up: Private Physician; When: Tomorrow; Reason: Continuance of care. ma2
[2018-08-19] MEDS ORDERED: METHYLPREDNISOLONE 125 MG INJ ONE (15:24)
[2018-08-19] MEDS ORDERED: KETOROLAC 30 MG/ML INJ ONE (15:24)
[2018-08-19 18:37] VITALS: BP 97/41; TEMP 97.9; O2SAT 97
== END 2018-08-19 18:10 | disposition home or self-care (01) ==
LOC: ER 14:12
DX: M13.862 Other specified arthritis, left knee (principal); I12.0 Hypertensive chronic kidney disease with stage 5 chronic kidney disease or end stage renal disease; E11.22 Type 2 diabetes mellitus with diabetic chronic kidney disease; N18.6 End stage renal disease; Z99.2 Dependence on renal dialysis
CPT/HCPCS: 96372; 99283; J2930